=== PATIENT | male | born 1965 | race Caucasian/White ===

== ENCOUNTER → 2018-03-06 14:03 | Outpatient (CLI) | payer OTHER, SELFPAY ==
[2018-03-06 14:45] LABS: Blood Urea Nitrogen 16 mg/dL (7-18); Creatinine,Serum 1.01 mg/dL (0.70-1.30); Estimated Glomerular Filt Rate 78 ml/min (>60); GFR (African American) 95 ML/MIN (>60)
--- NOTE | 2018-03-06 14:57 | CT_ITS ---
CT abdomen w con CLINICAL INDICATION: Follow-up of abdominal mass, left upper quadrant mass ITS.REASON: ABDOMINAL MASS ORDERING PHYSICIAN: Virgilio Jenkins MD PATIENT AGE: 52 years COMPARISON: None TECHNIQUE: Axial images obtained with sagittal and coronal reformats. All CT scans at the facility use one or more dose reduction, viz: automated exposure control; ma/kV adjustment per patient size (including targeted exams where dose is matched to indication; i.e. head); or iterative reconstruction technique. PROCEDURE: Oral Contrast: None IV Contrast: 75 mL's of Isovue-370. FINDINGS: Lung bases are clear. The liver, gallbladder, adrenal glands, spleen, and pancreas have an unremarkable appearance. There is a small triangular-shaped soft tissue density once again noted medial to the medial aspect of the spleen which is somewhat less bulky when compared to the previous exam with a small fat density within the central aspect of the abnormality. No new nodules or masses are evident. Nonobstructing 2 mm stones lower and upper pole pole left kidney. Bilateral renal cysts are present. Small lymph nodes are present in the retroperitoneum nonspecific and unchanged. No intestinal obstruction or free air. No acute bony anomalies. IMPRESSION: 1. Soft tissue density in the left upper quadrant medial to the spleen is somewhat less apparent compared to the previous exam and may be due to a small area of extra medullary hematopoiesis or small lymph node. Consider continued one-year follow-up. 2. Nonobstructing left nephrolithiasis
== END ==
PROVIDERS: Family Provider Family Medicine; PCP Family Medicine; Visit Provider Family Medicine
DX: R19.02 Left upper quadrant abdominal swelling, mass and lump (principal)
CPT/HCPCS: 36415; 74160; 82565; 84520; Q9967

== ENCOUNTER → 2018-05-22 10:52 | Outpatient (CLI) | payer OTHER, SELFPAY ==
[2018-05-22 12:10] LABS: Basophils # 0.1 K/mm3 (0-0.2); Basophils % 0.8 % (0.1-2.0); Eosinophils # 0.2 K/mm3 (0.0-0.4); Eosinophils % 2.6 % (0.1-12.0); Hematocrit 52.8 % (42.0-52.0); Lymphocytes # 2.3 K/mm3 (0.7-4.5); Lymphocytes % 30.6 K/mm3 (10-50); Mean Corpuscular HGB Conc 32.3 g/dL (31.8-35.4); Mean Corpuscular Hemoglobin 27.4 pg (27.0-31.2); Mean Platelet Volume 8.3 fl (7.4-10.4); Monocytes # 0.5 K/mm3 (0.1-1.0); Monocytes % 6.4 % (1.7-9.3); Neutrophils # 4.5 K/mm3 (1.8-7.8); Neutrophils % 59.5 % (37.0-80.0); Platelet Count 273 K/mm3 (142-424); Red Blood Count 6.21 M/mm3 (4.60-6.20); Red Cell Distribution Width 12.2 % (11.5-17.5); White Blood Count 7.5 K/mm3 (4.8-10.8)
[2018-05-22 12:15] LABS: Hemoglobin A1C 7.4 % (0.0-7.0)
[2018-05-22 12:38] LABS: Alanine Aminotransferase 47 U/L (12-78); Albumin Level 4.3 gm/dL (3.4-5.0); Albumin/Globulin Ratio 1.6 (1.1-1.8); Alkaline Phosphatase 95 U/L (46-116); Anion Gap 18.4 mEq/L (5-15); Aspartate Amino Transferase 23 U/L (15-37); Bilirubin,Total 0.7 mg/dL (0.2-1.0); Blood Urea Nitrogen 15 mg/dL (7-18); Calcium 9.1 mg/dL (8.5-10.1); Carbon Dioxide 22 mmol/L (21.0-32.0); Chloride 105 mmol/L (98-107); Creatinine,Serum 0.96 mg/dL (0.70-1.30); Estimated Glomerular Filt Rate 83 ml/min (>60); GFR (African American) 100 ML/MIN (>60); Globulin 2.7 gm/dl (1.3-3.2); Glucose 216 mg/dL (74-106); Potassium 4.4 mmoL/L (3.5-5.1); Sodium 141 mmol/L (136-145); Troponin I < 0.02 ng/ml (0.00-0.06)
== END ==
PROVIDERS: Visit Provider Nurse Practitioner Family
DX: R07.89 Other chest pain (principal)
CPT/HCPCS: 36415; 80053; 83036; 84484; 85025; 93005

== ENCOUNTER → 2018-05-24 17:40 | Outpatient (CLI) | payer OTHER, SELFPAY | PROVIDERS: Visit Provider Family Medicine | DX: I48.0 Paroxysmal atrial fibrillation (principal) | CPT/HCPCS: 93225; 93226 ==

== ENCOUNTER → 2018-11-29 18:47 | Outpatient (CLI) | payer OTHER, SELFPAY ==
[2018-11-29 20:43] LABS: Alanine Aminotransferase 46 U/L (12-78); Albumin Level 4.4 gm/dL (3.4-5.0); Albumin/Globulin Ratio 1.7 (1.1-1.8); Alkaline Phosphatase 129 U/L (46-116); Aspartate Amino Transferase 16 U/L (15-37); Bilirubin,Total 0.5 mg/dL (0.2-1.0); Blood Urea Nitrogen 15 mg/dL (7-18); Calcium 9.4 mg/dL (8.5-10.1); Carbon Dioxide 26 mmol/L (21.0-32.0); Chloride 98 mmol/L (98-107); Chol/HDL Ratio 4.5 (1-3.5); Cholesterol 161 mg/dL (140-200); Creatinine,Serum 1.14 mg/dL (0.70-1.30); Estimated Glomerular Filt Rate 68 ml/min (>60); GFR (African American) 82 ML/MIN (>60); Globulin 2.6 gm/dl (1.3-3.2); Glucose 263 mg/dL (74-106); HDL Cholesterol 36 mg/dL (27-67); LDL Cholesterol 53 mg/dL (0-130); Sodium 137 mmol/L (136-145); Thyroid Stimulating Hormone 2.74 uIU/ml (0.358-3.740); Triglycerides 359 mg/dL (30-200); VLDL Cholesterol 72 mg/dL (0-40)
[2018-11-29 21:33] LABS: Hemoglobin A1C 8.9 % (0.0-7.0)
[2018-11-30 15:06] LABS: Prostate Specific Ag Screen 0.3 ng/mL (0.0-4.0)
== END ==
PROVIDERS: PCP Family Medicine; Visit Provider Family Medicine
DX: Z00.00 Encounter for general adult medical examination without abnormal findings (principal); Z12.5 Encounter for screening for malignant neoplasm of prostate; E11.9 Type 2 diabetes mellitus without complications
CPT/HCPCS: 36415; 80053; 80061; 83036; 84153; 84443; G0103

== ENCOUNTER → 2019-08-22 17:12 | Outpatient (CLI) | payer OTHER, SELFPAY ==
[2019-08-22 17:15] LABS: Adenovirus F 40/41, stool Not Detected (NotDetected); Astrovirus Not Detected (NotDetected); Clostridium Difficile A/B, PCR Not Detected (NotDetected); Cryptosporidium Not Detected (NotDetected); Cyclospora Cayetanesis Not Detected (NotDetected); Entamoeba histolytica Not Detected (NotDetected); Enteroaggregative E coli Not Detected (NotDetected); Enterotoxigenic E coli Not Detected (NotDetected); Giardia lamblia Not Detected (NotDetected); Norovirus Not Detected (NotDetected); Plesimonas Shigalloides, PCR Not Detected (NotDetected); Rotavirus A Not Detected (NotDetected); Salmonella, PCR Not Detected (NotDetected); Sapovirus Not Detected (NotDetected); Shiga-like toxin E coli Not Detected (NotDetected); Shigella Enterovasive E coli Not Detected (NotDetected); Vibrio Cholerae Not Detected (NotDetected); Vibrio, PCR Not Detected (NotDetected); Yersinia Entercolitica, PCR Not Detected (NotDetected)
[2019-08-22 22:19] LABS: Campylobacter Detected (NotDetected)
[2019-08-22 22:20] LABS: Enteropathogenic E coli Detected (NotDetected)
== END ==
LOC: LAB 17:13 → LAB.DROPOF 17:14
PROVIDERS: Visit Provider Family Medicine
DX: R19.7 Diarrhea, unspecified (principal); A04.72 Enterocolitis due to Clostridium difficile, not specified as recurrent; A04.0 Enteropathogenic Escherichia coli infection
CPT/HCPCS: 87507

== ENCOUNTER → 2020-07-03 14:36 | Outpatient (CLI) | payer OTHER, SELFPAY ==
--- NOTE | 2020-07-03 14:42 | XR_ITS ---
PROCEDURE: XR CERVICAL SPINE 2V CLINICAL INDICATION: CERVICAL DISC DISEASE Neck pain and numbness down the arms COMPARISON: CR [id number] CERVICAL SPINE-2 TO 3 VIEWS from 12/31/2015 FINDINGS: There is slight reversal of the cervical lordosis which could be due to patient positioning or muscle spasm. Mild multilevel degenerative disc disease is present at C2-C3 C3-C4 C4-C5 and C5-C6. Posterior soft tissue calcification noted at the C6 level. Carotid artery calcification is noted on the left. No lytic or blastic change. No acute fracture or dislocation. IMPRESSION: Cervical spondylosis with reversal of lordosis. The degenerative disc disease has progressed since 12/31/2015 Carotid artery calcification Dictated b Андрей Gutierrez MD 07/03/2020 15:06 Андрей Gutierrez MD in [place] 07/03/2020 15:06
== END ==
PROVIDERS: PCP Family Medicine; Visit Provider Physician Assistant
DX: M50.90 Cervical disc disorder, unspecified, unspecified cervical region (principal)
CPT/HCPCS: 72040

== ENCOUNTER 2020-07-07 17:59 | Emergency (ER) | payer OTHER, SELFPAY ==
[2020-07-07 18:20] VITALS: BP 145/88; PULSE 90; RESP 14; TEMP 36.9; O2SAT 96; BMI 30.3
--- NOTE | 2020-07-07 18:37 | HMH.EDUTC ---
[facility] [place] Disposition Clinical Impression: Otitis media Qualifiers: Otitis media type: suppurative Chronicity: acute Laterality: right Recurrence: non-recurrent Spontaneous tympanic membrane rupture: with spontaneous rupture Qualified Code(s): H66.011 - Acute suppurative otitis media with spontaneous rupture of ear drum, right ear Disposition: Home, Self-Care Condition on Discharge: Good Instructions: Middle Ear Infection Additional Instructions: Continue the antibiotics that you are on. Start the ear drops for your right ear. Follow up with your primary care provider. GO TO THE ER FOR ANY WORSENING SYMPTOMS OR CONCERNS Prescriptions: Ciprofloxacin HCl/Dexameth [Ciprodex Otic Suspension] 2 drops EAR-RIGHT BID #1 bottle Transmission Status: Received by [id number] Referrals: Jory Spicer PA [Primary Care Provider] - Time of Disposition: 18:45 Medical Decision Making - Medical Records Medical records reviewed: No: I reviewed the patient's medical records. - Brock Inquiry Pt receiving controlled substance: No Vital Signs: 07/07/20 18:20 07/07/20 18:48 Temperature 98.4 F 98.4 F Temperature Source Oral Pulse Rate 90 Pulse Rate [Right Brachial] 90 Respiratory Rate 14 14 Blood Pressure 145/88 H Blood Pressure [Right Arm] 145/88 H Blood Pressure Mean [Right Arm] 107 Blood Pressure Source [Right Arm] Automatic Cuff Blood Pressure Position [Right Arm] Sitting 02 Sat by Pulse Oximetry 96 Oxygen Delivery Method Room Air [facility] [place] HPI - General Stated complaint: R Ear pain Time Seen by Provider: 07/07/20 18:37 Mode of Arrival: Ambulatory Source of Information: Patient Limitations: No Limitations Description of Symptoms (Recalled from Triage Doc. by RN): PATIENT C/O RIGHT EAR PAIN AND DRAINAGE THAT STARTED TUESDAY HEENT Symptoms (Recalled from RN notes): Yes Resp Symptoms (Recalled from RN notes): No Skin Symptoms (Recalled from RN notes): No MS Symptoms (Recalled from RN notes): No Functional Status (Recalled from RN notes): WNL - History of Present Illness Provider Complaint: He is taking cefdinir for the past 4 days for an ear infection. He states that yesterday day he felt his rigth ear pop, then he started having a lot of drainage from the ear. He thinks that the ear drum may have busted. He is hearing ok with the ear. - Related Data Home Medications Medication Instructions Recorded Confirmed Aspirin [Aspir 81] 81 mg PO DAILY 05/28/18 09/30/18 Dapagliflozin Propanediol [Farxiga] 10 mg PO DAILY 05/28/18 09/30/18 Fenofibrate 160 mg PO DAILY 05/28/18 09/30/18 Ferrous Sulfate 325 mg PO DAILY 05/28/18 09/30/18 Flecainide Acetate [Tambocor 50mg 50 mg PO BID 05/28/18 09/30/18 tablet] Isosorbide Mononitrate [Imdur 30mg 30 mg PO DAILY 05/28/18 09/30/18 ER tablet] Krill/Om-3/Dha/Epa/Phospho/Ast 1 each PO DAILY 05/28/18 09/30/18 [Megared [place]-3 Krill Oil Sfgl] Metformin HCl [Glucophage 500mg 1,000 mg PO BID 05/28/18 09/30/18 Tablet] Omeprazole [Omeprazole 20mg 20 mg PO DAILY 05/28/18 09/30/18 Capsule] Rivaroxaban [Xarelto] 20 mg PO DAILY 05/28/18 09/30/18 Rosuvastatin Calcium [Crestor] 1 mg PO DAILY 05/28/18 09/30/18 dilTIAZem HCL [Diltiazem 24Hr ER] 120 mg PO DAILY 05/28/18 09/30/18 lisinopriL [Lisinopril 5mg Tablet] 5 mg PO DAILY 05/28/18 09/30/18 Previous Rx's Medication Instructions Recorded benzonatate 100 mg capsule 100 mg PO TID PRN #30 cap 09/30/18 loratadine 10 mg tablet 10 mg PO DAILY #30 tab 09/30/18 Ciprofloxacin HCl/Dexameth 2 drops EAR-RIGHT BID #1 bottle 07/07/20 [Ciprodex Otic Suspension] Allergies Allergy/AdvReac Type Severity Reaction Status Date / Time codeine Allergy Unknown Verified 03/25/19 16:55 penicillin V Allergy Unknown Verified 03/25/19 16:55 Penicillins Allergy Unknown Verified 03/25/19 16:55 meperidine [From Demerol] Allergy Verified 03/25/19 16:55 - Worker's Comp Is this a Worker's Comp case?: No [facility]
[2020-07-07 18:48] VITALS: BP 145/88; PULSE 90; RESP 14; TEMP 36.9; O2SAT 96
== END 2020-07-07 18:50 | disposition home or self-care (01) ==
PROVIDERS: Emergency Provider Nurse Practitioner Family; PCP Physician Assistant
DX: H66.011 Acute suppurative otitis media with spontaneous rupture of ear drum, right ear (principal); I10 Essential (primary) hypertension; I48.20 Chronic atrial fibrillation, unspecified; I25.2 Old myocardial infarction; E78.5 Hyperlipidemia, unspecified; E11.9 Type 2 diabetes mellitus without complications; Z79.899 Other long term (current) drug therapy; Z88.0 Allergy status to penicillin; Z88.5 Allergy status to narcotic agent
CPT/HCPCS: 99201

== ENCOUNTER → 2020-07-11 09:14 | Outpatient (CLI) | payer OTHER, SELFPAY ==
--- NOTE | 2020-07-11 09:21 | MR_ITS ---
PROCEDURE: MR CERVICAL SPINE WO CON CLINICAL INDICATION: CERVICAL DISC DISEASE NECK PAIN WITH PAIN IN LT SIDE OF CHEST AND LT SHOULDER. SYMPTOMS XYRS. 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 3-D MIP and myelographic images are also rendered and reviewed FINDINGS: Normal alignment. Craniocervical junction has an unremarkable. C2-C3: Unremarkable. C3-C4: Left-sided uncovertebral and facet hypertrophy with mild left lateral recess and foraminal narrowing. There is mild right foraminal narrowing. Not significantly changed C4-C5: There is some posterior ridging of the endplates with bulging disc and uncovertebral hypertrophy with narrowing of the canal. Mild bilateral lateral recess and uncovertebral hypertrophy slightly greater on the left compared to the right. These findings are slightly more prominent than when compared to the previous exam C5-C6: Mild bilateral foraminal narrowing. C6-C7: Unremarkable. C7-T1: Unremarkable IMPRESSION: 1. C3-C4: Left-sided uncovertebral and facet hypertrophy with mild left lateral recess and foraminal narrowing. There is mild right foraminal narrowing. Not significantly changed 2. C4-C5: There is some posterior ridging of the endplates with bulging disc and uncovertebral hypertrophy with narrowing of the canal. Mild bilateral lateral recess and uncovertebral hypertrophy slightly greater on the left compared to the right. These findings are slightly more prominent than when compared to the previous exam 3. No extruded herniated disc. Dictated by: Андрей Gutierrez MD 07/12/2020 08:38 Андрей Gutierrez MD in [place] 07/12/2020 08:38
--- NOTE | 2020-07-11 10:01 | CA_ITS ---
APPROVED REPORT Fabric Cutter: VINOD Laterality: Bilateral Risk Factors Hypertension: Hyperlipidemia Diabetes Doppler Spectral Velocity Analysis ECA (R) 137.10/16.30 cm/s ECA (L) 128.30/7.50 cm/s dICA (R) 90.80/34.30 cm/s dICA (L) 62.90/21.70 cm/s Alyx (R) 90.00/33.40 cm/s Alyx (L) 69.60/26.90 cm/s pICA (R) 71.10/24.00 cm/s pICA (L) 89.60/32.70 cm/s dCCA (R) 92.80/15.70 cm/s dCCA (L) 97.30/24.10 cm/s pCCA (R) 110.70/18.70 cm/s pCCA (L) 120.40/22.20 cm/s Vert (R) 39.80/10.90 cm/s Vert (L) 52.70/16.70 cm/s ICA/CCA 0.98 ICA/CCA 0.92 Findings Duplex evaluation demonstrates no evidence of hemodynamically significant stenosis of the right Internal Carotid Artery. Duplex evaluation demonstrates stenosis of the left proximal internal carotid artery <20%. Conclusion Duplex evaluation demonstrates no evidence of hemodynamically significant stenosis of the right Internal Carotid Artery. Duplex evaluation demonstrates stenosis of the left proximal internal carotid artery <20%. Electronically signed by : Андрей Gutierrez MD 07/11/2020 16:39:04
== END ==
PROVIDERS: PCP Physician Assistant; Visit Provider Physician Assistant
DX: M50.00 Cervical disc disorder with myelopathy, unspecified cervical region (principal)
CPT/HCPCS: 72141; 76376; 93880

== ENCOUNTER 2020-09-14 16:36 | Emergency (ER) | payer OTHER, MEDICAID, SELFPAY ==
[2020-09-14 16:37] VITALS: BP 142/71; PULSE 89; RESP 17; TEMP 36.6; O2SAT 98; BMI 31.1
--- NOTE | 2020-09-14 16:54 | HMH.EDGENADL ---
ED Disposition Clinical Impression: Subconjunctival bleed Qualifiers: Laterality: right Qualified Code(s): H11.31 - Conjunctival hemorrhage, right eye Disposition: Home, Self-Care Condition on Discharge: Good Additional Instructions: Please call your doctor tomorrow for further management. Keep taking your medications as prescribed. Avoid any additional nonsteroidal anti-inflammatory drugs and try to avoid any maneuvers such as sneezing and coughing that would increase intraocular pressure and could potentially make bleeding worse. Ophthalmology referral also provided if bleeding worsens. If any immediate changes to vision, worsening bleeding overnight, increased pain, or other concerning symptoms please immediately report back to our emergency department. [facility] phone number [phone] Referrals: Virgilio Jenkins MD [Primary Care Provider] - - Critical Care Critical Care Time: No Attestation: On 09/14/20, the high probability of a clinically significant, sudden or life threatening deterioration of the following system(s) required my full and direct attention, intervention and personal management. The time I documented below is in addition to time spent performing reported procedures but includes the following listed in this critical care notation. Medical Decision Making - Medical Records Medical records reviewed: Yes: I reviewed the patient's medical records. - Brock Inquiry Pt receiving controlled substance: No Vital Signs: 09/14/20 16:37 Temperature 97.9 F Temperature Source Temporal Artery Scan Pulse Rate [Right] 89 Respiratory Rate 17 Blood Pressure [Right Arm] 142/71 H Blood Pressure Mean [Right Arm] 94 02 Sat by Pulse Oximetry 98 Medical Decision Narrative: Patient presents with subconjunctival hemorrhage noted to right eye. No foreign body appreciated on lid eversion. No corneal abrasion/ulceration on fluorescein exam. No gross changes in visual acuity or visual field deficits. The bleeding does not cross the limbus. No pain on extraocular movements or overlying cellulitis. At this time, tetracaine drops given and he has had resolution of the gritty sensation. I do believe his subconjunctival hemorrhage is complicated by his Xarelto use but at this time I do not believe there is indication to hold his Xarelto. I instructed him to call his PCP tomorrow for further instructions and he may need follow-up with ophthalmology if this hemorrhage expands. He agrees. He will be discharged with instructions to continue taking his direct oral anticoagulant without any nonsteroidal anti-inflammatory drugs and to try to avoid any sneezing or coughing or any other maneuvers that will increase ocular pressure and make bleeding worse. Patient agrees. Patient will call his doctor first thing the morning. He will immediate return to our emergency department if worsening bleeding, vision changes, increased pain, other new concerning symptoms. Assessment: Subconjunctival hemorrhage, right eye Coronary disease on Xarelto Disposition: Home with PCP follow-up and ophthalmology referral if bleeding expands General Adult HPI - General Chief complaint: Eye Problems Stated complaint: AO 1016 FB in R Eye Time Seen by Provider: 09/14/20 16:54 Mode of Arrival: Ambulatory Limitations: No Limitations Description of Symptoms (Recalled from ER Triage Doc. by RN): possible foriegn body in the right eye - History of Present Illness HPI narrative: Patient 54-year-old male history of coronary disease on Xarelto presenting with right eye discoloration. Patient states Tuesday night he was taking a blanket down from his attic and felt something get into his right eye. He states he had an gritty sensation when he blinks ever since. He noted some bleeding to the right outer aspect of his eye yesterday night which is worsened this morning. He denies any vision changes, pain outside of that gritty
[2020-09-14 17:17] VITALS: BP 124/87; PULSE 87; RESP 18; TEMP 36.8; O2SAT 95
== END 2020-09-14 17:18 | disposition home or self-care (01) ==
PROVIDERS: Emergency Provider Emergency Medicine; PCP Family Medicine
DX: H11.31 Conjunctival hemorrhage, right eye (principal); E11.9 Type 2 diabetes mellitus without complications; I10 Essential (primary) hypertension; Z88.0 Allergy status to penicillin; Z88.5 Allergy status to narcotic agent; Z79.899 Other long term (current) drug therapy
CPT/HCPCS: 99281

== ENCOUNTER → 2020-09-29 14:22 | Outpatient (CLI) | payer OTHER, MEDICAID, SELFPAY ==
[2020-09-29 16:26] LABS: Blood Urea Nitrogen 19 mg/dl (9-20); Estimated Glomerular Filt Rate 78 ml/min (>60); GFR (African American) 95 ML/MIN (>60)
== END ==
PROVIDERS: Visit Provider Family Medicine
DX: R42 Dizziness and giddiness (principal)
CPT/HCPCS: 36415; 82565; 84520

== ENCOUNTER → 2020-09-30 14:34 | Outpatient (CLI) | payer OTHER, MEDICAID, SELFPAY ==
--- NOTE | 2020-09-30 14:38 | MR_ITS ---
PROCEDURE: MR HEAD/BRAIN WO/W CON CLINICAL INDICATION: VERTIGO Vertigo with nausea COMPARISON: No exams were available for comparison TECHNIQUE: Routine multiplanar multi echo sequences are performed without gadolinium enhancement. FINDINGS: No midline shift, mass effect, intracranial hemorrhage, or hydrocephalus is evident. The cerebellopontine angles, cerebellum, and brainstem have an unremarkable appearance. No evidence of acute infarction. Unremarkable white matter signal intensity. No enhancing lesions are evident. The hippocampal gyri are unremarkable in the temporal horns are symmetric. The pituitary, optic chiasm, corpus callosum, blanca, and craniocervical junction have an unremarkable appearance. No mastoid effusion or sinus air-fluid level. IMPRESSION: Negative MRI of the brain without and with contrast. No acute intracranial findings. Dictated by: Андрей Gutierrez MD 10/01/2020 13:52 Андрей Gutierrez MD in [place] 10/01/2020 13:52
== END ==
PROVIDERS: PCP Family Medicine; Visit Provider Family Medicine
DX: R42 Dizziness and giddiness (principal)
CPT/HCPCS: 70553; A9576

== ENCOUNTER → 2020-10-29 10:08 | Outpatient (CLI) | payer OTHER, MEDICAID, SELFPAY ==
--- NOTE | 2020-10-29 | CA_ITS ---
APPROVED REPORT Left Upper Extremity Venous Study for DVT. Internal Wholesaler: Lindsey Naidu RVT Indications Upper Extremity Pain: Left KNOT LT WRIST S/P LIFTING A GUN SAFE, BRUISING Risk Factors Trauma Medications PT ON XARELTO Vein Imaging IJV (L): Normal phasic flow is seen. Normal flow, augmentation and compression is seen. No evidence of Deep Vein Thrombosis. No abnormalities are demonstrated. SCV (L): Normal phasic flow is seen. Normal flow, augmentation and compression is seen. No evidence of Deep Vein Thrombosis. No abnormalities are demonstrated. Axillary (L): Normal phasic flow is seen. Normal flow, augmentation and compression is seen. No evidence of Deep Vein Thrombosis. No abnormalities are demonstrated. Brachial (L): Normal phasic flow is seen. Normal flow, augmentation and compression is seen. No evidence of Deep Vein Thrombosis. No abnormalities are demonstrated. Basilic (L): Compressible Cephalic (L): Compressible Radial (L): Compressible Ulnar (L): Compressible Findings Study suggests no evidence of DVT of the left upper extremity. Study suggests no evidence of SVT of the left upper extremity. 1.7 x 0.9 cm cystic lesion seen in area of palpable knot ,probable hematoma. Conclusion Study suggests no evidence of DVT of the left upper extremity. Study suggests no evidence of SVT of the left upper extremity. 1.7 x 0.9 cm cystic lesion seen in area of palpable knot ,probable hematoma. Critical Notification Physician Notified Date: 10/29/2020 Time: 11:19 Physician Name: Leighann Campa Electronically signed by : Андрей Gutierrez MD 10/29/2020 19:10:14
== END ==
PROVIDERS: PCP Nurse Practitioner Family; Visit Provider Nurse Practitioner Family
DX: R60.0 Localized edema (principal); M79.602 Pain in left arm
CPT/HCPCS: 93971

== ENCOUNTER 2020-11-23 11:03 | Emergency (ER) | payer OTHER, MEDICAID, SELFPAY ==
[2020-11-23 11:15] VITALS: BP 126/74; PULSE 79; RESP 19; TEMP 37; O2SAT 99; BMI 30.3
--- NOTE | 2020-11-23 11:18 | HMH.EDUTC ---
[facility] [place] Clinical Impression: Sinusitis Qualifiers: Sinusitis location: maxillary Chronicity: acute Recurrence: non-recurrent Qualified Code(s): J01.00 - Acute maxillary sinusitis, unspecified Disposition: Home, Self-Care Condition on Discharge: Good Instructions: DI for Sinusitis Additional Instructions: Follow up with Dr Jenkins if not improving Return for COVID19 testing if further symptoms develop Prescriptions: predniSONE [Prednisone 20mg Tab] 20 mg PO BID 5 Days #10 tab Transmission Status: Pending to [facility] Azithromycin [Z-Daryl 250mg Tab] 250 mg PO DIRECTED #6 tab Transmission Status: Pending to [facility] Referrals: Virgilio Jenkins MD [Primary Care Provider] - Time of Disposition: 11:24 Medical Decision Making - Brock Inquiry Pt receiving controlled substance: No [facility] [place] HPI - General Stated complaint: sinus infection Time Seen by Provider: 11/23/20 11:18 - History of Present Illness Provider Complaint: Sinus pain, pressure, itchy ears, scratchy throat X 2 days. No fever. No body aches or chills. No vomiting or diarrhea. No cough. No loss of taste or smell. No known exposure to COVID19. Onset (ago): day(s) (2) Location: face Quality: aching Relieving factors: none Exacerbating factors: none Associated symptoms: denies other symptoms Treatments prior to arrival: none - Related Data Home Medications Medication Instructions Recorded Confirmed Aspirin [Aspir 81] 81 mg PO DAILY 05/28/18 09/30/18 Dapagliflozin Propanediol [Farxiga] 10 mg PO DAILY 05/28/18 09/30/18 Fenofibrate 160 mg PO DAILY 05/28/18 09/30/18 Ferrous Sulfate 325 mg PO DAILY 05/28/18 09/30/18 Flecainide Acetate [Tambocor 50mg 50 mg PO BID 05/28/18 09/30/18 tablet] Isosorbide Mononitrate [Imdur 30mg 30 mg PO DAILY 05/28/18 09/30/18 ER tablet] Krill/Om-3/Dha/Epa/Phospho/Ast 1 each PO DAILY 05/28/18 09/30/18 [Megared [place]-3 Krill Oil Sfgl] Metformin HCl [Glucophage 500mg 1,000 mg PO BID 05/28/18 09/30/18 Tablet] Omeprazole [Omeprazole 20mg 20 mg PO DAILY 05/28/18 09/30/18 Capsule] Rivaroxaban [Xarelto] 20 mg PO DAILY 05/28/18 09/30/18 Rosuvastatin Calcium [Crestor] 1 mg PO DAILY 05/28/18 09/30/18 dilTIAZem HCL [Diltiazem 24Hr ER] 120 mg PO DAILY 05/28/18 09/30/18 lisinopriL [Lisinopril 5mg Tablet] 5 mg PO DAILY 05/28/18 09/30/18 Previous Rx's Medication Instructions Recorded benzonatate 100 mg capsule 100 mg PO TID PRN #30 cap 09/30/18 loratadine 10 mg tablet 10 mg PO DAILY #30 tab 09/30/18 Ciprofloxacin HCl/Dexameth 2 drops EAR-RIGHT BID #1 bottle 07/07/20 [Ciprodex Otic Suspension] Azithromycin [Z-Daryl 250mg Tab] 250 mg PO DIRECTED #6 tab 11/23/20 predniSONE [Prednisone 20mg 20 mg PO BID 5 Days #10 tab 11/23/20 Tab] Allergies Allergy/AdvReac Type Severity Reaction Status Date / Time codeine Allergy Unknown Verified 03/25/19 16:55 penicillin V Allergy Unknown Verified 03/25/19 16:55 Penicillins Allergy Unknown Verified 03/25/19 16:55 meperidine [From Demerol] Allergy Verified 03/25/19 16:55 [facility] History - Hepatitis A Screen Attestation statement:: This patient has been screened for Hepatitis A risk factors. I have reviewed the patient's past medical history: Yes Medical History: Reports:: Diabetes Mellitus Type 1, Diabetes Mellitus Type 2 Denies:: Internal Pacemaker Other Surgeries: No: Pacemaker Amputation: No Fractures: No - Social History Smoking Status: Never smoker Alcohol Intake: never Occupational Status: other Family Hx:: Hypertension, Cancer, Diabetes, Heart Attack ROS Obtained: Yes All systems reviewed & no additional complaints - Constitutional Constitutional: Denies body ache, Denies chills, Denies fever(s), Reports headache(s) - ENT Ears, Nose, Mouth, and Throat: Reports otalgia, Reports nasal congestion, Reports sinus pain, Reports sore throat - Respiratory Respiratory: No cough - Gastrointestin
[2020-11-23 11:31] VITALS: BP 126/74; PULSE 79; RESP 19; TEMP 37; O2SAT 99
== END 2020-11-23 11:32 | disposition home or self-care (01) ==
PROVIDERS: Emergency Provider Physician Assistant; PCP Family Medicine
DX: J01.00 Acute maxillary sinusitis, unspecified (principal); E11.9 Type 2 diabetes mellitus without complications; I10 Essential (primary) hypertension; Z79.899 Other long term (current) drug therapy; Z88.0 Allergy status to penicillin; Z88.5 Allergy status to narcotic agent
CPT/HCPCS: 99201

== ENCOUNTER 2020-11-30 09:25 | Emergency (ER) | payer OTHER, MEDICAID, SELFPAY ==
[2020-11-30 09:30] VITALS: BP 133/91; PULSE 88; RESP 20; TEMP 36.7; O2SAT 95; BMI 30.3
--- NOTE | 2020-11-30 09:55 | HMH.EDUTC ---
[facility] [place] Clinical Impression: Sinusitis Qualifiers: Sinusitis location: maxillary Chronicity: acute Recurrence: recurrent Qualified Code(s): J01.01 - Acute recurrent maxillary sinusitis Disposition: Home, Self-Care Condition on Discharge: Good Instructions: Sinusitis, DI for Sinusitis Additional Instructions: Start antibiotic patient to take as ordered for a full length of time even if you feel better. Sinus infections do not get better overnight. It may take 2-3 days to notice much improvement so be sure to use conservative measures as discussed for symptoms. Flonase 1 spray each nostril daily to help with nasal congestion, sinus and ear pressure/information Increase fluids Humidifier/vaporizer as needed Tylenol and ibuprofen as needed for fever or pain. If symptoms do not improve or get worse return or be seen in the ER Follow-up with primary care this week self isolate until covid results are known Prescriptions: cephALEXin [Keflex 500mg Cap] 500 mg PO BID 10 Days #20 cap Transmission Status: Pending to [facility] Benzonatate [Tessalon Perle 100mg Cap*] 100 mg PO BID PRN 7 Days #14 cap PRN Reason: Cough [facility]: [facility] Referrals: Virgilio Jenkins MD [Primary Care Provider] - Forms: Work/School Release Time of Disposition: 10:02 Medical Decision Making - Brock Inquiry Pt receiving controlled substance: No Vital Signs: 11/30/20 09:30 Temperature 98.0 F Temperature Source Oral Pulse Rate [Right Brachial] 88 Respiratory Rate 20 Blood Pressure [Right Arm] 133/91 H Blood Pressure Mean [Right Arm] 105 Blood Pressure Source [Right Arm] Automatic Cuff Blood Pressure Position [Right Arm] Sitting 02 Sat by Pulse Oximetry 95 Oxygen Delivery Method Room Air Orders (Tests/Meds): ORDERS Category Date Time Status Covid-19 Nasal PCR ([facility]) Routine Lab 11/30/20 09:40 Received Medical Decision Narrative: pt states he has taken keflex in past and tolerated well [facility] [place]PI - General Chief complaint: Urgent Treatment Center Stated complaint: sinus pain Time Seen by Provider: 11/30/20 09:55 Mode of Arrival: Ambulatory Source of Information: Patient Limitations: No Limitations Description of Symptoms (Recalled from Triage Doc. by RN): PATIENT WAS TREATED FOR A SINUS INFECTION LAST WEEK. HE STATES HE IS NOT FEELING ANY BETTER. C/O PRODUCTIVE COUGH WITH YELLOW SPUTUM, LOW-GRADE FEVER, AND NAUSEA. HEENT Symptoms (Recalled from RN notes): No Resp Symptoms (Recalled from RN notes): Yes Skin Symptoms (Recalled from RN notes): No MS Symptoms (Recalled from RN notes): No Functional Status (Recalled from RN notes): WNL - History of Present Illness Provider Complaint: 55 yr old male presents for sinus pressure,low grade fever and coughing up yellow sputum. pt states he was seen in [facility] last week and placed on antibiotic but does not feel better and now has a cough. - Related Data Home Medications Medication Instructions Recorded Confirmed Aspirin [Aspir 81] 81 mg PO DAILY 05/28/18 09/30/18 Dapagliflozin Propanediol [Farxiga] 10 mg PO DAILY 05/28/18 09/30/18 Fenofibrate 160 mg PO DAILY 05/28/18 09/30/18 Ferrous Sulfate 325 mg PO DAILY 05/28/18 09/30/18 Flecainide Acetate [Tambocor 50mg 50 mg PO BID 05/28/18 09/30/18 tablet] Isosorbide Mononitrate [Imdur 30mg 30 mg PO DAILY 05/28/18 09/30/18 ER tablet] Krill/Om-3/Dha/Epa/Phospho/Ast 1 each PO DAILY 05/28/18 09/30/18 [Megared [place]-3 Krill Oil Sfgl] Metformin HCl [Glucophage 500mg 1,000 mg PO BID 05/28/18 09/30/18 Tablet] Omeprazole [Omeprazole 20mg 20 mg PO DAILY 05/28/18 09/30/18 Capsule] Rivaroxaban [Xarelto] 20 mg PO DAILY 05/28/18 09/30/18 Rosuvastatin Calcium [Crestor] 1 mg PO DAILY 05/28/18 09/30/18 dilTIAZem HCL [Diltiazem 24Hr ER] 120 mg PO DAILY 05/28/18 09/30/18 lisinopriL [Lisinopril 5mg Tablet] 5 mg PO DAILY 05/28/18 09/30/18 Previous Rx's Medication Instructions
[2020-11-30 10:05] VITALS: BP 133/91; PULSE 88; RESP 20; TEMP 36.7; O2SAT 95
--- NOTE | 2020-11-30 18:42 | PC.NURSE ---
patient notified of positive covid results
[2020-11-30 21:22] LABS: UTC Influenza A Antigen Negative (Negative)
[2020-11-30 21:23] LABS: UTC Influenza B Antigen Negative (Negative)
== END 2020-11-30 10:08 | disposition home or self-care (01) ==
PROVIDERS: Emergency Provider Nurse Practitioner Family; PCP Family Medicine
DX: U07.1 COVID-19 (principal); J01.01 Acute recurrent maxillary sinusitis; I10 Essential (primary) hypertension; E11.9 Type 2 diabetes mellitus without complications; Z88.0 Allergy status to penicillin; Z88.5 Allergy status to narcotic agent; Z79.899 Other long term (current) drug therapy
CPT/HCPCS: 87804; 99202; G0463; U0003

== ENCOUNTER → 2020-12-03 11:46 | Outpatient (CLI) | payer OTHER, SELFPAY ==
--- NOTE | 2020-12-03 11:49 | XR_ITS ---
PROCEDURE: XR CHEST PORTABLE CLINICAL HISTORY: COVID OUTPATIENT COMPARISON: CR CXR CHEST(2 VIEWS-NOT PORTABLE) from 04/07/2015 CR CXR1 CHEST-PORTABLE from 09/19/2016 CR CXR2V XR chest 2V from 05/28/2018 FINDINGS: The cardiomediastinal silhouette and pulmonary vascularity are within normal limits. Patchy infiltrate is present in the right lower lobe. No acute bony abnormalities. IMPRESSION: Right lower lobe pneumonia Dictated by: Андрей Gutierrez MD 12/03/2020 13:20 Андрей Gutierrez MD in [place] 12/03/2020 13:20
== END ==
PROVIDERS: PCP Family Medicine; Visit Provider Physician Assistant
DX: U07.1 COVID-19 (principal)
CPT/HCPCS: 71045

== ENCOUNTER 2021-04-01 11:17 | Observation (INO) | payer OTHER, SELFPAY ==
[2021-04-01] VITALS (20 sets, daily range): BP systolic 109–153; BP diastolic 64–86; PULSE 78–137; RESP 14–24; TEMP 36.6–38.9; O2SAT 93–99; BMI 30.9; BMI 31.1
--- NOTE | 2021-04-01 11:25 | ECG_ITS ---
APPROVED REPORT Exam: Resting ECG HR:130 bpm ECG Measurements Heart Rate 130 AXES QRSd 90 QRS -5 QT 302 T 6 QTc 444 Conclusion Atrial fibrillation with rapid ventricular response Nonspecific ST and T wave abnormality, probably electrolyte or rate effect Abnormal ECG Electronically signed by : Jose Khan, 04/01/2021 16:56:06
--- NOTE | 2021-04-01 11:29 | HMH.EDGENADL ---
ED Disposition Clinical Impression: Rapid atrial fibrillation Fever Qualifiers: Fever type: unspecified Qualified Code(s): R50.9 - Fever, unspecified Chest pain Qualifiers: Chest pain type: unspecified Qualified Code(s): R07.9 - Chest pain, unspecified Disposition: Admitted as Observation Condition on Discharge: Fair Referrals: Virgilio Jenkins MD [Primary Care Provider] - - Critical Care Critical Care Time: Yes Attestation: On 04/01/21, the high probability of a clinically significant, sudden or life threatening deterioration of the following system(s) required my full and direct attention, intervention and personal management. The time I documented below is in addition to time spent performing reported procedures but includes the following listed in this critical care notation. Total Critical Care Time: 35 Vital system(s) involved:: Circulatory Failure My critical care processes included: Assessment & monitoring of V/S, Initial and Re-exams, Data Review/Interpretation, Coordinating Care, Medication Orders and management, Documentation Medical Decision Making - Medical Records Medical records reviewed: Yes: I reviewed the patient's medical records. MR Comment: Admitted here in 2015 for atrial fibrillation. - Brock Inquiry Pt receiving controlled substance: No Vital Signs: 04/01/21 11:18 04/01/21 11:31 04/01/21 11:55 Temperature 102.1 F H Temperature Source Oral Pulse Rate 108 H 109 H Pulse Rate [Radial] 137 H Respiratory Rate 22 16 16 Blood Pressure 152/78 H 109/73 L Blood Pressure [Right Arm] 153/85 H Blood Pressure Mean 103 86 Blood Pressure Mean [Right Arm] 107 Blood Pressure Position [Right Arm] Sitting 02 Sat by Pulse Oximetry 95 97 97 Oxygen Delivery Method Room Air - Lab Data Lab Results 04/01/21 11:32: WBC 11.5 H, RBC 5.96, Hgb 17.3, Hct 50.2, MCV 84.2, MCH 29.0, MCHC 34.5, RDW 12.7, Plt Count 207, MPV 8.9, Neut % (Auto) 90.1 H, Lymph % (Auto) 4.7 L, [place] % (Auto) 4.3, Eos % (Auto) 0.5, Baso % (Auto) 0.4, Neut # (Auto) 10.4 H, Lymph # (Auto) 0.5 L, [place] # (Auto) 0.5, Eos # (Auto) 0.1, Baso # (Auto) 0.1, Total Counted 100, Neutrophils % (Manual) 89 H, Lymphocytes % (Manual) 6 L, Monocytes % (Manual) 5, Platelet Estimate Normal, RBC Morphology Normal 04/01/21 11:32: Sodium 133 L, Potassium 3.9, Chloride 100, Carbon Dioxide 20 L, Anion Gap 16.9 H, BUN 11, Creatinine 1.00, Estimated Creat Clear 129, Estimated GFR 78, Est GFR ( Amer) 95, Glucose 235 H, Calcium 9.8, Troponin I < 0.01 04/01/21 11:32: Total Bilirubin 0.8, Direct Bilirubin 0.3, Conjugated Bilirubin 0.0, Indirect Bilirubin 0.5, Unconjugated Bilirubin 0.4, AST 38, ALT 47, Alkaline Phosphatase 88, Total Protein 7.7, Albumin 5.1 H 04/01/21 11:32: Lactate 2.9 H 04/01/21 11:32: D-Dimer 0.39 Result diagrams: 04/01/21 11:32 04/01/21 11:32 Orders (Tests/Meds): ED MEDICATIONS Generic Name Dose Route Start Last Admin Trade Name Freq PRN Reason Stop Dose Admin Diltiazem HCl 100 mg/ Sodium 100 mls @ 5 mls/hr 04/01/21 11:53 04/01/21 11:55 Chloride IV 05/01/21 11:52 5 mls/hr .Q20H DARIO Administration Protocol Discontinued Medications Generic Name Dose Route Start Last Admin Trade Name Freq PRN Reason Stop Dose Admin Acetaminophen 1,000 mg 04/01/21 11:35 04/01/21 11:55 Acetaminophen 500mg Tab PO 04/01/21 11:36 1,000 mg ONCE ONE Administration Diltiazem HCl 10 mg 04/01/21 11:38 04/01/21 11:55 Diltiazem 25mg/5ml Vial IV 04/01/21 11:39 10 mg ONCE ONE Administration Diltiazem HCl 10 mg 04/01/21 12:24 04/01/21 12:30 Diltiazem 25mg/5ml Vial IV 04/01/21 12:25 10 mg ONCE ONE Administration ORDERS Category Date Time Status Cardiology Consult [Consult to Cardiology] [CONS] Cons 04/01/21 12:32 Active Routine Troponin I Q3H Lab 04/01/21 14:45 Ordered Troponin I Q3H Lab 04/01/21 17:45 Ordered Urinalysis and Microscopic Stat Lab 04/01/21 11:39 Ordered
--- NOTE | 2021-04-01 11:34 | XR_ITS ---
PROCEDURE: XR CHEST PORTABLE CLINICAL HISTORY: chest pain COMPARISON: CR CXR1 CHEST-PORTABLE from 09/19/2016 CR CXR2V XR chest 2V from 05/28/2018 CR XR CHEST PORTABLE from 12/03/2020 FINDINGS: The cardiomediastinal silhouette and pulmonary vascularity are within normal limits. The lungs are clear without infiltrates, suspicious nodules, or pleural effusions. No acute bony abnormalities. IMPRESSION: No acute findings. Dictated by: Андрей Gutierrez MD 04/01/2021 11:54 Андрей Gutierrez MD in [place] 04/01/2021 11:54
[2021-04-01 11:48] LABS: Basophils # 0.1 K/mm3 (0-0.2); Basophils % 0.4 % (0.1-2.0); Eosinophils # 0.1 K/mm3 (0.0-0.4); Eosinophils % 0.5 % (0.1-12.0); Hematocrit 50.2 % (42.0-52.0); Hemoglobin 17.3 g/dL (14.1-18.0); Lymphocytes # 0.5 K/mm3 (0.7-4.5); Lymphocytes % 4.7 % (10-50); Mean Corpuscular HGB Conc 34.5 g/dL (31.8-35.4); Mean Corpuscular Volume 84.2 fl (80-94); Mean Platelet Volume 8.9 fl (7.4-10.4); Monocytes # 0.5 K/mm3 (0.1-1.0); Monocytes % 4.3 % (1.7-9.3); Neutrophils # 10.4 K/mm3 (1.8-7.8); Neutrophils % 90.1 % (37.0-80.0); Platelet Count 207 K/mm3 (142-424); Red Blood Count 5.96 M/mm3 (4.60-6.20); Red Cell Distribution Width 12.7 % (11.5-17.5); White Blood Count 11.5 K/mm3 (4.8-10.8)
[2021-04-01 11:55] LABS: Chloride 100 mmol/L (98-107)
[2021-04-01 11:56] LABS: MANUAL DIFFERENTIAL MANUAL DIFFERENTIAL (MANUAL DIFF); Potassium 3.9 mmoL/L (3.5-5.1); Sodium 133 mmol/L (136-145)
[2021-04-01 11:59] LABS: Alanine Aminotransferase 47 U/L (12-78); Alkaline Phosphatase 88 U/L (38-126); Anion Gap 16.9 mEq/L (5-15); Aspartate Amino Transferase 38 U/L (17-59); Bilirubin,Direct 0.3 mg/dl (0.0-0.4); Bilirubin,Indirect 0.5 mg/dL (0.0-0.9); Bilirubin,Total 0.8 mg/dl (0.2-1.3); Bilirubin,Unconjugated 0.4 mg/dL (0.0-1.1); Blood Urea Nitrogen 11 mg/dl (9-20); Calcium 9.8 mg/dl (8.4-10.2); Carbon Dioxide 20 mmol/L (22.0-30.0); Creatinine Clearance Estimated 129 mL/min (50-200); Estimated Glomerular Filt Rate 78 ml/min (>60); GFR (African American) 95 ML/MIN (>60); Glucose 235 mg/dl (74-100)
[2021-04-01 12:00] LABS: Albumin Level 5.1 g/dl (3.5-5.0); Total Protein,Serum 7.7 g/dl (6.3-8.2)
[2021-04-01 12:04] LABS: D-Dimer 0.39 ug/mL (0.0-0.5)
[2021-04-01 12:08] LABS: Lymphocytes % 6 % (10-50); Monocytes % 5 % (2-9); Neutrophils % 89 % (42-76); Platelet Estimate Normal; RBC Morphology Normal; Total Cells Counted 100
[2021-04-01 12:12] LABS: Lactic Acid 2.9 mmol/L (0.7-2.1)
[2021-04-01 12:14] LABS: Troponin I < 0.01 ng/ml (0.00-0.034)
--- NOTE | 2021-04-01 12:15 | PC.NURSE ---
diltiazem increased to 10mg/hr at this time
--- NOTE | 2021-04-01 12:44 | PC.NURSE ---
Calling Dr Jenkins
--- NOTE | 2021-04-01 13:00 | PC.NURSE ---
Leighann Spicer here to see pt.
--- NOTE | 2021-04-01 13:30 | PC.NURSE ---
report called to floor
--- NOTE | 2021-04-01 14:00 | PC.NURSE ---
family and pt updated on plan of care
--- NOTE | 2021-04-01 14:11 | HMH.HP ---
*Admission Date: 04/01/21 <Jory Spicer 04/01/21 14:20> *Chief complaint: chest pain, heart racing <Jory Spicer 04/01/21 14:20> *History of present illness: Mr. Bonds is a 55-year-old male with a history of coronary artery disease, myocardial infarction with multiple stents placed, atrial fibrillation currently on Xarelto, type 2 diabetes, hypertension, hyperlipidemia, GERD, and Covid in 2020. The patient called the office a week ago concerned about getting his second Covid vaccine. After his first vaccine, he developed a rapid heart rate, shortness of breath, fever, and body aches which lasted approximately 36 hours. He had chest pain as well and felt horrible. 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 He contacted Dr. Lei who told him it was fine to get the second Covid vaccine. He received his second vaccine yesterday and this morning, approximately 10 hours later, he began having left anterior chest pain, a rapid heartbeat he thinks up to 200 bpm, decreased oxygen saturations, and a fever of 102. He presented to the emergency room for evaluation and treatment. He is switching cardiologists and had an appointment to see Dr. Boyle for the first time this coming Tuesday. He has been started on a diltiazem drip and cardiology will be consulted. <Jory Spicer 04/01/21 14:20> [facility] History I have reviewed the patient's past medical history: Yes <Jory Spicer 04/01/21 14:20> Medical History: Reports:: Atrial Fibrillation, Coronary Artery Disease, Diabetes Mellitus Type 1, Diabetes Mellitus Type 2, Gastroesophageal Reflux Disease(GERD), Hyperlipidemia, Hypertension, Myocardial Infarction Denies:: Internal Pacemaker <Jory Spicer 04/01/21 15:17> *Have you ever received a pneumonia vaccine?: No <Jory Spicer 04/01/21 14:20> *Have you received a flu vaccine this season?: Yes <Jory Spicer 04/01/21 14:20> Other Medical History: Reports: Other (Sleep apnea, Covid 2020) <Jory Spicer 04/01/21 15:17> Other Surgeries: Yes: Cardiac Catheterization, Colonoscopy, Coronary Stent, Other (Left thumb surgery). No: Pacemaker <DannielleJory - 04/01/21 15:17> Amputation: No <DannielleJory - 04/01/21 14:20> Fractures: No <DannielleJory - 04/01/21 14:20> - *Social History Smoking Status: Never smoker <DannielleJory 04/01/21 14:20> Alcohol Intake: never <DannielleJory - 04/01/21 14:20> *Occupational Status:: other <DannielleJory - 04/01/21 14:20> *Travel in the last 8 weeks: None <DannielleJory - 04/01/21 17:04> Family Hx:: Hypertension, Cancer, Diabetes, Heart Attack <DannielleJory - 04/01/21 14:20> Review of Systems - Constitutional Reports body ache(s), Reports chills, Reports fever(s) <DannielleJory - 04/01/21 14:20> - Eyes Denies blurry vision, Denies double vision <DannielleJory - 04/01/21 14:20> - ENT Denies nasal congestion, Denies sore throat <DannielleJory - 04/01/21 14:20> - *Cardiovascular Reports chest pain, Reports shortness of breath <DannielleJory - 04/01/21 14:20> - *Respiratory Reports cough, Reports shortness of breath <DannielleJory - 04/01/21 14:20> - *Gastrointestinal Reports abdominal pain (LUQ), Denies loose stools, Denies nausea, Denies vomiting <DannielleJory 04/01/21 14:20> - *Genitourinary Denies difficulty urinating, Denies painful urination <DannielleJory - 04/01/21 14:20> - *Musculoskeletal Reports body aches, Denies joint pain <DannielleJory - 04/01/21 14:20> - *Neurologic Reports headache(s), Reports dizziness, Reports weakness <DannielleJory 04/01/21 14:20> Meds Home Medications Medication Instructions Recorded Confirmed Type Aspirin [Aspir 81] 81 mg PO DAILY 05/28/18 04/01/21 History Fenofibrate 160 mg PO DAILY 05/28/18 04/01/21 History Ferrous Sulfate 325 mg PO DAILY 05/28/18 04/01/21 History Krill/Om-3/Dha/Epa/Phospho/Ast 1 each PO
[2021-04-01 15:41] LABS: Reflex Lactic Add Lactic Reflex
[2021-04-01 15:41] LABS: Troponin I 0.01 ng/ml (0.00-0.034)
--- NOTE | 2021-04-01 15:54 | HMH.CNCARD ---
History of Present Illness Consult date: 04/01/21 Requesting physician: Jairo Rock Consult reason: chest pain, atrial fibrillation Chief complaint: afib with RVR, CP History of present illness: Mr. Salas is a 55-year-old gentleman who presented to the emergency department with complaints of atrial fibrillation with RVR and chest pain. He has a history of coronary artery disease with 14 heart cath in the past per the patient's report, [place], multiple stents placed, atrial fibrillation, diabetes, hypertension, and hyperlipidemia. The patient states that he had Covid back in November of this year and since that time he has been short of breath. He states that his shortness of breath is worse with exertion and does improve with rest. He states that this has been ongoing since he had because it and been getting worse. He states that he had his first Moderna Covid vaccination a few weeks ago and developed a rapid heart rates, shortness of breath, fever, body aches and diaphoresis that lasted for 36 hours. He states at that time his heart rate jumped up into the 160s and had chest pain and just did not feel well. He states that he knew the symptoms and after 36 hours the symptoms resolved he states prior to getting the second Moderna Covid vaccination he called Dr. 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 He received his second vaccination yesterday evening and then around 5 AM this morning he started to have sudden onset of chest pain, rapid heart rate with a heart rate in the 160s and decreased oxygen saturations. He also had a fever of 102. The patient states that he had sharp pain in the left side of his chest. It did not radiate. It was associated with shortness of breath and the rapid heart rate. He states that this was severe. It was worse with exertion and nothing was helping to improve his symptoms. He was also diaphoretic. The patient states that he decided to come into the emergency department because of the severity of his symptoms. He actually had an appointment with Dr. SHAYNE Boyle Tuesday to switch his cardiology care here to [facility]. Once the patient got to the emergency department he was found to be in atrial fibrillation with RVR. He has been started on the diltiazem drip and his heart rate is down in the 90s he states that his chest pain has improved but has not completely resolved. He states that he has not really had any issues with his atrial fibrillation in the last 8 to 9 years. [facility] History I have reviewed the patient's past medical history: Yes Medical History: Reports:: Atherosclerotic Heart Disease, Atrial Fibrillation, Coronary Artery Disease, Diabetes Mellitus Type 1, Diabetes Mellitus Type 2, Gastroesophageal Reflux Disease(GERD), Hyperlipidemia, Hypertension, Myocardial Infarction Denies:: Internal Pacemaker *Have you ever received a pneumonia vaccine?: No *Have you received a flu vaccine this season?: Yes Other Medical History: Reports: Other (Sleep apnea, Covid 2020) Other Surgeries: Yes: Cardiac Catheterization, Colonoscopy, Coronary Stent, Other (Left thumb surgery). No: Pacemaker Amputation: No Fractures: No - *Social History Smoking Status: Never smoker Alcohol Intake: never *Occupational Status:: other *Travel in the last 8 weeks: None Family Hx:: Hypertension, Cancer, Diabetes, Heart Attack Meds Home Medications Medication Instructions Recorded Confirmed Type Aspirin [Aspir 81] 81 mg PO DAILY 05/28/18 04/01/21 History Fenofibrate 160 mg PO DAILY 05/28/18 04/01/21 History Ferrous Sulfate 325 mg PO DAILY 05/28/18 04/01/21 History Krill/Om-3/Dha/Epa/Phospho/Ast 1 each PO DAILY 05/28/18 04/01/21 History [[place]-3 Krill Oil Sfgl] Metformin HCl [Glucophage 500mg 1,000 mg PO BID 05/28/18 04/01/21 History Tablet] Omeprazole [Omeprazole 20mg 20 mg PO DAILY 05/28/18 04/01/21 History Capsule] María
--- NOTE | 2021-04-01 16:18 | P.CONPHA_ITS ---
[facility] Pharmacy VTE Monitoring - Patient Demographics Admission date: 04/01/21 Report Date: 04/01/21 Time: 16:18 Allergies/Adverse Reactions: Patient Allergies codeine Allergy (Unknown, Verified 03/25/19 16:55) penicillin V Allergy (Unknown, Verified 03/25/19 16:55) Penicillins Allergy (Unknown, Verified 03/25/19 16:55) meperidine [From Demerol] Allergy (Verified 03/25/19 16:55) Height: 1.83 m Weight: 104.128 kg Patient Problems: Current Active Problems Chest pain (Acute) Rapid atrial fibrillation (Acute) Fever (Acute) Adverse reaction to vaccine (Acute) Coronary artery disease (Chronic) Type 2 diabetes mellitus (Chronic) Hypertension (Chronic) Hyperlipidemia (Chronic) Sleep apnea (Chronic) History of COVID-19 (Chronic) SOB (shortness of breath) (Acute) - VTE Risk Labs: VTE Related Lab Results Hgb 17.3 g/dL (14.1-18.0) 04/01/21 11:32 Hct 50.2 % (42.0-52.0) 04/01/21 11:32 Plt Count 207 K/mm3 (142-424) 04/01/21 11:32 BUN 11 mg/dl (9-20) 04/01/21 11:32 Creatinine 1.00 mg/dl (0.66-1.25) 04/01/21 11:32 Estimated Creat Clear 129 mL/min (50-200) 04/01/21 11:32 - Prophylaxis VTE Prophylaxis Ordered?: Yes Types of VTE Prophylaxis: TEDS Knee High, Pharmacological Location of Applied Device: Bilateral Lower Extremeties Pharmacologic Type: Other (XARELTO)
--- NOTE | 2021-04-01 16:54 | PC.NURSE ---
HR 90s. Diltiazem gtt decreased to 5mg/hr.
[2021-04-01 17:16] LABS: POC Glucose,Bedside 161 (70-110)
[2021-04-01 18:46] LABS: Troponin I < 0.01 ng/ml (0.00-0.034)
[2021-04-01 19:18] LABS: Microscopic, Urine URINE MICROSCOPIC (MICROSCOPIC)
[2021-04-01 19:19] LABS: Appearance,Urine CLEAR (Clear); Bilirubin,Urine Negative (Negative); Blood, Urine Negative (Negative); Color,Urine YELLOW (Yellow); Glucose,Urine (UA) 3+ (Negative); Ketones,Urine 1+ (Negative); Leukocyte Esterase,Urine Negative (Negative); Nitrate,Urine Negative (Negative); Protein,Urine Negative (Negative)
[2021-04-01 19:34] LABS: Bacteria,Urine 1+ /lpf
--- NOTE | 2021-04-01 21:06 | PC.NURSE ---
patient sustained sr in the 80s and 90s since 1829, dr. koroma notified. new orders received and carried out. cardizem drip stopped and po cardizem began.
[2021-04-02] VITALS (9 sets, daily range): BP systolic 98–129; BP diastolic 49–76; PULSE 78–110; RESP 16–18; TEMP 36.6–39.3; O2SAT 93–97; BMI 31.4
--- NOTE | 2021-04-02 | CA_ITS ---
APPROVED REPORT Exam: Pharmacologic Technologist: Keri Naylor, Ht: 6 ft 0 in Wt: 231 lbs BSA: 2.27 m2 HR: 95 bpm BP: 121/75 mmHg Medical History Medications: Lisinopril,,,,, Omeprazole,,,,, Aspirin,,,,, Metformin,,,,, Ferrous sulfate,,,,, Crestor,,,,, XaRELTO,,,,, FeNOfibrate,,,,, DilTAiazem,,,,, Stress Test Details Test: LEXISCAN HR Resting HR: 97 bpm Max Heart Rate (APMHR): 167.444673 bpm Max HR Achieved: 110 bpm Target HR (85% APMHR): 141.079605 bpm % of APMHR: 65.87 Recovery HR: 99 bpm BP Resting BP: 121/75 mmHg Max BP: 143/73 mmHg Recovery BP: 133.0/71.0 mmHg ECG Resting ECG: NSR, ST-T abns inferiorly Clinical Exercise duration: 04:00 min Highest Stage Achieved: Stress ECG Conclusion Symptoms: Mild SOA and chest pressure. Arrhythmias/Ectopy: None ST-T Changes: Nonspecific T wave changes. Conclussion: Unremakable Lexiscan stress. Myoview images reported separately. Test Summary RECOVERY 04:00 . . 99 . 133/ 71 . . REST 02:26 . . 97 . 121/ 75 . . Stage 1 . . . . . . . Cardiolite injected Stage 1 01:00 . . 105 . . . . Stage 2 01:00 . . 108 . 133/ 68 . . Stage 3 01:00 . . 104 . 143/ 73 . . Stage 4 01:00 . . 103 . 141/ 74 . Stop exercise at 04:00 RECOVERY 01:00 . . 106 . . . . RECOVERY 02:00 . . 102 . 115/ 71 . . RECOVERY 03:00 . . 98 . 133/ 71 . . RECOVERY 04:00 . . 99 . 133/ 71 . . RECOVERY 04:23 . . 99 . 133/ 71 . . Electronically signed by : Jimmy Boyle, 04/02/2021 14:55:02
[2021-04-02 00:01] LABS: POC Glucose,Bedside 195 (70-110)
[2021-04-02 05:41] LABS: POC Glucose,Bedside 132 (70-110)
--- NOTE | 2021-04-02 06:00 | NM_ITS ---
APPROVED REPORT Exam: Nuclear Stress Test Indication: Chest pain Patient Location: Inpatient Stress Tech: Keri Naylor [place] Tech:CHRIS Lai RT(R)(N) Ht: 6 ft 0 in Wt: 231 lbs HR: 95 bpm BP: 121/75 mmHg BSA: 2.27 m2 Rhythm: Atrial Fibrillation BMI: 0.2 History: CAD, HTN, D.M., C.P., PALPITATIONS, A-FIB H/O COVID Procedure: Patient received a 0.4 mg of intravenous Lexiscan, resting heart rate 98 bpm, resting blood pressure 121/75 mmHg, with Lexiscan maximum heart rate achived was 107 bpm which is Less than 85 % of the maximum predicted heart rate and blood pressure was 143/73 mmHg. CHEST PRESSURE Electrocardiogram Resting electrocardiogram sinus rhythm nonspecific ST-T changes, with Lexiscan less than 1.[address] segment depression noted from the baseline EKG. The EKG portion of the Lexiscan is nondiagnostic. Cardiac Stress and Resting SPECT Images: Cardiac Stress and Resting SPECT images were obtained using technetium 99m Myoview 32.8 mCi stress and 10.86 mCi at rest. Gated SPECT for analysis of segmental wall motion and calculation of the ejection fraction also done. Cardiac stress no suspect images show fixed defect involving the inferior wall with normal contractility gated SPECT is likely secondary to soft tissue attenuation, no reversible ischemia seen. Computer derived ejection fraction is 55% with no regional wall motion abnormality, right ventricle is normal size and contractility. Conclusion: 1. The EKG portion of the Lexiscan is nondiagnostic. 2. No scintigraphic evidence of reversible ischemia seen, computer derived ejection fraction 55% with no regional wall motion abnormality, right ventricle is normal size and contractility. 3. Likely normal Lexiscan Myoview study. Electronically signed by : Jimmy Boyle, 04/02/2021 14:58:59
[2021-04-02 06:55] LABS: Basophils # 0.1 K/mm3 (0-0.2); Basophils % 0.8 % (0.1-2.0); Eosinophils % 0.1 % (0.1-12.0); Hematocrit 44.2 % (42.0-52.0); Lymphocytes # 1.4 K/mm3 (0.7-4.5); Lymphocytes % 20.5 % (10-50); Mean Corpuscular HGB Conc 35.1 g/dL (31.8-35.4); Mean Corpuscular Hemoglobin 29.3 pg (27.0-31.2); Mean Corpuscular Volume 83.3 fl (80-94); Monocytes # 0.5 K/mm3 (0.1-1.0); Monocytes % 7.6 % (1.7-9.3); Neutrophils # 4.8 K/mm3 (1.8-7.8); Neutrophils % 71.1 % (37.0-80.0); Platelet Count 179 K/mm3 (142-424); Red Blood Count 5.31 M/mm3 (4.60-6.20); White Blood Count 6.7 K/mm3 (4.8-10.8)
[2021-04-02 07:08] LABS: Anion Gap 13.6 mEq/L (5-15); Blood Urea Nitrogen 10 mg/dl (9-20); Carbon Dioxide 21 mmol/L (22.0-30.0); Chloride 103 mmol/L (98-107); Cholesterol 145 mg/dl (140-200); Creatinine Clearance Estimated 127 mL/min (50-200); Estimated Glomerular Filt Rate 78 ml/min (>60); GFR (African American) 95 ML/MIN (>60); Glucose 128 mg/dl (74-100); HDL Cholesterol 29 mg/dl (40-60); Potassium 3.6 mmoL/L (3.5-5.1); Sodium 134 mmol/L (136-145); Triglycerides 322 mg/dl (30-150); VLDL Cholesterol 64 mg/dL (0-40)
[2021-04-02 07:35] LABS: Calcium 8.7 mg/dl (8.4-10.2)
[2021-04-02 07:55] LABS: Thyroid Stimulating Hormone 0.94 uIU/mL (0.465-4.68)
[2021-04-02 07:56] LABS: Hemoglobin 15.5 g/dL (14.1-18.0)
--- NOTE | 2021-04-02 08:51 | HMH.ACPN2 ---
<Jory Spicer - Last Filed: 04/02/21 08:51> Internal Medicine - PN: Subj *Date: 04/02/21 *Time: 08:51 Interval history: Patient is feeling better today. He converted to sinus rhythm last night and has remained in sinus rhythm throughout the night. He did spike a fever last night, but it normalized with medication. He denies any chest pain or shortness of breath this morning. His body aches have improved. Exam Vital signs and Labs for Last 24 Hours: Temp Pulse Resp BP Pulse Ox 97.8 F 87 16 129/76 96 04/02/21 04:00 04/02/21 06:00 04/02/21 06:00 04/02/21 06:00 04/02/21 06:00 Laboratory Results - last 24 hr 04/01/21 11:32: WBC 11.5 H, RBC 5.96, Hgb 17.3, Hct 50.2, MCV 84.2, MCH 29.0, MCHC 34.5, RDW 12.7, Plt Count 207, MPV 8.9, Neut % (Auto) 90.1 H, Lymph % (Auto) 4.7 L, [place] % (Auto) 4.3, Eos % (Auto) 0.5, Baso % (Auto) 0.4, Neut # (Auto) 10.4 H, Lymph # (Auto) 0.5 L, [place] # (Auto) 0.5, Eos # (Auto) 0.1, Baso # (Auto) 0.1, Total Counted 100, Neutrophils % (Manual) 89 H, Lymphocytes % (Manual) 6 L, Monocytes % (Manual) 5, Platelet Estimate Normal, RBC Morphology Normal 04/01/21 11:32: Sodium 133 L, Potassium 3.9, Chloride 100, Carbon Dioxide 20 L, Anion Gap 16.9 H, BUN 11, Creatinine 1.00, Estimated Creat Clear 129, Estimated GFR 78, Est GFR ( Amer) 95, Glucose 235 H, Calcium 9.8, Troponin I < 0.01 04/01/21 11:32: Total Bilirubin 0.8, Direct Bilirubin 0.3, Conjugated Bilirubin 0.0, Indirect Bilirubin 0.5, Unconjugated Bilirubin 0.4, AST 38, ALT 47, Alkaline Phosphatase 88, Total Protein 7.7, Albumin 5.1 H 04/01/21 11:32: Lactate 2.9 H 04/01/21 11:32: D-Dimer 0.39 04/01/21 14:43: Troponin I 0.01 04/01/21 16:37: Lactate 2.0 04/01/21 16:43: POC Glucose 161 H 04/01/21 17:50: Troponin I < 0.01 04/01/21 19:05: Urine Color Yellow, Urine Appearance Clear, Urine pH 7.0, Ur Specific Emblem 1.010, Urine Protein Negative, Urine Glucose (UA) 3+, Urine Ketones 1+, Urine Blood Negative, Urine Nitrate Negative, Urine Bilirubin Negative, Urine Urobilinogen 1.0, Ur Leukocyte Esterase Negative, Urine RBC 5-10, Urine WBC 3-5, Ur Squamous Epith Cells 3-5, Urine Bacteria 1+ 04/01/21 20:23: POC Glucose 195 H 04/02/21 05:01: POC Glucose 132 H 04/02/21 05:48: TSH 0.94 04/02/21 05:48: WBC 6.7 D, RBC 5.31, Hgb 15.5 D, Hct 44.2, MCV 83.3, MCH 29.3, MCHC 35.1, RDW 13.0, Plt Count 179, MPV 9.0, Neut % (Auto) 71.1, Lymph % (Auto) 20.5, [place] % (Auto) 7.6, Eos % (Auto) 0.1, Baso % (Auto) 0.8, Neut # (Auto) 4.8, Lymph # (Auto) 1.4, [place] # (Auto) 0.5, Eos # (Auto) 0.0, Baso # (Auto) 0.1 04/02/21 05:48: Sodium 134 L, Potassium 3.6, Chloride 103, Carbon Dioxide 21 L, Anion Gap 13.6, BUN 10, Creatinine 1.00, Estimated Creat Clear 127, Estimated GFR 78, Est GFR ( Amer) 95, Glucose 128 H D, Calcium 8.7 D, Triglycerides 322 H, Cholesterol 145, LDL Cholesterol Direct 53.20 L, VLDL Cholesterol 64 H, HDL Cholesterol 29 L, Cholesterol/HDL Ratio 5.0 H I & O for Last 24 hours: Intake & Output 03/30/21 03/31/21 04/01/21 05/06/21 11:59 11:59 11:59 11:59 Intake Total 632 / 632 Output Total 1100 / 1100 Balance -468 / -468 Weight 235 lb 231 lb 9.6 oz Microbiology Reports for the Last 24 Hours: Microbiology 04/01/21 13:57 Nasopharyngeal Coronavirus COVID-19 PCR - Final - Constitutional no acute distress - *Routine Respiratory Exam Present: CTA bilaterally - *Routine Cardiovascular Exam Present: RRR - *Routine Abdominal Exam Present: soft, normoactive bowel sounds. Absent: tenderness - *Routine Extremities Exam Absent: cyanosis, clubbing, edema - *Routine Skin Exam Present: warm. Absent: rash - *Routine Neurological Exam Present: alert, oriented X3 Assessment and Plan (1) Rapid atrial fibrillation Status: Acute Category: Medical Code(s): I48.91 - Unspecified atrial fibrillation (2) Chest pain Status: Acute Qualifiers: Chest pain type: unspecified Qualified Code(s): R07.9 - Chest pain
--- NOTE | 2021-04-02 11:09 | HMH.ITSHM ---
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 []fenofibrate omeprazole metformin asp
[2021-04-02 13:03] LABS: Free T4 (Free Thyroxine) 0.94 ng/dl (0.78-2.19)
--- NOTE | 2021-04-02 13:48 | HMH.PHAINT ---
MEDICATION RECONCILIATION COMPLETED ON PATIENT USING EXTERNAL FILL HISTORY FROM PHARMACY AND LIST FROM [facility] OFFICE. -[facility] PRINCED
--- NOTE | 2021-04-02 15:51 | HMH.PNCARD ---
Subjective Date: 04/02/21 Time: 15:51 Principal diagnosis: A. fib with RVR Interval history: 55-year-old white male in bed in no acute distress. Stress test shows no evidence of ischemia with preserved ejection fraction and soft tissue attenuation likely due to diaphragmatic attenuation. Patient has maintained sinus rhythm on the increase diltiazem. Exam Vital signs and Labs for Last 24 Hours: Temp Pulse Resp BP Pulse Ox 97.8 F 78 18 116/74 96 04/02/21 04:00 04/02/21 12:00 04/02/21 12:00 04/02/21 12:00 04/02/21 12:00 Laboratory Results - last 24 hr 04/01/21 16:37: Lactate 2.0 04/01/21 16:43: POC Glucose 161 H 04/01/21 17:50: Troponin I < 0.01 04/01/21 19:05: Urine Color Yellow, Urine Appearance Clear, Urine pH 7.0, Ur Specific [place] 1.010, Urine Protein Negative, Urine Glucose (UA) 3+, Urine Ketones 1+, Urine Blood Negative, Urine Nitrate Negative, Urine Bilirubin Negative, Urine Urobilinogen 1.0, Ur Leukocyte Esterase Negative, Urine RBC 5-10, Urine WBC 3-5, Ur Squamous Epith Cells 3-5, Urine Bacteria 1+ 04/01/21 20:23: POC Glucose 195 H 04/02/21 05:01: POC Glucose 132 H 04/02/21 05:48: Free T4 0.94 04/02/21 05:48: TSH 0.94 04/02/21 05:48: WBC 6.7 D, RBC 5.31, Hgb 15.5 D, Hct 44.2, MCV 83.3, MCH 29.3, MCHC 35.1, RDW 13.0, Plt Count 179, MPV 9.0, Neut % (Auto) 71.1, Lymph % (Auto) 20.5, [place] % (Auto) 7.6, Eos % (Auto) 0.1, Baso % (Auto) 0.8, Neut # (Auto) 4.8, Lymph # (Auto) 1.4, [place] # (Auto) 0.5, Eos # (Auto) 0.0, Baso # (Auto) 0.1 04/02/21 05:48: Sodium 134 L, Potassium 3.6, Chloride 103, Carbon Dioxide 21 L, Anion Gap 13.6, BUN 10, Creatinine 1.00, Estimated Creat Clear 127, Estimated GFR 78, Est GFR ( Amer) 95, Glucose 128 H D, Calcium 8.7 D, Triglycerides 322 H, Cholesterol 145, LDL Cholesterol Direct 53.20 L, VLDL Cholesterol 64 H, HDL Cholesterol 29 L, Cholesterol/HDL Ratio 5.0 H I & O for Last 24 hours: Intake & Output 03/31/21 04/01/21 04/02/21 04/03/21 11:59 11:59 11:59 11:59 Intake Total 632 / 632 Output Total 1100 / 1100 Balance -468 / -468 Weight 235 lb 231 lb 9.6 oz Microbiology Reports for the Last 24 Hours: Microbiology 04/01/21 13:57 Nasopharyngeal Coronavirus COVID-19 PCR - Final - Constitutional no acute distress - *Routine HEENT Exam Head: Present: normocephalic Eye: Present: EOMI, PERRL ENT: Present: mucous membranes moist - *Routine Neck Exam Present: supple. Absent: lymphadenopathy - *Routine Respiratory Exam Present: CTA bilaterally - *Routine Cardiovascular Exam Present: RRR - *Routine Abdominal Exam Present: soft, normoactive bowel sounds. Absent: tenderness - *Routine Extremities Exam Absent: cyanosis, clubbing, edema - *Routine Skin Exam Present: warm. Absent: rash - *Routine Neurological Exam Present: alert, oriented X3 Progress Note: A&P (1) Rapid atrial fibrillation Status: Acute (2) Chest pain Status: Acute (3) Adverse reaction to vaccine Status: Acute (4) Fever Status: Acute (5) Coronary artery disease Status: Chronic (6) Type 2 diabetes mellitus Status: Chronic (7) Hypertension Status: Chronic (8) Hyperlipidemia Status: Chronic (9) Sleep apnea Status: Chronic (10) History of COVID-19 Status: Chronic Assessment and Plan for All Diagnoses:: Okay from cardiology standpoint for discharge home. Resume home medications with the exception of increasing his diltiazem to either 120 mg twice daily or 240 mg once daily. He will cancel his appointment with Dr. BELLA tomorrow and move it out to 1 to 2 weeks.
--- NOTE | 2021-04-02 16:07 | CA_ITS ---
APPROVED REPORT EXAM: Comprehensive 2D, Doppler, and color-flow Echocardiogram Medication Aid: Lindsey Naidu RVT Ht: 6 ft 0 in Wt: 229lbs BSA: 2.26 BP: 137/75 mmHg Indications: SOA,A-FIB POST COVID VACCINE,HX IA, STENTS,HTN,HLD,CP,HX COVID 2D Dimensions LVOT 2.08 cm (M/F) 1.5-2.5 LA Volume 21.10 mL LA Volume Index 9.37 mL/m2 (M/F) 16-34 M-Mode Dimensions RVDd 2.08 cm (0.9-2.6) LA Diam 4.20 cm (1.9-4.0) LVDd 4.96 cm (3.5-5.7) Ao Diam 2.83 cm (2.0-3.7) LVDs 3.48 cm (3.5-5.7) IVSd 1.36 cm (0.6-1.1) PWd 1.19 cm (0.6-1.1) EF (Teich) 56.80% FS 29.80% EDV (Teich) 116.10 mL TAPSE 2.43 (<1.7) ESV (Teich) 50.20 mL LV Diastology E Decel Time 150.00 (160-240 msec) E/A Ratio 1.5 MED E' 8.90 (< 7 cm/sec) E'/MED E' Ratio 11.83 (>14) LAT E' 12.10 (<10 cm/sec) E/LAT E' Ratio 8.70 (>14) Aortic Valve AO Peak GR. 7.30 mmHg Mitral Valve MV E Max Oziel. 105.00 (40-130 cm/s) MV A Velocity 69.00 (40-130 cm/s) E/A Ratio 1.53 MV Decel. Time 150.00 (160-240 ms) MV PHT 44.00 ms Pulmonary Valve PV Peak Velocity 83.00 (50-150 cm/s) Tricuspid Valve TR P. Velocity 276.00 cm/s RAP Estimate 10.00 mmHg RVSP 40.50 mmHg Left Ventricle Left atrium is normal size, left ventricle is normal size, preserved left ventricular systolic function, visually estimated ejection fraction 50% with no regional wall motion abnormality, diastolic parameters are within normal range. Right Ventricle Right atrium and right ventricle are normal size and contractility. Aortic Valve Aortic valve is minimally thickened and fibrosed, there is no aortic stenosis or aortic insufficiency. Mitral Valve Mitral valve is grossly normal, there is trace mitral regurgitation. Tricuspid Valve Tricuspid valve grossly normal, there is trace tricuspid regurgitation. Tricuspid regurgitation jet velocity is inadequate for calculation of the right ventricular systolic pressure. Pulmonic Valve Pulmonic valve is poorly visualized. Great Vessels Aortic root is normal size. Pericardium No significant pericardial effusion noted. Conclusion 1. Normal left ventricular size, preserved left ventricular systolic function, visually estimated ejection fraction 55% with no regional wall motion abnormality, diastolic parameters are within normal range. 2. Trace mitral and tricuspid regurgitation. 3. No significant pericardial effusion noted. Electronically signed by : Jimmy Boyle, 04/02/2021 16:53:09
[2021-04-02 21:38] LABS: POC Glucose,Bedside 134 (70-110)
--- NOTE | 2021-04-03 19:52 | HMH.DCSUM ---
General - General Admission date:: 04/01/21 Discharge date: 04/02/21 HPI HPI: Mr. Bonds is a 55-year-old male with a history of coronary artery disease, myocardial infarction with multiple stents placed, atrial fibrillation currently on Xarelto, type 2 diabetes, hypertension, hyperlipidemia, GERD, and Covid in 2020. The patient called the office a week ago concerned about getting his second Covid vaccine. After his first vaccine, he developed a rapid heart rate, shortness of breath, fever, and body aches which lasted approximately 36 hours. He had chest pain as well and felt horrible. 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 He contacted Dr. Lei who told him it was fine to get the second Covid vaccine. He received his second vaccine yesterday and this morning, approximately 10 hours later, he began having left anterior chest pain, a rapid heartbeat he thinks up to 200 bpm, decreased oxygen saturations, and a fever of 102. He presented to the emergency room for evaluation and treatment. He is switching cardiologists and had an appointment to see Dr. Boyle for the first time this coming Tuesday. He has been started on a diltiazem drip and cardiology will be consulted. Hospital Course Hospital Course: The patient was admitted and started on a diltiazem drip, which decreased his heart rate. Cardiology was consulted and ordered an echo and a stress test. His echo and stress test results were normal. He did convert to sinus rhythm and remained in sinus rhythm. His Cardizem drip was discontinued and he was switched to an increased dose of oral diltiazem. He was stable to be discharged and will follow up with Dr. Boyle in 1 to 2 weeks. Objective Vital signs: Temp Pulse Resp BP Pulse Ox 97.8 F 110 H 18 116/74 96 04/02/21 04:00 04/02/21 16:00 04/02/21 12:00 04/02/21 12:00 04/02/21 12:00 Narrative: - Constitutional Comments: Does not appear to feel well, diaphoretic - *Routine HEENT Exam Head: Present: normocephalic Eye: Present: EOMI, PERRL ENT: Present: mucous membranes dry - *Routine Neck Exam Present: supple. Absent: carotid bruit, lymphadenopathy - *Routine Respiratory Exam Present: CTA bilaterally - *Routine Cardiovascular Exam Present: irregularly irregular - *Routine Abdominal Exam Present: soft, normoactive bowel sounds, tenderness (mild in the left upper quadrant) - *Routine Rectal Exam Rectal:: deferred - *Routine Genitalia Exam Genitalia:: deferred - *Routine Extremities Exam Absent: cyanosis, clubbing, edema - *Routine Skin Exam Present: warm. Absent: rash - *Routine Neurological Exam Present: alert, oriented X3 Results Labs on day of discharge: Labs from last 24 hours 04/02/21 12:17 POC Glucose 134 H Preliminary micro results at discharge 04/01/21 12:32 Blood Culture - Preliminary Blood NO GROWTH AFTER 48 HOURS 04/01/21 12:32 Blood Culture - Preliminary Blood NO GROWTH AFTER 48 HOURS DS: Diagnosis - Discharge Diagnosis (1) Rapid atrial fibrillation Status: Acute (2) Chest pain Status: Acute (3) Adverse reaction to vaccine Status: Acute (4) Fever Status: Acute (5) Coronary artery disease Status: Chronic (6) Type 2 diabetes mellitus Status: Chronic (7) Hypertension Status: Chronic (8) Hyperlipidemia Status: Chronic (9) Sleep apnea Status: Chronic (10) History of COVID-19 Status: Chronic Discharge Plan - Patient Discharge Instructions Patient Instructions: DI for Atypical Chest Pain, DI for Chronic Pain -- Adult, DI for Acute Pain -- Adult, DI for Chest Pain - Follow up Plan Follow up with: Virgilio Jenkins MD [Primary Care Provider] - 2 weeks (call for appointment) Jimmy Boyle MD [Staff Physician] - 1 week (Call
== END 2021-04-02 16:56 | disposition home or self-care (01) ==
LOC: ER 13:09 → 2ND 17:11
PROVIDERS: Nurse Practitioner Family; Admitting Provider Family Medicine; Emergency Provider Emergency Medicine; PCP Family Medicine; Visit Provider Family Medicine
DX: I48.91 Unspecified atrial fibrillation (principal); I25.10 Atherosclerotic heart disease of native coronary artery without angina pectoris; I25.2 Old myocardial infarction; Z95.5 Presence of coronary angioplasty implant and graft; Z79.01 Long term (current) use of anticoagulants; I11.0 Hypertensive heart disease with heart failure; E78.5 Hyperlipidemia, unspecified; Z86.16 Personal history of COVID-19; T50.Z95A Adverse effect of other vaccines and biological substances, initial encounter
CPT/HCPCS: 36415; 71045; 78452; 80048; 80061; 80076; 81001; 82962; 83605; 84439; 84443; 84484; 85007; 85025; 85378; 87040; 93005; 93017; 93306; 96365; 96367; 96375; 96376; 99282; A9502; G0378; J2785; U0003

== ENCOUNTER → 2021-04-17 11:32 | Outpatient (CLI) | payer OTHER, SELFPAY ==
[2021-04-17 12:03] LABS: Basophils # 0.1 K/mm3 (0-0.2); Basophils % 0.7 % (0.1-2.0); Eosinophils # 0.1 K/mm3 (0.0-0.4); Eosinophils % 1.6 % (0.1-12.0); Hematocrit 47.5 % (42.0-52.0); Hemoglobin 15.9 g/dL (14.1-18.0); Lymphocytes # 2.7 K/mm3 (0.7-4.5); Lymphocytes % 32.9 % (10-50); Mean Corpuscular HGB Conc 33.5 g/dL (31.8-35.4); Mean Corpuscular Hemoglobin 28.5 pg (27.0-31.2); Mean Platelet Volume 8.2 fl (7.4-10.4); Monocytes # 0.5 K/mm3 (0.1-1.0); Monocytes % 5.6 % (1.7-9.3); Neutrophils % 59.3 % (37.0-80.0); Platelet Count 313 K/mm3 (142-424); Red Blood Count 5.58 M/mm3 (4.60-6.20); Red Cell Distribution Width 12.9 % (11.5-17.5); White Blood Count 8.4 K/mm3 (4.8-10.8)
[2021-04-17 13:22] LABS: Alanine Aminotransferase 38 U/L (12-78); Albumin Level 4.8 g/dl (3.5-5.0); Albumin/Globulin Ratio 2.2 (1.1-1.8); Alkaline Phosphatase 85 U/L (38-126); Anion Gap 17.2 mEq/L (5-15); Aspartate Amino Transferase 30 U/L (17-59); Bilirubin,Total 0.7 mg/dl (0.2-1.3); Blood Urea Nitrogen 16 mg/dl (9-20); Calcium 9.4 mg/dl (8.4-10.2); Carbon Dioxide 18 mmol/L (22.0-30.0); Chloride 108 mmol/L (98-107); Estimated Glomerular Filt Rate 88 ml/min (>60); GFR (African American) 107 ML/MIN (>60); Globulin 2.2 g/dL (1.3-3.2); Glucose 138 mg/dl (74-100); Iron 93 ug/dL (49-181); Potassium 4.2 mmoL/L (3.5-5.1); Sodium 139 mmol/L (136-145)
[2021-04-17 13:30] LABS: NT Pro Brain Natriuretic Pep. 160 pg/mL (0-125)
[2021-04-17 13:37] LABS: 25-OH Vitamin D, Total 30.6 ng/mL (30-100)
[2021-04-17 13:51] LABS: Thyroid Stimulating Hormone 1.91 uIU/mL (0.465-4.68)
[2021-04-17 14:11] LABS: Vitamin B12 363 pg/mL (239-931)
[2021-04-17 14:46] LABS: Total Iron Binding Capacity 383 ug/dL (261-462)
[2021-04-17 15:13] LABS: Ferritin 303 ng/ml (17.9-464)
== END ==
PROVIDERS: Visit Provider Physician Assistant
DX: R06.02 Shortness of breath (principal); R53.83 Other fatigue; R20.2 Paresthesia of skin; D50.9 Iron deficiency anemia, unspecified; W57.XXXA Bitten or stung by nonvenomous insect and other nonvenomous arthropods, initial encounter
CPT/HCPCS: 36415; 80053; 82306; 82607; 82728; 83540; 83550; 83880; 84443; 85025; 86618

== ENCOUNTER → 2021-05-25 14:48 | Outpatient (CLI) | payer OTHER, SELFPAY | PROVIDERS: PCP Family Medicine; Visit Provider Physician Assistant | DX: R06.02 Shortness of breath (principal) | CPT/HCPCS: 94060; 94640; 94726; 94729 ==

== ENCOUNTER → 2021-06-23 17:22 | Outpatient (CLI) | payer OTHER, SELFPAY | PROVIDERS: PCP Family Medicine; Visit Provider Family Medicine | DX: G47.33 Obstructive sleep apnea (adult) (pediatric) (principal); I10 Essential (primary) hypertension; R06.83 Snoring; R53.83 Other fatigue | CPT/HCPCS: 95806 ==

== ENCOUNTER 2021-07-27 09:26 | Emergency (ER) | payer OTHER, SELFPAY ==
[2021-07-27] VITALS (7 sets, daily range): BP systolic 110–140; BP diastolic 67–96; PULSE 72–90; RESP 12–17; TEMP 36.7–36.9; O2SAT 93–96; BMI 31.1
--- NOTE | 2021-07-27 09:19 | ECG_ITS ---
APPROVED REPORT Exam: Resting ECG HR:99 bpm ECG Measurements Heart Rate 99 AXES QRSd 82 QRS 37 QT 320 T 20 QTc 410 Conclusion Atrial fibrillation Abnormal ECG Electronically signed by : Jose Khan MD 07/28/2021 12:07:37
--- NOTE | 2021-07-27 09:29 | XR_ITS ---
PROCEDURE: XR CHEST PORTABLE CLINICAL HISTORY: chest pain COMPARISON: CR CXR2V XR chest 2V from 05/28/2018 CR XR CHEST PORTABLE from 12/03/2020 CR XR CHEST PORTABLE from 04/01/2021 FINDINGS: The cardiomediastinal silhouette and pulmonary vascularity are within normal limits. The lungs are clear without infiltrates, suspicious nodules, or pleural effusions. No acute bony abnormalities. IMPRESSION: No acute findings. Dictated by: Андрей Gutierrez MD 07/27/2021 09:52 Андрей Gutierrez MD in [place] 07/27/2021 09:52
[2021-07-27 09:41] LABS: Basophils # 0.1 K/mm3 (0-0.2); Basophils % 1.2 % (0.1-2.0); Eosinophils # 0.5 K/mm3 (0.0-0.4); Eosinophils % 5.1 % (0.1-12.0); Hematocrit 49.7 % (42.0-52.0); Hemoglobin 16.5 g/dL (14.1-18.0); Lymphocytes % 20.4 % (10-50); Mean Corpuscular HGB Conc 33.2 g/dL (31.8-35.4); Mean Corpuscular Hemoglobin 29.4 pg (27.0-31.2); Mean Corpuscular Volume 88.5 fl (80-94); Mean Platelet Volume 9.2 fl (7.4-10.4); Monocytes # 0.5 K/mm3 (0.1-1.0); Monocytes % 5.5 % (1.7-9.3); Neutrophils # 6.6 K/mm3 (1.8-7.8); Neutrophils % 67.7 % (37.0-80.0); Platelet Count 268 K/mm3 (142-424); Red Blood Count 5.61 M/mm3 (4.60-6.20); Red Cell Distribution Width 12.8 % (11.5-17.5); White Blood Count 9.7 K/mm3 (4.8-10.8)
[2021-07-27 09:51] LABS: D-Dimer 0.26 ug/mL (0.0-0.5)
[2021-07-27 09:53] LABS: Alanine Aminotransferase 36 U/L (12-78); Albumin Level 4.4 g/dl (3.5-5.0); Albumin/Globulin Ratio 1.7 (1.1-1.8); Alkaline Phosphatase 88 U/L (38-126); Anion Gap 14.1 mEq/L (5-15); Aspartate Amino Transferase 33 U/L (17-59); Bilirubin,Total 0.6 mg/dl (0.2-1.3); Blood Urea Nitrogen 15 mg/dl (9-20); Calcium 9.2 mg/dl (8.4-10.2); Carbon Dioxide 21 mmol/L (22.0-30.0); Chloride 104 mmol/L (98-107); Creatinine Clearance Estimated 156 mL/min (50-200); Estimated Glomerular Filt Rate 101 ml/min (>60); GFR (African American) 122 ML/MIN (>60); Globulin 2.6 g/dL (1.3-3.2); Glucose 215 mg/dl (74-100); Potassium 4.1 mmoL/L (3.5-5.1); Sodium 135 mmol/L (136-145)
[2021-07-27 09:57] LABS: INR 1.11 (0.9-1.1)
[2021-07-27 10:06] LABS: Troponin I < 0.01 ng/ml (0.00-0.034)
[2021-07-27 10:08] LABS: Magnesium 1.6 mg/dl (1.6-2.3)
--- NOTE | 2021-07-27 10:17 | HMH.EDGENADL ---
ED Disposition Clinical Impression: Atrial fibrillation with RVR Disposition: Home, Self-Care Condition on Discharge: Good Prescriptions: dilTIAZem HCL [Cardizem 60mg tab] 60 mg PO ONCE PRN #10 tab PRN Reason: tachycardia Transmission Status: Pending to [id number] Referrals: Provider,Referral, [Referring] - - Critical Care Critical Care Time: No Attestation: On 07/27/21, the high probability of a clinically significant, sudden or life threatening deterioration of the following system(s) required my full and direct attention, intervention and personal management. The time I documented below is in addition to time spent performing reported procedures but includes the following listed in this critical care notation. Medical Decision Making - Medical Records Medical records reviewed: Yes: I reviewed the patient's medical records. - Brock Inquiry Pt receiving controlled substance: No Vital Signs: 07/27/21 09:26 07/27/21 10:00 07/27/21 10:30 Temperature 98.1 F Temperature Source Oral Pulse Rate 85 77 Pulse Rate [Left] 88 Respiratory Rate 12 12 17 Blood Pressure 122/67 117/73 Blood Pressure [Right Arm] 138/96 H Blood Pressure Mean [Right Arm] 110 Blood Pressure Source [Right Arm] Automatic Cuff 02 Sat by Pulse Oximetry 96 96 94 L Oxygen Delivery Method Room Air 07/27/21 11:00 07/27/21 11:30 07/27/21 11:45 Temperature Temperature Source Pulse Rate 80 90 72 Pulse Rate [Left] Respiratory Rate 17 16 17 Blood Pressure 110/77 111/72 120/74 Blood Pressure [Right Arm] Blood Pressure Mean [Right Arm] Blood Pressure Source [Right Arm] 02 Sat by Pulse Oximetry 93 L 95 95 Oxygen Delivery Method - Lab Data Lab Results 07/27/21 09:20: WBC 9.7, RBC 5.61, Hgb 16.5, Hct 49.7, MCV 88.5, MCH 29.4, MCHC 33.2, RDW 12.8, Plt Count 268, MPV 9.2, Neut % (Auto) 67.7, Lymph % (Auto) 20.4, [place] % (Auto) 5.5, Eos % (Auto) 5.1, Baso % (Auto) 1.2, Neut # (Auto) 6.6, Lymph # (Auto) 2.0, [place] # (Auto) 0.5, Eos # (Auto) 0.5 H, Baso # (Auto) 0.1 07/27/21 09:20: D-Dimer 0.26 07/27/21 09:20: Sodium 135 L, Potassium 4.1, Chloride 104, Carbon Dioxide 21 L, Anion Gap 14.1, BUN 15, Creatinine 0.80, Estimated Creat Clear 156, Estimated GFR 101, Est GFR ( Amer) 122, Glucose 215 H, Calcium 9.2, Total Bilirubin 0.6, AST 33, ALT 36, Alkaline Phosphatase 88, Troponin I < 0.01, Total Protein 7.0, Albumin 4.4, Globulin 2.6, Albumin/Globulin Ratio 1.7 07/27/21 09:20: PT 13.0 H, INR 1.11 H 07/27/21 09:20: Magnesium 1.6 Result diagrams: 07/27/21 09:20 07/27/21 09:20 Orders (Tests/Meds): ORDERS Category Date Time Status Troponin I Q3H Lab 07/27/21 12:30 Ordered Troponin I Q3H Lab 07/27/21 15:30 Ordered Medical Decision Narrative: 56-year-old male to the ED today for weakness, concern for rapid heart rate. Differential diagnosis includes atrial fibrillation, ACS, pneumonia, patient noncompliance. Patient vital signs are rapidly variable, converting from normal sinus to atrial fibrillation with RVR, atrial flutter. Will obtain CBC, CMP, magnesium, phosphorus for further evaluation of electrolyte abnormalities. Lab evaluation does not show any significant actionable abnormalities, troponin without elevation, patient no longer having chest pain. On repeat assessment patient is not having further episodes of RVR, [place] is 1.6, will encourage oral supplementation, I discussed the case with patient's primary care who will see him tomorrow, I will give him an extra prescription for 10 tabs of 60 mg diltiazem immediate release should he have any further episodes of RVR at home. Patient can self administer this medication, and report to the ED for any new or worsening symptoms, I have encouraged him that if he takes the additional diltiazem if he has feelings of syncope, bradycardia, or continues to have rapid heart rate that he should return to the ED and he has verbalized under
--- NOTE | 2021-07-27 12:07 | PC.NURSE ---
calling dr alejandro for followup
--- NOTE | 2021-07-27 12:09 | PC.NURSE ---
ISHA SHEIKH speaking with Dr Jenkins
[2021-07-27 13:37] LABS: Troponin I < 0.01 ng/ml (0.00-0.034)
== END 2021-07-27 12:38 | disposition home or self-care (01) ==
PROVIDERS: Emergency Provider Student in an Organized Health Care Education/Training Program; PCP Family Medicine
DX: R07.9 Chest pain, unspecified (principal); I25.10 Atherosclerotic heart disease of native coronary artery without angina pectoris; E11.9 Type 2 diabetes mellitus without complications; K21.9 Gastro-esophageal reflux disease without esophagitis; E78.5 Hyperlipidemia, unspecified; I10 Essential (primary) hypertension; Z79.899 Other long term (current) drug therapy
CPT/HCPCS: 36415; 71045; 80053; 83735; 84484; 85025; 85378; 85610; 93005; 99282

== ENCOUNTER → 2021-07-30 11:07 | Outpatient (CLI) | payer OTHER, SELFPAY | PROVIDERS: PCP Family Medicine; Visit Provider Family Medicine | DX: Z20.822 Contact with and (suspected) exposure to COVID-19 (principal) | CPT/HCPCS: U0003 ==

== ENCOUNTER 2021-08-06 09:53 | Emergency (ER) | payer OTHER, SELFPAY ==
[2021-08-06 11:00] VITALS: BP 134/83; PULSE 81; RESP 18; TEMP 36.4; O2SAT 96; BMI 30.9
--- NOTE | 2021-08-06 11:09 | XR_ITS ---
PROCEDURE: XR LUMBAR SPINE 2-3V CLINICAL INDICATION: low back pain COMPARISON: CT ABDPELW CT ABD PELVIS W/ CONTRAST from 10/26/[address] abdomen w con from 03/06/2018 FINDINGS: No fracture or dislocation. No lytic or blastic change. There is normal mineralization. There is minimal retrolisthesis of L4 on L5 of 3 mm. The disc spaces are well preserved. Small anterior osteophytes are noted at L3-L4 and L5. Other findings:None. IMPRESSION: No acute finding. Dictated by: Андрей Gutierrez MD 08/06/2021 11:48 Андрей Gutierrez MD in [place] 08/06/2021 11:48
--- NOTE | 2021-08-06 11:09 | HMH.EDUTC ---
[facility] [place] Clinical Impression: Low back strain Qualifiers: Encounter type: initial encounter Qualified Code(s): S39.012A - Strain of muscle, fascia and tendon of lower back, initial encounter Disposition: Home, Self-Care Condition on Discharge: Good Instructions: Low Back Pain (Alternative Therapy), Methocarbamol Additional Instructions: Over the counter Tylenol as directed on package for pain *Ice 20 minutes every 2 hours for the first 48 hours after the initial injury followed by moist heat every 20 minutes 3-4 times a day to affected area *Muscle relaxer as prescribed as needed for muscle spasms but remember, it WILL cause drowsiness You cannot take it and drive, operate machinery or care for small children. *Keep this area active, no movement leads to more stiffness, However take it easy and avoid heavy lifting pushing or pulling *Follow up with you family doctor if no improvement for further treatment Over the counter muscle rubs and patches like [place] balm may help with pain Return if needed Follow up if you need something stronger for pain and discuss with your Physician Straight to ER if any loss of control of bowel or bladder, or life threatening symptoms Prescriptions: methocarbamoL [Methocarbamol 500mg Tablet] 500 mg PO BID PRN 30 Days #60 tab PRN Reason: Muscle Spasm Transmission Status: [id number] Referrals: Virgilio Jeknins MD [Primary Care Provider] - As needed Forms: Work/School Release Time of Disposition: 11:57 Medical Decision Making - Brock Inquiry Pt receiving controlled substance: No Brock was queried for this patient: No Vital Signs: 08/06/21 11:00 Temperature 97.5 F L Temperature Source Oral Pulse Rate [Right Brachial] 81 Respiratory Rate 18 Blood Pressure [Right Arm] 134/83 Blood Pressure Mean [Right Arm] 100 Blood Pressure Source [Right Arm] Automatic Cuff Blood Pressure Position [Right Arm] Sitting 02 Sat by Pulse Oximetry 96 Oxygen Delivery Method Room Air - Radiology Data #1 Image(s): L-Spine Image Reviewed: Yes I have reviewed radiologist's interpretation Preliminary Findings: No Fracture Seen No acute finding. Medical Decision Narrative: Discussed with patient about Medrol to help with back pain and patient declined state that his sugar has been running high and he didnt want to take it and not suppose to have Ibuprofen due to Xarelto Discussed with patient and he agreed will prescribe Methocarbamol for muscle spasms, have him take OTC Tylenol as directed on package for pain and follow up with PCP if no improvement or any worsening of symptoms and patient agreed [facility] [place] - General Stated complaint: ao 08/06 back pain Time Seen by Provider: 08/06/21 11:09 Mode of Arrival: Ambulatory Source of Information: Patient Limitations: No Limitations Description of Symptoms (Recalled from Triage Doc. by RN): PATIENT STATES HE BELIEVES HE PULLED SOMETHING IN HIS BACK WHILE WORKING [employer] THIS MORNING HEENT Symptoms (Recalled from RN notes): Yes Resp Symptoms (Recalled from RN notes): No Skin Symptoms (Recalled from RN notes): No MS Symptoms (Recalled from RN notes): No Functional Status (Recalled from RN notes): WNL - History of Present Illness Provider Complaint: Patient states that he was getting up on heavy machinery this morning and felt something pull in his lower back area States that since then he has been having spasm like pain in his back that will take his breath at times Denies falling denies hitting back and denies loss of control of bowel or bladder - Related Data Home Medications Medication Instructions Recorded Confirmed Fenofibrate 160 mg PO DAILY 05/28/18 07/30/21 Ferrous Sulfate 325 mg PO DAILY 05/28/18 07/30/21 Krill/Om-3/Dha/Epa/Phospho/Ast 1 each PO DAILY 05/28/18 07/30/21 [M[place]-3 Krill 300 mg] Metformin HCl [Glucophage 500mg 1,000 mg PO BIDWM 05/28/18 07/30/21 Tablet] Omeprazole [Omeprazole 20
[2021-08-06 11:59] VITALS: BP 134/83; PULSE 81; RESP 18; TEMP 36.4; O2SAT 96
== END 2021-08-06 12:14 | disposition home or self-care (01) ==
PROVIDERS: Emergency Provider Nurse Practitioner; PCP Family Medicine
DX: S39.012A Strain of muscle, fascia and tendon of lower back, initial encounter (principal); X50.0XXA Overexertion from strenuous movement or load, initial encounter; Y92.69 Other specified industrial and construction area as the place of occurrence of the external cause; Y99.0 Civilian activity done for income or pay
CPT/HCPCS: 72100; 99202; G0463

== ENCOUNTER 2021-09-03 12:19 | Emergency (ER) | payer OTHER, SELFPAY ==
[2021-09-03 12:20] VITALS: BMI 31.1
--- NOTE | 2021-09-03 12:20 | PC.NURSE ---
at the bedside. Verbal orders obtained. NIH scale completed at this time. NIH: 1
--- NOTE | 2021-09-03 12:20 | INFXCTL.NOTE ---
at the bedside. CT called for stroke protocol
--- NOTE | 2021-09-03 12:20 | CT_ITS ---
PROCEDURE: CT HEAD/BRAIN WO CON CLINICAL INDICATION: stroke protocol COMPARISON: No exams were available for comparison TECHNIQUE: Axial images obtained. All CT scans at the facility use one or more dose reduction, viz: automated exposure control, ma/kV adjustment per patient size (including targeted exams where dose is matched to indication, i.e. head), or iterative reconstruction technique. FINDINGS: No midline shift, mass effect, intracranial hemorrhage, hydrocephalus, or extra-axial fluid collection is evident. There findings of only minor age-appropriate cortical atrophy. The calvarium has an unremarkable appearance. No mastoid effusion. No sinus air-fluid level. IMPRESSION: No acute intracranial finding Dictated by: Dr. Dionte Poe MD 09/03/2021 12:33 Dr. Dionte Poe MD in [place] 09/03/2021 12:33
[2021-09-03 12:22] VITALS: BP 148/89; PULSE 82; RESP 18; TEMP 36.9; O2SAT 96; BMI 31.1
--- NOTE | 2021-09-03 12:22 | PC.NURSE ---
Rad here to get patient for head CT
--- NOTE | 2021-09-03 12:24 | HMH.EDGENADL ---
ED Disposition Clinical Impression: West's palsy Disposition: Home, Self-Care Condition on Discharge: Good Prescriptions: predniSONE [Prednisone 20mg Tab] 20 mg PO DAILY #21 tab [facility]: [facility] Valacyclovir HCl [Valacyclovir] 1,000 mg PO TID #21 tab Transmission Status: [facility] - Critical Care Critical Care Time: No Attestation: On , the high probability of a clinically significant, sudden or life threatening deterioration of the following system(s) required my full and direct attention, intervention and personal management. The time I documented below is in addition to time spent performing reported procedures but includes the following listed in this critical care notation. Medical Decision Making - Medical Records Medical records reviewed: Yes: I reviewed the patient's medical records. - Brock Inquiry Pt receiving controlled substance: No Vital Signs: 09/03/21 12:22 09/03/21 14:28 Temperature 98.4 F Temperature Source Oral Pulse Rate 82 Pulse Rate [Left Radial] 82 Respiratory Rate 18 18 Blood Pressure 147/77 H Blood Pressure [Right Arm] 148/89 H Blood Pressure Mean [Right Arm] 108 Blood Pressure Position [Right Arm] Supine 02 Sat by Pulse Oximetry 96 95 Oxygen Delivery Method Room Air Room Air - Lab Data Lab Results 09/03/21 12:50: WBC 8.8, RBC 5.55, Hgb 16.7, Hct 49.7, MCV 89.5, MCH 30.2, MCHC 33.7, RDW 13.5, Plt Count 265, MPV 9.6, Neut % (Auto) 65.8, Lymph % (Auto) 24.9, Gove % (Auto) 5.9, Eos % (Auto) 2.4, Baso % (Auto) 1.0, Neut # (Auto) 5.8, Lymph # (Auto) 2.2, Gove # (Auto) 0.5, Eos # (Auto) 0.2, Baso # (Auto) 0.1 09/03/21 12:50: Sodium 138, Potassium 4.0, Chloride 105, Carbon Dioxide 22, Anion Gap 15.0, BUN 16, Creatinine 0.80, Estimated Creat Clear 156, Estimated GFR 101, Est GFR ( Amer) 122, Glucose 154 H, Calcium 9.3, Total Bilirubin 0.5, AST 32, ALT 30, Alkaline Phosphatase 96, Total Protein 6.9, Albumin 4.4, Globulin 2.5, Albumin/Globulin Ratio 1.8 Result diagrams: 09/03/21 12:50 09/03/21 12:50 Orders (Tests/Meds): ED MEDICATIONS Discontinued Medications Generic Name Dose Route Start Last Admin Trade Name Scott PRN Reason Stop Dose Admin Prednisone 60 mg 09/03/21 14:34 09/03/21 14:36 Prednisone 20mg Tab PO 09/03/21 14:35 60 mg ONCE ONE Administration ORDERS Category Date Time Status Prothrombin Time INR Stat Lab 09/03/21 14:22 Received Rapid PCR Covid and Flu A/B Stat Lab 09/03/21 12:41 Ordered Medical Decision Narrative: Patient is a 56-year-old male presented to the ED today for further evaluation of left-sided facial droop not involving the eyebrow. Patient is well-appearing on initial evaluation and stable condition with stable vital signs, taken emergently to CT scan for code stroke protocol. CT scan independently interpreted shortly after it being obtained with no evidence of intracranial bleeding, did not notice any evidence of old stroke either. Will discuss findings with radiology. Patient's findings are not entirely consistent with a lower motor neuron West's palsy, as it does not involve the forehead. He had been out significant deficit on radiology interpretation, we have obtained a MR head with concern for central cause of West's palsy. MRI without contrast was performed and read by radiology with no evidence of intracranial stroke or ischemia. And no other intracranial abnormality detected. On reassessment patient's West's palsy is worse, it is now involving the eye and part of the left forehead. We will prescribe 60 mg of oral prednisone once a day for 1 week, valacyclovir 1000 mg 3 times daily for 1 week. Return precautions return to ED with any new or worsening symptoms specifically discussed worsening neurologic deficits, difficulty swallowing, difficulty with production speech. Patient has verbalized understanding with this plan. General Adult
--- NOTE | 2021-09-03 12:41 | XR_ITS ---
PROCEDURE: XR CHEST 2V CLINICAL HISTORY: stroke protocol COMPARISON: CR XR CHEST PORTABLE from 12/03/2020 CR XR CHEST PORTABLE from 04/01/2021 CR XR CHEST PORTABLE from 07/27/2021 FINDINGS: The cardiomediastinal silhouette and pulmonary vascularity are within normal limits. The lungs are clear without infiltrates, suspicious nodules, or pleural effusions. No acute bony abnormalities. IMPRESSION: No acute findings. Dictated by: Dr. Dionte Poe MD 09/03/2021 13:04 Dr. Dionte Poe MD in [place] 09/03/2021 13:04
--- NOTE | 2021-09-03 12:48 | PC.NURSE ---
Rad at bedside for cxr
--- NOTE | 2021-09-03 12:49 | PC.NURSE ---
MRI advised they would be down to get pt for MRI of brain w/o
--- NOTE | 2021-09-03 12:58 | PC.NURSE ---
Pt returned from xray
--- NOTE | 2021-09-03 13:04 | MR_ITS ---
PROCEDURE INFORMATION: Exam: MR Head Without Contrast Exam date and time: 09/03/2021 1:04 PM Age: 56 years old Clinical indication: Weakness, extremity; Left; Additional info: Body weakness, rule out stroke. Left sided arm and leg tingling. Lt sided face droop. 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 Prior CT 09-03-21. Prior 09-30-20. TECHNIQUE: Imaging protocol: MR of the head without contrast. COMPARISON: CT HEAD/BRAIN WO CON 09/03/2021 12:20 PM FINDINGS: Brain: No acute infarct identified on the diffusion-weighted imaging. No evidence of brain parenchymal edema or intracranial mass effect. No significant white matter disease. Cerebral ventricles: Stable. No ventriculomegaly. Bones/joints: Unremarkable. Paranasal sinuses: Trace sinus mucosal thickening. Mastoid air cells: Normal as visualized. No mastoid effusion. Orbital cavity: Unremarkable. Soft tissues: Unremarkable. IMPRESSION: No evidence of acute infarct.
[2021-09-03 13:08] LABS: Basophils # 0.1 K/mm3 (0-0.2); Eosinophils # 0.2 K/mm3 (0.0-0.4); Eosinophils % 2.4 % (0.1-12.0); Hematocrit 49.7 % (42.0-52.0); Hemoglobin 16.7 g/dL (14.1-18.0); Lymphocytes # 2.2 K/mm3 (0.7-4.5); Lymphocytes % 24.9 % (10-50); Mean Corpuscular HGB Conc 33.7 g/dL (31.8-35.4); Mean Corpuscular Hemoglobin 30.2 pg (27.0-31.2); Mean Corpuscular Volume 89.5 fl (80-94); Mean Platelet Volume 9.6 fl (7.4-10.4); Monocytes # 0.5 K/mm3 (0.1-1.0); Monocytes % 5.9 % (1.7-9.3); Neutrophils # 5.8 K/mm3 (1.8-7.8); Neutrophils % 65.8 % (37.0-80.0); Platelet Count 265 K/mm3 (142-424); Red Blood Count 5.55 M/mm3 (4.60-6.20); Red Cell Distribution Width 13.5 % (11.5-17.5); White Blood Count 8.8 K/mm3 (4.8-10.8)
[2021-09-03 13:11] LABS: Chloride 105 mmol/L (98-107); Sodium 138 mmol/L (136-145)
[2021-09-03 13:13] LABS: Alanine Aminotransferase 30 U/L (12-78); Alkaline Phosphatase 96 U/L (38-126); Aspartate Amino Transferase 32 U/L (17-59); Bilirubin,Total 0.5 mg/dl (0.2-1.3); Blood Urea Nitrogen 16 mg/dl (9-20); Carbon Dioxide 22 mmol/L (22.0-30.0); Creatinine Clearance Estimated 156 mL/min (50-200); Estimated Glomerular Filt Rate 101 ml/min (>60); GFR (African American) 122 ML/MIN (>60)
--- NOTE | 2021-09-03 13:13 | PC.NURSE ---
pt going to MRI
[2021-09-03 13:14] LABS: Albumin Level 4.4 g/dl (3.5-5.0); Albumin/Globulin Ratio 1.8 (1.1-1.8); Calcium 9.3 mg/dl (8.4-10.2); Globulin 2.5 g/dL (1.3-3.2); Glucose 154 mg/dl (74-100); Total Protein,Serum 6.9 g/dl (6.3-8.2)
--- NOTE | 2021-09-03 14:27 | PC.NURSE ---
pt returned from MRI
[2021-09-03 14:28] VITALS: BP 147/77; PULSE 82; RESP 18; O2SAT 95
[2021-09-03 14:30] VITALS: BP 145/79; PULSE 88; RESP 16; O2SAT 95
[2021-09-03 14:55] LABS: INR 1.22 (0.9-1.1); Prothrombin Time 13.6 seconds (10.1-12.5)
[2021-09-03 15:14] VITALS: BP 145/79; PULSE 88; RESP 16; TEMP 36.8; O2SAT 95
== END 2021-09-03 15:15 | disposition home or self-care (01) ==
PROVIDERS: Emergency Provider Student in an Organized Health Care Education/Training Program; PCP Family Medicine
DX: G51.0 Bell's palsy (principal); E11.9 Type 2 diabetes mellitus without complications; K21.9 Gastro-esophageal reflux disease without esophagitis; J44.9 Chronic obstructive pulmonary disease, unspecified; I10 Essential (primary) hypertension; E78.5 Hyperlipidemia, unspecified; Z79.899 Other long term (current) drug therapy
CPT/HCPCS: 70450; 70551; 71046; 80053; 85025; 85610; 99283

== ENCOUNTER → 2021-09-03 15:11 | Outpatient (CLI) | payer OTHER, SELFPAY ==
--- NOTE | 2021-09-03 14:26 | ECG_ITS ---
APPROVED REPORT Exam: Resting ECG HR:81 bpm ECG Measurements Heart Rate 81 AXES RI 168 P 72 QRSd 82 QRS 51 QT 392 T -11 QTc 455 Conclusion Normal sinus rhythm Nonspecific T wave abnormality Abnormal ECG Electronically signed by : Jose Khan MD 09/03/2021 17:48:01
--- NOTE | 2021-09-03 15:15 | MR_ITS ---
PROCEDURE INFORMATION: Exam: MR Lumbar Spine Without Contrast Exam date and time: 09/03/2021 3:15 PM Age: 56 years old Clinical indication: Low back pain TECHNIQUE: Imaging protocol: Multiplanar magnetic resonance images of the lumbar spine without intravenous contrast. COMPARISON: CR XR LUMBAR SPINE 2-3V 08/06/2021 11:05 AM FINDINGS: Vertebrae: Anatomic alignment. No acute fracture seen. The AP spinal canal diameter is diminished on a developmental basis due to shortened pedicles. There are T12 and L1 hemangiomas. Spinal cord: The conus medullaris ends normally. There is disc desiccation at L3-L4. No significant disc height loss. Mild prevertebral spondylosis from L2-L3 through L4-L5. L1-L2: No significant disc disease. No significant spinal canal stenosis. No neural foraminal stenosis. L2-L3: Mild facet arthropathy. No stenoses. L3-L4: Mild disc bulge and facet arthropathy. Central spinal canal stenosis is mild, present mostly on a developmental basis. No significant foraminal stenoses. L4-L5: Mild disc bulge and facet arthropathy. Central spinal canal stenosis is mild, present mostly on a developmental basis. No significant foraminal stenoses. L5-S1: Mild right facet arthropathy. No stenoses. Soft tissues: Unremarkable. Kidneys and ureters: Small bilateral kidney cysts. IMPRESSION: 1. Developmental spinal canal narrowing due to shortened pedicles. 2. No acute findings identified.
--- NOTE | 2021-09-03 15:16 | MR_ITS ---
PROCEDURE INFORMATION: Exam: MR Thoracic Spine Without Contrast Exam date and time: 09/03/2021 3:16 PM Age: 56 years old Clinical indication: Pain in thoracic spine; Additional info: Back pain. Back pain worse on RT side. X3wks. No inury or trauma. No prior TECHNIQUE: Imaging protocol: Multiplanar magnetic resonance images of the thoracic spine without intravenous contrast. COMPARISON: MR CERVICAL SPINE WO CON 07/11/2020 9:43 AM FINDINGS: Vertebrae: Anatomic alignment. No acute fracture seen. There is right paravertebral flowing ossification suggestive of diffuse idiopathic skeletal hyperostosis. Mild edema in the adjacent the anterior anterosuperior corner of the T9 vertebral body is probably inflammatory/degenerative. Spinal cord: Normal signal. No cord compression. Mild thoracic disc degeneration. No more than minimal prevertebral spondylosis. No high-grade disc height loss. T1-T2: No significant disc disease. No significant spinal canal stenosis. T2-T3: No significant disc disease. No significant spinal canal stenosis. T3-T4: No significant disc disease. No significant spinal canal stenosis. T4-T5: No significant disc disease. No significant spinal canal stenosis. T5-T6: No significant disc disease. No significant spinal canal stenosis. T6-T7: 4 mm left paracentral disc protrusion indents ventral thecal sac as well as thoracic cord. No cord myelopathy. Central spinal canal stenosis is mild. T7-T8: 2 mm right paracentral disc protrusion does not contribute to central spinal canal stenosis. T8-T9: Mild disc bulge. 2-3 mm left paracentral disc protrusion indents left ventral thecal sac and causes slight left cord flattening. No significant central spinal canal stenosis. T9-T10: Moderate facet arthropathy causing mild left neural foraminal stenosis. The central spinal canal is patent. T10-T11: No significant disc disease. No significant spinal canal stenosis. T11-T12: No significant disc disease. No significant spinal canal stenosis. Soft tissues: Unremarkable. IMPRESSION: 1. No acute findings. 2. A left paracentral disc protrusion at T6-7 causes mild central spinal canal stenosis.
== END ==
PROVIDERS: PCP Family Medicine; Visit Provider Orthopaedic Surgery Adult Reconstructive Orthopaedic Surgery
DX: M54.6 Pain in thoracic spine (principal); M54.50 Low back pain, unspecified
CPT/HCPCS: 72146; 72148; 76376; 93005

== ENCOUNTER → 2021-09-19 11:13 | Outpatient (CLI) | payer OTHER, SELFPAY ==
[2021-09-19 11:45] LABS: Basophils # 0.1 K/mm3 (0-0.2); Eosinophils # 0.1 K/mm3 (0.0-0.4); Eosinophils % 1.2 % (0.1-12.0); Hematocrit 51.9 % (42.0-52.0); Hemoglobin 16.7 g/dL (14.1-18.0); Lymphocytes # 1.8 K/mm3 (0.7-4.5); Lymphocytes % 16.2 % (10-50); Mean Corpuscular HGB Conc 32.2 g/dL (31.8-35.4); Mean Corpuscular Hemoglobin 29.9 pg (27.0-31.2); Mean Corpuscular Volume 92.7 fl (80-94); Mean Platelet Volume 8.9 fl (7.4-10.4); Monocytes # 0.7 K/mm3 (0.1-1.0); Monocytes % 6.3 % (1.7-9.3); Neutrophils # 8.2 K/mm3 (1.8-7.8); Neutrophils % 75.2 % (37.0-80.0); Platelet Count 266 K/mm3 (142-424); Red Cell Distribution Width 13.4 % (11.5-17.5); White Blood Count 10.9 K/mm3 (4.8-10.8)
[2021-09-23 18:16] LABS: E001-IgE Cat Dander 0.59 kU/L (Class II); E072-IgE Mouse Urine <0.10 kU/L (Class 0); G002-IgE Bermuda Grass <0.10 kU/L (Class 0); G006-IgE Timothy Grass <0.10 kU/L (Class 0); I006-IgE Cockroach, German 0.12 kU/L (Class 0/I); Immunoglobulin E, Total 410 IU/mL (6-495); M001-IgE Penicillium chrysogen <0.10 kU/L (Class 0); M002-IgE Cladosporium herbarum <0.10 kU/L (Class 0); M003-IgE Aspergillus fumigatus <0.10 kU/L (Class 0); M006-IgE Alternaria alternata <0.10 kU/L (Class 0); T001-IgE Maple/Box Elder <0.10 kU/L (Class 0); T003-IgE Common Silver Birch <0.10 kU/L (Class 0); T006-IgE Cedar, Mountain 0.87 kU/L (Class II); T007-IgE Oak, White <0.10 kU/L (Class 0); T008-IgE Elm, American <0.10 kU/L (Class 0); T010-IgE Walnut <0.10 kU/L (Class 0); T011-IgE Maple Leaf Sycamore 0.19 kU/L (Class 0/I); T014-IgE Cottonwood <0.10 kU/L (Class 0); T015-IgE Ash, White <0.10 kU/L (Class 0); T022-IgE Pecan, Hickory <0.10 kU/L (Class 0); T070-IgE White Mulberry <0.10 kU/L (Class 0); W001-IgE Ragweed, Short <0.10 kU/L (Class 0); W011-IgE Thistle, Russian <0.10 kU/L (Class 0); W014-IgE Pigweed, Common <0.10 kU/L (Class 0); W018-IgE Sheep Sorrel 0.11 kU/L (Class 0/I)
== END ==
PROVIDERS: PCP Family Medicine; Visit Provider Internal Medicine Pulmonary Disease
DX: J45.909 Unspecified asthma, uncomplicated (principal)
CPT/HCPCS: 82785; 85025; 86003

== ENCOUNTER 2022-01-05 17:00 | Outpatient (RCR) | payer OTHER, SELFPAY ==
--- NOTE | 2021-12-28 17:30 | HMH.SLDYSPHA ---
Speech & Language Evaluation Speech/Language Dysphagia Evaluation Start: 12/28/21 16:57 Freq: ONCE Status: Active Protocol: Document 12/28/21 16:57 [email or web address] (Rec: 12/28/21 17:30 [email or web address] [id number]) Dysphagia Assess/Goals/Plan Assessment Date of Evaluation: 12/28/21 Evaluation Type Initial Certification Assessment/Problems West's Palsy, difficulty chewing. Does Patient Qualify for Service Yes Qualify/Failure Comment Based on the results of the clinical swallow assessment, patient would benefit from skilled speech therapy services at this time. Recommendations PHYSICIAN CERTIFICATION: The specified therapy services are required, authorized, and reviewed every 30 days. Pt will be seen # times/week 1 for # weeks 12 Diet Recommendations Normal Liquid Type Recommendations Normal/Thin Dysphagia Swallow Precautions/Strategies Sitting Upright (90 deg),Small Bites and Sips Place Food on Right side of Mouth Plan Anticipate reaching STG in # weeks 4 Anticipate reaching LTG in # weeks 8 Pt/Guardian verbally ack understanding Yes of dx/prognosis/goals Pt/Guardian verbally ack understanding Yes of/consent to tx prog G -code Required No STG-Bolus Form/Tongue Movement Push R/L lateral tongue border against 10 tongue depressor in # trials STG-Bolus Form/Tone in Cheek Clean buccal cavity w fingers/tongue 10 during/after meal w/wo cues in # trials Place food bolus on stronger side w/wo 10 cues in # trials Will prod 'oo' & 'ee' w/exaggerated lip 10 movement in # trials Will pucker lips, then move lips side to 10 side in # trials Data Virtualization Consultant Goals Pt will be able to eat foods w/more Yes normal consistency Education Instructions provided Preliminary assessment results , POC, goals. Pt/Caregiver able to recall information Unable to ind. understand Reinforcement needed No Speech & Language HPI History Present Illness Description of Patient Problem Mr. 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 Rehab Services Assessed Speech therapy Is this evaluation r/t stroke? No Language [place] Lang/Spoken in Home Icelandic Accent Affect Communication? No Therapy History Seen by other [facility] therapists No Other Specialists? No General Information General Current Food Consistancy Regular,Thin Liquids Dentition Good Dentition Oxygen Status Room Air Facial Symmet
== END 2022-01-05 17:05 | disposition home or self-care (01) ==
LOC: ST 17:00
PROVIDERS: PCP Family Medicine; Visit Provider Family Medicine
DX: K08.89 Other specified disorders of teeth and supporting structures (principal); G51.0 Bell's palsy
CPT/HCPCS: 92526; 92610

== ENCOUNTER 2022-02-08 06:33 | Emergency (ER) | payer OTHER, SELFPAY ==
--- NOTE | 2022-02-08 06:47 | ECG_ITS ---
APPROVED REPORT Exam: Resting ECG HR:96 bpm ECG Measurements Heart Rate 96 AXES MD 150 P 82 QRSd 86 QRS 63 QT 353 T 40 QTc 406 Conclusion SINUS RHYTHM NONSPECIFIC T-WAVE ABNORMALITY BORDERLINE ECG UNCONFIRMED REPORT Electronically signed by : Jose Khan MD 02/09/2022 14:08:56
[2022-02-08 06:48] VITALS: BP 151/95; PULSE 102; RESP 16; TEMP 36.7; O2SAT 97; BMI 31.1
[2022-02-08 06:53] LABS: Coronavirus 19, PCR Not Detected (NotDetected); Influenza A, PCR Not Detected (NotDetected); Influenza B, PCR Not Detected (NotDetected)
--- NOTE | 2022-02-08 07:09 | HMH.EDURI ---
ED Disposition Clinical Impression: Bronchitis Disposition: Home, Self-Care Condition on Discharge: Good Instructions: DI for Acute Bronchitis Additional Instructions: fluids and use meds and see pcp for follow up Prescriptions: Azithromycin [Zithromax 250mg tab] 250 mg PO DIRECTED #6 tab Transmission Status: Pending to [facility] Referrals: Virgilio Jenkins MD [Primary Care Provider] - - Critical Care Critical Care Time: No Attestation: On 02/08/22, the high probability of a clinically significant, sudden or life threatening deterioration of the following system(s) required my full and direct attention, intervention and personal management. The time I documented below is in addition to time spent performing reported procedures but includes the following listed in this critical care notation. Medical Decision Making - Medical Records Medical records reviewed: Yes: I reviewed the patient's medical records. - Brock Inquiry Pt receiving controlled substance: No Vital Signs: 02/08/22 06:48 Temperature 98.1 F Temperature Source Oral Pulse Rate [Left] 102 H Respiratory Rate 16 Blood Pressure [Right Arm] 151/95 H Blood Pressure Mean [Right Arm] 113 02 Sat by Pulse Oximetry 97 Oxygen Delivery Method Room Air - Lab Data Lab results reviewed: Yes: I reviewed the patient's lab results. Lab Results 02/08/22 06:42: SARS-CoV-2 (PCR) Not detected, Influenza A Untype (PCR) Not detected, Influenza Type B (PCR) Not detected Orders (Tests/Meds): ED MEDICATIONS Discontinued Medications Generic Name Dose Route Start Last Admin Trade Name Freq PRN Reason Stop Dose Admin Methylprednisolone Sodium Succinate 125 mg 02/08/22 07:13 02/08/22 07:17 Methylprednisolone Sod Succ 125mg Vial IV 02/08/22 07:14 125 mg ONCE ONE Administration - ECG Data Tracing #1 Normal Sinus Rhythm: Yes Ischemic changes: non-specific ST-T wave changes Medical Decision Narrative: has uri sx with exposure to covid-19 but has neg covid-19 at this time - will give abx at this time URI/Sore Throat HPI - General Chief Complaint: Upper Respiratory Infection Stated Complaint: Cough,Left earache Time Seen by Provider: 02/08/22 07:09 Mode of Arrival: Ambulatory Source of Information: Patient, Medical Record Limitations: No Limitations Description of Symptoms (Recalled from ER Triage Doc. by RN): pt presented to the ED today c/o congestion, sinus issues, nose bleed from flonase use and an aching pain in the right ear. pt states he was exposed to a covid pos pt on tuesday and would like a covid test. upon further triage the pt stated that he does have a hx of heart problems and is experiencing a slow burning chest pain - History of Present Illness HPI Narrative: uri sx and has exposure to covid-19 MD Complaint: sore throat, nasal congestion Onset (ago): day(s) Severity: moderate Associated symptoms: denies other symptoms Treatments prior to arrival: none - Related Data Home Medications Medication Instructions Recorded Confirmed Fenofibrate 160 mg PO DAILY 05/28/18 09/21/21 Krill/Om-3/Dha/Epa/Phospho/Ast 1 each PO DAILY 05/28/18 09/21/21 [Megared [place]-3 Krill 300 mg] Omeprazole [Omeprazole 20mg 20 mg PO DAILY 05/28/18 09/21/21 Capsule] Rosuvastatin Calcium [Crestor 5mg 10 mg PO HS 05/28/18 09/21/21 Tablets] Aspirin [Aspirin 81mg EC Tab] 81 mg PO DAILY 04/02/21 09/21/21 Empagliflozin/Linagliptin 1 each PO DAILY 04/02/21 09/21/21 [Glyxambi 25 mg-5 mg Tablet] lisinopriL [Zestril 5mg 5 mg PO DAILY 04/02/21 09/21/21 Tablet] albuterol sulfate 90 mcg/actuation 2 puff INHALATION PRN g 08/17/21 09/21/21 aerosol inhaler metformin 500 mg tablet 1,000 mg PO DAILY tab 08/17/21 09/21/21 ranolazine 500 mg tablet,extended 500 mg PO BID 08/17/21 09/21/21 release,12 hr rivaroxaban 20 mg tablet 20 mg PO DAILY tab 08/17/21 09/21/21 Previous Rx's Medic
--- NOTE | 2022-02-08 07:12 | PC.NURSE ---
ED MD at
[2022-02-08 07:33] VITALS: BP 158/92; PULSE 91; RESP 20; TEMP 36.7; O2SAT 97
== END 2022-02-08 07:35 | disposition home or self-care (01) ==
PROVIDERS: Emergency Provider Emergency Medicine; PCP Family Medicine
DX: J20.9 Acute bronchitis, unspecified (principal); E11.9 Type 2 diabetes mellitus without complications; I25.10 Atherosclerotic heart disease of native coronary artery without angina pectoris; J44.9 Chronic obstructive pulmonary disease, unspecified; I10 Essential (primary) hypertension; E78.5 Hyperlipidemia, unspecified; I48.0 Paroxysmal atrial fibrillation; K21.9 Gastro-esophageal reflux disease without esophagitis; Z88.0 Allergy status to penicillin; Z79.899 Other long term (current) drug therapy
CPT/HCPCS: 93005; 96374; 99283; C9803; U0003; U0005

== ENCOUNTER → 2022-04-12 12:40 | Outpatient (CLI) | payer OTHER, SELFPAY ==
--- NOTE | 2022-04-12 12:40 | CT_ITS ---
FINAL REPORT TECHNIQUE: Thin-section axial CT images were performed through the temporal bones. Coronal and sagittal reformatted images were submitted. This study was performed with techniques to keep radiation doses as low as reasonably achievable, (ALARA). Individualized dose reduction techniques using automated exposure control or adjustment of mA and/or kV according to the patient's size were employed. CLINICAL HISTORY: rule out otomastoiditis. left faical weakness FINDINGS: Right: The internal and external auditory canals are normal. The inner ear structures are within normal limits. The middle ear cavity is unremarkable. The ossicles are intact. The mastoid antrum and mastoid air cells are unremarkable. Left: The internal and external auditory canals are normal. The inner ear structures are within normal limits. The middle ear cavity is unremarkable. The ossicles are intact. The mastoid antrum and mastoid air cells are unremarkable. There is mild mucosal thickening in the maxillary sinuses. IMPRESSION: No acute abnormality. Reviewed, Interpreted and Dictated by Claude Martinez III, MD Transcribed by Dc Melgoza Authenticated by Claude Martinez III, MD on 04/13/2022 08:33:44 AM [facility]
== END ==
PROVIDERS: PCP Family Medicine; Visit Provider Otolaryngology
DX: G51.0 Bell's palsy (principal); R29.810 Facial weakness
CPT/HCPCS: 70480

== ENCOUNTER 2022-06-12 14:39 | Emergency (ER) | payer OTHER, SELFPAY ==
[2022-06-12 15:10] VITALS: BP 136/73; PULSE 87; RESP 20; TEMP 36.8; O2SAT 95; BMI 30.9
--- NOTE | 2022-06-12 15:31 | HMH.EDUTC ---
[facility] Disposition Clinical Impression: Exposure to COVID-19 virus Disposition: Home, Self-Care Condition on Discharge: Good Instructions: DI for COVID-19 (Suspected or Confirmed ), Preventing the Spread of Coronavirus Discharge Instructions Additional Instructions: Drink plenty of fluids. Take tylenol or ibuprofen for pain or fever. Take the medications as directed. Follow up with your regular doctor. GO TO THE ER FOR ANY WORSENING SYMPTOMS Quarantine until you know the results of your covid-19 test. Notify your school or workplace of your results and follow their instructions regarding return to work/school. Referrals: Virgilio Jenkins MD [Primary Care Provider] - Time of Disposition: 15:56 Medical Decision Making - Medical Records Medical records reviewed: No: I reviewed the patient's medical records. - Brock Inquiry Pt receiving controlled substance: No Vital Signs: 06/12/22 15:10 06/12/22 15:59 Temperature 98.3 F 98.3 F Temperature Source Oral Oral Pulse Rate 87 Pulse Rate [Brachial] 87 Respiratory Rate 20 20 Blood Pressure 136/73 Blood Pressure [Right Arm] 136/73 Blood Pressure Mean [Right Arm] 94 Blood Pressure Source [Right Arm] Automatic Cuff Blood Pressure Position Sitting Blood Pressure Position [Right Arm] Sitting 02 Sat by Pulse Oximetry 95 Oxygen Delivery Method Room Air Room Air [facility] HPI - General Stated complaint: covid test Time Seen by Provider: 06/12/22 15:31 - History of Present Illness Provider Complaint: He is here to have a covid-19 test after being exposed 5 days ago - Related Data Home Medications Medication Instructions Recorded Confirmed Fenofibrate 160 mg PO DAILY 05/28/18 04/07/22 Krill/Om-3/Dha/Epa/Phospho/Ast 1 each PO DAILY 05/28/18 04/07/22 [Megared [place]-3 Krill 300 mg] Omeprazole [Omeprazole 20mg 20 mg PO DAILY 05/28/18 04/07/22 Capsule] Aspirin [Aspirin 81mg EC Tab] 81 mg PO DAILY 04/02/21 04/07/22 Empagliflozin/Linagliptin 1 each PO DAILY 04/02/21 04/07/22 [Glyxambi 25 mg-5 mg Tablet] lisinopriL [Zestril 5mg 5 mg PO DAILY 04/02/21 04/07/22 Tablet] albuterol sulfate 90 mcg/actuation 2 puff INHALATION PRN g 08/17/21 04/07/22 aerosol inhaler metformin 500 mg tablet 1,000 mg PO DAILY tab 08/17/21 04/07/22 ranolazine 500 mg tablet,extended 500 mg PO BID 08/17/21 04/07/22 release,12 hr rivaroxaban 20 mg tablet 20 mg PO DAILY tab 08/17/21 04/07/22 rosuvastatin 10 mg tablet 10 mg PO DAILY tab 04/07/22 04/07/22 Previous Rx's Medication Instructions Recorded diltiazem HCl 120 mg capsule,24 120 mg PO DAILY #90 cap 04/17/21 hr,extended release metoprolol succinate 25 mg 25 mg PO DAILY #90 tab 07/29/21 tablet,extended release 24 hr fluticasone furoate 100 1 inh INHALATION DAILY #90 each 08/17/21 mcg-vilanterol 25 mcg/dose inhalation powder fluticasone propionate 50 1 spray INTRANASAL DAILY 90 Days 08/17/21 mcg/actuation nasal #16 g spray,suspension Valacyclovir HCl [Valacyclovir] 1,000 mg PO TID #21 tab 09/03/21 ipratropium 0.5 mg-albuterol 3 mg 3 ml INHALATION QID PRN 90 Days 09/21/21 (2.5 mg base)/3 mL nebulization #360 ml soln Allergies Allergy/AdvReac Type Severity Reaction Status Date / Time codeine Allergy Unknown Verified 04/07/22 16:02 penicillin V Allergy Unknown Verified 04/07/22 16:02 Penicillins Allergy Unknown Verified 04/07/22 16:02 meperidine [From Demerol] Allergy Verified 04/07/22 16:02 [facility] History - Hepatitis A Screen Attestation statement:: This patient has been screened for Hepatitis A risk factors. I have reviewed the patient's past medical history: Yes Medical History: Reports:: Atherosclerotic Heart Disease, Atrial Fibrillation, Chronic Obstructive Pulmonary Disease (COPD), Coronary Artery Disease, Diabetes Mellitus Type 2, Gastroesophageal Reflux Disease(GERD), Hyperlipidemia, Hypertension, Myocardial Infarction Denies:: Cancer, D
[2022-06-12 15:59] VITALS: BP 136/73; PULSE 87; RESP 20; TEMP 36.8; O2SAT 95
== END 2022-06-12 16:00 | disposition home or self-care (01) ==
PROVIDERS: Emergency Provider Nurse Practitioner Family; PCP Family Medicine
DX: Z20.822 Contact with and (suspected) exposure to COVID-19 (principal)
CPT/HCPCS: 99212; C9803; G0463; U0003; U0005

== ENCOUNTER → 2022-08-11 11:29 | Outpatient (CLI) | payer OTHER, SELFPAY ==
--- NOTE | 2022-08-11 | CA_ITS ---
APPROVED REPORT Exam: Pharmacologic Technologist: Brunilda Hernandez, Ht: 6 ft 0 in Wt: 227 lbs BSA: 2.25 m2 HR: 82 bpm BP: 130/74 mmHg Rhythm: NSR, T wave abn inferiorly Indications: CP, SOA, CAD Medical History Medical History: HTN, Hyperlipidemia, Diabetes Medications: Lisinopril,,,,, Omeprazole,,,,, Aspirin,,,,, Metformin,,,,, Pioglitazone,,,,, Duoneb,,,,, Albuterol,,,,, Vit D3,,,,, FeNOfibrate,,,,, DilTiazem,,,,, BREo,,,,, PropAFENONE,,,,, Cardiac Risk Factors: HTN, Hyperlipidemia, Diabetes (non-insulin) Stress Test Details Test: LEXISCAN HR Resting HR: 85 bpm Max Heart Rate (APMHR): 165.274578 bpm Max HR Achieved: 93 bpm Target HR (85% APMHR): 140.999689 bpm % of APMHR: 56.36 Recovery HR: 88 bpm BP Resting BP: 130/74 mmHg Max BP: 140/71 mmHg Recovery BP: 109.0/77.0 mmHg ECG Resting ECG: NSR, T wave abn inferiorly Clinical Exercise duration: 04:01 min Highest Stage Achieved: Exercise capacity: 1.0 METs Stress ECG Conclusion During lexiscan pt experinced mild SOA, stomach discomfort, and flushed. No CP noted. No arrhythmias noted. No significant ST changes. Unremarkable lexiscan stress. Myoview images reported separately. Test Summary REST . . . . . . . Sitting REST 03:07 . . 85 . 130/ 74 . . Stage 1 01:00 . . 90 . . . . Stage 2 01:00 . . 89 . 122/ 72 . . Stage 3 01:00 . . 89 . 140/ 81 . . Stage 4 01:00 . . 91 . 123/ 78 . . Stage 4 01:01 . . 91 . 123/ 78 . Stop exercise at 04:01 RECOVERY 01:00 . . 88 . . . . RECOVERY 02:00 . . 88 . 109/ 77 . . RECOVERY 03:00 . . 87 . 130/ 75 . . RECOVERY 03:13 . . 89 . 130/ 75 . . Electronically signed by : Jimmy Boyle MD 08/11/2022 21:25:36
--- NOTE | 2022-08-11 11:29 | NM_ITS ---
APPROVED REPORT Exam: Nuclear Stress Test Indication: Chest pain, SOB, CAD, HTN, High cholesterol, Family history Patient Location: Outpatient Stress Tech: Brunilda Hernandez NM Tech:Elle Fisher, ARRT, RT (R)(N) Ht: 5 ft 10 in Wt: 190 lbs HR: 85 bpm BP: 130/74 mmHg BSA: 2.04 m2 TID: 1.11 BMI: 27.2 History: Chest pain, SOB, CAD, HTN, High cholesterol, Family history Procedure: Patient received a 0.4 mg of intravenous Lexiscan, resting heart rate 85 bpm, resting blood pressure 130/74 mmHg, with Lexiscan maximum heart rate achived was 93 bpm which is Less than 85 % of the maximum predicted heart rate and blood pressure was 140/71 mmHg. With Lexiscan, patient denied any complaint of chest pain. Electrocardiogram Resting electrocardiogram showed sinus rhythm inferior T wave changes, with Lexiscan there is less than 1.[address] segment depression noted from the baseline EKG. The EKG portion of the Lexiscan is nondiagnostic. Cardiac Stress and Resting SPECT Images: Cardiac Stress and Resting SPECT images were obtained using technetium 99m Myoview 30.9 mCi stress and 10.97 mCi at rest. Gated SPECT analysis of segmental wall motion and calculation of the ejection fraction also done. Prone images were also obtained. Cardiac stress and rest SPECT images show partial reversible defect involving the inferior wall consistent with mixed ischemia and scar, computer derived ejection fraction 57% with moderate inferior wall hypokinesis, right ventricle is mildly enlarged with normal contractility. Conclusion: 1. The EKG portion of the Lexiscan is nondiagnostic. 2. Scintigraphic evidence of mixed ischemia and scar involving the inferior wall, computer derived ejection fraction is 57% with moderate inferior wall hypokinesis, right ventricle is mildly enlarged with normal contractility. 3. Abnormal Lexiscan Myoview study. Electronically signed by : Jimmy Boyle MD 08/11/2022 21:31:50
--- NOTE | 2022-08-11 13:11 | HMH.ITSHM ---
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 []METFORMIN DILTIAZEM LISINOPRIL ASA OMEPRAZOLE RANEXA GYLXAMBI PIOGLITAZONE XARELTO FENOFIBRATE CRESTOR PROPAFENONE DILIA RED BREO VENTOLIN CLARITIN
== END ==
PROVIDERS: PCP Family Medicine; Visit Provider Internal Medicine Cardiovascular Disease
DX: R06.00 Dyspnea, unspecified (principal); I20.8 Other forms of angina pectoris; I48.0 Paroxysmal atrial fibrillation; I10 Essential (primary) hypertension; E78.2 Mixed hyperlipidemia
CPT/HCPCS: 78452; 93017; A9502; J2785

== ENCOUNTER 2022-08-14 14:03 | Emergency (ER) | payer OTHER, SELFPAY ==
[2022-08-14 14:04] VITALS: BP 135/74; PULSE 74; RESP 16; TEMP 37; O2SAT 98; BMI 27.1; BMI 28.7
--- NOTE | 2022-08-14 14:07 | ECG_ITS ---
APPROVED REPORT Exam: Resting ECG HR:82 bpm ECG Measurements Heart Rate 82 AXES [place] 163 P 70 QRSd 91 QRS 36 QT 312 T 15 QTc 351 Conclusion SINUS RHYTHM NONSPECIFIC T-WAVE ABNORMALITY BORDERLINE ECG UNCONFIRMED REPORT Electronically signed by : Jose Khan MD 08/16/2022 15:14:21
--- NOTE | 2022-08-14 14:12 | XR_ITS ---
PROCEDURE INFORMATION: Exam: XR Chest Exam date and time: 08/14/2022 2:41 PM Age: 57 years old Clinical indication: Pain; Angina pectoris; Additional info: Chest pain TECHNIQUE: Imaging protocol: Radiologic exam of the chest. Views: 1 view. Portable AP upright exam 2:44 p.m. COMPARISON: CR XR CHEST 2V 09/03/2021 12:44 PM FINDINGS: Tubes, catheters and devices: Overlying hall monitor electrodes. Lungs: Slight hypoventilation/low lung volumes compared with the prior exam. No acute findings. No consolidation. Pulmonary vessels do not appear congested. Pleural spaces: Unremarkable. No significant pleural effusion. No pneumothorax. Heart/Mediastinum: The cardiac silhouette is normal. Bones/joints: There are spinal degenerative changes, with multilevel disc narrrowing and spondylosis. Old healed fracture deformity of the distal tip of the right 9th rib. Acromioclavicular arthritis greater on the right. Some prominent costal cartilage calcifications, bilaterally. IMPRESSION: 1. No acute findings. 2. Non emergency and chronic findings, as above.
[2022-08-14 14:30] VITALS: BP 134/87; PULSE 82; RESP 16; O2SAT 96
[2022-08-14 14:45] LABS: Basophils # 0.1 K/mm3 (0-0.2); Basophils % 1.1 % (0.1-2.0); Eosinophils # 0.2 K/mm3 (0.0-0.4); Eosinophils % 2.6 % (0.1-12.0); Hematocrit 49.1 % (42.0-52.0); Hemoglobin 16.4 g/dL (14.1-18.0); Lymphocytes % 23.5 % (10-50); Mean Corpuscular HGB Conc 33.4 g/dL (31.8-35.4); Mean Corpuscular Hemoglobin 28.8 pg (27.0-31.2); Mean Corpuscular Volume 86.4 fl (80-94); Monocytes # 0.7 K/mm3 (0.1-1.0); Monocytes % 7.6 % (1.7-9.3); Neutrophils # 5.5 K/mm3 (1.8-7.8); Neutrophils % 65.1 % (37.0-80.0); Platelet Count 232 K/mm3 (142-424); Red Blood Count 5.68 M/mm3 (4.60-6.20); White Blood Count 8.5 K/mm3 (4.8-10.8)
[2022-08-14 14:56] LABS: Chloride 103 mmol/L (98-107); Potassium 3.9 mmoL/L (3.5-5.1); Sodium 140 mmol/L (136-145)
--- NOTE | 2022-08-14 14:56 | HMH.EDGENADL ---
Discharge Plan Disposition Patient Disposition: Home, Self-Care Condition: Good Prescriptions Prescriptions: No Action diltiazem HCl 120 mg capsule,extended release 24hr 120 mg PO metformin 500 mg tablet extended release 24 hr 500 mg PO DAILY cholecalciferol (vitamin D3) 1,250 mcg (50,000 unit) capsule 1,250 mcg PO WEEKLY Label Comments: TAKE 1 CAPSULE BY MOUTH ONCE A WEEK pioglitazone 15 mg tablet 15 mg PO DAILY propafenone 150 mg tablet 150 mg PO ONCE Rx Instructions: space evenly during waking hours ranolazine [Ranexa] 1,000 mg tablet extended release 12 hr 1,000 mg PO BID Qty: 60 3RF Breo Ellipta 100-25 mcg/dose blister with device 1 inh INHALATION DAILY Qty: 90 3RF fluticasone propionate [Flonase Allergy Relief] 50 mcg/actuation spray,suspension 1 spray INTRANASAL DAILY 90 Days Qty: 16 3RF Rx Instructions: administer into each nostril albuterol sulfate 90 mcg/actuation HFA aerosol inhaler 2 puff INHALATION PRN ipratropium-albuterol 0.5 mg-3 mg(2.5 mg base)/3 mL solution for nebulization 3 ml INHALATION QID PRN (Reason: shortness of breath or wheezing) 90 Days Qty: 360 3RF rosuvastatin 10 mg tablet 10 mg PO DAILY omeprazole 20 MG capsule,delayed release(DR/EC) 20 mg PO DAILY fenofibrate 160 MG tablet 160 mg PO DAILY [id number]-ast 1 EACH capsule 1 each PO DAILY rivaroxaban 20 mg tablet 20 mg PO DAILY aspirin 81 MG tablet,delayed release (DR/EC) 81 mg PO DAILY lisinopril 5 MG tablet 5 mg PO DAILY empagliflozin-linagliptin 1 EACH tablet 1 each PO DAILY Label Comments: TAKE 1 TABLET BY MOUTH ONCE DAILY IN THE MORNING FOR 90 DAYS valacyclovir 1,000 MG tablet 1,000 mg PO TID Qty: 21 0RF Referrals Follow up/Referrals: Provider,Referral, MD [Primary Care Provider] - See instructions Activity Restrictions/Add. Instructions Additional Instructions/Restrictions: Follow-up with cardiology as scheduled for further definitive management and characterization of your chest pain. If you have any other concerning signs or symptoms, return to the emergency department for further evaluation. Clinical Impressions Clinical Impression: Chest pain Discharge ED Provider: Bakari,Ross A General Adult HPI General Chief complaint: Chest Pain Stated complaint: chest pain Time Seen by Provider: 08/14/22 14:15 Mode of Arrival: Ambulatory Source of Information: Patient Limitations: No Limitations History of Present Illness HPI narrative: Is a 57-year-old male with history of LA status post 2 stents, A. fib on Xarelto presenting with chest pain. Patient states that he began having chest pain this morning when he was walking. It was substernal, 6 out of 10, radiated to his left arm. Because of his history, he wanted to come to the ED for further evaluation. He states that sitting up makes it worse, it is much better laying down and resting. No associated nausea, vomiting, diaphoresis, neurologic deficits, but patient had mild dizziness at the time. Currently asymptomatic Related Data Home Medications Medication Instructions Recorded Confirmed fenofibrate 160 mg tablet 160 mg PO DAILY High cholesterol 05/28/18 08/06/22 krill 300 mg-omega 3 90 mg-dha 24 1 each PO DAILY Supplement 05/28/18 08/06/22 mg-epa 50 [id number] capsule omeprazole 20 mg capsule,delayed 20 mg PO DAILY GERD 05/28/18 08/06/22 release aspirin 81 mg tablet,delayed 81 mg PO DAILY HEART HEALTH 04/02/21 08/06/22 release empagliflozin 25 mg-linagliptin 5 1 each PO DAILY Diabetes 04/02/21 08/06/22 mg tablet lisinopril 5 mg tablet 5 mg PO DAILY Hypertension 04/02/21 08/06/22 albuterol sulfate 90 mcg/actuation 2 puff inhalation PRN 08/17/21 08/06/22 aerosol inhaler rivaroxaban 20 mg tablet 20 mg PO DAILY Blood thinner 08/17/21 08/06/22 rosuvastatin 10 mg tablet 10 mg PO DAILY 04/07/22
[2022-08-14 14:59] LABS: Blood Urea Nitrogen 16 mg/dl (9-20); Creatinine Clearance Estimated 154 mL/min (50-200); Estimated Glomerular Filt Rate 100 ml/min (>60); GFR (African American) 121 ML/MIN (>60)
[2022-08-14 15:00] VITALS: BP 132/83; PULSE 81; RESP 16; O2SAT 96
[2022-08-14 15:00] LABS: Anion Gap 18.9 mEq/L (5-15); Calcium 8.7 mg/dl (8.4-10.2); Carbon Dioxide 22 mmol/L (22.0-30.0); Glucose 137 mg/dl (74-100)
[2022-08-14 15:14] LABS: Troponin I < 0.01 ng/ml (0.00-0.034)
[2022-08-14 15:30] VITALS: BP 146/93; PULSE 81; RESP 19; O2SAT 95
--- NOTE | 2022-08-14 15:40 | PC.NURSE ---
family at bedside updated on plan of care
[2022-08-14 16:00] VITALS: BP 128/78; PULSE 78; RESP 18; O2SAT 95
--- NOTE | 2022-08-14 16:30 | PC.NURSE ---
pt resting offered blankets pt declined
[2022-08-14 17:00] VITALS: BP 125/68; PULSE 87; RESP 16; TEMP 36.6; O2SAT 98
--- NOTE | 2022-08-14 17:30 | PC.NURSE ---
family at bedside
[2022-08-14 17:52] LABS: Troponin I < 0.01 ng/ml (0.00-0.034)
== END 2022-08-14 18:48 | disposition home or self-care (01) ==
PROVIDERS: Emergency Provider Emergency Medicine
DX: R07.9 Chest pain, unspecified (principal); M79.602 Pain in left arm; R42 Dizziness and giddiness; R06.02 Shortness of breath; R94.39 Abnormal result of other cardiovascular function study; I10 Essential (primary) hypertension; I25.2 Old myocardial infarction; I48.91 Unspecified atrial fibrillation; K21.9 Gastro-esophageal reflux disease without esophagitis; E78.5 Hyperlipidemia, unspecified; E11.9 Type 2 diabetes mellitus without complications; J44.9 Chronic obstructive pulmonary disease, unspecified; Z79.01 Long term (current) use of anticoagulants; Z79.1 Long term (current) use of non-steroidal anti-inflammatories (NSAID); Z79.84 Long term (current) use of oral hypoglycemic drugs; Z79.82 Long term (current) use of aspirin; Z79.899 Other long term (current) drug therapy; Z79.51 Long term (current) use of inhaled steroids; Z88.0 Allergy status to penicillin; Z88.5 Allergy status to narcotic agent; Z88.8 Allergy status to other drugs, medicaments and biological substances; Z85.89 Personal history of malignant neoplasm of other organs and systems
CPT/HCPCS: 71045; 80048; 84484; 85025; 93005; 99285

== ENCOUNTER → 2022-08-24 15:07 | Outpatient (CLI) | payer OTHER, SELFPAY ==
[2022-08-24 16:57] LABS: Basophils # 0.2 K/mm3 (0-0.2); Basophils % 1.7 % (0.1-2.0); Eosinophils # 0.2 K/mm3 (0.0-0.4); Eosinophils % 2.4 % (0.1-12.0); Hematocrit 46.5 % (42.0-52.0); Hemoglobin 15.5 g/dL (14.1-18.0); Lymphocytes # 2.5 K/mm3 (0.7-4.5); Mean Corpuscular HGB Conc 33.2 g/dL (31.8-35.4); Mean Corpuscular Hemoglobin 29.4 pg (27.0-31.2); Mean Corpuscular Volume 88.5 fl (80-94); Mean Platelet Volume 9.1 fl (7.4-10.4); Monocytes # 0.6 K/mm3 (0.1-1.0); Monocytes % 6.5 % (1.7-9.3); Neutrophils # 6.2 K/mm3 (1.8-7.8); Neutrophils % 63.4 % (37.0-80.0); Platelet Count 297 K/mm3 (142-424); Red Blood Count 5.26 M/mm3 (4.60-6.20); Red Cell Distribution Width 13.4 % (11.5-17.5); White Blood Count 9.8 K/mm3 (4.8-10.8)
[2022-08-24 17:18] LABS: Anion Gap 16.3 mEq/L (5-15); Blood Urea Nitrogen 13 mg/dl (9-20); Calcium 9.1 mg/dl (8.4-10.2); Carbon Dioxide 23 mmol/L (22.0-30.0); Chloride 101 mmol/L (98-107); Estimated Glomerular Filt Rate 78 ml/min (>60); GFR (African American) 94 ML/MIN (>60); Glucose 315 mg/dl (74-100); Potassium 4.3 mmoL/L (3.5-5.1); Sodium 136 mmol/L (136-145)
== END ==
PROVIDERS: PCP Family Medicine; Visit Provider Internal Medicine Cardiovascular Disease
DX: Z01.812 Encounter for preprocedural laboratory examination (principal); Z20.822 Contact with and (suspected) exposure to COVID-19; R06.00 Dyspnea, unspecified; I20.0 Unstable angina; I48.0 Paroxysmal atrial fibrillation; E78.2 Mixed hyperlipidemia; E11.69 Type 2 diabetes mellitus with other specified complication; R94.39 Abnormal result of other cardiovascular function study; I63.9 Cerebral infarction, unspecified
CPT/HCPCS: 36415; 80048; 85025; C9803; U0003; U0005

== ENCOUNTER 2022-08-25 08:50 | Day surgery (SDC) | payer OTHER, SELFPAY ==
[2022-08-25] VITALS (14 sets, daily range): BP systolic 113–194; BP diastolic 65–117; PULSE 81–91; RESP 18; O2SAT 92–97; BMI 30.2
--- NOTE | 2022-08-25 07:11 | IR_ITS ---
APPROVED REPORT Patient Location: Outpatient PROCEDURES Left heart catheterization Left ventriculogram Selective coronary angiogram Drug-eluting stent point to the distal dominant right coronary Percutaneous angioplasty to the posterior descending artery INDICATION Coronary artery disease, Accelerated angina pectoris, Abnormal Myoview inferior ischemia/scar Informed consent was obtained prior to the procedure. COMPLICATIONS None Estimated Blood Loss: Less than 10 ML TECHNIQUE One percent lidocaine used to anesthetize the right anterior aspect of the wrist. The right radial artery was accessed via the Seldinger technique. A 6 [place] sheath was placed in the right radial artery. 2.5 mg of verapamil, 800 mcg of nitroglycerin, 1mg Lidocaine and 5000 U Heparin were given through the arterial sheath. The papa catheter was also used to perform left heart catheterization, left ventriculogram and selective coronary angiogram. At the end the diagnostic angiogram therapeutic heparin was administered followed by a therapeutic ACT. Guide catheter was placed in the right coronary artery and the Choice PT extra-support wire was placed distally. A 3 mm x 26 mm resolute Chapin stent was deployed at 20 andre reducing the severe stenosis. There was slight jailing of the posterior descending artery therefore the wire was placed into the PDA and a 2.25 x 12 mm noncompliant balloon was deployed at 12 anrde in the ostial segment reducing the stenosis. Excellent angiographic results were obtained with DEONDRE-3 flow being present before and after the procedure. At the end the procedure the apparatus was removed the sheath was removed and hemostasis was achieved using TR band patient was transferred the postop putting in stable addition ANGIOGRAPHIC RESULTS The left main artery Normal The left anterior descending artery Has mild 10 to 20% stenoses with mid vessel 30 to 40% stenosis The circumflex artery Is nondominant and has proximal tubular concentric 20 to 30% stenosis and gives rise to a small first and second obtuse marginal artery. After the second obtuse marginal artery the circumflex artery is bluntly occluded. The distal vessel fills via right to left collaterals The right coronary artery Is a dominant vessel and has proximal 20 to 30% stenoses with mid vessel 30% stenosis and a distal eccentric 60 to 70% stenosis. The posterior descending artery has an ostial 40% stenosis The GONZALEZ ventriculogram reveals Preserved 55% The left ventricular end-diastolic pressure 15 mmHg IMPRESSION Chronically occluded circumflex artery which fills via right to left collaterals by a moderate to severely diseased distal right coronary artery Successful stent to the distal dominant right coronary severe disease reduced to 0% with 1 drug-eluting stent Successful angioplasty posterior descending artery reducing the disease to less than 10% Preserved ejection fraction Borderline elevated LVEDP PLAN 1. Triple therapy for 1 month followed by discontinuation of aspirin with ongoing Brilinta and Eliquis 2. LDL less than 55 to be achieved with high intensity statin 3. Cardiac rehabilitation 4. Avoidance of tobacco products 5. Risk factor modification Electronically signed by : Skpi Christy MD 08/25/2022 12:14:01
--- NOTE | 2022-08-25 09:15 | SUR.PREOP ---
Upon reviewing patients allergies with him prior to procedure. Pt stated he sometimes has an allergy to Shellfish which results with him having hives. Pt given prior to procedure with Benadryl, Solumedrol, and Pepcid. Pt education given.
[2022-08-25 11:42] LABS: CATHL Activated Clotting Time 303 SEC (74-125)
--- NOTE | 2022-08-25 13:45 | HMH.PHACL ---
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
== END 2022-08-25 14:47 | disposition home or self-care (01) ==
PROVIDERS: PCP Family Medicine; Visit Provider Internal Medicine
DX: I25.110 Atherosclerotic heart disease of native coronary artery with unstable angina pectoris (principal); I48.0 Paroxysmal atrial fibrillation; Z79.01 Long term (current) use of anticoagulants; J44.9 Chronic obstructive pulmonary disease, unspecified; E11.9 Type 2 diabetes mellitus without complications; I10 Essential (primary) hypertension; I25.2 Old myocardial infarction
CPT/HCPCS: 85347; 92920; 92928; 93458; 99152; 99153; C1725; C1760; C1769; C1876; C9600; J1644; Q9967

== ENCOUNTER → 2022-09-01 08:26 | Outpatient (CLI) | payer OTHER, SELFPAY ==
[2022-09-01 09:28] LABS: Basophils # 0.3 K/mm3 (0-0.2); Basophils % 3.6 % (0.1-2.0); Eosinophils # 0.3 K/mm3 (0.0-0.4); Eosinophils % 3.2 % (0.1-12.0); Hematocrit 50.3 % (42.0-52.0); Hemoglobin 16.1 g/dL (14.1-18.0); Lymphocytes # 1.9 K/mm3 (0.7-4.5); Lymphocytes % 22.7 % (10-50); Mean Corpuscular HGB Conc 32.1 g/dL (31.8-35.4); Mean Corpuscular Volume 90.2 fl (80-94); Mean Platelet Volume 9.1 fl (7.4-10.4); Monocytes # 0.6 K/mm3 (0.1-1.0); Monocytes % 6.9 % (1.7-9.3); Neutrophils # 5.4 K/mm3 (1.8-7.8); Neutrophils % 63.5 % (37.0-80.0); Platelet Count 281 K/mm3 (142-424); Red Blood Count 5.58 M/mm3 (4.60-6.20); Red Cell Distribution Width 13.4 % (11.5-17.5); White Blood Count 8.4 K/mm3 (4.8-10.8)
[2022-09-01 10:31] LABS: Chloride 103 mmol/L (98-107); Potassium 4.4 mmoL/L (3.5-5.1); Sodium 139 mmol/L (136-145)
[2022-09-01 10:34] LABS: Blood Urea Nitrogen 13 mg/dl (9-20); Estimated Glomerular Filt Rate 100 ml/min (>60); GFR (African American) 121 ML/MIN (>60)
[2022-09-01 10:35] LABS: Anion Gap 16.4 mEq/L (5-15); Calcium 9.1 mg/dl (8.4-10.2); Carbon Dioxide 24 mmol/L (22.0-30.0); Glucose 189 mg/dl (74-100)
== END ==
PROVIDERS: PCP Family Medicine; Visit Provider Internal Medicine
DX: R06.00 Dyspnea, unspecified (principal); I20.0 Unstable angina
CPT/HCPCS: 36415; 80048; 85025

== ENCOUNTER → 2022-10-07 16:56 | Outpatient (CLI) | payer OTHER, SELFPAY ==
--- NOTE | 2022-10-07 17:02 | XR_ITS ---
FINAL REPORT CLINICAL HISTORY: acute back pain no injury FINDINGS: CERVICAL SPINE Five views demonstrate no acute fracture. The disc spaces are well preserved. There is no malalignment. There is mild reversal of the cervical lordosis. The neural foramina are adequately patent. IMPRESSION: No acute process. THORACIC SPINE Two views demonstrate no acute fracture. There is moderate anterior osteophyte formation in the mid and lower thoracic spine. There is no malalignment. IMPRESSION: Degenerative changes as above. LUMBAR SPINE Five views demonstrate no acute fracture. There is mild anterior osteophyte formation at L3-4 and L4-5. There is no malalignment. IMPRESSION: Degenerative changes at L3-4 and L4-5. Reviewed, Interpreted and Dictated by Matthew Yates MD Transcribed by Oumou Wren Authenticated and [facility]
== END ==
PROVIDERS: PCP Physician Assistant; Visit Provider Physician Assistant
DX: M54.2 Cervicalgia (principal); M54.6 Pain in thoracic spine; M54.16 Radiculopathy, lumbar region
CPT/HCPCS: 72084

== ENCOUNTER → 2022-10-25 15:11 | Outpatient (CLI) | payer OTHER, SELFPAY ==
--- NOTE | 2022-10-25 15:15 | MR_ITS ---
FINAL REPORT TECHNIQUE: Multiplanar MR without contrast CLINICAL HISTORY: LUMBAR PAIN AFFECTING LOWER EXTREMITY. LOW BACK PAIN. URINARY INCONTIENCE. BILATERAL FEET AND LEG NUMBESS. TROUBLE WALKING. SYMPTOMS X2-3MONTHS. NO INJURY OR TRAUMA. COMPARISON: August 2021 FINDINGS: Sagittal images show normal vertebral height. Alignment is normal. Marrow signal pattern is unremarkable. T12-L1: Unremarkable L1-2: Unremarkable L2-3: Unremarkable L3-4: Mild annular disc bulge and facet arthropathy. Mildly worse since prior. L4-5: Unremarkable L5-S1: No disc protrusion. Mild facet arthropathy. IMPRESSION: Mild degenerative change without canal stenosis or nerve root compression. Reviewed, Interpreted and Dictated by Malaika Gutierrez MD Transcribed by Dc Melgoza Authenticated and [facility]
== END ==
PROVIDERS: PCP Physician Assistant; Visit Provider Physician Assistant
DX: M54.16 Radiculopathy, lumbar region (principal)
CPT/HCPCS: 72148; 76376

== ENCOUNTER 2022-11-20 09:43 | Emergency (ER) | payer OTHER, SELFPAY ==
[2022-11-20 09:45] VITALS: BP 153/94; PULSE 92; RESP 18; TEMP 36.6; O2SAT 97; BMI 31.1
--- NOTE | 2022-11-20 09:53 | CT_ITS ---
PROCEDURE INFORMATION: Exam: CT Abdomen And Pelvis Without Contrast Exam date and time: 11/20/2022 10:20 AM Age: 57 years old Clinical indication: Abdominal pain; Flank; Right lower quadrant (rlq); Additional info: Stone rule out, R flank pain TECHNIQUE: Imaging protocol: Computed tomography of the abdomen and pelvis without contrast. Radiation optimization: All CT scans at this facility use at least one of these dose optimization techniques: automated exposure control; mA and/or kV adjustment per patient size (includes targeted exams where dose is matched to clinical indication); or iterative reconstruction. COMPARISON: ABDW CT abdomen w con 03/06/2018 3:19 PM FINDINGS: Liver: Diffuse fatty infiltration. Measures 24 cm. Gallbladder and bile ducts: Normal. No calcified stones. No ductal dilation. Pancreas: Normal. No ductal dilation. Spleen: Normal. No splenomegaly. Adrenal glands: Normal. No mass. Kidneys and ureters: Normal. No hydronephrosis. No nephroureterolithiasis. Stomach and bowel: Unremarkable. No obstruction. No mucosal thickening. Sigmoid colonic diverticulosis without evidence for diverticulitis. Appendix: No evidence of appendicitis. Intraperitoneal space: Unremarkable. No free air. No significant fluid collection. Vasculature: Unremarkable. No abdominal aortic aneurysm. Lymph nodes: Unremarkable. No enlarged lymph nodes. Urinary bladder: Unremarkable as visualized. Reproductive: Unremarkable as visualized. Bones/joints: Unremarkable. No acute fracture. Soft tissues: Unremarkable. Visualized thorax grossly unremarkable. IMPRESSION: 1. No nephroureterolithiasis or hydroureter identified. 2. Hepatomegaly and fatty infiltration. 3. Sigmoid colonic diverticulosis without evidence for diverticulitis by CT criteria.
--- NOTE | 2022-11-20 09:55 | HMH.EDGENADL ---
Discharge Plan Disposition Patient Disposition: Home, Self-Care Condition: Good Prescriptions Prescriptions: New diazepam 5 mg tablet 5 mg PO TID Qty: 3 0RF No Action diltiazem HCl 120 mg capsule,extended release 24hr 120 mg PO metformin 500 mg tablet extended release 24 hr 500 mg PO DAILY cholecalciferol (vitamin D3) 1,250 mcg (50,000 unit) capsule 1,250 mcg PO WEEKLY Label Comments: TAKE 1 CAPSULE BY MOUTH ONCE A WEEK pioglitazone 15 mg tablet 15 mg PO DAILY propafenone 150 mg tablet 150 mg PO ONCE Rx Instructions: space evenly during waking hours ranolazine [Ranexa] 1,000 mg tablet extended release 12 hr 1,000 mg PO BID Qty: 60 3RF Breo Ellipta 100-25 mcg/dose blister with device 1 inh INHALATION DAILY Qty: 90 3RF fluticasone propionate [Flonase Allergy Relief] 50 mcg/actuation spray,suspension 1 spray INTRANASAL DAILY 90 Days Qty: 16 3RF Rx Instructions: administer into each nostril albuterol sulfate 90 mcg/actuation HFA aerosol inhaler 2 puff INHALATION PRN ipratropium-albuterol 0.5 mg-3 mg(2.5 mg base)/3 mL solution for nebulization 3 ml INHALATION QID PRN (Reason: shortness of breath or wheezing) 90 Days Qty: 360 3RF rosuvastatin 10 mg tablet 10 mg PO DAILY omeprazole 20 MG capsule,delayed release(DR/EC) 20 mg PO DAILY fenofibrate 160 MG tablet 160 mg PO DAILY [id number]-ast 1 EACH capsule 1 each PO DAILY rivaroxaban 20 mg tablet 20 mg PO DAILY aspirin 81 MG tablet,delayed release (DR/EC) 81 mg PO DAILY lisinopril 5 MG tablet 5 mg PO DAILY empagliflozin-linagliptin 1 EACH tablet 1 each PO DAILY Label Comments: TAKE 1 TABLET BY MOUTH ONCE DAILY IN THE MORNING FOR 90 DAYS valacyclovir 1,000 MG tablet 1,000 mg PO TID Qty: 21 0RF clopidogrel [Plavix] 75 mg Tablet 75 mg PO DAILY Qty: 30 3RF Referrals Follow up/Referrals: Virgilio Jenkins MD [Primary Care Provider] - See instructions Activity Restrictions/Add. Instructions Additional Instructions/Restrictions: Take Tylenol 1000 mg and Motrin 600 mg every 6 hours for the next 3 days with food and water to prevent GI upset and kidney problems. This will help with most of your issues. Take Valium every 8 hours as needed for muscle cramps. Do not drive, operate heavy machinery, or engage in activities that may cause harm to you or others if you should fall asleep. Do not drink alcohol with medications. If you have any other concerning signs or symptoms, return to the ED for further evaluation as described. Clinical Impressions Clinical Impression: Low back strain Qualifiers: Encounter type: initial encounter Qualified Code(s): S39.012A - Strain of muscle, fascia and tendon of lower back, initial encounter Discharge ED Provider: Dylan Villegas General Adult HPI General Chief complaint: PAIN Stated complaint: back pain, no accident Time Seen by Provider: 11/20/22 09:52 Mode of Arrival: Ambulatory Source of Information: Patient Limitations: No Limitations History of Present Illness HPI narrative: This a 57-year-old male with history of type 2 diabetes, ACS, ND status post stenting, A. fib currently on Plavix and Xarelto, chronic back pain and spasms, nephrolithiasis who is presenting with flank pain. Patient states that flank pain has been going on for approximately 3 days. It got acutely worse today on his way to work. He states that it comes and goes. 2-3 out of 10 at rest, when a wave of pain hits him, it is stabbing, 8 out of 10, in his right flank, does not radiate. Denies dysuria or hematuria, fevers, chills, nausea, vomiting, abdominal pain, bowel or bladder dysfunction, lower extremity weakness or tingling, constipation, diarrhea, hematochezia, trauma, heavy lifting, or any other concerning symptoms. The only thing that is made it better was that he did see his in his truck, n
--- NOTE | 2022-11-20 10:18 | PC.NURSE ---
pt to CT via wheelchair
[2022-11-20 11:40] VITALS: BP 129/79; PULSE 84; RESP 18; TEMP 36.9; O2SAT 97
== END 2022-11-20 11:45 | disposition home or self-care (01) ==
PROVIDERS: Emergency Provider Emergency Medicine; PCP Family Medicine
DX: S39.012A Strain of muscle, fascia and tendon of lower back, initial encounter (principal); R06.02 Shortness of breath; R10.31 Right lower quadrant pain; R94.39 Abnormal result of other cardiovascular function study; I48.91 Unspecified atrial fibrillation; I25.10 Atherosclerotic heart disease of native coronary artery without angina pectoris; I25.2 Old myocardial infarction; K21.9 Gastro-esophageal reflux disease without esophagitis; R78.5 Finding of other psychotropic drug in blood; E11.9 Type 2 diabetes mellitus without complications; N20.0 Calculus of kidney; M54.9 Dorsalgia, unspecified; M62.830 Muscle spasm of back; G89.29 Other chronic pain; J44.9 Chronic obstructive pulmonary disease, unspecified; Z79.01 Long term (current) use of anticoagulants; Z79.02 Long term (current) use of antithrombotics/antiplatelets; Z79.1 Long term (current) use of non-steroidal anti-inflammatories (NSAID); Z79.51 Long term (current) use of inhaled steroids; Z79.82 Long term (current) use of aspirin; Z79.84 Long term (current) use of oral hypoglycemic drugs; Z79.899 Other long term (current) drug therapy; Z95.5 Presence of coronary angioplasty implant and graft; Z88.0 Allergy status to penicillin; Z88.5 Allergy status to narcotic agent; Z91.013 Allergy to seafood; Z82.49 Family history of ischemic heart disease and other diseases of the circulatory system; Z83.3 Family history of diabetes mellitus; Z80.9 Family history of malignant neoplasm, unspecified
CPT/HCPCS: 74176; 96372; 99285

== ENCOUNTER 2023-02-14 17:42 | Emergency (ER) | payer OTHER, SELFPAY ==
[2023-02-14 19:20] VITALS: BP 138/92; PULSE 86; RESP 20; TEMP 37; O2SAT 97; BMI 43.0
--- NOTE | 2023-02-14 19:22 | XR_ITS ---
PROCEDURE INFORMATION: Exam: XR Left Ribs with PA Chest Exam date and time: 02/14/2023 7:21 PM Age: 57 years old Clinical indication: Injury or trauma; Other: Stepped off a raised concrete structure at work last week, felt pop in left lateral ribs. Work related; Rib area, left side; Blunt trauma; Patient HX: Left lateral rib pain, stepped down off a raised structure last week and felt pop in left lateral ribs. Persistent pain. TECHNIQUE: Imaging protocol: Radiologic exam of the left ribs with PA chest. Views: 3 views COMPARISON: CR XR CHEST PORTABLE 14/08/2022 14:41 FINDINGS: Lungs: Unremarkable. No consolidation. Pleural spaces: Unremarkable. No pleural effusion. No pneumothorax. Heart/Mediastinum: Unremarkable. No cardiomegaly. Vasculature: Vascular calcifications. Bones/joints: Unremarkable. IMPRESSION: No acute findings. No acute rib fractures.
--- NOTE | 2023-02-14 19:45 | EXP.UTC ---
Discharge Plan Disposition Patient Disposition: Home, Self-Care Condition: Good Prescriptions Prescriptions: No Action diltiazem HCl 120 mg capsule,extended release 24hr 120 mg PO DAILY metformin 500 mg tablet extended release 24 hr 500 mg PO DAILY cholecalciferol (vitamin D3) 1,250 mcg (50,000 unit) capsule 1,250 mcg PO WEEKLY Label Comments: TAKE 1 CAPSULE BY MOUTH ONCE A WEEK pioglitazone 15 mg tablet 15 mg PO DAILY Synjardy XR 12.5-1,000 mg tablet, IR - ER, biphasic 24hr 1 tab PO DAILY Label Comments: TAKE 2 TABLETS BY MOUTH ONCE DAILY propafenone 150 mg tablet 150 mg PO ONCE Rx Instructions: space evenly during waking hours albuterol sulfate 90 mcg/actuation HFA aerosol inhaler 2 puff INHALATION PRN ipratropium-albuterol 0.5 mg-3 mg(2.5 mg base)/3 mL solution for nebulization 3 ml INHALATION QID PRN (Reason: shortness of breath or wheezing) 90 Days Qty: 360 3RF omeprazole 20 MG capsule,delayed release(DR/EC) 20 mg PO DAILY fenofibrate 160 MG tablet 160 mg PO DAILY [id number]-lbyfkse-ast 1 EACH capsule 1 each PO DAILY rivaroxaban 20 mg tablet 20 mg PO DAILY aspirin 81 MG tablet,delayed release (DR/EC) 81 mg PO DAILY lisinopril 5 MG tablet 5 mg PO DAILY empagliflozin-linagliptin 1 EACH tablet 1 each PO DAILY Label Comments: TAKE 1 TABLET BY MOUTH ONCE DAILY IN THE MORNING FOR 90 DAYS tizanidine 4 mg tablet 4 mg PO Q8 PRN (Reason: .) Label Comments: TAKE 1 TO 2 TABLETS BY MOUTH EVERY 8 HOURS NEEDED gabapentin 300 mg capsule 300 mg PO TID ranolazine 500 mg tablet extended release 12 hr 500 mg PO BID clopidogrel 75 mg tablet See Rx Instructions .ROUTE .COMPLEX Rx Instructions: Take 1 tablet by mouth once daily rosuvastatin 10 mg tablet See Rx Instructions .ROUTE .COMPLEX Rx Instructions: TAKE 1 TABLET BY MOUTH ONCE DAILY Rybelsus 7 mg tablet 7 mg PO DAILY Label Comments: TAKE 1 TABLET BY MOUTH ONCE DAILY valacyclovir 1,000 MG tablet 1,000 mg PO TID Qty: 21 0RF Referrals Follow up/Referrals: Virgilio Jenkins MD [Primary Care Provider] - See instructions Activity Restrictions/Add. Instructions Additional Instructions/Restrictions: Follow up with your family Doctor if no improvement or any worsening of symptoms Straight to ER if any life threatening symptoms Clinical Impressions Clinical Impression: Rib pain on left side Stand Alone Forms Stand Alone Forms: Work/School Release Instructions Patient Instructions: DI for Rib Contusion, DI for Chronic Pain -- Adult Discharge ED Provider: Alissa Randall [facility] [place] HPI General Stated complaint: AO 02/08 pulled something in left side of stomach Mode of Arrival: Ambulatory Source of Information: Patient Limitations: No Limitations Time Seen by Provider: 02/14/23 19:45 Description of Symptoms (Recalled from Triage Doc. by RN): WC.pulled strained muscle. Left side below ribs HEENT Symptoms (Recalled from RN notes): No Resp Symptoms (Recalled from RN notes): No Skin Symptoms (Recalled from RN notes): No MS Symptoms (Recalled from RN notes): Yes Functional Status (Recalled from RN notes): n/a History of Present Illness Provider Complaint: Patient states that last Tuesday he was stepping off well at work and felt something pop in his left lower ribs State that he was having pain and hurt when he would move or take a deep breath so he took it easy and it was getting better but today he went back to work and was jarring around on equipment that he was running and started having pain again States that he wasnt sure if he may have broke a rib or pulled something in there so they had him come in and get checked Denies falling denies getting hit Related Data Home Medications Medication Instructions Recorded Confirmed fenofibrate 160 mg tablet 160 mg PO D
[2023-02-14 20:35] VITALS: BP 138/92; PULSE 86; RESP 20; TEMP 37; O2SAT 97
== END 2023-02-14 20:35 | disposition home or self-care (01) ==
PROVIDERS: Emergency Provider Nurse Practitioner; PCP Family Medicine
DX: R07.81 Pleurodynia (principal); X50.0XXA Overexertion from strenuous movement or load, initial encounter
CPT/HCPCS: 71101; 99212; 99213; G0463

== ENCOUNTER 2023-03-24 09:50 | Emergency (ER) | payer OTHER, SELFPAY ==
[2023-03-24] VITALS (11 sets, daily range): BP systolic 133–166; BP diastolic 62–96; PULSE 79–90; RESP 17–18; TEMP 36.7; O2SAT 94–98; BMI 30.9
--- NOTE | 2023-03-24 09:47 | ECG_ITS ---
APPROVED REPORT Exam: Resting ECG HR:86 bpm ECG Measurements Heart Rate 86 AXES UT 115 P 40 QRSd 87 QRS 12 QT 376 T -25 QTc 420 Conclusion SINUS RHYTHM WITH SHORT UT INTERVAL NONSPECIFIC T-WAVE ABNORMALITY BORDERLINE ECG UNCONFIRMED REPORT Electronically signed by : Jose Khan MD 03/24/2023 21:13:47
--- NOTE | 2023-03-24 09:58 | XR_ITS ---
FINAL REPORT CLINICAL HISTORY: CHEST PAIN COMPARISON: 02/14/2023 ribs with chest FINDINGS: A single portable view of the chest was obtained. The heart size and pulmonary vascularity are within normal limits. The mediastinum is within normal limits. No acute pulmonary abnormality is identified. The bony thorax is intact. IMPRESSION: No active cardiopulmonary disease. Reviewed, Interpreted and Dictated by Claude Martinez III, MD Transcribed by Geni Severino Authenticated and . [facility]
[2023-03-24 10:05] LABS: Basophils # 0.1 K/mm3 (0-0.2); Basophils % 0.9 % (0.1-2.0); Eosinophils # 0.2 K/mm3 (0.0-0.4); Eosinophils % 2.3 % (0.1-12.0); Hematocrit 49.1 % (42.0-52.0); Hemoglobin 16.4 g/dL (14.1-18.0); Lymphocytes # 2.1 K/mm3 (0.7-4.5); Lymphocytes % 30.3 % (10-50); Mean Corpuscular HGB Conc 33.5 g/dL (31.8-35.4); Mean Corpuscular Hemoglobin 29.4 pg (27.0-31.2); Mean Platelet Volume 8.9 fl (7.4-10.4); Monocytes # 0.5 K/mm3 (0.1-1.0); Monocytes % 6.9 % (1.7-9.3); Neutrophils # 4.1 K/mm3 (1.8-7.8); Neutrophils % 59.6 % (37.0-80.0); Platelet Count 253 K/mm3 (142-424); Red Blood Count 5.59 M/mm3 (4.60-6.20); Red Cell Distribution Width 12.7 % (11.5-17.5); White Blood Count 6.8 K/mm3 (4.8-10.8)
[2023-03-24 10:08] LABS: Chloride 105 mmol/L (98-107); Potassium 3.9 mmoL/L (3.5-5.1); Sodium 138 mmol/L (136-145)
[2023-03-24 10:11] LABS: Alanine Aminotransferase 38 U/L (12-78); Albumin Level 4.6 g/dl (3.5-5.0); Alkaline Phosphatase 92 U/L (38-126); Anion Gap 12.9 mEq/L (5-15); Aspartate Amino Transferase 33 U/L (17-59); Bilirubin,Total 0.5 mg/dl (0.2-1.3); Blood Urea Nitrogen 12 mg/dl (9-20); Carbon Dioxide 24 mmol/L (22.0-30.0); Creatinine Clearance Estimated 153 mL/min (50-200); Estimated Glomerular Filt Rate 100 ml/min (>60); GFR (African American) 121 ML/MIN (>60); Globulin 2.3 g/dL (1.3-3.2); Total Protein,Serum 6.9 g/dl (6.3-8.2)
[2023-03-24 10:12] LABS: Calcium 8.9 mg/dl (8.4-10.2); Glucose 148 mg/dl (74-100)
--- NOTE | 2023-03-24 10:19 | HMH.EDGENADL ---
Discharge Plan Disposition Patient Disposition: Home, Self-Care Prescriptions Prescriptions: No Action diltiazem HCl 120 mg capsule,extended release 24hr 120 mg PO DAILY cholecalciferol (vitamin D3) 1,250 mcg (50,000 unit) capsule 1,250 mcg PO WEEKLY Label Comments: TAKE 1 CAPSULE BY MOUTH ONCE A WEEK pioglitazone 15 mg tablet 15 mg PO DAILY Synjardy XR 12.5-1,000 mg tablet, IR - ER, biphasic 24hr 1 tab PO DAILY Label Comments: TAKE 2 TABLETS BY MOUTH ONCE DAILY fluticasone furoate-vilanterol [Breo Ellipta] 100-25 mcg/dose blister with device 1 inh inhalation DAILY ranolazine 1,000 mg tablet extended release 12 hr 1,000 mg PO BID Qty: 60 3RF albuterol sulfate 90 mcg/actuation HFA aerosol inhaler 2 puff INHALATION PRN ipratropium-albuterol 0.5 mg-3 mg(2.5 mg base)/3 mL solution for nebulization 3 ml INHALATION QID PRN (Reason: shortness of breath or wheezing) 90 Days Qty: 360 3RF omeprazole 20 MG capsule,delayed release(DR/EC) 20 mg PO DAILY fenofibrate 160 MG tablet 160 mg PO DAILY [id number]-ihd-[id number]-ast 1 EACH capsule 1 each PO DAILY rivaroxaban 20 mg tablet 20 mg PO DAILY aspirin 81 MG tablet,delayed release (DR/EC) 81 mg PO DAILY lisinopril 5 MG tablet 5 mg PO DAILY tizanidine 4 mg tablet 4 mg PO Q8 PRN (Reason: .) Label Comments: TAKE 1 TO 2 TABLETS BY MOUTH EVERY 8 HOURS NEEDED gabapentin 300 mg capsule 300 mg PO TID clopidogrel 75 mg tablet See Rx Instructions .ROUTE .COMPLEX Rx Instructions: Take 1 tablet by mouth once daily rosuvastatin 10 mg tablet See Rx Instructions .ROUTE .COMPLEX Rx Instructions: TAKE 1 TABLET BY MOUTH ONCE DAILY Rybelsus 7 mg tablet 7 mg PO DAILY Label Comments: TAKE 1 TABLET BY MOUTH ONCE DAILY Referrals Follow up/Referrals: Virgilio Jenkins MD [Primary Care Provider] - See instructions Activity Restrictions/Add. Instructions Additional Instructions/Restrictions: There is no evidence of any acute myocardial injury or acute coronary syndrome today with your emergent evaluation. I spoke with Severo who works with your cardiology group and they will call and get your stress test done sooner. Please return to the emergency department if your chest pain escalates or becomes constant and unrelenting. Clinical Impressions Clinical Impression: Stable angina Discharge ED Provider: [facility] HPI General Chief complaint: Chest Pain Stated complaint: CHEST PAIN Time Seen by Provider: 03/24/23 10:19 Mode of Arrival: Ambulatory Limitations: No Limitations Description of Symptoms (Recalled from ER Triage Doc. by RN): PT C/O CHEST PAIN FOR 3-4 WEEKS INCREASED TODAY. LEFT SIDED CHEST PAIN THAT RADIATED TO JAW AND SHOULDER. OCCASIONAL NAUSEA AND SHORTNESS OF BREATH History of Present Illness HPI narrative: Patient is a 57-year-old male with history of coronary disease presenting with similar chest pain symptoms that he has been having the last several weeks to months. He has an outpatient stress test that is ordered for the near future and states he is continue to have intermittent chest pain that is associated with exertion currently is without any chest pain. Pain is substernal in occasionally radiating to the jaw and shoulder occasional shortness of breath and nausea associate with this. Again currently is asymptomatic. Related Data Home Medications Medication Instructions Recorded Confirmed fenofibrate 160 mg tablet 160 mg PO DAILY High cholesterol 05/28/18 03/21/23 krill 300 mg-omega 3 90 mg-dha 24 1 each PO DAILY Supplement 05/28/18 03/21/23 mg-epa 50 ij-aanezwx-fkesp capsule omeprazole 20 mg capsule,delayed 20 mg PO DAILY GERD 05/28/18 03/21/23 release aspirin 81 mg tablet,delayed 81 mg PO DAILY HEART HEALTH 04/02/21 03/21/23 release lisinopril 5 mg tablet 5 mg PO DAILY Hypertension
--- NOTE | 2023-03-24 10:23 | PC.NURSE ---
DR DAVID AT BEDSIDE
--- NOTE | 2023-03-24 10:24 | PC.NURSE ---
ISHA SHEIKH at for pt mikoal
[2023-03-24 10:29] LABS: Troponin I < 0.01 ng/ml (0.00-0.034)
--- NOTE | 2023-03-24 11:15 | PC.NURSE ---
ROUNDED ON PT AT THIS TIME, PT RESTING WITH EYES CLOSED. AWAKENS EASILY. DENIES CHEST PAIN AT REST, NO NEEDS AT THIS TIME. CALL LIGHT WITHIN REACH.
--- NOTE | 2023-03-24 13:14 | PC.NURSE ---
Rounded on patient, spouse at BS. patient aware that we are waiting on 2nd troponin blood work. they report no needs at this time
[2023-03-24 13:25] LABS: Troponin I < 0.01 ng/ml (0.00-0.034)
--- NOTE | 2023-03-24 13:29 | PC.NURSE ---
Dr. Powers notified that 2nd troponin results are back
--- NOTE | 2023-03-24 13:29 | PC.NURSE ---
DR DAVID AT BEDSIDE TO UPDATE PT ON POC
--- NOTE | 2023-03-24 13:31 | PC.NURSE ---
JOSE DE JESUS Rivas with cardiology for Dr. Powers
== END 2023-03-24 14:10 | disposition home or self-care (01) ==
PROVIDERS: Emergency Provider Student in an Organized Health Care Education/Training Program; PCP Family Medicine
DX: I25.118 Atherosclerotic heart disease of native coronary artery with other forms of angina pectoris (principal); R07.9 Chest pain, unspecified
CPT/HCPCS: 36415; 71045; 80053; 84484; 85025; 93005; 99285

== ENCOUNTER → 2023-03-25 06:56 | Outpatient (CLI) | payer OTHER, SELFPAY | LOC: RAD 06:56 | PROVIDERS: PCP Family Medicine; Visit Provider Nurse Practitioner Family | DX: R06.00 Dyspnea, unspecified (principal); I20.8 Other forms of angina pectoris; E78.2 Mixed hyperlipidemia; I48.0 Paroxysmal atrial fibrillation | CPT/HCPCS: 78452; 93017; 93306; A9502; J2785 ==

== ENCOUNTER 2023-03-30 11:16 | Day surgery (SDC) | payer OTHER, SELFPAY ==
[2023-03-30] VITALS (11 sets, daily range): BP systolic 107–169; BP diastolic 63–90; PULSE 82–86; RESP 16–20; O2SAT 92–96; BMI 30.6
--- NOTE | 2023-03-30 07:07 | IR_ITS ---
APPROVED REPORT Patient Location: Outpatient PROCEDURES Selective coronary angiogram Drug-eluting stent deployment to the ostial proximal dominant right coronary INDICATION Accelerated angina pectoris, Coronary artery disease SCAI INDICATION Despite having a normal stress test patient was having classic accelerated class III-IV angina pectoris. Cardiac catheterization was recommended. Patient was found to have severe to critical two-vessel coronary disease Informed consent was obtained prior to the procedure. COMPLICATIONS None Estimated Blood Loss: Less than 10 ML TECHNIQUE One percent lidocaine used to anesthetize the right anterior aspect of the wrist. The right radial artery was accessed via the Seldinger technique. A 6 English sheath was placed in the right radial artery. 150 mg magnesium sulfate, 800 mcg of nitroglycerin, 1mg Lidocaine and 5000 U Heparin were given through the arterial sheath. The papa catheter was also used to perform selective coronary angiography. At the end of the diagnostic angiogram therapeutic heparin was administered giving a therapeutic ACT and the guide catheter was placed in the right coronary artery followed by a Choice PT extra-support wire. 800 mcg of intracoronary artery nitroglycerin was administered to make absolutely certain the severe stenosis was not catheter induced spasm. Repeat angiography demonstrated the severe stenosis persisted therefore a 4 mm x 18 mm resolute frontier stent was deployed at 20 andre reducing the severe stenosis to 0% DEONDRE-3 flow was present before and after the procedure the end of procedure the apparatus was removed the sheath was removed and hemostasis achieved using TR banding patient was transferred to the postop holding in stable condition ANGIOGRAPHIC RESULTS The left main artery Normal The left anterior descending artery Has proximal 20% stenosis with a mid vessel tubular 30 to 40% stenosis. The circumflex artery Is nondominant and has a stent in the proximal segment which is widely patent. The second obtuse marginal artery is subtotally occluded and slowly fills via left to left collaterals The right coronary artery Is a large dominant vessel and has an ostial proximal severe 90% stenosis followed by mid vessel 20% stenoses. Distally the stent is widely patent with excellent proximal distal transitioning. The posterior lateral branch has an ostial 30 to 40% stenosis. The GONZALEZ ventriculogram reveals Not performed The left ventricular end-diastolic pressure Not measured IMPRESSION Severe to critical proximal dominant right coronary disease as described above with successful stenting of the ostial proximal segment reducing the severe to critical stenosis to 0% with 1 drug-eluting stent Chronically occluded second obtuse marginal artery as described above PLAN 1. Dual antiplatelet therapy 2. LDL less than 55 to be achieved with high intensity statin 3. Avoidance of tobacco products 4. Risk factor modification 5. Cardiac rehabilitation 6. Medical management for the chronically occluded second obtuse marginal artery Electronically signed by : Skip Christy MD 03/30/2023 13:15:37
[2023-03-30 14:05] LABS: CATHL Activated Clotting Time 245 SEC (74-125)
--- NOTE | 2023-03-30 15:42 | HMH.PHACL ---
PHA Warehouse Foreman Discharge Med Sports Book Server: Declan Bonds has received discharge medication counseling on the following medications: ASPIRIN DR 81 MG DAILY BISOPROLOL 10 MG BID CLOPIDOGREL 75 MG DAILY LISINOPRIL 5 MG DAILY ROSUVASTATIN 10 MG HS
== END 2023-03-30 15:55 | disposition home or self-care (01) ==
PROVIDERS: PCP Family Medicine; Visit Provider Internal Medicine
DX: R07.9 Chest pain, unspecified (principal); Z79.01 Long term (current) use of anticoagulants; Z79.899 Other long term (current) drug therapy; I25.110 Atherosclerotic heart disease of native coronary artery with unstable angina pectoris; Z95.5 Presence of coronary angioplasty implant and graft; I25.82 Chronic total occlusion of coronary artery; E11.9 Type 2 diabetes mellitus without complications; Z79.84 Long term (current) use of oral hypoglycemic drugs; I48.0 Paroxysmal atrial fibrillation
CPT/HCPCS: 85347; 92928; 93454; 99152; C1725; C1760; C1769; C1876; C9600; J1644; Q9967

== ENCOUNTER → 2023-04-07 12:21 | Outpatient (CLI) | payer OTHER, SELFPAY ==
--- NOTE | 2023-04-07 12:26 | CT_ITS ---
FINAL REPORT TECHNIQUE: The patient was injected with IV contrast. Axial images were obtained of the chest by computed tomography. Precontrast images were also obtained. This study was performed with techniques to keep radiation doses as low as reasonably achievable (ALARA). Individualized dose reduction techniques using automated exposure control or adjustment of mA and/or kV according to the patient's size were employed. CLINICAL HISTORY: angina COMPARISON: None FINDINGS: CT OF THE CHEST WITH AND WITHOUT CONTRAST: There is no axillary adenopathy. There is no mediastinal or hilar adenopathy. Heart size is normal. There is no pericardial or pleural effusion identified. There is no suspicious pulmonary nodule or infiltrate identified. IMPRESSION: No acute findings. Reviewed, Interpreted and Dictated by Malaika Gutierrez MD Transcribed by Geni Severino Authenticated and [facility]
[2023-04-07 13:36] LABS: Free T4 (Free Thyroxine) 1.02 ng/dl (0.78-2.19)
[2023-04-07 13:50] LABS: Thyroid Stimulating Hormone 2.06 uIU/mL (0.465-4.68)
== END ==
PROVIDERS: PCP Family Medicine; Visit Provider Internal Medicine
DX: R06.02 Shortness of breath (principal); R06.09 Other forms of dyspnea; I20.8 Other forms of angina pectoris; I48.0 Paroxysmal atrial fibrillation; I10 Essential (primary) hypertension; E11.69 Type 2 diabetes mellitus with other specified complication; E78.2 Mixed hyperlipidemia; Z79.84 Long term (current) use of oral hypoglycemic drugs
CPT/HCPCS: 36415; 71270; 84439; 84443; Q9967

== ENCOUNTER → 2023-04-18 07:41 | Outpatient (CLI) | payer OTHER, SELFPAY ==
--- NOTE | 2023-04-18 07:42 | NM_ITS ---
FINAL REPORT CLINICAL HISTORY: chest pain..LT SIDE RIB PAIN..OPERATES HEAVY EQUIPMENT BREAKING UP ROCK FINDINGS: EXISTING RELEVANT IMAGING STUDIES: Left rib radiographs performed the same day TECHNIQUE: The patient was injected with 26.5 mCi of technetium 99-MDP. 3 hour delayed images were obtained. FINDINGS: There is increased tracer activity in the left 10th rib end corresponding to the nondisplaced fracture seen on plain radiographs. There is mild increased tracer activity in the knees, shoulders and right ankle consistent with degenerative change. No other abnormal tracer activity is identified. IMPRESSION: Increased tracer activity in the left 10th rib end duct corresponding to a nondisplaced fracture as seen on plain radiographs. Reviewed, Interpreted and Dictated by Claude Martinez III, MD Transcribed by Dc Melgoza Authenticated and . [facility]
--- NOTE | 2023-04-18 11:41 | XR_ITS ---
FINAL REPORT CLINICAL HISTORY: chest pain FINDINGS: 3 views of the left ribs were obtained. There is a nondisplaced fracture of the left 10th rib end. There is no pleural fluid collection or pneumothorax. A single view of the chest demonstrates no acute cardiopulmonary process. IMPRESSION: Nondisplaced fracture of the left 10th rib end. Reviewed, Interpreted and Dictated by Claude Martinez III, MD Transcribed by Dc Melgoza Authenticated and [facility]
== END ==
PROVIDERS: PCP Family Medicine; Visit Provider Internal Medicine
DX: R06.09 Other forms of dyspnea (principal); R07.9 Chest pain, unspecified; I20.8 Other forms of angina pectoris; I48.0 Paroxysmal atrial fibrillation; I10 Essential (primary) hypertension; R49.0 Dysphonia; E11.69 Type 2 diabetes mellitus with other specified complication; Z79.84 Long term (current) use of oral hypoglycemic drugs
CPT/HCPCS: 71101; 78306; A9503

== ENCOUNTER 2023-06-21 07:53 | Day surgery (SDC) | payer OTHER, SELFPAY ==
[2023-06-21] VITALS (14 sets, daily range): BP systolic 133–176; BP diastolic 83–106; PULSE 83–93; RESP 16–20; O2SAT 93–97; BMI 30.5
--- NOTE | 2023-06-21 | IR_ITS ---
APPROVED REPORT Patient Location: Outpatient [employer] Refrigerated Truck Driver: CHRIS Nguyen RT (R) PROCEDURES Left heart catheterization Left ventriculogram Selective coronary angiogram FFR to the LAD Drug-eluting stent deployment to the proximal and mid LAD in a contiguous manner Intravascular lithotripsy to the proximal and mid LAD INDICATION Coronary artery disease, Recalcitrant angina pectoris despite maximal medical management, Ischemic response to adenosine with an FFR index in the LAD of 0.78, Coronary artery calcification, Informed consent was obtained prior to the procedure. COMPLICATIONS None Estimated Blood Loss: Less than 10 mls TECHNIQUE One percent lidocaine used to anesthetize the right anterior aspect of the wrist. The right radial artery was accessed via the Seldinger technique. A 6 [place] sheath was placed in the right radial artery. 150 mg magnesium sulfate, 800 mcg of nitroglycerin, 1mg Lidocaine and 5000 U Heparin were given through the arterial sheath. The papa catheter was also used to perform left heart catheterization, left ventriculogram and selective coronary angiogram. At the end the diagnostic angiogram therapeutic heparin was administered giving a therapeutic ACT and the guide catheter was placed in left main artery followed by Choice PT extra-support wire being placed on the LAD. With adenosine infusion and after passing an IVUS catheter the FFR index dropped to 0.78. At this point a 3 mm x 18 mm [place] frontier stent was deployed at 20 andre reducing the stenosis. Intravascular ultrasound probe was then advanced which demonstrated poor expansion of the stent with heavy proximal calcification. The MLA was also 3.7 mm??? in the proximal LAD which was unexpected by angiographic evaluation. At this point a 4 mm x 22 mm [place] frontier stent was then placed in the ostial segment of the LAD extending into the 3 mm stent. The stent was deployed at 20 andre. Intravascular ultrasound probe was then readvanced which demonstrated poor expansion of the 3 mm stent with extensive eccentric calcification. A 4 mm x 12 mm shockwave balloon was then advanced and 80 pulsations were delivered at 4, 6, 7 andre in the shockwave balloon. Following this a 4 mm x 12 mm noncompliant balloon was deployed at 24 andre. Intravascular ultrasound probe demonstrated there persisted and eccentric under deployed stent. A 4.5 x 12 mm noncompliant balloon was then advanced and deployed at 20 andre this time significantly reducing the stenosis and getting excellent angiographic results. An additional wire was placed into the first diagonal artery where a 2.5 x 12 mm noncompliant balloon was deployed at 18 andre to open the struts going into the diagonal artery. A 3 mm x 34 mm [place] frontier stent was placed in the ostial segment of the diagonal artery extending into the mid segment and deployed at 20 andre. Excellent angiographic results were obtained. A 4 mm x 12 mm balloon was then advanced over the LAD wire adjacent to the first diagonal artery and deployed at 20 andre to post dilate and make sure no struts were impinging upon the LAD proper. DEONDRE-3 flow was present before and after the procedure. At the end of procedure the apparatus was removed the sheath was removed good hemostasis was achieved using TR banding patient was transferred to the postop putting in stable condition ANGIOGRAPHIC RESULTS The left main artery Normal The left anterior descending artery Has severe proximal stenosis by IVUS criteria with an MLA of 3.77 producing an FFR index of 0.78. There is additional mid vessel calcification producing is 60% stenosis. Following revascularization the ostial proximal mid LAD was widely patent with DEONDRE III inline flow distally. A large stent bifurcated off the large first di
[2023-06-21 08:52] LABS: Basophils # 0.1 K/mm3 (0-0.2); Basophils % 0.7 % (0.1-2.0); Eosinophils # 0.1 K/mm3 (0.0-0.4); Hematocrit 50.2 % (42.0-52.0); Hemoglobin 16.2 g/dL (14.1-18.0); Lymphocytes # 2.1 K/mm3 (0.7-4.5); Mean Corpuscular HGB Conc 32.2 g/dL (31.8-35.4); Mean Corpuscular Hemoglobin 28.8 pg (27.0-31.2); Mean Corpuscular Volume 89.5 fl (80-94); Mean Platelet Volume 8.8 fl (7.4-10.4); Monocytes # 0.7 K/mm3 (0.1-1.0); Monocytes % 7.5 % (1.7-9.3); Neutrophils # 6.4 K/mm3 (1.8-7.8); Neutrophils % 68.8 % (37.0-80.0); Platelet Count 293 K/mm3 (142-424); Red Blood Count 5.61 M/mm3 (4.60-6.20); Red Cell Distribution Width 12.6 % (11.5-17.5); White Blood Count 9.3 K/mm3 (4.8-10.8)
[2023-06-21 08:58] LABS: Anion Gap 15.3 mEq/L (5-15); Blood Urea Nitrogen 20 mg/dl (9-20); Calcium 9.5 mg/dl (8.4-10.2); Carbon Dioxide 24 mmol/L (22.0-30.0); Chloride 103 mmol/L (98-107); Creatinine Clearance Estimated 108 mL/min (50-200); Estimated Glomerular Filt Rate 69 ml/min (>60); GFR (African American) 84 ML/MIN (>60); Glucose 178 mg/dl (74-100); Potassium 4.3 mmoL/L (3.5-5.1); Sodium 138 mmol/L (136-145)
[2023-06-21 13:43] LABS: CATHL Activated Clotting Time 297 SEC (74-125)
[2023-06-21 13:43] LABS: CATHL Activated Clotting Time > 400 SEC (74-125)
--- NOTE | 2023-06-21 15:00 | HMH.PHACL ---
PHA Pyridine Recovery Operator Discharge Med Sourcing Intern: Declan Bonds has received discharge medication counseling on the following medications: ASPIRIN 81 MG DAILY CLOPIDOGREL 75 MG DAILY LISINOPRIL 5 MG DAILY NADOLOL 40 MG DAILY ROSUVASTATIN 10 MG DAILY
== END 2023-06-21 14:57 | disposition home or self-care (01) ==
PROVIDERS: PCP Family Medicine; Visit Provider Internal Medicine
DX: I25.118 Atherosclerotic heart disease of native coronary artery with other forms of angina pectoris (principal); I77.1 Stricture of artery; I10 Essential (primary) hypertension; Z79.01 Long term (current) use of anticoagulants; I25.82 Chronic total occlusion of coronary artery; Z79.899 Other long term (current) drug therapy
CPT/HCPCS: 80048; 85025; 85347; 92928; 93458; 93571; 99152; 99153; C1725; C1760; C1761; C1769; C1876; C9600; J0153; J1644; Q9967

== ENCOUNTER → 2023-08-03 12:56 | Outpatient (CLI) | payer OTHER, SELFPAY | PROVIDERS: PCP Family Medicine; Visit Provider Internal Medicine Pulmonary Disease | DX: R06.09 Other forms of dyspnea (principal) | CPT/HCPCS: 94060; 94618; 94726; 94729 ==

== ENCOUNTER 2023-08-05 18:56 | Emergency (ER) | payer OTHER, SELFPAY ==
[2023-08-05 18:57] VITALS: BP 142/86; PULSE 92; RESP 19; TEMP 36.8; O2SAT 98; BMI 31.5
--- NOTE | 2023-08-05 20:16 | EXP.UTC ---
Discharge Plan Disposition Patient Disposition: Home, Self-Care Condition: Good Prescriptions Prescriptions: No Action cholecalciferol (vitamin D3) 1,250 mcg (50,000 unit) capsule 1,250 mcg PO WEEKLY Patient Comments: TAKE 1 CAPSULE BY MOUTH ONCE A WEEK pioglitazone 15 mg tablet 15 mg PO DAILY Synjardy XR 12.5-1,000 mg tablet, IR - ER, biphasic 24hr 1 tab PO DAILY Patient Comments: TAKE 2 TABLETS BY MOUTH ONCE DAILY fluticasone furoate-vilanterol [Breo Ellipta] 100-25 mcg/dose blister with device 1 inh inhalation DAILY Qty: 90 2RF albuterol sulfate 90 mcg/actuation HFA aerosol inhaler 2 puff INHALATION DAILY ipratropium-albuterol 0.5 mg-3 mg(2.5 mg base)/3 mL solution for nebulization 3 ml INHALATION QID PRN (Reason: shortness of breath or wheezing) 90 Days Qty: 360 3RF Rybelsus 14 mg tablet 14 mg PO DAILY Patient Comments: TAKE 1 TABLET BY MOUTH ONCE DAILY nadolol 40 mg tablet 40 mg PO DAILY Qty: 30 5RF diltiazem HCl 120 mg capsule,extended release 24hr 120 mg PO nystatin 100,000 unit/mL suspension 5 ml PO QID Qty: 200 0RF Rx Instructions: swish and swallow fluticasone propionate 50 mcg/actuation spray,suspension 1 spray intranasal DAILY Rx Instructions: administer into each nostril loratadine [Claritin] 10 mg tablet 10 mg PO DAILY clopidogrel 75 mg tablet See Rx Instructions .ROUTE .COMPLEX Qty: 90 1RF Dose Instruction: Take 1 tablet by mouth once daily Rx Instructions: Take 1 tablet by mouth once daily ranolazine 1,000 mg tablet extended release 12 hr See Rx Instructions .ROUTE .COMPLEX Qty: 60 1RF Dose Instruction: TAKE 1 BY MOUTH TWICE DAILY Rx Instructions: TAKE 1 BY MOUTH TWICE DAILY omeprazole 20 MG capsule,delayed release(DR/EC) 20 mg PO DAILY fenofibrate 160 MG tablet 160 mg PO DAILY [id number]-[id number]-vhv-prr-fvelrhs-ast 1 EACH capsule 1 each PO DAILY rivaroxaban 20 mg tablet 20 mg PO DAILY aspirin 81 MG tablet,delayed release (DR/EC) 81 mg PO DAILY lisinopril 5 MG tablet 5 mg PO DAILY tizanidine 4 mg tablet 4 mg PO Q8 PRN (Reason: .) Patient Comments: TAKE 1 TO 2 TABLETS BY MOUTH EVERY 8 HOURS NEEDED gabapentin 300 mg capsule 300 mg PO TID rosuvastatin 10 mg tablet See Rx Instructions .ROUTE .COMPLEX Rx Instructions: TAKE 1 TABLET BY MOUTH ONCE DAILY Referrals Follow up/Referrals: Virgilio Jenkins MD [Primary Care Provider] - See instructions Activity Restrictions/Add. Instructions Additional Instructions/Restrictions: *Monitor Temp, Over the counter Motrin or Tylenol as directed/as needed Tylenol every 4 hours and Motrin every 6 hours (as long as your family doctor has told you that you can take it) for fever or pain. and straight to ER if unable to lower temp less than 101.0 after medication given *Warm salt water gargles may help to soothe the throat *Throat Lozenges? *Warm fluids like tea with honey may help to soothe the throat? *Sleep elevated *Humidifier/Vaporizer Follow up IMMEDIATELY for new or worsening symptoms or no Noticeable improvement over the next 48-72 hours. 911 for difficulty breathing or swallowing You were tested for today for COVID19 your test result should be back in the next 24 hours You may check your results on the [facility] My Health Portal if you are positive you will need to Quarantine for 5 days Clinical Impressions Clinical Impression: Viral syndrome Instructions Patient Instructions: DI for Viral Syndrome Discharge ED Provider: Alissa Randall [facility] HPI General Stated complaint: diarrhea, dizzy, h/a Mode of Arrival: Ambulatory Source of Information: Patient Limitations: No Limitations Time Seen by Provider: 08/05/23 20:16 Description of Symptoms (Recalled from Triage Doc. by RN): Patient complaint
[2023-08-05 20:37] LABS: UTC Influenza A Antigen Negative (Negative)
[2023-08-05 20:38] LABS: UTC Influenza B Antigen Negative (Negative)
[2023-08-05 20:51] VITALS: BP 142/86; PULSE 92; RESP 19; TEMP 36.8; O2SAT 98
== END 2023-08-05 20:53 | disposition home or self-care (01) ==
PROVIDERS: Emergency Provider Nurse Practitioner; PCP Family Medicine
DX: R51.9 Headache, unspecified (principal); R05.9 Cough, unspecified; B34.9 Viral infection, unspecified; J44.9 Chronic obstructive pulmonary disease, unspecified; I25.10 Atherosclerotic heart disease of native coronary artery without angina pectoris; K21.9 Gastro-esophageal reflux disease without esophagitis; E78.5 Hyperlipidemia, unspecified; E11.9 Type 2 diabetes mellitus without complications; Z79.84 Long term (current) use of oral hypoglycemic drugs
CPT/HCPCS: 87804; 99212; 99213; G0463

== ENCOUNTER → 2023-09-21 08:19 | Day surgery (SDC) | payer OTHER, SELFPAY | PROVIDERS: PCP Family Medicine; Visit Provider Internal Medicine | DX: Z53.09 Procedure and treatment not carried out because of other contraindication (principal) ==

== ENCOUNTER 2023-09-29 07:50 | Day surgery (SDC) | payer OTHER, SELFPAY ==
[2023-09-29] VITALS (12 sets, daily range): BP systolic 120–153; BP diastolic 67–89; PULSE 75–98; RESP 16–20; O2SAT 90–100; BMI 31.5
--- NOTE | 2023-09-29 07:08 | IR_ITS ---
APPROVED REPORT Patient Location: Outpatient Binder And Wrapper Packer: CHRIS Nguyen RT (R) PROCEDURES Selective coronary angiogram Left heart catheterization Intravascular ultrasound to the first diagonal artery Angioplasty to the first diagonal artery Intravascular ultrasound to the LAD Angioplasty to the proximal LAD Intravascular ultrasound to the circumflex artery Drug-eluting stent deployment to the ostial proximal circumflex artery Intravascular ultrasound to the left main artery Drug-eluting stent deployment to the left main artery extending into the proximal LAD INDICATION Coronary artery disease, Recurrent and recalcitrant angina pectoris, Angiographic ambiguity, Complex stenting using IVUS guidance for morbidity and mortality improvement Informed consent was obtained prior to the procedure. COMPLICATIONS NONE Estimated Blood Loss: LESS THAN 10 ML TECHNIQUE One percent lidocaine used to anesthetize the right anterior aspect of the wrist. The right radial artery was accessed via the Seldinger technique. A 6 [place] sheath was placed in the right radial artery. 2.5 mg of Verapamil, 800 mcg of nitroglycerin, 1mg Lidocaine and 5000 U Heparin were given through the arterial sheath. A [place] catheter was used to perform selective coronary angiogram. At the end of the diagnostic angiogram therapeutic Was administered giving a therapeutic ACT and the guide catheter was placed in the short left main artery. Wires were placed into the LAD and the diagonal artery. Intravascular ultrasound interrogation demonstrated an MLA of 3.4 mm??? in the ostial diagonal artery. At this point a 3.5 x 12 mm noncompliant balloon was deployed at 24 andre. Repeat IVUS interrogation of the LAD demonstrated some plaque shift and encroachment upon the LAD. A 3.5 x 12 mm noncompliant balloon was then deployed at 24 andre in the proximal portion of the LAD extending beyond the first diagonal artery. Excellent angiographic results were obtained. Intravascular ultrasound probe was advanced which demonstrated wide patency of the diagonal artery and LAD. Following this the wire was placed into the circumflex artery which demonstrated severe stenosis in the proximal circumflex artery. A 2.75 x 12 mm [place] frontier stent was deployed at 24 andre reducing the ostial proximal stenosis to 0%. Wire was then placed into this short left main which also was basically the LAD having a separate ostia and then intravascular ultrasound probe was advanced which demonstrated significant encroachment and atheromatous plaque with an MLA less than 4 mm??? in the left main artery. A 4 mm x 8 mm [place] frontier stent was deployed at 24 andre reducing this severe stenosis to 0%. DEONDRE-3 flow was present down the diagonal artery LAD circumflex artery and left main artery before and after the procedure. After achieving excellent angiograph results the apparatus was removed the sheath was removed and hemostasis was achieved and TR banding patient was transferred to the postop holding in stable condition ANGIOGRAPHIC RESULTS The left main artery Is short and appears to have an ostial proximal 40% stenosis by angiography The left anterior descending artery Has a stent in the proximal to mid segment which is widely patent free of in-stent restenosis with excellent distal transitioning. First diagonal artery has a stent originating off the proximal ID extending into the proximal and mid diagonal artery which is also widely patent by angiography. IVUS demonstrated significant ostial stenosis The circumflex artery Is nondominant and by angiography was widely patent however IVUS demonstrated an MLA less than 4 mm??? in the ostial segment The right coronary artery Is a dominant vessel has stents in the ostial proximal segme
[2023-09-29 09:02] LABS: Basophils # 0.1 K/mm3 (0-0.2); Basophils % 0.7 % (0.1-2.0); Eosinophils # 0.2 K/mm3 (0.0-0.4); Eosinophils % 2.4 % (0.1-12.0); Hematocrit 48.8 % (42.0-52.0); Hemoglobin 16.9 g/dL (14.1-18.0); Lymphocytes # 1.9 K/mm3 (0.7-4.5); Lymphocytes % 24.5 % (10-50); Mean Corpuscular HGB Conc 34.6 g/dL (31.8-35.4); Mean Corpuscular Hemoglobin 30.5 pg (27.0-31.2); Mean Corpuscular Volume 88.3 fl (80-94); Mean Platelet Volume 9.4 fl (7.4-10.4); Monocytes # 0.6 K/mm3 (0.1-1.0); Monocytes % 7.3 % (1.7-9.3); Neutrophils % 65.1 % (37.0-80.0); Platelet Count 232 K/mm3 (142-424); Red Blood Count 5.52 M/mm3 (4.60-6.20); Red Cell Distribution Width 12.8 % (11.5-17.5); White Blood Count 7.7 K/mm3 (4.8-10.8)
[2023-09-29 09:07] LABS: INR 1.07 (0.9-1.1); Prothrombin Time 11.5 seconds (10.1-12.5)
[2023-09-29 09:57] LABS: Anion Gap 16.3 mEq/L (5-15); Blood Urea Nitrogen 16 mg/dl (9-20); Calcium 9.1 mg/dl (8.4-10.2); Carbon Dioxide 22 mmol/L (22.0-30.0); Chloride 103 mmol/L (98-107); Creatinine Clearance Estimated 129 mL/min (50-200); Estimated Glomerular Filt Rate 87 ml/min (>60); GFR (African American) 106 ML/MIN (>60); Glucose 186 mg/dl (74-100); Potassium 4.3 mmoL/L (3.5-5.1); Sodium 137 mmol/L (136-145)
[2023-09-29 12:35] LABS: CATHL Activated Clotting Time 369 SEC (74-125)
== END 2023-09-29 15:09 | disposition home or self-care (01) ==
LOC: CATHLAB 07:51
PROVIDERS: PCP Family Medicine; Visit Provider Internal Medicine
DX: I25.110 Atherosclerotic heart disease of native coronary artery with unstable angina pectoris (principal); I48.91 Unspecified atrial fibrillation; J44.9 Chronic obstructive pulmonary disease, unspecified; I25.2 Old myocardial infarction; E11.9 Type 2 diabetes mellitus without complications; Z95.5 Presence of coronary angioplasty implant and graft; Z79.899 Other long term (current) drug therapy; Z79.01 Long term (current) use of anticoagulants; Z79.84 Long term (current) use of oral hypoglycemic drugs
CPT/HCPCS: 80048; 85025; 85347; 85610; 92928; 92978; 92979; 93454; 99152; 99153; C1725; C1760; C1769; C1876; C9600; J1644; Q9967

== ENCOUNTER 2023-09-29 22:05 | Emergency (ER) | payer OTHER, SELFPAY ==
--- NOTE | 2023-09-29 22:06 | ECG_ITS ---
APPROVED REPORT Exam: Resting ECG HR:104 bpm ECG Measurements Heart Rate 104 AXES MT 152 P 80 QRSd 97 QRS 47 QT 331 T 41 QTc 392 Conclusion SINUS TACHYCARDIA SEPTAL MYOCARDIAL INFARCTION , PROBABLY OLD [40+ ms Q WAVE IN V1/V2] ABNORMAL ECG UNCONFIRMED REPORT Electronically signed by : Jose Khan MD 09/30/2023 21:25:52
[2023-09-29 22:07] VITALS: BP 172/104; PULSE 107; RESP 18; TEMP 36.8; O2SAT 97; BMI 29.5
--- NOTE | 2023-09-29 22:19 | PC.NURSE ---
in room talking with patient at this time.
[2023-09-29 22:30] VITALS: BP 155/89; PULSE 103; RESP 12; O2SAT 96
--- NOTE | 2023-09-29 22:30 | XR_ITS ---
PROCEDURE INFORMATION: Exam: XR Chest Exam date and time: 09/29/2023 10:57 PM Age: 58 years old Clinical indication: Pain; Left-sided; Prior surgery; Surgery date: Post-operative (0-2 days); Surgery type: Heart cath with stent placement today. HX of previous stents; Additional info: Cp TECHNIQUE: Imaging protocol: Radiologic exam of the chest. Views: 1 view. COMPARISON: CR XR RIBS LT MIN 3V W CXR1V 04/18/2023 11:44 AM FINDINGS: Lungs: Lungs are clear. Pleural spaces: No pleural effusion. No pneumothorax. Heart/Mediastinum: Stable cardiomediastinal silhouette. Coronary stent in place. Bones/joints: No acute osseous abnormality. IMPRESSION: No acute findings.
[2023-09-29 22:37] LABS: Basophils % 0.1 % (0.1-2.0); Eosinophils % 0.2 % (0.1-12.0); Hematocrit 47.3 % (42.0-52.0); Hemoglobin 16.2 g/dL (14.1-18.0); Lymphocytes # 0.8 K/mm3 (0.7-4.5); Lymphocytes % 6.5 % (10-50); Mean Corpuscular HGB Conc 34.4 g/dL (31.8-35.4); Mean Corpuscular Hemoglobin 30.6 pg (27.0-31.2); Mean Platelet Volume 9.4 fl (7.4-10.4); Monocytes # 0.2 K/mm3 (0.1-1.0); Monocytes % 1.4 % (1.7-9.3); Neutrophils # 10.7 K/mm3 (1.8-7.8); Neutrophils % 91.8 % (37.0-80.0); Platelet Count 254 K/mm3 (142-424); Red Blood Count 5.31 M/mm3 (4.60-6.20); Red Cell Distribution Width 12.8 % (11.5-17.5); White Blood Count 11.7 K/mm3 (4.8-10.8)
[2023-09-29 22:38] LABS: Chloride 102 mmol/L (98-107); Potassium 4.7 mmoL/L (3.5-5.1); Sodium 134 mmol/L (136-145)
[2023-09-29 22:41] LABS: Alanine Aminotransferase 66 U/L (12-78); Albumin Level 4.9 g/dl (3.5-5.0); Albumin/Globulin Ratio 2.2 (1.1-1.8); Alkaline Phosphatase 130 U/L (38-126); Anion Gap 18.7 mEq/L (5-15); Aspartate Amino Transferase 56 U/L (17-59); Bilirubin,Total 0.4 mg/dl (0.2-1.3); Blood Urea Nitrogen 15 mg/dl (9-20); Carbon Dioxide 18 mmol/L (22.0-30.0); Creatinine Clearance Estimated 115 mL/min (50-200); Estimated Glomerular Filt Rate 77 ml/min (>60); GFR (African American) 94 ML/MIN (>60); Globulin 2.2 g/dL (1.3-3.2); Total Protein,Serum 7.1 g/dl (6.3-8.2)
[2023-09-29 22:42] LABS: Calcium 9.6 mg/dl (8.4-10.2); MANUAL DIFFERENTIAL MANUAL DIFFERENTIAL (MANUAL DIFF)
--- NOTE | 2023-09-29 22:44 | HMH.EDGENADL ---
Discharge Plan Disposition Patient Disposition: Home, Self-Care Prescriptions Prescriptions: No Action cholecalciferol (vitamin D3) 1,250 mcg (50,000 unit) capsule 1,250 mcg PO WEEKLY Patient Comments: TAKE 1 CAPSULE BY MOUTH ONCE A WEEK pioglitazone 15 mg tablet 15 mg PO DAILY Synjardy XR 12.5-1,000 mg tablet, IR - ER, biphasic 24hr 1 tab PO DAILY Hold Instructions: Resume on 10/02/23. Patient Comments: TAKE 2 TABLETS BY MOUTH ONCE DAILY fluticasone furoate-vilanterol [Breo Ellipta] 100-25 mcg/dose blister with device 1 inh inhalation DAILY Qty: 90 2RF albuterol sulfate 90 mcg/actuation HFA aerosol inhaler 2 puff INHALATION DAILY ipratropium-albuterol 0.5 mg-3 mg(2.5 mg base)/3 mL solution for nebulization 3 ml INHALATION QID PRN (Reason: shortness of breath or wheezing) 90 Days Qty: 360 3RF Rybelsus 14 mg tablet 14 mg PO DAILY Patient Comments: TAKE 1 TABLET BY MOUTH ONCE DAILY nadolol 40 mg tablet 40 mg PO DAILY Qty: 30 5RF diltiazem HCl 120 mg capsule,extended release 24hr 120 mg PO DAILY fluticasone propionate 50 mcg/actuation spray,suspension 1 spray intranasal DAILY Rx Instructions: administer into each nostril loratadine [Claritin] 10 mg tablet 10 mg PO DAILY clopidogrel 75 mg tablet See Rx Instructions .ROUTE .COMPLEX Qty: 90 1RF Dose Instruction: Take 1 tablet by mouth once daily Rx Instructions: Take 1 tablet by mouth once daily ranolazine 1,000 mg tablet extended release 12 hr 1,000 mg PO BID Qty: 60 11RF omeprazole 20 MG capsule,delayed release(DR/EC) 20 mg PO DAILY fenofibrate 160 MG tablet 160 mg PO DAILY [id number]-cfg-oij-gwrcaqw-ast 1 EACH capsule 1 each PO DAILY rivaroxaban 20 mg tablet 20 mg PO DAILY aspirin 81 MG tablet,delayed release (DR/EC) 81 mg PO DAILY lisinopril 5 MG tablet 5 mg PO DAILY tizanidine 4 mg tablet 4 mg PO Q8 PRN (Reason: .) Patient Comments: TAKE 1 TO 2 TABLETS BY MOUTH EVERY 8 HOURS NEEDED gabapentin 300 mg capsule 300 mg PO TID rosuvastatin 10 mg tablet See Rx Instructions .ROUTE .COMPLEX Rx Instructions: TAKE 1 TABLET BY MOUTH ONCE DAILY Referrals Follow up/Referrals: Provider,Referral, [Primary Care Provider] - See instructions Activity Restrictions/Add. Instructions Additional Instructions/Restrictions: Please follow-up with your primary care provider and with cardiology. Please return to the emergency department if you develop any new or worsening symptoms or become concerned for your health. Clinical Impressions Clinical Impression: Chest pain, Acute hyperglycemia, Elevated lactic acid level Discharge ED Provider: Alex Roche General Adult HPI <Alex Roche MD - Last Filed: 09/29/23 23:02> General Chief complaint: Chest Pain Stated complaint: dizziness and short of break hx of AL Time Seen by Provider: 09/29/23 22:09 Mode of Arrival: Ambulatory Source of Information: Patient Limitations: No Limitations Description of Symptoms (Recalled from ER Triage Doc. by RN): Patient came in for pain in his left shoulder going into his neck, concerning due to heart cath with 2 stents placed today. History of Present Illness HPI narrative: Patient is a 58-year-old male with past medical history of heart catheterization this morning who presents emergency department for evaluation of chest pain and shortness of breath. Patient has had shortness of breath since the heart cath this morning, there is associated pain, left-sided, radiating up into his neck. Patient contacted Dr. Christy who recommended he proceed here for evaluation. Per chart review patient underwent heart cath angioplasty of the ostial proximal first diagonal artery, angioplasty of the proximal to mid LAD, stenting of the ostial circumflex, stenting of the ostial proximal left main artery. Patient h
--- NOTE | 2023-09-29 22:45 | CT_ITS ---
PROCEDURE INFORMATION: Exam: CTA Chest With Contrast Exam date and time: 09/29/2023 11:16 PM Age: 58 years old Clinical indication: Pain; Left-sided; Prior surgery; Surgery date: Post-operative (0-2 days); Surgery type: Heart cath with stents; Additional info: Cath this morning, L chest pain rad to neck TECHNIQUE: Imaging protocol: Computed tomographic angiography of the chest with contrast. Exam focused on the arteries. 3D rendering (Not supervised by radiologist): MIP and/or 3D reconstructed images were created by the technologist. Radiation optimization: All CT scans at this facility use at least one of these dose optimization techniques: automated exposure control; mA and/or kV adjustment per patient size (includes targeted exams where dose is matched to clinical indication); or iterative reconstruction. Contrast material: ISOVUE; Contrast volume: 100 ml; Contrast route: INTRAVENOUS (IV); REPORTING DATA: Count of CT and Cardiac NM exams in prior 12 months: This patient has received 3 known CTs and 0 known cardiac nuclear medicine studies in the 12 months prior to the current study. COMPARISON: CT CHEST WO/W CON 04/07/2023 12:29 PM FINDINGS: Pulmonary arteries: No large central pulmonary embolism. Aorta: Unremarkable. No aortic aneurysm. No aortic dissection. Lungs: Unremarkable. No consolidation. No masses. Pleural spaces: Unremarkable. No pneumothorax. No pleural effusion. Heart: Unremarkable. No cardiomegaly. No pericardial effusion. Coronary arteries: Multi-vessel coronary artery stents in place. Lymph nodes: No enlarged thoracic lymph nodes. Partially calcified subcarinal lymph nodes suggesting sequela of prior granulomatous disease. Bones/joints: Unremarkable. No acute fracture. Soft tissues: Unremarkable. IMPRESSION: No acute intrathoracic findings. No evidence of aortic dissection.
[2023-09-29 22:52] VITALS: BP 161/94; PULSE 102; RESP 23; O2SAT 96
[2023-09-29 22:54] LABS: Glucose 476 mg/dl (74-100); Troponin I < 0.01 ng/ml (0.00-0.034)
--- NOTE | 2023-09-29 22:55 | PC.NURSE ---
Critical received by Dara from lab. Patient glucose 476.
[2023-09-29 23:00] VITALS: BP 143/86; PULSE 98; RESP 19; O2SAT 96
[2023-09-29 23:03] LABS: Lymphocytes % 10 % (10-50); Monocytes % 1 % (2-9); Neutrophils % 89 % (42-76); Platelet Estimate Normal; RBC Morphology Normal; Total Cells Counted 100
[2023-09-29 23:05] LABS: Acetone, Serum (Rapid) None Detected (None Detect)
[2023-09-29 23:07] LABS: VBG Base Excess -9.2 mmol/L (-2.4-2.3); VBG HCO3 16.3 mmol/L (23-30); VBG Oxygen Saturation 98.9 % (50-70); VBG PCO2 29.6 mmol/L (35-51); VBG PH 7.36 mmol/L (7.31-7.41); VBG Total CO2 17.2 mmol/L (23-27)
--- NOTE | 2023-09-29 23:20 | PC.NURSE ---
Lab called critical Lactic of 4.8, Dr Hernandez aware
[2023-09-29 23:21] LABS: Lactic Acid 4.8 mmol/L (0.7-2.1)
[2023-09-29 23:30] VITALS: BP 166/97; PULSE 104; RESP 16; O2SAT 97
--- NOTE | 2023-09-29 23:30 | PC.NURSE ---
in room talking with patient at this time.
[2023-09-30] VITALS (7 sets, daily range): BP systolic 151–164; BP diastolic 88–97; PULSE 92–99; RESP 12–20; TEMP 36.9; O2SAT 97–98
[2023-09-30 01:31] LABS: Microscopic, Urine URINE MICROSCOPIC (MICROSCOPIC)
[2023-09-30 01:33] LABS: Appearance,Urine CLEAR (Clear); Bilirubin,Urine Negative (Negative); Blood, Urine Negative (Negative); Color,Urine YELLOW (Yellow); Glucose,Urine (UA) 3+ (Negative); Ketones,Urine Negative (Negative); Leukocyte Esterase,Urine Negative (Negative); Nitrate,Urine Negative (Negative); PH,Urine 6.5 (5.0-8.5); Protein,Urine Negative (Negative); Urobilinogen,Urine 0.2 EU/dl (0.2)
[2023-09-30 01:40] LABS: Chloride 103 mmol/L (98-107); Potassium 4.4 mmoL/L (3.5-5.1); Sodium 135 mmol/L (136-145)
[2023-09-30 01:43] LABS: Alanine Aminotransferase 47 U/L (12-78); Albumin Level 4.3 g/dl (3.5-5.0); Alkaline Phosphatase 110 U/L (38-126); Anion Gap 12.4 mEq/L (5-15); Aspartate Amino Transferase 37 U/L (17-59); Bilirubin,Total 0.4 mg/dl (0.2-1.3); Blood Urea Nitrogen 14 mg/dl (9-20); Carbon Dioxide 24 mmol/L (22.0-30.0); Creatinine Clearance Estimated 128 mL/min (50-200); Estimated Glomerular Filt Rate 87 ml/min (>60); GFR (African American) 106 ML/MIN (>60); Globulin 2.2 g/dL (1.3-3.2); Total Protein,Serum 6.5 g/dl (6.3-8.2)
[2023-09-30 01:44] LABS: Calcium 9.3 mg/dl (8.4-10.2); Glucose 313 mg/dl (74-100)
[2023-09-30 02:10] LABS: Bacteria,Urine Trace /lpf; Squamous Epithelial Cell,Urine Occasional #/hpf (0-5)
[2023-09-30 02:10] LABS: Lactic Acid 3.8 mmol/L (0.7-2.1); Troponin I < 0.01 ng/ml (0.00-0.034)
== END 2023-09-30 02:49 | disposition home or self-care (01) ==
PROVIDERS: Emergency Medicine; Emergency Provider Emergency Medicine
DX: R00.0 Tachycardia, unspecified (principal); R07.9 Chest pain, unspecified; E11.65 Type 2 diabetes mellitus with hyperglycemia; R74.02 Elevation of levels of lactic acid dehydrogenase [LDH]; I25.119 Atherosclerotic heart disease of native coronary artery with unspecified angina pectoris; I11.9 Hypertensive heart disease without heart failure; E78.5 Hyperlipidemia, unspecified; K21.9 Gastro-esophageal reflux disease without esophagitis; Z95.5 Presence of coronary angioplasty implant and graft; Z79.84 Long term (current) use of oral hypoglycemic drugs; J45.909 Unspecified asthma, uncomplicated
CPT/HCPCS: 71045; 71275; 80053; 81001; 82009; 82803; 83605; 84484; 85007; 85025; 93005; 96361; 96374; 99285; Q9967

== ENCOUNTER 2023-11-07 09:38 | Outpatient (RCR) | payer OTHER, SELFPAY | END 2023-11-07 11:00 | disposition home or self-care (01) | LOC: PT 09:38 | PROVIDERS: Visit Provider Internal Medicine | DX: I25.10 Atherosclerotic heart disease of native coronary artery without angina pectoris (principal); Z95.5 Presence of coronary angioplasty implant and graft ==

== ENCOUNTER → 2023-11-15 07:49 | Outpatient (CLI) | payer OTHER, SELFPAY ==
--- NOTE | 2023-11-15 07:50 | CA_ITS ---
APPROVED REPORT EXAM: Comprehensive 2D, Doppler, and color-flow Echocardiogram Service Center Manager: Lindsey Naidu RVT Ht: 5 ft 10 in Wt: 214lbs BSA: 2.15 BP: 104/75 mmHg Indications: SOA,A-FIB,CAD,DM,COPD,FATIGUE,GERD 2D Dimensions LA Volume 32.80 mL LA Volume Index 15.26 mL/m2 (M/F) 16-34 M-Mode Dimensions RVDd 2.81 cm (0.9-2.6) LA Diam 4.31 cm (1.9-4.0) LVDd 3.69 cm (3.5-5.7) LVDs 2.29 cm (3.5-5.7) IVSd 1.33 cm (0.6-1.1) PWd 0.36 cm (0.6-1.1) EF (Teich) 69.00% FS 37.90% EDV (Teich) 57.80 mL TAPSE 2.30 (<1.7) ESV (Teich) 17.90 mL LV Diastology E Decel Time 213 (160-240 msec) E/A Ratio 1.1 MED A' 7.80 cm/s LAT A' 8.60 cm/s Aortic Valve RADHA Index 1.13 cm2/m2 AoV Peak Oziel. 120.0 (50-130 cm/s) AO Peak GR. 5.70 mmHg AO Mean GR. 3.10 (<5 mmHg) AO VTI 25.8 (18-25 cm) RADHA (VTI) 2.48 (2.5-4.5 cm2) Mitral Valve MV E Max Oziel. 76.0 (40-130 cm/s) MV A Velocity 68.0 (40-130 cm/s) E/A Ratio 1.13 MV PHT 62.0 ms Pulmonary Valve PV Peak Velocity 75.0 (50-150 cm/s) Tricuspid Valve TR P. Velocity 198.00 cm/s RAP Estimate 10.00 mmHg RVSP 25.70 mmHg Left Ventricle The left ventricle is normal size. The left ventricular systolic function is normal. The left ventricular ejection fraction is within the normal range. There is normal left ventricular wall thickness. There is normal LV segmental wall motion. The left ventricular diastolic function is normal. LVEF is 55%. Right Ventricle The right ventricle is mildly dilated. The right ventricular systolic function is normal. Atria The left atrium size is normal. The right atrium size is normal. There is no Doppler evidence of interatrial shunt. Aortic Valve The aortic valve is mildly thickened. There is no aortic valvular stenosis. No aortic regurgitation is present. Mitral Valve The mitral valve is normal in structure. No evidence of mitral valve stenosis. Trace mitral regurgitation. Tricuspid Valve The tricuspid valve leaflets are thin and pliable. Trace tricuspid regurgitation. There is insufficient TR jet to estimate RVSP. Pulmonic Valve The pulmonary valve is normal in structure. Trace pulmonic regurgitation. Great Vessels The aortic root is normal in size. The ascending aorta is normal in size. IVC is normal in size and collapses >50% with inspiration. Pericardium There is no pericardial effusion. Other Information Study Quality: Fair Conclusion Normal biventricular systolic function. Mild RV dilation. No significant valvular stenosis or regurgitation. Electronically signed by : Mili Chong MD 11/20/2023 22:30:40
== END ==
PROVIDERS: PCP Family Medicine; Visit Provider Nurse Practitioner
DX: I11.9 Hypertensive heart disease without heart failure (principal); I25.119 Atherosclerotic heart disease of native coronary artery with unspecified angina pectoris; I48.0 Paroxysmal atrial fibrillation; R06.09 Other forms of dyspnea; R42 Dizziness and giddiness; R94.31 Abnormal electrocardiogram [ECG] [EKG]; E78.5 Hyperlipidemia, unspecified; E11.9 Type 2 diabetes mellitus without complications; Z79.84 Long term (current) use of oral hypoglycemic drugs
CPT/HCPCS: 93306

== ENCOUNTER → 2023-11-25 10:37 | Outpatient (CLI) | payer OTHER, SELFPAY ==
--- NOTE | 2023-11-25 10:41 | XR_ITS ---
FINAL REPORT CLINICAL HISTORY: CHEST PAIN soa, cough COMPARISON: 09/29/2023 FINDINGS: TWO-VIEW CHEST The heart size is normal. The mediastinum is normal. The lungs are clear. There is no pneumothorax. IMPRESSION: No acute cardiopulmonary process. Reviewed, Interpreted and Dictated by Matthew Yates MD Transcribed by Oumou Wren Authenticated and [facility]
== END ==
LOC: LAB 10:38 → RAD 10:38
PROVIDERS: PCP Physician Assistant; Visit Provider Physician Assistant
DX: R07.9 Chest pain, unspecified (principal)
CPT/HCPCS: 71046

== ENCOUNTER 2024-03-09 07:43 | Day surgery (SDC) | payer BC, SELFPAY ==
[2024-03-09] VITALS (10 sets, daily range): BP systolic 115–151; BP diastolic 59–87; PULSE 73–79; RESP 15–18; TEMP 36.3–36.8; O2SAT 93–97; BMI 30.9
--- NOTE | 2024-03-09 07:10 | IR_ITS ---
APPROVED REPORT Patient Location: Outpatient Elevator Mechanic: CHRIS Hoyt RT (R) PROCEDURES Selective coronary angiogram INDICATION Known multivessel coronary disease, Worsening angina pectoris Informed consent was obtained prior to the procedure. COMPLICATIONS NONE Estimated Blood Loss: LESS THAN 10 ML TECHNIQUE One percent lidocaine used to anesthetize the right anterior aspect of the wrist. The right radial artery was accessed via the Seldinger technique. A 6 [place] sheath was placed in the right radial artery. 2.5 mg of Verapamil, 800 mcg of nitroglycerin, 1mg Lidocaine and 5000 U Heparin were given through the arterial sheath. The papa catheter was also used to perform selective coronary angiogram. At the end of the procedure the sheath was removed good hemostasis was achieved using Traclet band, patient was transferred to the postop holding area in stable condition. ANGIOGRAPHIC RESULTS The left main artery Has a stent in the ostial segment which is widely patent free of in-stent restenosis. This extends into the proximal LAD The left anterior descending artery Has a stent originating from the left main artery which has an ostial hazy 10 to 20% stenosis. The remaining proximal LAD stent is widely patent and extends into the mid LAD with excellent distal transitioning. A large first diagonal artery bifurcates proximally and also has a stent originating from the LAD. The ostium has a 40% stenosis while the remaining large diagonal artery stent is widely patent with a mid vessel 40% consistent eccentric stenosis with distal excellent transitioning into this very large diagonal artery The circumflex artery Small nondominant has a stent originating from the left main artery which is widely patent with 40% in-stent restenosis The right coronary artery Is dominant and has a stent in the proximal segment which is widely patent. Distal to the stent is a 20 to 30% at stent stenosis. There is an additional 30% mid vessel stenosis. A stent in the distal right coronary artery is widely patent with minimal 30% concentric in-stent restenosis with excellent proximal distal transitioning The GONZALEZ ventriculogram reveals Not performed The left ventricular end-diastolic pressure Not measured IMPRESSION Widely patent stents as described above Ongoing chest pain almost certainly stemming from endothelial dysfunction PLAN 1. Maximize antianginal medications to treat endothelial dysfunction 2. Aggressive risk factor modification Electronically signed by : Skip Christy MD 03/09/2024 09:36:37
[2024-03-09 08:16] LABS: Basophils # 0.2 K/mm3 (0-0.2); Basophils % 1.9 % (0.1-2.0); Eosinophils # 0.2 K/mm3 (0.0-0.4); Eosinophils % 2.2 % (0.1-12.0); Hematocrit 51.3 % (42.0-52.0); Hemoglobin 16.7 g/dL (14.1-18.0); Lymphocytes # 2.5 K/mm3 (0.7-4.5); Lymphocytes % 27.7 % (10-50); Mean Corpuscular HGB Conc 32.6 g/dL (31.8-35.4); Mean Corpuscular Hemoglobin 29.7 pg (27.0-31.2); Mean Platelet Volume 8.8 fl (7.4-10.4); Monocytes # 0.6 K/mm3 (0.1-1.0); Monocytes % 6.2 % (1.7-9.3); Neutrophils # 5.6 K/mm3 (1.8-7.8); Platelet Count 245 K/mm3 (142-424); Red Blood Count 5.64 M/mm3 (4.60-6.20)
[2024-03-09 08:22] LABS: Chloride 107 mmol/L (98-107); Potassium 4.3 mmoL/L (3.5-5.1); Sodium 137 mmol/L (136-145)
[2024-03-09 08:25] LABS: Anion Gap 12.3 mEq/L (5-15); Blood Urea Nitrogen 18 mg/dl (9-20); Calcium 9.6 mg/dl (8.4-10.2); Carbon Dioxide 22 mmol/L (22.0-30.0); Creatinine Clearance Estimated 114 mL/min (50-200); Estimated Glomerular Filt Rate 77 ml/min (>60); GFR (African American) 94 ML/MIN (>60); Glucose 210 mg/dl (74-100)
[2024-03-09] MEDS: NITROGLYCERIN 800MCG/8ML SYR (CATH LAB) 800 MCG IA (08:57)
[2024-03-09] MEDS: HEPARIN 1,000 UNITS/500ML NS (CATH LAB) 3000 UNIT IV (08:57)
[2024-03-09] MEDS: LIDOCAINE 1% 10ML MDV 20 ML IJ (08:57)
[2024-03-09] MEDS: 0.9 % SODIUM CHLORIDE 500 ML 25 ML IV (08:57)
[2024-03-09] MEDS: HEPARIN 1,000 UNITS/ML 10ML VIAL (CATH LAB) 10000 UNIT IV (08:57)
[2024-03-09] MEDS: VERAPAMIL 2.5MG/ML 2ML VIAL 2.5 MG IV (08:57)
[2024-03-09] MEDS: diphenhydrAMINE 50MG/ML VIAL 50 MG IV (08:58)
[2024-03-09] MEDS: METHYLPREDNISOLONE SOD SUCC 125MG VIAL 125 MG IV (08:59)
[2024-03-09] MEDS: FAMOTIDINE 20MG/2ML VIAL 20 MG IV (09:01)
[2024-03-09] MEDS: MIDAZOLAM HCL 1MG/1ML 5ML VIAL 1 MG IV (09:18)
[2024-03-09] MEDS: FENTANYL 100MCG/2ML VIAL 50 MCG IV (09:18)
[2024-03-09] MEDS: IOPAMIDOL-370 (76%);100ML BOTTLE 50 ML IV (14:24)
== END 2024-03-09 11:26 | disposition home or self-care (01) ==
PROVIDERS: PCP Family Medicine; Visit Provider Internal Medicine
DX: I25.118 Atherosclerotic heart disease of native coronary artery with other forms of angina pectoris (principal); T82.855A Stenosis of coronary artery stent, initial encounter; Y83.1 Surgical operation with implant of artificial internal device as the cause of abnormal reaction of the patient, or of later complication, without mention of misadventure at the time of the procedure; I48.0 Paroxysmal atrial fibrillation; J44.9 Chronic obstructive pulmonary disease, unspecified; E11.9 Type 2 diabetes mellitus without complications; I25.2 Old myocardial infarction; J37.0 Chronic laryngitis; R06.09 Other forms of dyspnea; B48.8 Other specified mycoses; Z79.84 Long term (current) use of oral hypoglycemic drugs; Z79.01 Long term (current) use of anticoagulants; Z79.899 Other long term (current) drug therapy
CPT/HCPCS: 80048; 85025; 93454; 99152; C1725; C1769; J1644; Q9967

== ENCOUNTER 2024-04-10 15:15 | Outpatient (POV) | payer BC, SELFPAY | END 2024-04-10 23:59 | disposition home or self-care (01) | LOC: SC 15:15 | PROVIDERS: Visit Provider Specialist/Technologist | DX: Z00.00 Encounter for general adult medical examination without abnormal findings (principal) ==

== ENCOUNTER 2024-04-29 13:23 | Emergency (ER) | payer BC, SELFPAY ==
[2024-04-29 13:35] VITALS: BP 122/81; PULSE 85; RESP 18; TEMP 36.6; O2SAT 96; BMI 29.7
--- NOTE | 2024-04-29 13:56 | EXP.UTC ---
Discharge Plan Disposition Patient Disposition: Home, Self-Care Condition: Good Prescriptions Prescriptions: New doxycycline hyclate 100 mg capsule 100 mg PO Q12 10 Days Qty: 20 0RF methylprednisolone 4 mg Tablets,Dose Pack 4 mg PO DIRECTED 6 Days Qty: 21 0RF Rx Instructions: Take 1 pack as directed for 6 days diphenhydramine HCl 25 mg capsule 25 mg PO Q6HP PRN (Reason: Itching) Qty: 30 0RF No Action cholecalciferol (vitamin D3) 1,250 mcg (50,000 unit) capsule 1,250 mcg PO WEEKLY Patient Comments: TAKE 1 CAPSULE BY MOUTH ONCE A WEEK nystatin 100,000 unit/mL suspension 600,000 unit PO TID 10 Days Qty: 180 0RF Rx Instructions: administer 1/2 of dose in each side of the mouth ipratropium-albuterol 0.5 mg-3 mg(2.5 mg base)/3 mL solution for nebulization 3 ml inhalation QID PRN (Reason: shortness of breath or wheezing) 30 Days Qty: 90 2RF budesonide-formoterol [Symbicort] 160-4.5 mcg/actuation HFA aerosol inhaler 2 puff inhalation BID 90 Days Qty: 10.2 2RF cjqgw-bw-1-eil-tcs-ukthkqj-ast [MegaRed [place]-3 Krill Oil] [id number] mg capsule 1 cap PO DAILY fluticasone propionate [Flonase Allergy Relief] 50 mcg/actuation spray,suspension 1 spray intranasal .prn Rx Instructions: administer into each nostril albuterol sulfate 90 mcg/actuation HFA aerosol inhaler 2 puff INHALATION DAILY Rybelsus 14 mg tablet 14 mg PO DAILY Patient Comments: TAKE 1 TABLET BY MOUTH ONCE DAILY loratadine [Claritin] 10 mg tablet 10 mg PO DAILY Synjardy XR 12.5-1,000 mg tablet, IR - ER, biphasic 24hr 2 tab PO DAILY Hold Instructions: Resume on 10/02/23. Patient Comments: TAKE 2 TABLETS BY MOUTH ONCE DAILY sildenafil (pulm.hypertension) 20 mg tablet 20 mg PO DAILY chlorhexidine gluconate 0.12 % mouthwash 15 ml mucous membrane BID Patient Comments: SWISH AND SPIT 15 ML IN MOUTH TWICE DAILY aspirin 81 mg tablet,delayed release (DR/EC) 81 mg PO DAILY Qty: 90 3RF clopidogrel 75 mg tablet 75 mg PO DAILY Qty: 90 3RF diltiazem HCl 240 mg capsule,extended release 24hr 240 mg PO DAILY Qty: 90 3RF fenofibrate 160 mg tablet 160 mg PO DAILY Qty: 90 3RF lisinopril 5 mg tablet 5 mg PO DAILY Qty: 90 3RF rabeprazole 20 mg tablet,delayed release (DR/EC) 20 mg PO DAILY Qty: 90 3RF ranolazine 1,000 mg tablet extended release 12 hr 1,000 mg PO BID Qty: 180 3RF Xarelto 20 mg tablet 20 mg PO DAILY Qty: 90 3RF Rx Instructions: must administer with evening meal rosuvastatin 10 mg tablet 10 mg PO DAILY Qty: 90 3RF nadolol 80 mg tablet 160 mg PO BID 90 Days Qty: 360 3RF tizanidine 4 mg tablet 4 mg PO Q8 PRN (Reason: .) Patient Comments: TAKE 1 TO 2 TABLETS BY MOUTH EVERY 8 HOURS NEEDED gabapentin 300 mg capsule 300 mg PO TID Referrals Follow up/Referrals: Virgilio Jenkins MD [Primary Care Provider] - See instructions Activity Restrictions/Add. Instructions Additional Instructions/Restrictions: Try to identify and avoid contact with the offending substance. Try to avoid ticks. Don't start the oral steroids until tomorrow. The diphenhydramine (benedryl) will make you drowsy, so don't drive or operate heavy machinery after taking it. Follow up with your regular doctor. GO TO THE ER FOR ANY WORSENING SYMPTOMS OR CONCERNS Clinical Impressions Clinical Impression: Tick bite, Contact dermatitis Instructions Patient Instructions: DI for Contact Dermatitis, Doxycycline, Dexamethasone Injection Discharge ED Provider: Krzysztof Sellers [facility] General Stated complaint: rash on thighs/back of knees Mode of Arrival: Ambulatory Source of Information: Patient Limitations: No Limitations Time Seen by Provider: 04/29/24 13:56 Description of Symptoms (Recalled from Triage Doc. by RN): Pt's symptoms are rash on back of thighs, and back that itches. He has about 10 tick bites in the same spot about 2 weeks ago. HEENT Symptoms (Recalled from RN notes): No Resp Symptoms (Recalled from RN notes): No Skin Symptoms (Recalled from RN notes): Yes MS Symptoms (Recalled from RN notes): No Functional Status (Recalled from RN notes): n/a History of Present Illness Provider Complaint: He states that he found several ticks embedded on his legs last week. He removed the ticks, but since then he has developed an itchy rash in the affected areas. Related Data Home Medications Medication Instructions Recorded Confirmed albuterol sulfate 90 mcg/actuation 2 puff inhalation DAILY COPD 08/17/21 03/19/24 aerosol inhaler cholecalciferol (vitamin D3) 1,250 1,250 mcg PO WEEKLY Supplement 07/21/22 03/19/24 mcg (50,000 unit) capsule gabapentin 300 mg capsule 300 mg PO TID . 02/14/23 03/19/24 tizanidine 4 mg tablet 4 mg PO Q8 PRN . 02/14/23 03/19/24 semaglutide 14 mg tablet (Rybelsus) 14 mg PO DAILY 04/11/23 03/19/24 loratadine 10 mg tablet (Claritin) 10 mg PO DAILY 06/02/23 03/19/24 empagliflozin 12.5 mg-metformin ER 2 tab PO DAILY . 01/09/24 03/19/24 1,000 mg tablet,extended rel 24 hr (Synjardy XR) fluticasone propionate 50 1 spray intranasal .prn 01/31/24 03/19/24 mcg/actuation nasal spray,suspension (Flonase Allergy Relief) krill 500 mg-omega 3 115 mg-dha 30 1 cap PO DAILY 01/31/24 03/19/24 mg-epa 64 ta-qwkmflb-clkog capsule (MegaRed [place]-3 Krill Oil) chlorhexidine gluconate 0.12 % 15 ml mucous membrane BID 04/10/24 04/10/24 mouthwash sildenafil (pulm.hypertension) 20 20 mg PO DAILY 04/10/24 04/10/24 mg tablet Previous Rx's Medication Instructions Recorded budesonide-formoterol HFA 160 2 puff inhalation BID 90 days 02/01/24 mcg-4.5 mcg/actuation aerosol #10.2 grams inhaler (Symbicort) ipratropium 0.5 mg-albuterol 3 mg 3 ml inhalation QID PRN shortness 02/01/24 (2.5 mg base)/3 mL nebulization of breath or wheezing 30 days #90 soln mL nystatin 100,000 unit/mL oral 600,000 unit (6 mL) PO TID 10 days 02/01/24 suspension #180 mL aspirin 81 mg tablet,delayed 81 mg PO DAILY HEART HEALTH #90 02/10/24 release tabs clopidogrel 75 mg tablet 75 mg PO DAILY #90 tabs 02/10/24 diltiazem HCl 240 mg 240 mg PO DAILY #90 caps 02/10/24 capsule,extended release 24 hr fenofibrate 160 mg tablet 160 mg PO DAILY High cholesterol 02/10/24 #90 tabs lisinopril 5 mg tablet 5 mg PO DAILY Hypertension #90 tabs 02/10/24 rabeprazole 20 mg tablet,delayed 20 mg PO DAILY #90 tabs 02/10/24 release ranolazine 1,000 mg 1,000 mg PO BID #180 tabs 02/10/24 tablet,extended release,12 hr rivaroxaban 20 mg tablet (Xarelto) 20 mg PO DAILY #90 tabs 02/10/24 rosuvastatin 10 mg tablet 10 mg PO DAILY . #90 tabs 02/10/24 nadolol 80 mg tablet 160 mg (2 x 80 mg) PO BID 90 days 03/21/24 #360 tabs diphenhydramine HCl 25 mg capsule 25 mg PO Q6HP PRN Itching #30 caps 04/29/24 doxycycline hyclate 100 mg capsule 100 mg PO Q12 10 days #20 caps 04/29/24 methylprednisolone 4 mg tablets in 4 mg PO DIRECTED 6 days #21 tabs 04/29/24 a dose pack Allergies Allergy/AdvReac Type Severity Reaction Status Date / Time codeine Allergy Unknown Verified 04/29/24 13:47 penicillin V Allergy Unknown Verified 04/29/24 13:47 Penicillins Allergy Unknown Verified 04/29/24 13:47 meperidine [From Demerol] Allergy Verified 04/29/24 13:47 shellfish derived Allergy Hives Verified 04/29/24 13:47 isosorbide [From Imdur] AdvReac Severe Verified 04/29/24 13:47 Worker's Comp Is this a Worker's Comp case?: No [facility] Disclaimer: The information contained in this section may have been updated after the patient was seen, as this information can be updated by other users. 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 Dyspnea on exertion Allergic rhinitis Asthma Chronic fungal laryngitis Dysphagia Dysphonia Unstable angina Abnormal cardiovascular stress test Myocardial infarction GERD (gastroesophageal reflux disease) COPD (chronic obstructive pulmonary disease) Atherosclerotic heart disease Atrial fibrillation with RVR Hyperlipidemia Type 2 diabetes mellitus Surgical History History of surgery on upper extremity History of heart artery stent History of cardiac cath Family History Other Cancer Diabetes Heart attack Hypertension Social History Smoking Status: Never smoker alcohol intake: never substance use type: denies use current occupational status: employed Travel in the last 8 weeks: None household members: spouse housing: house current occupation: [employer] current occupational exposures/hazards: Yes caffeine: Yes ROS Obtained: Yes All systems reviewed & no additional complaints except as documented Constitutional Constitutional: Denies chills and Denies fever(s) Eyes Eyes: Denies eye discharge ENT Ears, Nose, Mouth, and Throat: Denies dizziness, Denies otalgia and Denies sore throat Cardiovascular Cardiovascular: Denies chest pain Respiratory Respiratory: Denies shortness of breath, Denies chest congestion, Denies cough, Denies stridor and Denies wheezing Gastrointestinal Gastrointestingal: Denies nausea or vomiting Musculoskeletal Musculoskeletal: Reports system reviewed and no additional complaints, except as documented and Denies arthralgias Integumentary/Breasts Skin/Breast: Reports as per HPI and Reports rash Neurologic Neurologic: Denies dizziness and Denies paresthesias Allergic/Immunologic Allergic/Immunologic: Denies wheezing Physical Exam General General appearance: alert and in no apparent distress Head Head exam: atraumatic, normocephalic and normal inspection Eye Eye exam: Present normal appearance, PERRL and EOMI ENT ENT exam: Present normal exam, normal oropharynx, mucous membranes moist, TM's normal bilaterally and normal external ear exam Neck Neck exam: Present normal inspection, full ROM and trachea midline; Absent meningismus or lymphadenopathy Chest Chest inspection: Present normal inspection and symmetric chest wall rise; Absent tenderness Respiratory Respiratory exam: Present normal lung sounds bilaterally; Absent respiratory distress Cardiovascular Cardiovascular exam: Present regular rate and normal rhythm; Absent JVD Abdominal Exam Abdominal exam: Present soft and normal bowel sounds; Absent distention, tenderness or guarding Extremities Exam Extremities exam: Present normal inspection, full ROM and normal capillary refill; Absent calf tenderness Back Exam Back exam: Present normal inspection; Absent tenderness Neurological Exam Neurological exam: Present alert and oriented X3 Psychiatric Psychiatric exam: Present normal affect and normal mood Skin Skin exam: Present rash Lymphatic Lymphatic Findings: no adenopathy Medical Decision Making Medical Records Medical records reviewed: No I reviewed the patient's medical records. Brock Inquiry Pt receiving controlled substance: No Vital Signs: 04/29/24 13:35 Temperature 97.8 F Temperature Source Oral Pulse Rate [Right Radial] 85 Respiratory Rate 18 Blood Pressure [Right Arm] 122/81 Blood Pressure Mean [Right Arm] 94 Blood Pressure Source [Right Arm] Automatic Cuff Blood Pressure Position [Right Arm] Sitting 02 Sat by Pulse Oximetry 96 Oxygen Delivery Method Room Air Orders (Tests/Meds): ED MEDICATIONS Generic Name Dose Route Start Last Admin Trade Name Freq PRN Reason Stop Dose Admin Dexamethasone Sodium Phosphate 8 mg 04/29/24 13:53 Dexamethasone 4mg/Ml 1ml Vial IM 04/29/24 13:54 ONCE ONE
[2024-04-29] MEDS: DEXAMETHASONE 4MG/ML 1ML VIAL 8 MG IM (13:57)
[2024-04-29 14:11] VITALS: BP 122/81; PULSE 85; RESP 18; TEMP 36.6; O2SAT 96
== END 2024-04-29 14:11 | disposition home or self-care (01) ==
PROVIDERS: Emergency Provider Nurse Practitioner Family; PCP Family Medicine
DX: L23.89 Allergic contact dermatitis due to other agents (principal); S70.361A Insect bite (nonvenomous), right thigh, initial encounter; S70.362A Insect bite (nonvenomous), left thigh, initial encounter; W57.XXXA Bitten or stung by nonvenomous insect and other nonvenomous arthropods, initial encounter
CPT/HCPCS: 96372; 99212; 99214; G0463

== ENCOUNTER 2024-08-29 08:52 | Day surgery (SDC) | payer BC, SELFPAY ==
[2024-08-29] VITALS (12 sets, daily range): BP systolic 116–161; BP diastolic 69–108; PULSE 69–81; RESP 16–20; TEMP 36.9; O2SAT 92–97; BMI 29.5
--- NOTE | 2024-08-29 07:05 | IR_ITS ---
APPROVED REPORT Patient Location: Outpatient PROCEDURES Left heart catheterization Left ventriculogram Selective coronary angiogram Intravascular ultrasound to the left main artery and LAD Intravascular ultrasound of the right coronary INDICATION Multivessel coronary disease, Recalcitrant angina pectoris, Angiographic ambiguity involving the LAD and right coronary Informed consent was obtained prior to the procedure. COMPLICATIONS none Estimated Blood Loss: less than 10ml TECHNIQUE One percent lidocaine used to anesthetize the right anterior aspect of the wrist. The right radial artery was accessed via the Seldinger technique. A 6 Panamanian sheath was placed in the right radial artery. 2.5 mg of Verapamil, 800 mcg of nitroglycerin, 1mg Lidocaine and 5000 U Heparin were given through the arterial sheath. The papa catheter was also used to perform left heart catheterization, left ventriculogram and selective coronary angiogram. At the end the diagnostic angiogram therapeutic Was administered giving a therapeutic ACT and the guide catheter was placed in left main artery followed by Choice PT extra-support wire placed on the circumflex artery. Intravascular ultrasound probe was advanced which demonstrated an MLA greater than 6.5 in the left main artery and an MLA greater than 4 throughout the proximal and mid LAD. There was good stent apposition with mild to moderate in-stent restenosis at the most severe location. Following this the apparatus was removed from the left main artery and placed in the right coronary artery where the same wire and intravascular sound probe was advanced. This also demonstrated wide patency of the right coronary artery with no MLA less than 4 mmHg. At the end the procedure the apparatus was removed the sheath was removed and hemostasis was achieved using TR banding patient was transferred to the postop putting in stable addition ANGIOGRAPHIC RESULTS The left main artery Has a stent in its proximal to mid segment which extends into the LAD and circumflex artery which is widely patent with minimal in-stent restenosis The left anterior descending artery Has a stent originating from the left main artery with mild concentric in-stent restenosis. In the midportion of the LAD there is mild to moderate 30% concentric in-stent restenosis. A large diagonal artery has a stent bifurcating from the proximal LAD. This diagonal artery is a large-caliber with stents which extend from the ostial segment into the mid diagonal artery the stents are widely patent with mild in-stent restenosis with excellent distal transitioning The circumflex artery Small nondominant with a stent originating from the left main artery. The stent is patent and then gives rise to 2 small obtuse marginal arteries The right coronary artery Is a dominant vessel and has stents in the ostial proximal segment which are widely patent. Distal to the stent is a 30 to 40% hazy stenosis followed by additional 20% mid vessel stenoses with distal stent which is widely patent with mild to moderate eccentric in-stent restenosis The GONZALEZ ventriculogram reveals Preserved at 50% The left ventricular end-diastolic pressure 15 mmHg IMPRESSION Coronary artery disease as described above Preserved ejection fraction Borderline normal LVEDP PLAN 1. Continue medical management 2. Maximize antianginal medications 3. Risk factor modification Electronically signed by : Skip Christy MD 08/30/2024 15:02:22
[2024-08-29 09:27] LABS: Basophils # 0.1 K/mm3 (0-0.2); Basophils % 0.8 % (0.1-2.0); Eosinophils # 0.1 K/mm3 (0.0-0.4); Eosinophils % 1.9 % (0.1-12.0); Hematocrit 47.8 % (42.0-52.0); Lymphocytes # 1.7 K/mm3 (0.7-4.5); Lymphocytes % 26.2 % (10-50); Mean Corpuscular HGB Conc 33.5 g/dL (31.8-35.4); Mean Corpuscular Hemoglobin 30.4 pg (27.0-31.2); Mean Corpuscular Volume 90.8 fl (80-94); Mean Platelet Volume 9.6 fl (7.4-10.4); Monocytes # 0.5 K/mm3 (0.1-1.0); Monocytes % 8.3 % (1.7-9.3); Neutrophils # 3.9 K/mm3 (1.8-7.8); Neutrophils % 62.8 % (37.0-80.0); Platelet Count 239 K/mm3 (142-424); Red Blood Count 5.26 M/mm3 (4.60-6.20); Red Cell Distribution Width 13.2 % (11.5-17.5); White Blood Count 6.3 K/mm3 (4.8-10.8)
[2024-08-29 09:40] LABS: Chloride 103 mmol/L (98-107)
[2024-08-29 09:41] LABS: Sodium 136 mmol/L (136-145)
[2024-08-29 09:44] LABS: Blood Urea Nitrogen 15 mg/dl (9-20); Calcium 9.6 mg/dl (8.4-10.2); Carbon Dioxide 23 mmol/L (22.0-30.0); Creatinine Clearance Estimated 108 mL/min (50-200); Estimated Glomerular Filt Rate 77 ml/min (>60); GFR (African American) 93 ML/MIN (>60); Glucose 153 mg/dl (74-100)
[2024-08-29] MEDS: METHYLPREDNISOLONE SOD SUCC 125MG VIAL 125 MG IV (11:46)
[2024-08-29] MEDS: diphenhydrAMINE 50MG/ML VIAL 50 MG IV (11:46)
[2024-08-29] MEDS: FAMOTIDINE 20MG/2ML VIAL 20 MG IV (11:46)
[2024-08-29] MEDS: HEPARIN 1,000 UNITS/ML 10ML VIAL (CATH LAB) 10000 UNIT IV (11:47)
[2024-08-29] MEDS: LIDOCAINE 1% 10ML MDV 20 ML IJ (11:47)
[2024-08-29] MEDS: FENTANYL 100MCG/2ML VIAL 50 MCG IV (11:48)
[2024-08-29] MEDS: MIDAZOLAM HCL 1MG/1ML 5ML VIAL 1 MG IV (11:48)
[2024-08-29] MEDS: VERAPAMIL 2.5MG/ML 2ML VIAL 2.5 MG IV (11:48)
[2024-08-29] MEDS: NITROGLYCERIN 800MCG/8ML SYR (CATH LAB) 800 MCG IA (11:51)
[2024-08-29] MEDS: 0.9 % SODIUM CHLORIDE 500 ML 25 ML IV (11:53)
[2024-08-29] MEDS: HEPARIN 1,000 UNITS/500ML NS (CATH LAB) 3000 UNIT IV (11:55)
[2024-08-29] MEDS: IOPAMIDOL-370 (76%);100ML BOTTLE 80 ML IV (15:43)
== END 2024-08-29 15:44 | disposition home or self-care (01) ==
PROVIDERS: PCP Family Medicine; Visit Provider Internal Medicine
DX: I25.118 Atherosclerotic heart disease of native coronary artery with other forms of angina pectoris (principal); R07.9 Chest pain, unspecified; Z79.899 Other long term (current) drug therapy; Z79.85 Long-term (current) use of injectable non-insulin antidiabetic drugs; Z95.5 Presence of coronary angioplasty implant and graft; I10 Essential (primary) hypertension
CPT/HCPCS: 36415; 80048; 85025; 92978; 92979; 93458; 99152; 99153; C1725; C1769; J1200; J1644; J2250; J2919; J3010; Q9967; S0028

== ENCOUNTER 2024-09-25 10:42 | Outpatient (POV) | payer BC, SELFPAY | END 2024-09-25 23:59 | disposition home or self-care (01) | LOC: SC 10:43 | PROVIDERS: Visit Provider Specialist/Technologist | DX: Z00.00 Encounter for general adult medical examination without abnormal findings (principal) ==

== ENCOUNTER 2024-10-08 06:34 | Outpatient (CLI) | payer BC, SELFPAY ==
--- NOTE | 2024-10-08 07:06 | MR_ITS ---
FINAL REPORT CLINICAL HISTORY: r/o acoustic neuroma. left ear hearing loss. dizziness. headache. left sided facial paralysis. COMPARISON: None FINDINGS: Multiplanar MR imaging of the brain was performed without and with contrast, with attention to the posterior fossa, cerebellopontine angles and internal auditory canals. There is a 3 mm focus of contrast-enhancement in the left cerebellar hemisphere. The differential diagnosis would include neoplasm versus subacute lacunar infarct. No cerebellopontine angle mass is identified. The ventricular size is within normal limits. There is no evidence of shift of the midline structures. No area of abnormal restricted diffusion is identified. Normal major vessel vascular flow voids are seen. There is a 17 mm retention cyst versus polyp in the left maxillary sinus, as well as mucosal thickening in multiple paranasal sinuses. No mass or abnormal contrast enhancement is seen within the cerebellopontine angles or internal auditory canals. No focal abnormality is identified of the temporal bones. IMPRESSION: 3 mm focus of contrast-enhancement in the left cerebellar hemisphere. This is nonspecific, but the differential diagnosis would include neoplasm versus subacute lacunar infarct. Would recommend a 3 to 6-month follow-up head MR with and without contrast for further evaluation. No mass or abnormal contrast enhancement identified within the cerebellopontine angles or internal auditory canals. Mucosal thickening in multiple paranasal sinuses with a 17 mm retention cyst or polyp in the left maxillary sinus. Reviewed, Interpreted and Dictated by Claude Martinez III, MD Transcribed by Saima Avila Authenticated and [facility][1]
[2024-10-08 07:24] LABS: Blood Urea Nitrogen 11 mg/dl (9-20); Estimated Glomerular Filt Rate 77 ml/min (>60); GFR (African American) 93 ML/MIN (>60)
[2024-10-08] MEDS: GADOTERIDOL INJ 20ML SYRINGE 18 ML IV (08:05)
[2024-10-08] MEDS: SODIUM CHLORIDE 0.9% 10ML SYR (RAD ONLY) 10 ML IV (08:05)
--- NOTE | 2024-10-08 14:46 | XR_ITS ---
FINAL REPORT CLINICAL HISTORY: PERSISTENT COUGH COMPARISON: 08/05/2024 FINDINGS: Two views of the chest were obtained. The heart size and pulmonary vascularity are within normal limits. The mediastinum is normal. No acute pulmonary abnormality is identified. There is no pneumothorax. The bony thorax is intact. IMPRESSION: No active cardiopulmonary disease. Reviewed, Interpreted and Dictated by Claude Martinez III, MD Transcribed by Oumou Wren Authenticated and [facility]
== END 2024-10-08 23:59 | disposition home or self-care (01) ==
PROVIDERS: PCP Family Medicine; Visit Provider Nurse Practitioner
DX: H90.5 Unspecified sensorineural hearing loss (principal); H93.12 Tinnitus, left ear; R05.3 Chronic cough
CPT/HCPCS: 36415; 70553; 71046; 82565; 84520; A9576

== ENCOUNTER 2024-11-13 08:54 | Outpatient (CLI) | payer BC, SELFPAY ==
--- NOTE | 2024-11-13 08:59 | XR_ITS ---
FINAL REPORT CLINICAL HISTORY: Right Hip Pain x 2-3 wks FINDINGS: Right hip/pelvis Three views were obtained. There is no fracture or dislocation. There are mild degenerative changes. There are small bone islands within the femoral neck. IMPRESSION: Degenerative changes as above. Reviewed, Interpreted and Dictated by Malaika Gutierrez MD Transcribed by Oumou Wren Authenticated and [facility]
== END 2024-11-13 23:59 | disposition home or self-care (01) ==
LOC: RAD 08:56
PROVIDERS: PCP Family Medicine; Visit Provider Physician Assistant Surgical
DX: M25.551 Pain in right hip (principal)
CPT/HCPCS: 73502

== ENCOUNTER 2025-01-17 13:22 | Outpatient (CLI) | payer BC, SELFPAY ==
[2025-01-17 14:08] LABS: Blood Urea Nitrogen 12 mg/dl (9-20); Estimated Glomerular Filt Rate 69 ml/min (>60); GFR (African American) 83 ML/MIN (>60)
== END 2025-01-17 23:59 | disposition home or self-care (01) ==
LOC: LAB 13:23
PROVIDERS: PCP Family Medicine; Visit Provider Specialist
DX: Z01.812 Encounter for preprocedural laboratory examination (principal)
CPT/HCPCS: 36415; 82565; 84520

== ENCOUNTER 2025-01-18 07:42 | Outpatient (CLI) | payer BC, SELFPAY ==
--- NOTE | 2025-01-18 07:43 | MR_ITS ---
FINAL REPORT TECHNIQUE: Imaging of the intracerebral vasculature was obtained without intravenous contrast using [id number] imaging. CLINICAL HISTORY: Abnormal MRI findings, possible cerebellar stroke FINDINGS: The right A1 segment is likely hypoplastic. The right anterior cerebral artery fills from a prominent anterior communicating artery. This is a normal variant. Remaining intracranial vasculature is patent. There is no evidence of aneurysm, significant stenosis or AVM. IMPRESSION: Unremarkable MR angiogram of the brain without contrast. Reviewed, Interpreted and Dictated by Erin Barcenas MD Transcribed by Marge Lynch Authenticated and [facility]
--- NOTE | 2025-01-18 07:43 | MR_ITS ---
FINAL REPORT TECHNIQUE: Multiple projection images of the neck arterial vasculature were obtained without contrast. The raw data images were reviewed. CLINICAL HISTORY: Abnormal MRI findings, possible cerebellar stroke FINDINGS: The right common carotid artery has an unremarkable appearance without evidence of stenosis or occlusion. The right internal carotid artery has an unremarkable appearance without evidence of stenosis or occlusion. The right external carotid artery is patent. The right vertebral artery is patent without evidence of stenosis. The left common carotid artery has an unremarkable appearance without evidence of stenosis or occlusion. The left internal carotid artery is patent without evidence of stenosis or occlusion. The left external carotid artery is patent. The left vertebral artery is patent without evidence of stenosis. IMPRESSION: Unremarkable MR angiogram of the neck without evidence of stenosis or occlusion. Reviewed, Interpreted and Dictated by Erin Barcenas MD Transcribed by Marge Lynch Authenticated and . [facility]
--- NOTE | 2025-01-18 07:43 | MR_ITS ---
FINAL REPORT TECHNIQUE: Multiplanar and multisequence imaging of the brain was obtained before and after contrast administration. CLINICAL HISTORY: Abnormal MRI findings, possible cerebellar stroke COMPARISON: 10/08/2024 FINDINGS: Brain parenchymal: There is no mass effect or midline shift. There is a tiny focus of T2 abnormality in the left cerebellum otherwise, there are no areas of abnormal T2 signal. The cerebellum and brainstem are without acute abnormality. Ventricles: The ventricles are symmetric in size and configuration without hydrocephalus. Extra-axial spaces: No extra-axial fluid collections. Diffusion imaging: No areas of restricted diffusion to suggest acute infarct. Flow voids: Flow voids within the major intracranial vessels are preserved. Soft tissues: Soft tissues are without acute abnormality. Post contrast imaging: There is no pathologic enhancement. Previously seen small focus of enhancement in the left cerebellum is no longer present suggesting findings were likely related to subacute ischemia. IMPRESSION: Resolution of tiny focus of enhancement in the left cerebellum suggesting subacute lacunar infarct rather than neoplasm. No acute intracranial abnormality. Reviewed, Interpreted and Dictated by Erin Barcenas MD Transcribed by Marge Lynch Authenticated and [facility]
[2025-01-18] MEDS: SODIUM CHLORIDE 0.9% 10ML SYR (RAD ONLY) 10 ML IV (08:46)
[2025-01-18] MEDS: GADOTERIDOL INJ 20ML SYRINGE 19 ML IV (08:46)
== END 2025-01-18 23:59 | disposition home or self-care (01) ==
LOC: RAD 07:43
PROVIDERS: PCP Family Medicine; Visit Provider Specialist
DX: R42 Dizziness and giddiness (principal); R90.89 Other abnormal findings on diagnostic imaging of central nervous system; H91.8X3 Other specified hearing loss, bilateral
CPT/HCPCS: 70544; 70547; 70553; A9576

== ENCOUNTER 2025-03-11 08:47 | Day surgery (SDC) | payer BC, SELFPAY ==
[2025-03-11] VITALS (12 sets, daily range): BP systolic 114–162; BP diastolic 68–105; PULSE 61–76; RESP 18–20; O2SAT 94–98; BMI 28.6
--- NOTE | 2025-03-11 07:08 | IR_ITS ---
APPROVED REPORT Patient Location: Outpatient PROCEDURES Right heart catheterization left heart catheterization Left ventriculogram Selective coronary angiogram INDICATION Known multivessel coronary disease, Elevated angina pectoris, Pulmonary hypertension, Dyspnea, Congestive heart failure, Informed consent was obtained prior to the procedure. COMPLICATIONS NONE Estimated Blood Loss: LESS THAN 10 ML TECHNIQUE One percent lidocaine was used to anesthetize the right anterior aspect of the right wrist. The right radial artery was accessed via the Seldinger technique and a 6 [place] hydrophilic sheath was placed in the right radial artery. Following this one percent lidocaine was used to anesthetize the right anterior aspect of the right neck. The right internal jugular vein was accessed via the Seldinger technique and a 7 [place] sheath was placed in the right internal jugular vein. Following this an arterial cocktail was administered using 5000U heparin, 2.5 mg verapamil, 1mg Lidocaine and 800mcg nitroglycerin into the right radial sheath. A papa catheter was used to perform left heart catheterization left ventriculogram and selective coronary angiography while a Argenta-Manuel catheter was used to perform right heart catheterization. Saturations were obtained in the pulmonary artery and right atrium. At the end of the procedure the arterial sheath was removed good hemostasis was achieved using Traclet band. Patient was transferred to the postop holding area in stable condition for venous sheath removal. ANGIOGRAPHIC RESULTS The left main artery Has a stent in the proximal segment which extends distally into the LAD the stent in the left main is widely patent with minimal in-stent restenosis The left anterior descending artery Has a stent originating from the left main artery and has a proximal concentric 20% in-stent restenosis. There is excellent distal transitioning of the stent into the [place] LAD there is a large first diagonal artery The circumflex artery Is nondominant has a stent in the midsegment which is widely patent free of in-stent restenosis with excellent proximal distal transitioning The right coronary artery Large dominant with stents in the proximal segment which are widely patent free of in-stent restenosis with a distal 20 to 30% transitioning stenosis distally. There is a stent in the distal segment which is widely patent with mild concentric in-stent restenosis. Posterior descending artery has an ostial 50 to 60% stenosis The GONZALEZ ventriculogram reveals Normal 65% The left ventricular end-diastolic pressure 25 mmHg Right atrial pressure 13 mmHg Right ventricular pressure 42/20 mmHg Pulmonary artery pressure 45/25 mmHg Pulmonary artery occlusion pressure 25 mmHg Hemoglobin 15 Right atrial saturation and pulmonary artery saturation 76% Aortic saturation 100% Cardiac output 6.2 L/min IMPRESSION Patent coronary arteries as described above Moderate pulmonary hypertension with elevated left-sided filling pressures Normal ejection fraction PLAN 1. Treatment of diastolic dysfunction which is likely contributing to patient's dyspnea 2. Increased diuretics 3. Risk factor modification for coronary artery disease Electronically signed by : Skip Christy MD 03/12/2025 10:46:39
[2025-03-11 09:06] LABS: Basophils # 0.1 K/mm3 (0-0.2); Basophils % 0.7 % (0.1-2.0); Eosinophils # 0.1 K/mm3 (0.0-0.4); Eosinophils % 1.8 % (0.1-12.0); Hematocrit 45.8 % (42.0-52.0); Hemoglobin 15.1 g/dL (14.1-18.0); Lymphocytes # 2.1 K/mm3 (0.7-4.5); Lymphocytes % 28.8 % (10-50); Mean Corpuscular Hemoglobin 29.3 pg (27.0-31.2); Mean Corpuscular Volume 88.8 fl (80-94); Mean Platelet Volume 11.4 fl (7.4-10.4); Monocytes # 0.7 K/mm3 (0.1-1.0); Monocytes % 9.9 % (1.7-9.3); Neutrophils # 4.2 K/mm3 (1.8-7.8); Neutrophils % 58.5 % (37.0-80.0); Nucleated Red Blood Cells # 0 10^3/uL; Nucleated Red Blood Cells % 0 %; Platelet Count 239 K/mm3 (142-424); Red Blood Count 5.16 M/mm3 (4.60-6.20); Red Cell Distribution Width 12.4 % (11.5-17.5); Red Cell Distribution Width-SD 40.4 fL; White Blood Count 7.2 K/mm3 (4.8-10.8)
[2025-03-11 09:16] LABS: Chloride 104 mmol/L (98-107); Potassium 4.4 mmoL/L (3.5-5.1); Sodium 140 mmol/L (136-145)
[2025-03-11 09:19] LABS: Anion Gap 16.4 mEq/L (5-15); Blood Urea Nitrogen 8 mg/dl (9-20); Calcium 9.1 mg/dl (8.4-10.2); Carbon Dioxide 24 mmol/L (22.0-30.0); Creatinine Clearance Estimated 123 mL/min (50-200); Estimated Glomerular Filt Rate 87 ml/min (>60); GFR (African American) 105 ML/MIN (>60); Glucose 148 mg/dl (74-100)
[2025-03-11] MEDS: LIDOCAINE 1% 10ML MDV 10 ML IJ (10:46)
[2025-03-11] MEDS: HEPARIN 1,000 UNITS/500ML NS (CATH LAB) 3000 UNIT IV (10:46)
[2025-03-11] MEDS: HEPARIN 1,000 UNITS/ML 10ML VIAL (CATH LAB) 5000 UNIT IV (10:46)
[2025-03-11] MEDS: NITROGLYCERIN 800MCG/8ML SYR (CATH LAB) 800 MCG IA (10:46)
[2025-03-11] MEDS: diphenhydrAMINE 50MG/ML VIAL 50 MG IV (10:46)
[2025-03-11] MEDS: 0.9 % SODIUM CHLORIDE 500 ML 25 ML IV (10:47)
[2025-03-11] MEDS: VERAPAMIL 2.5MG/ML 2ML VIAL 2.5 MG IV (10:47)
[2025-03-11] MEDS: MIDAZOLAM HCL 1MG/ML 5ML VIAL 1 MG IV (10:49)
[2025-03-11] MEDS: FENTANYL 100MCG/2ML VIAL 50 MCG IV (10:49)
[2025-03-11] MEDS: IOPAMIDOL-370 (76%);100ML BOTTLE 65 ML IV (16:01)
[2025-03-11 16:16] LABS: CATHL Arterial O2 SAT 76.6 % (90-100); CATHL Venous O2 SAT 76.4 % (75-80)
== END 2025-03-11 16:03 | disposition home or self-care (01) ==
LOC: CATHLAB 08:48
PROVIDERS: PCP Family Medicine; Visit Provider Internal Medicine
DX: I27.20 Pulmonary hypertension, unspecified (principal); I25.118 Atherosclerotic heart disease of native coronary artery with other forms of angina pectoris; I10 Essential (primary) hypertension; I48.0 Paroxysmal atrial fibrillation; G47.30 Sleep apnea, unspecified; J45.40 Moderate persistent asthma, uncomplicated; Z86.16 Personal history of COVID-19; Z95.5 Presence of coronary angioplasty implant and graft; Z88.0 Allergy status to penicillin; Z88.5 Allergy status to narcotic agent; Z91.013 Allergy to seafood; Z88.7 Allergy status to serum and vaccine; Z79.01 Long term (current) use of anticoagulants; Z79.85 Long-term (current) use of injectable non-insulin antidiabetic drugs; E11.9 Type 2 diabetes mellitus without complications; Z91.014 Allergy to mammalian meats
CPT/HCPCS: 80048; 82810; 85025; 93460; 99152; 99153; C1725; C1769; C1894; J1200; J1644; J3010; Q9967

== ENCOUNTER 2025-03-27 08:57 | Outpatient (RCR) | payer BC, SELFPAY | END 2025-06-24 08:00 | disposition home or self-care (01) | LOC: CR 08:57 | PROVIDERS: Visit Provider Internal Medicine | DX: I25.118 Atherosclerotic heart disease of native coronary artery with other forms of angina pectoris (principal); I27.20 Pulmonary hypertension, unspecified; I48.0 Paroxysmal atrial fibrillation; I10 Essential (primary) hypertension | CPT/HCPCS: 93798 ==

== ENCOUNTER 2025-05-06 09:42 | Outpatient (CLI) | payer BC, SELFPAY ==
--- OUTSIDE RECORDS SUMMARY | 2025-01-15 05:15 | XMS_ITS ---
[facility] Address [address] [place] [id number] Care Team Providers Care Ssn/Ssbn Weapons Equipment Operator Name Role Phone Virgilio Jenkins Primary Care Provider Allergies Allergen (clinical drug ingredient) Drug/Non Drug Allergy documented on EMR Reaction Allergy Type Onset Date Status meperidine Demerol syncope Drug Allergy Active atorvastatin Lipitor leg cramps Drug Allergy Act do codeine Codeine syncope Drug Allergy Active Penicillin rash Drug Allergy Active Results Component Value Reference Range Notes P-Vitamin D 25-Hydroxy Reviewed date:01/16/2025 03:03:14 PM Interpretation:26.5 Performing Lab: Notes/Report: Test performed by [email or web address], [employer] [address] [place] [address] , [address], [place] [address] Natanael Barker MD, [employer] CLIA: [id number] Vitamin D 25-Hydroxy 26.5 30.0-100.0 ng/mL Interpretation of Vitamin D 25 [place]: < 20 ng/mL - Deficiency 20 - 29 ng/mL - Insufficiency 30 - 100 ng/mL - Sufficiency > 100 ng/mL - Super-therapeutic- toxicity may occur above this level. Clinical correlation required. REASON FOR VISIT 3 months Medications Medication SIG (Take, Route, Frequency, Duration) Notes Start Date End Date Status Nadolol 80 MG 1 tablet Orally bid Active dilTIAZem HCl ER 120 MG TAKE 1 CAPSULE B Y MOUTH ONCE DAILY Orally Active Irbesartan 75 MG 2 tablets Orally Onc e a day Active Rosuvastatin Calcium 10 MG 1 tablet Oral ly Once a day for 90 days Active Rybelsus 14 MG TAKE 1 TABLET BY GREGORY TH DAILY for 90 Active Fenofibrate 160 MG TAKE 1 TABLET BY GREGORY TH ONCE DAILY for 90 Active Synjardy XR 12.5-1000 MG 2 tab(s) orally once a day for 90 days Active Ranolazine ER 1000 MG 1 tab(s) Orally 2 times a day Active Claritin 10 MG 1 tablet Orally Once a day Active Sildenafil Citrate 20 MG 1 to 5 tablet O rally Once a day as needed 04/09/2024 Active Xarelto 20 MG TAKE 1 TABLET BY GREGORY TH IN THE EVENING for 90 days Active OneTouch Verio - 1 test strip fingers tick test two times a day 10/07/2022 Active Ventolin HFA 90 MCG/ACT 1 puff as needed Inhalation every 4 hrs Active Flonase Allergy Relief 50 MCG/ACT 1 spray(s) in each nostril once a day for 30 day(s) Active MegaRed [place]-3 Krill Oil 500 MG as directed Orally Active Aspirin 81 MG 1 tablet Orally Once a day for 30 day(s) Active Symbicort 160-4.5 MCG/ACT 1 puff as need ed Inhalation every 4 hrs Active RABEprazole Sodium 20 MG 1 tablet after a meal Orally Once a day for 30 day(s) Active Vital Signs Blood pressure systolic 110 mm Hg 01/15/20 25 Blood pressure diastolic 64 mm Hg 025 Heart Rate 74 /min 01/15/2025 Height 73 in 01/15/2025 Weight 210.4 lbs 01/15/2025 BMI 27.76 kg/m2 01/15/2025 Encounters Encounter Location Date Provider Diagnosis [facility] [address] [facility] [address] [place] [address], [place] [id number] 01/15/2025 Virgilio [place] Essential hypertensi on I10 and Vitamin D deficiency E55.9 Assessments Encounter Date Diagnosis (ICD Code) Assessment Notes Treatment Notes Treatment Clinical Notes Section Notes 01/15/2025 Essential hypertension (ICD-10 - I10) 01/15/2025 Vitamin D deficiency (ICD-10 - E55.9) Plan Of Treatment Medication Medication Name Sig Start Date Stop Date Notes Nadolol 80 MG 1 tablet Orally bid dilTIAZem HCl ER 120 MG TAKE 1 CAPSULE B Y MOUTH ONCE DAILY Orally Irbesartan 75 MG 2 tablets Orally Once a day Next Appt Details Follow Up: 3 Months fasting visit, Reason: Provider Name:Virgilio Tesfaye ry, 10/10/2025 09:15:00 AM, [address], [address], [place], [id number], Progress Notes * Declan BONDSDOB:[birth year] (60 yo M)Acc No.[id number]:01/15/2025 Progress Notes Patient: Declan FUENTES Provider: Ivan Jenkins M.D. :1965 A ge:59 Y S ex:Male Date:01/15/2025 Address:[place], [id number] Subjective: * Chief Complaints: * 1 . 3 months. * HPI: C ardiology: 59 year old male presents with c/o Blood Pressure Elevated P t here to f/u on hypertension, states he is doing well and does not have any concerns. * ROS: D ERMATOLOGY: no R joselyn. n o H etta. G ASTROENTEROLOGY: no N ausea. n o V omiting. U ROLOGY: no D ifficulty urinating. n o B lood in urine. * Medical History: C oronary Artery Disease, Myocardial Infarction, S/P Stenting 2005, 2015, Atrial Fibrillation, Type 2 Diabetes, Hypertension, Hypercholestrolemia, Hypertriglyceridemia, Esophageal Reflux, Sleep apnea, Cervical Disc Disease, MRI 2012, < 20% Stenosis LT carotid,06/2020, Brain MRI 09/2020 negative, Covid 2020, Covid Vaccine x2 Moderna, Alpha-gal syndrome. * Surgical History: H eart Stent 2003, LT Thumb Surgery 2008, Heart Cath 11/14/2012, Heart Stent 04/08/2015, Colonoscopy 2017, Cardiac stent 09/24/2022, Cardiac Stents (two stents) 09/2023. * Hospitalization/Major Diagno stic Procedure: H eart Stent- [place] 2003, RT Eye Irritation- [facility] ER 11/2012, Possible Heart Problems- H 03/2013, Heart Stent- [place] 04/08/2015, A-Fib, Hypertension- [facility] 09/19- , Covid Symptoms- [facility] UTC 11/30/2020, Chest Pain- [facility] ER 03/31-03/2021. * Family History: F ather: alive, Hemochromatosis. M other: alive. 1 daughter(s) . . * Social History: C URRENT TOBACCO USE S moking Status: Patient does NOT smoke. C affeine: yes, frequency: 3 cups a day. Exercise: no. Marital Status: . Alcohol: No. Sexually active: yes. * Medications: T aking RABEprazole Sodium 20 MG Tablet Delayed Release 1 tablet after a meal Orally Once a day , Taking Ventolin HFA 90 MCG/ACT Aerosol Solution 1 puff as needed Inhalation every 4 hrs , Taking Irbesartan 75 MG Tablet 2 tablets Orally Once a day , Taking Symbicort 160-4.5 MCG/ACT Aerosol 1 puff as needed Inhalation every 4 hrs , Taking Aspirin 81 MG Tablet Delayed Release 1 tablet Orally Once a day , Taking MegaRed [place]-3 Krill Oil 500 MG Capsule as directed Orally , Taking Flonase Allergy Relief 50 MCG/ACT Suspension 1 spray(s) in each nostril once a day , Taking OneTouch Verio - Strip 1 test strip fingerstick test two times a day , Taking Ranolazine ER 1000 MG Tablet Extended Release 12 Hour 1 tab(s) Orally 2 times a day , Taking Xarelto 20 MG Tablet TAKE 1 TABLET BY MOUTH IN THE EVENING , Taking Sildenafil Citrate 20 MG Tablet 1 to 5 tablet Orally Once a day as needed , Taking Claritin 10 MG Tablet 1 tablet Orally Once a day , Taking Fenofibrate 160 MG Tablet TAKE 1 TABLET BY MOUTH ONCE DAILY , Taking dilTIAZem HCl ER 120 MG Capsule Extended Release 12 Hour TAKE 1 CAPSULE BY MOUTH ONCE DAILY Orally , Taking Nadolol 80 MG Tablet 1 tablet Orally bid , Taking Synjardy XR 12.5-1000 MG Tablet Extended Release 24 Hour 2 tab(s) orally once a day , Taking Rosuvastatin Calcium 10 MG Tablet 1 tablet Orally Once a day , Taking Rybelsus 14 MG Tablet TAKE 1 TABLET BY MOUTH DAILY , Discontinued ProAir Digihaler 108 (90 Base) MCG/ACT Aerosol Powder Breath Activated 2 puff(s) inhaled every 6 hours , Discontinued Vitamin D-3 125 MCG (5000 UT) Tablet 1 cap(s) orally once a week , Discontinued Meclizine HCl 25 MG Tablet 1 tab(s) orally 3 times a day as needed , Discontinued tiZANidine HCl 4 MG Tablet 1 or 2 tab(s) orally every 8 hours as needed , Discontinued Omeprazole 20 MG Capsule Delayed Release 1 cap(s) orally once a day , Discontinued diazePAM 2 MG Tablet 1 or 2 tablet as needed Orally three times a day as needed , Discontinued dexAMETHasone 2 MG Tablet 1 tablet Orally every 12 hrs , Discontinued Gabapentin 300 MG Capsule 1 cap(s) orally 3 times a day , Medication List reviewed and reconciled with the patient * Allergies: P enicillin: rash, Codeine: syncope, Demerol: syncope, Lipitor: leg cramps. Objective: * Vitals: W t:210.4, Temp:97.9, BP:110/64, HR:74, Nurse:gabino, Ht: 73, BMI:27.76. * Examination: C ardiology: General Appearance: p leasant, NAD. Heart sounds: R RR, normal S1, S2. Lungs: c lear, no rales or wheezes. Extremities: n o leg edema. Assessment: * Assessment: 1. E ssential hypertension - I10 (Primary) 2 . V itamin D deficiency - E55.9 Plan: * Treatment: 2. V itamin D deficiency L AB: P-Vitamin D 25-Hydroxy (Collection Date & Time - 01/15/2025 08:54 AM) 2 6.5 Value Reference Range V itamin D 25-Hydroxy 26.5 L 30.0-100.0 - ng/mL * Idalia Payan 01/16/2025 3:03: 06 PM >See phone encounter * Procedure Codes: 3 074F SYST BP LT 130 MM HG, 3078F DIAST BP < 80 MM HG * Follow Up: 3 Months fasting visit * Billing Information: * Visit Code: 86890 Office Visit, Est Pt., Level 3. * Procedure Codes: 3074F SYST BP LT 130 MM HG. 3078F DIAST BP < 80 MM HG. * Electronic signature of Nevin Jenkins MD on 05/06/2025 at 09:44 AM EDT Sign off status: Pending * Provider: Ivan Jenkins M.D. Date: 0 01/15/2025 Generated for Esther larsen/Pauline/Magyitting on: 0 05/06/2025 09:44 AM EDT History and Physical Notes * HPI (History of Present Illness) Category Sub-Category Detail Notes Category Not es Cardiology Blood Pressure Elevated Pt here to f/u on hypertension, states he is doing well and does not have any concerns Examination Category Sub-Category Detail Notes Category Not es Cardiology Lungs: clear, no rales or wheezes Heart sounds: RRR, normal S1, S2 Extremities: no leg edema General Appearance: pleasant, NAD
--- OUTSIDE RECORDS SUMMARY | 2025-04-09 05:45 | XMS_ITS ---
Author Organization [facility] Address [address] [place] [id number] Care Team Providers Care Carpenter Foreman Name Role Phone Virgilio Jenkins Primary Care Provider [phone] Allergies Allergen (clinical drug ingredient) Drug/Non Drug [...] 135 Performing Lab: Notes/Report: Test performed by [employer] [address] [place] [address] , [address]orena C, [place] [address] Natanael Barker MD, Bill Adjuster CLIA: [id number] Sodium 135 135-145 mmol/L Potassium 4.7 3.5-5.3 [...] 157 Performing Lab: Notes/Report: Test performed by [employer] [address] [place] [address] [address], [place] [address] Natanael Barker MD, Bill Adjuster CLIA: [id number] Cholesterol 156 <200 mg/dL Triglycerides 157 <150 [...] Interpretation:Normal Performing Lab: Notes/Report: Test performed by [employer] [facility] , [place] [address] Natanael Barker MD, Bill Adjuster CLIA: [id number] PSA 0.29 <4.00 ng/mL Please note this is an ultrasensitive PSA assay with a lower limit of detection of 0.014 ng/mL. This test is performed by the [employer] ECLIA methodology. Values obtained with different assay methods or kits cannot be directly compared. P-TSH reflex to FT4 Reviewed date:04/12/2025 10:08:41 AM Interpretation:Normal Performing Lab: Notes/Report: Test performed by [employer] [facility] , [place] [address] Natanael Barker MD, Bill Adjuster CLIA: [id number] TSH reflex to FT4 3.20 0.43-5.25 mU/L P-Microalbumin/Creatinine, R andom Urine Sample Reviewed date:04/12/2025 10:08:41 AM Interpretation:Normal Performing Lab: Notes/Report: Test performed by [employer] [address] [place] [address] , [place] [address] Natanael Barker MD, Bill Adjuster CLIA: [id number] Albumin/Creatinine Ratio, Urine 3 0-30 ug/m g Microalbumin, Urine, Random 0.3 Creatinine, Urine 90.6 P-Vitamin D 25-Hydroxy Reviewed date:04/12/2025 10:08:41 AM Interpretation:Normal Performing Lab: Notes/Report: Test performed by [employer] [address] , [address], [place] [address] Natanael Barker MD, Bill Adjuster CLIA: [id number] Vitamin D 25-Hydroxy 47.2 30.0-100.0 ng/mL Interpretation [...] a day for 30 day(s) Active [employer] [place]-3 Krill Oil 500 MG as directed Orally [...] 04/09/2025 Encounters Encounter Location Date Provider [facility] [address] [phone] 04/09/2025 Virgilio Jenkins Type 2 diabetes vaishnavi [...] [address], [address], [place], [place], [id number], Progress Notes * Declan BONDSDOB:[birth year] (60 yo M)Acc No.[id number]:04/09/2025 Progress Notes Patient: Patti ENGLANDDeclan Provider: Ivan Jenikns M.D. :1965 A ge:59 Y S ex:Male Date:04/09/2025 Address:[address] [place], [place] [address], [id number] Subjective: * Chief Complaints: * 1 . [...] Hospitalization/Major Diagno stic Procedure: H eart Stent- [place] 2003, RT Eye Irritation- [facility] ER 11/2012, Possible Heart Problems- [facility] 03/2013, Heart Stent- [place] 04/08/2015, A-Fib, Hypertension- [facility] 09/19- , Covid Symptoms- [facility] UTC 11/30/2020, Chest Pain- [facility] ER 03/31-03/2021. * Family History: F [...] Orally Once a day , Taking [employer]Red [place]-3 Krill Oil 500 MG Capsule as directed [...] D deficiency - E55.[address] 27.0-27.9,adult - Z68.27 Plan: * Treatment: Value [...] P SA 0.29 <4.00 - ng/mL * PreciousRegla zapata 04/11/2025 02: 54:48 PM [...] * Procedure Codes: 8 2950 GLUCOSE TEST, 34357 GLYCATED HEMOGLOBIN TEST, Modifiers: QW , 95683 CBC WITH AUTO DIFF, 3044F HG A1C LEVEL LT 7.0%, 3074F SYST BP LT 130 MM HG, 3078F DIAST BP < 80 MM HG * Follow Up: 6 Months * Billing Information: * Visit Code: 06916 Office Visit, Est Pt., Level 4. * Procedure Codes: 79216 GLUCOSE TEST. 62781 GLYCATED HEMOGLOBIN TEST. Modifiers: QW 06529 CBC WITH AUTO DIFF. 3044F HG A1C LEVEL LT 7.0%. 3074F SYST BP LT 130 MM HG. 3078F DIAST BP < 80 MM HG. * Electronic signature of Nevin Jenkins MD on 05/06/2025 at 09:44 AM EDT Sign off status: Pending * Provider: Ivan Jenkins M.D. Date: 0 04/09/2025 Generated for Esther larsen/Pauline/Lizsmitting on: 0 05/06/2025 09:44 AM EDT History and Physical Notes * HPI (History of Present Illness) Category Sub-Category Detail Notes Category Not es [facility]. Pt is fasting today. Pt sts that he is doing well and has no new concerns or complaints Examination Category Sub-Category Detail Notes Category Not es Cardiology Lungs: clear, no rales or wheezes Heart sounds: RRR, normal S1, S2 Extremities: no leg edema General Appearance: pleasant, NAD
--- OUTSIDE RECORDS SUMMARY | 2025-05-06 09:45 | XMS_ITS | Clinical Summary ---
Author Organization [facility] [place] [address] Care Team Providers Care Line Patroller Name Role Phone Unavailable Primary Care Provider Unavailabl e Social History Tobacco Use Types Packs/Day Years Used Date Smoking Tobacco: Never Assessed Sex and Gender Information Value Date Recorded Sex Assigned at Not on file Legal Sex Male 7:59 AM EDT Gender Identity Not on file Sexual Orientation Not on file Plan of Treatment Health Maintenance Due Date Last Done Comments Annual Wellness Exam 1970 DTaP/TDaP/Td (1 - Tdap) 1986 Hepatitis B Vaccine (1 of 3 - 19+ 3-dose series) 1986 Cologuard 2012 Colon Cancer Screening 2012 Colonoscopy 2012 FIT 2012 Sigmoidoscopy 2012 Virtual Colonography 2012 Pneumococcal Vaccine 50+ (1 of 1 - PCV) 2017 Zoster (1 of 2) 2017 COVID-19 Vaccine ( - 2023-2 5 season) 2024 Influenza Vaccine (Season Ended) 2025 Meningococcal B Vaccine Aged Out No l onger eligible based on patient's age to complete this topic
--- OUTSIDE RECORDS SUMMARY | 2025-05-06 09:45 | XMS_ITS | Clinical Summary ---
Author Organization [facility] Address [address] [place] [address] Care Team Providers Care Hydroelectric Mechanic Name Role Phone Virgilio Jenkins MD Primary Care Provider [phone] Social History Tobacco Use Types Packs/Day Years Used Date Smoking Tobacco: Never Assessed Sex and Gender Information Value Date Recorded Sex Assigned at Not on file Legal Sex Male 7:31 PM EDT Gender Identity Not on file Sexual Orientation Not on file Plan of Treatment Health Maintenance Due Date Last Done Comments [facility]-Depression Screening 1967 [facility]-Infant/Child/Adol SDOH Screenings 1965 [facility]- SDOH Screenings 1985 [facility]-Adult SDOH Screenings 1985 [facility]-Hepatitis B Vaccines (1 of 3 - 19+ 3-dose series) 1986 CT Colonography 2012 Colonoscopy 2012 FIT-DNA 2012 FIT 2012 FOBT 2012 Sigmoidoscopy 2012 [facility]-Colorectal Cancer Screening 2012 [facility]-Pneumococcal Vaccine: 50 + Years (1 of 1 - PCV) 2017 [facility]-Zoster Vaccines (1 of 2) 2017 [id number] Vaccine (3 - 2023- season) 2024 03/31/2021, 02/25/2021 [facility]-Influenza Vaccine (Seaso n Ended) 2025 08/17/2021, 09/28/2014 [facility]-DTaP,Tdap,and Td Vaccine s (3 - Td or Tdap) 03/25/2029 03/25/2019, 03/08/2018 HPV Vaccines Aged Out No longer eligi ble based on patient's age to complete this topic [facility]-HIB Vaccines Aged Out No longer e ligible based on patient's age to complete this topic [facility]-Hepatitis A Vaccines Aged Out No longer eligible based on patient's age to complete this topic [facility]-IPV Vaccines Aged Out No longer e ligible based on patient's age to complete this topic [facility]-Rotavirus Vaccines Aged Out No lo nger eligible based on patient's age to complete this topic Insurance [facility] Care Teams Hydroelectric Mechanic Relationship Specialty Start Date End Date Virgilio Jenkins MD [address] [facility] [address] [place] [address] PCP - General 03/25/23
--- OUTSIDE RECORDS SUMMARY | 2025-05-06 09:45 | XMS_ITS | Data Portability ---
Author Organization [facility] Negron MILAN CLOSED Address [address] [place] [address] Care Team Providers Care Enrollment Counselor Name Role Phone TONY CROUCH Primary Care Provider GARCIA ASTUDILLO [employer] Assessment Encounter Date Assessment Date Assessment LastModified by Organization Details LastModified Time 10/23/2021 10/23/2021 1. Coronary ed ry disease s/p DC 09/2006 (at age 41) and PCI 04/15/2015 -chronic problem, stable without angina. Continue ASA 81mg, rosuvastatin 10 mg daily. Goal LDL <70 2. Paroxysmal atrial fibrillation -chronic problem, stable. 10/23/21: Unclear whether he is currently using propafenone or not. I have asked him to contact the office when he returns home so we can review all the medicines he is currently taking. Continue rivaroxaban 20 mg daily. Renal function August 2021 with EGFR 101 3. Hypertension - at goal. Continue to manage blood pressure to target. 4. Type 2 diabetes - per PCP. Maintain control of blood glucose to target levels. 5. Dyslipidemia -chronic problem, stable. Continue rosuvastatin 10 mg daily. Goal LDL <70. RTC 6 months with EKG. Contact the office with any change in clinical status. [email or web address] Not available 10/23/2021 13:49:25 05/17/2022 05/17/2022 Impression: 1. Coronary artery disease s/p DC 09/2006 (at age 41) and PCI 04/15/2015 Chronic problem, stable without angina. Continue ASA 81mg, rosuvastatin 10 mg daily. Goal LDL <70 Continue metoprolol succinate 25 mg daily and ranolazine 500 mg twice daily 2. Paroxysmal atrial fibrillation Chronic problem, stable. Continue rivaroxaban 20 mg daily 3. Hypertension 4. Type 2 diabetes - per PCP. 5. Dyslipidemia PLAN: Mr. Bonds appears to be stable from a cardiovascular standpoint. I have not recommended any changes to his current cardiovascular regimen, and we will plan to see him back in the office in 6 months with EKG. He will contact the office with any change in clinical status. [email or web address] Not available 05/17/2022 20:32:50 12/01/2022 12/01/2022 Imaging: Lumbar MRI at [facility] 10/25/2022-radiolo gy report and images reviewed by myself and Dr. Venegas -No severe central stenosis Assessment and plan:Patient is a 57-year-old male with no prior spinal surgery presents with right lower back pain and bilateral knee to foot numbness and right foot weakness. After reviewing imaging there is not a straightforward pathology for patients symptoms. Symptoms appear to be multifactorial. Patient states he has DM and his fasting blood glucose stays in the 200s. We will start Gabapentin 300mg TID to help with neuropathy symptoms in bilateral feet. This is something he needs to follow up with his PCP on as his DM are uncontrolled. We will have him go to PT for lumbar spine and start meloxicam 7.5 qid PRN for pain. We discussed taking a muscle relaxer but patient states that he is unable to use due to his job requirements. We will send him with a work note to remain on light duty with no bending, twisting, lifting objects 30+ pounds for a 4-6 few weeks to see if treatment helps improve symptoms. We discussed pain management but patient wants to wait and see if the other options work first. He can call if he needs a pain management referral. -Patient seen by myself and Dr. Venegas [email or web address] Not available 12/02/2022 08:46:17 Plan of Treatment Reminders Order Date Submit Date Provider Last Modified By Organization Details Last Modified Time Details Appointments None recorded. Lab None recorded. Referral None recorded. Procedures None recorded. Surgeries None recorded. Imaging electrocard iogram 2020 021 [email or web address] [facility], [address] [place] [address] , [address], [place], [address], 1 13:49:37 electrocard iogram 2019 020 [email or web address] 2 [facility], [facility] [address], [address], [place], [address], 0 15:46:50 Medication Orders None recorded. Patient TargetsNo targets recorded. Patient Instructions Encounter Date Encounter Id Patient Instructions Last Modified By Organization Details Last Modified Time 08/29/2020 [id number] Spent 45# total minutes with the patient today. Greater than 50% of this time was spent counseling/coordi nation of care as documented in my assessment and plan above. MRI cervical spine CD-ROM [facility]: C4-5 left disc osteophyte complex with moderate foraminal stenosis. Mild findings otherwise [email or web address] Not available 08/29/2020 11:22:53 09/08/2020 [id number] elevated blood pressure: care instructions [email or web address] Not available 09/08/2020 15:42:46 high cholesterol : care instructions [email or web address] Not available 09/08/2020 15:42:46 10/23/2021 [id number] Body Mass Index: Care Instructions-LC [email or web address] Not available 10/23/2021 13:49:37 05/17/2022 [id number] body mass index: care instructions [email or web address] Not available 05/17/2022 20:32:57 Reason for Referral None Reported. Results Created Date Observation Date Name Description Value Unit Range Abnormal Flag Note LastModifiedBy Organization Detail LastModifiedTime 09/10/20 20 09/08/2020 elect rocar diogr am No observ ation record ed. BAR[place] [address], [place], [address], 09/10/2020 09:49:05 10/23/20 21 elect rocar diogr am No observ ation record ed. [email or web address] [place] [address], [place], [address], 10/23/2021 13:04:01 10/26/20 21 10/23/2021 elect karey robles am No observ ation record ed. BARCODE [facility] [address] [place] [address] [address], [place], [address], 10/26/2021 11:47:54 12/03/19 23 10/25/2022 MRI, lumba r spine , w/o contr ast No observ ation record ed. BARCODE Not Available 2022 12:09:56 12/03/19 23 10/07/2022 XR, entir e spine , 6 or more view No observ ation record ed. BARCODE Not Available 2022 12:09:56 12/03/19 23 10/25/2022 MRI, lumba r spine , w/o contr ast No observ ation record ed. BARCODE Not Available 2022 12:09:56 12/03/19 23 10/07/2022 XR, entir e spine , 6 or more view No observ ation record ed. BARCODE Not Available 2022 12:09:56 Result Notes None recorded. Problems Name Problem SNOMED Code Status Onset Date Resolution Date Notes Provider Name and Address Organization Details Recorded Time Chest pain 78327241 Active 2015 From [employer];Pro vider: Matt Lei;Sta tus: Active Not Available [facility] 6 05:37:00 Coronary arterios clerosis in [place] artery 78925758704 07 Active 2015 From [employer] Load;Pro vider: Matt Lei;Sta tus: Active Not Available [facility] 6 05:37:00 Hyperlip idemia 80710535 Active 2015 From [employer] Load;Pro vider: Matt Lei;Sta tus: Active Not Available [facility] 6 05:37:00 Paroxysm al atrial fibrilla tion 868862257 Active 2016 MATT LEI MD [address] [place] [address], [address] , [facility] 7 12:00:29 Atrial fibrilla tion 99435827 Completed 201509/23/2017 From [employer] Load;Pro vider: Matt Lei;Sta tus: Active MATT LEI MD [address] [place] [address], [address] , [facility] 7 10:10:35 Hyperten sive disorder 35861458 Active 2016 MATT LEI MD [address] [place] [address], [address] , [facility] 7 10:10:54 Long-ter m drug therapy Active 2019 MATT LEI MD [address] [place] [address], [address] , [facility] 0 06:08:28 Long-ter m current use of anticoag ulant 527108270 Active 2019 MATT LEI MD [address] [place] [address], [address] , [facility] 0 06:08:31 Problem Notes None recorded. Procedures Surgical History Date Name Laterality Status Provider Name and Address Organization Details Recorded Time 05/17/20 22 EKG completed Alia Bull [facility] 05/17/2022 10:51:13 05/14/20 19 Injection, Intralesional completed Janeth Marin [facility] 05/14/2019 10:44:35 12/04/19 19 EKG completed KOKI WORRELL PA-C [address] [place] [address], [address], [facility] 12/04/2018 10:18:58 08/11/20 18 Injection Joint/Bursa, Major completed ALVARO HENSLEY MD [address] [place] [address], [address], [facility] 08/11/2018 09:45:14 04/15/20 15 Stent Placement completed MATT LEI MD [address] [place] [address], [phone], [facility] 03/18/2017 09:36:12 Stent Placement completed MATT LEI MD [address] [place] [address], [address], [facility] 03/18/2017 09:33:30 Cardiac Catheterization completed Janeth Kuhn [facility] 08/11/2018 10:36:08 Other completed Lisset Nelson [facility] 12/10/2016 15:49:43 Imaging Results None recorded. Procedure Notes None recorded. Medical Equipment None Reported. Allergies Allergen ID Allergen Name Allergen Category Reaction Reaction Severity Criticality Documentation Date Start Date Code Code System Note Provider Name and Address Organization Details Recorded Time 166954 Demerol medicatio n Not available Not available Not available 10/22/20162014 07147 1 RxNorm Comme nt: Creat ed By: Jamaal Stearns ;Crea torin Date: 2014 10:48 :19 AM; Not Available [facility] 6 07:45:20 587829 Product containin g penicilli n (product) medicatio n Not available Not available Not available 10/22/20162014 80575 8001 SNOMED Comme nt: Creat ed By: Jamaal Stearns ;Crea torin Date: 2014 10:49 :01 AM; Not Available [facility] 6 08:39:38 333780 codeine medicatio n Not available Not available Not available 10/22/20162014 2670 RxNorm Comme nt: Creat ed By: Jamaal Stearns ;Crea torin Date: 2014 10:48 :11 AM; Not Available [facility] 6 08:39:38 Medications Name Sig Start Date Stop Date Status Note LastModified by Organization Details LastModified Time metformin 500 mg tablet Take 1 tablet twice a day by oral route. active Not Available Not Available No t Available propafeno ne 150 mg tablet Take 1 tablet every 8 hours by oral route. 05/17 completed pt never did start taking Not Available Not Available Not Available Klor-Con 20 mEq tablet,ex tended release Take 1 tablet every day by oral route. 09/23 completed Not Available Not Available Not Available Klor-Con 10 mEq tablet,ex tended release 2 tablets by mouth every day 03/18 completed Not Available Not Available Not Available isosorbid e mononitra te ER 30 mg tablet,ex tended release 24 hr TAKE 1 TABLET BY MOUTH EVERY DAY 12/04 completed Not Available Not Available Not Available meloxicam 7.5 mg tablet Take 1 tablet every day by oral route as needed. 2022 active Not Available Not Available Not Avai lable isosorbid e mononitra te ER 60 mg tablet,ex tended release 24 hr TAKE 1 TABLET BY MOUTH DAILY IN THE MORNING 10/23 completed Not Available Not Available Not Available diltiazem 120 mg tablet Daily 09/23 completed Duration : 30 days;Tristian quency: daily;Me dication Descript ion: diltiaze m; Dosage:1 ; Route:or al; refills: 12; Quantity :60 tablet Not Available Not Available Not Available magnesium oxide 400 mg (241.3 mg magnesium ) tablet Take 1 tablet every day by oral route. 12/04 completed Not Available Not Available Not Available flecainid e 50 mg tablet Take 1 tablet twice a day by oral route. 10/23 completed Not Available Not Available Not Available Glucophag e XR 500 mg tablet,ex tended release Two times a day 12/04 completed Duration : 30 days;Tristian quency: bid;Medi cation Descript ion: metformi n; Dosage:2 ; Route:or al; refills: 0; Quantity :60 tablet, extended release Not Available Not Available Not Available nitroglyc javier 0.4 mg sublingua l tablet DISSOLVE ONE TABLET UNDER TONGUE, EVERY 5 MINUTES, UP TO 3 DOSES, FOR CHEST PAIN. IF NO RELIEF, CALL [phone] active Not Available Not Available Not Avai lable gabapenti n 300 mg capsule TAKE 1 CAPSULE BY MOUTH 3 TIMES DAILY active Not Available Not Available No t Available omeprazol e 20 mg capsule,d elayed release Daily active Frequenc y: daily;Me dication Descript ion: omeprazo le; Dosage:1 ; Route:or al; refills: 0 Not Available Not Available Not Available diltiazem CD 120 mg capsule,e xtended release 24 hr Take 1 capsule every day by oral route. active Not Available Not Available No t Available aspirin 81 mg tablet Daily active Duration : 30 days;Tristian quency: daily;Me dication Descript ion: aspirin; Dosage:1 ; refills: 0; Quantity :30 Not Available Not Available Not Available lisinopri l 5 mg tablet TAKE 1 TABLET BY MOUTH DAILYNO FURTHER REFILLS WILL BE AUTHORIZ ED UNTIL FOLLOW UP APPT SCHEDULE D. 2023 active Not Available Not Available Not Avai lable metoprolo l succinate ER 25 mg tablet,ex tended release 24 hr Take 1 tablet every day by oral route. active Not Available Not Available No t Available lisinopri l 10 mg-hydroc hlorothia zide 12.5 mg tablet Daily 09/23 completed Frequenc y: daily;Me dication Descript ion: hydrochl orothiaz david-gisele nopril; Dosage:1 ; Route:or al; refills: 12; Quantity :30 tablet Not Available Not Available Not Available ferrous sulfate 325 mg (65 mg iron) tablet,de layed release Daily 05/17 completed Frequenc y: daily;Me dication Descript ion: ferrous sulfate; Dosage:1 ; Route:or al; refills: 0; Quantity :1 delayed release tablet Not Available Not Available Not Available Crestor 10 mg tablet Daily active Frequenc y: daily;Me dication Descript ion: rosuvast atin; Dosage:1 ; Route:or al; refills: 12; Quantity :30 tablet Not Available Not Available Not Available Klor-Con M20 mEq tablet,ex tended release Daily 09/23 completed Frequenc y: daily;Me dication Descript ion: potassiu m chloride ; Dosage:1 ; Route:or al; refills: 4; Quantity :90 tablet, extended release Not Available Not Available Not Available Tricor 145 mg tablet Daily 01/03 completed Frequenc y: daily;Me dication Descript ion: fenofibr ate; Dosage:1 ; Route:or al; refills: PRN 1 yr; Quantity :30 tablet Not Available Not Available Not Available fenofibra te 160 mg tablet Take 1 tablet every day by oral route. active Not Available Not Available No t Available Fish Oil Daily 01/03 completed Frequenc y: daily;Me dication Descript ion: omega-3 polyunsa turated fatty acids; Dosage:a s directed ; Route:or al; refills: 0 Not Available Not Available Not Available Claritin as directed active Not Available Not Available No t Available Ventolin HFA as directed active Not Available Not Available No t Available Crestor 1mg daily 01/03 completed Not Available Not Available Not Available ranolazin e ER 500 mg tablet,ex tended release,1 2 hr TAKE 1 TABLET BY MOUTH TWICE DAILY 2020 active Not Available Not Available Not Avai lable Ranexa 02/02 completed ranexa 500 mg samples 6 packs given to ptlot# [id number] exp 03/18 Not Available Not Available Not Available diclofena c 1 % topical gel APPLY 2 GRAMS TO THE AFFECTED AREA(S) BY TOPICAL ROUTE 4 TIMES PER DAY 10/23 completed Not Available Not Available Not Available Effient 10 mg tablet Daily 01/03 completed Frequenc y: daily;Me dication Descript ion: prasugre l; Dosage:1 ; Route:or al; refills: 0 Not Available Not Available Not Available Tradjenta QAM 10/23 completed Not Available Not Available Not Available Xarelto 20 mg tablet Daily active Frequenc y: daily;Me dication Descript ion: rivaroxa ban; Dosage:1 ; Route:or al; refills: 12 Not Available Not Available Not Available Breo Ellipta as directed active Not Available Not Available No t Available Farxiga 10 mg tablet Daily 12/04 completed Frequenc y: daily;Me dication Descript ion: dapaglif lozin; Dosage:1 ; Route:or al; refills: 0 Not Available Not Available Not Available empaglifl ozin 25 mg-linagl iptin 5 mg tablet Take 1 tablet every day by oral route. active Not Available Not Available No t Available MegaRed [place]-3 Krill Oil 500 mg-115 mg-30 mg-64 mg capsule Take 1 capsule every day by oral route in the evening. active Not Available Not Available No t Available Xigduo XR 2.5 mg-1,000 mg tablet,ex tended release Take 1 tablet twice a day by oral route. 02/02 completed Not Available Not Available Not Available Vitals Date Recorded Body height Body mass index (BMI) Body weight Systolic blood pressure Diastolic blood pressure Provider Name and Address Organization Details Last Updated DateTime 12/01/2022 185.42 cm 31 kg/m2 427419.2 1 g 120 mm[Hg] 80 mm[Hg] Michelle Tavarez [facility] 3 14:52:33 Date Recorded Body height Body mass index (BMI) Body weight Heart rate Systolic blood pressure Diastolic blood pressure Provider Name and Address Organization Details Last Updated DateTime 2 185.42 cm 29.9 kg/m2 638321. 47 g 78 /min 128 mm[Hg] 78 mm[Hg] Alia Bull [facility] 2 11:02:32 Date Recorded Body height Body mass index (BMI) Body weight Heart rate Systolic blood pressure Diastolic blood pressure Provider Name and Address Organization Details Last Updated DateTime 0 185.42 cm 30.6 kg/m2 486257. 43 g 83 /min 141 mm[Hg] 75 mm[Hg] Geni Schumacher [facility] 0 10:52:51 Date Recorded Body height Body mass index (BMI) Body weight Heart rate Systolic blood pressure Diastolic blood pressure Provider Name and Address Organization Details Last Updated DateTime 0 185.42 cm 31.1 kg/m2 446074. 8 g 93 /min 136 mm[Hg] 86 mm[Hg] Janeth Bam [facility] 0 15:15:25 Date Recorded Body height Body mass index (BMI) Body weight Heart rate Systolic blood pressure Diastolic blood pressure Provider Name and Address Organization Details Last Updated DateTime 1 185.42 cm 29.7 kg/m2 909939. 28 g 81 /min 116 mm[Hg] 76 mm[Hg] Janeth Bam [facility] 1 13:09:32 Social History Question Answer Notes LastModified by Organizat ion Details LastModified Time Tobacco Smoking Status Never Smoker Lisset riley [facility] 12/10/2016 15:46:05 How Much Tobacco Do You Chew? None [email or web address] Information not available 02/02/2019 Live Alone Or With Others? With Others Information not available 12/04/2018 Marital Status Informatio n not available 12/29/2016 What Was The Date Of Your Most Recent Tobacco Screening? 05/17/2022 Information not available 05/17/2022 How Many Children Do You Have? 1 Information not available 12/29/2016 Has Tobacco Cessation Counseling Been Provided? No Information not available 12/04/2018 On What Date Was Tobacco Cessation Counseling Provided? 10/23/2021 [place] [id number] Answered No To The Tobacco Cessation Counseling Provided Question On 12/04/2018. [email or web address] Information not available 10/23/2021 Have You Recently Traveled Abroad? No Information not available 05/17/2022 Sex: Unknown Functional Status Question Answer Note LastModified by Organizat ion Details LastModified Time Do you or have you ever used any other forms of tobacco or nicotine? No Information not available 05/17/2022 Do you or have you ever used smokeless tobacco? Never used smokeless tobacco Information not available 08/13/2019 What is your occupation? [email or web address] Information not available 03/18/2017 Do you or have you ever used e-cigarettes or vape? Never used electronic cigarettes Information not available 08/13/2019 Mental Status None recorded. Family History Relationship Description Onset Age of this Age Resolved Age Notes LastModified by Organization Details LastModified Time Unspecified Relation Depressive disorder [email or web address] Not available 11/28 15:45:33 Unspecified Relation Diabetes mellitus [email or web address] Not available 11/28 15:45:41 Unspecified Relation Heart disease [email or web address] Not available 11/28 15:45:48 Unspecified Relation Family history of stroke [email or web address] Not available 11/28 15:45:58 Medical History Condition Response Coronary Artery Disease Y Gout N Other N Atrial Fibrillation Y Kidney Stones N Hyperthyroidism N Blood Transfusion N Hypothyroidism N Lung Disease N Depression N COPD N Breast Problem N Difficulty Swallowing N Anxiety Disorder N Meniere's disease N Muscle, Joint, or Bone Problems N Vision or Eye Problems N Arthritis N Infertility N Polyps N Blood Clot N Cancer N Stroke N Varicosities N Endometriosis N Bladder or Kidney Problems N High Cholesterol Y Liver Disease N Fibromyalgia N Headaches N Kidney Disease N Allergies/Hayfever N Heart Problems N Parkinson's Disease N Ear or Hearing Problems N Hospitalizations N Alzheimer's N Thyroid Problems N GI Problems Y Eating Disorder N Skin Problems N Anemia N Constipation N Mental Illness N Diabetes Y Ovarian Cancer N Seizures/Epilepsy N Tuberculosis N Eczema N Diverticulitis N Asthma Y Reflux/GERD N Sleep Apnea N GERD/Reflux Y Hepatitis N Heart Disease Y Pulmonary Embolism N Chronic Ear Infections N Pre-Eclampsia N Hypertension Y Chicken Pox N Osteoporosis N Thrombophilias N Past Encounters Encounter ID Performer Location Encounter Start Date Encounter Closed Date Diagnosis/Indication Diagnosis SNOMED-CT Code Diagnosis ICD10 Code Diagnosis Note [id number] MATT LEI MD CARDIOLOG Y [address] [place] [address] 01/03/2017 11:01:32 01/03/2017 12:16:22 Coronary arteriosclerosis in [place] artery 1896860760 107 I25.10 I feel that the patient is experienci ng exertional angina and I recommende d a therapeuti c trial of isosorbide .Electroni c prescripti on sent to patient's pharmacy. Medication changes, as well as new medication s were reviewed and discussed in detail including benefit and risk of therapy. The patient is otherwise doing well on current management . No new active problems identified . Chronic problems are all stable. Patient is to continue current regimen without change. All questions answered and regimen reviewed. Patient is to call for any change in status. Paroxysmal atrial fibrillation 576352657 I48.0 The patient indicates he is having occasional episodes of rapid fluttering in his heart which are reminiscen t of his previous atrial fibrillati on. I recommend that he continue his antithromb otic and antiarrhyt hmic therapy for the time being. His electrocar diogram shows normal sinus rhythm with normal QTc interval. [id number] [employer] [place] [address] 02/28/2017 20:06:40 02/28/2017 20:06:40 [id number] MATT LEI MD CARDIOLOG Y [facility] [address] [place] [address] 03/18/2017 08:47:02 03/18/2017 10:16:03 Coronary arteriosclerosis in [place] artery 3051765446 107 I25.10 Medication changes, as well as new medication s were reviewed and discussed in detail including benefit and risk of therapy. The patient is otherwise doing well on current management . No new active problems identified . Chronic problems are all stable. Patient is to continue current regimen without change. All questions answered and regimen reviewed. Patient is to call for any change in status. Paroxysmal atrial fibrillation 982123504 I48.0 No recurrence of palpitatio ns. EKG from emergency room showed normal sinus rhythm with normal QTC. We'll reschedule follow-up for 6 months. Chest pain 33789052 R07. 9 This chest pain was noncardiac with negative troponin and EKG evaluation . I reassured him that no further workup is needed at this time. I don't feel that her stress test is necessary. Hyperlipidemia 01216109 E78.5 Management of this problem was reviewed with the patient. No changes recommende d, status for this problem is stable at this time. [id number] MATT LEI MD CARDIOLOG Y [facility] [address] [place] [address] 09/23/2017 09:26:38 09/23/2017 10:18:51 Long-term drug therapy 750377221 Z79.899 Flecainide .Patient shows no evidence of toxicity to the antiarrhyt hmic drug program. Electrocar diogram shows stable QTc interval. Risk of medication and monitoring reviewed with patient.EK G: NSR with normal QTC. Rhythm strip was performed and showed rare PACs. Coronary arteriosclerosis in [place] artery 3484817840 107 I25.10 Chest pain 54069083 R07. 9 This chest pain was noncardiac with negative troponin and EKG evaluation . I reassured him that no further workup is needed at this time. I don't feel that her stress test is necessary. Hyperlipidemia 67620254 E78.5 Management of this problem was reviewed with the patient. No changes recommende d, status for this problem is stable at this time. Paroxysmal atrial fibrillation 031536886 I48.0 The patient remains in normal sinus rhythm on current therapy. No evidence of antiarrhyt hmic drug toxicity. Details of management and medication risk for antiarrhyt hmics and anticoagul ants reviewed.M edication changes, as well as new medication s were reviewed and discussed in detail including benefit and risk of therapy. The patient is otherwise doing well on current management . No new active problems identified . Chronic problems are all stable. Patient is to continue current regimen without change. All questions answered and regimen reviewed. Patient is to call for any change in status. Hypertensive disorder 38 984035 [employer] his blood pressures a bit too low and I advised him to cut his current lisinopril /hydrochlo rothiazide to one half his current dosage and we'll send a prescripti on for lisinopril 5 mg daily to replace this.I discussed the importance of salt restrictio n. Per FDA recommenda tions, I advise limit of 2000 -2400 mg daily of sodium. Increase sodium intake is often associated with worsening of hypertensi on and or heart failure. Long-term current use of anticoagulant [id number] Z79.01 Xarelto.No symptoms of bleeding or any evidence of anticoagul ant toxicity. Periodic CBC recommende d. [id number] MATT LEI MD CARDIOLOG Y [address] [place] [address] 05/30/2018 08:59:10 05/30/2018 16:00:31 Long-term drug therapy 665719803 Z79.899 Flecainide .Patient shows no evidence of toxicity to the antiarrhyt [facility] drug program. Electrocar diogram shows stable QTc interval. Risk of medication and monitoring reviewed with patient.EK G: NSR with normal QTC. Rhythm strip was performed and showed rare PACs. Coronary arteriosclerosis in [place] artery [id number] 107 I25.119 the patient is concerned that his symptoms may be related to obstructiv e coronary disease since his symptoms have been subtle in the past. After discussion of evaluation options including stress testing versus cardiac catheteriz ation. The patient elected to proceed with cardiac catheteriz ation. Risk and benefit of cardiac catheteriz ation and possible coronary interventi on explained. The patient understand s indication s, procedure, risk and benefits and wishes to proceed. The patient was given Cath instructio n booklet to review before procedure. It has been explained that a satisfacto ry result is expected, possible risks include , heart attack, stroke, bleeding, infection, damage to adjacent tissues or organs, swelling, pain, or medication reaction. Chest pain 48961297 R07. 9 nitroglyce rin will be renewed. Hyperlipidemia 97477402 E78.5 Management of this problem was reviewed with the patient. No changes recommende d, status for this problem is stable at this time. Paroxysmal atrial fibrillation 328949978 I48.0 The patient remains in normal sinus rhythm on current therapy. No evidence of antiarrhyt hmic drug toxicity. Details of management and medication risk for antiarrhyt hmics and anticoagul ants reviewed.M edication changes, as well as new medication s were reviewed and discussed in detail including benefit and risk of therapy. The patient is otherwise doing well on current management . No new active problems identified . Chronic problems are all stable. Patient is to continue current regimen without change. All questions answered and regimen reviewed. Patient is to call for any change in status. Hypertensive disorder 38 752877 [employer] his blood pressures a bit too low and I advised him to cut his current lisinopril /hydrochlo rothiazide to one half his current dosage and we'll send a prescripti on for lisinopril 5 mg daily to replace this.I discussed the importance of salt restrictio n. Per FDA recommenda tions, I advise limit of 2000 -2400 mg daily of sodium. Increase sodium intake is often associated with worsening of hypertensi on and or heart failure. Long-term current use of anticoagulant 428480284 Z79.01 Xarelto.No symptoms of bleeding or any evidence of anticoagul ant toxicity. Periodic CBC recommende d. [id number] ALVARO HENSLEY MD ORTH[facility]EDI [facility] [address] [place] [address] 08/11/2018 08:44:34 08/11/2018 09:52:55 Adhesive capsulitis of right shoulder [id number] 99579 M75.01 Mr Bonds has findings of adhesive capsulitis of the right shoulder. I had extensive discussion with him regarding the natural history and treatment of frozen shoulder. He was provided corticoste roid injection for pain relief and I recommend a course of physical therapy as well as HEP. [id number] MATT LEI MD CARDIOLOG Y [address] [place] [address] ,[address] [place] [address] 08/11/2018 10:25:03 08/11/2018 11:13:09 Long-term drug therapy 476928920 Z79.899 Flecainide .Patient shows no evidence of toxicity to the antiarrhyt hmic drug program. Electrocar diogram shows stable QTc interval. Risk of medication and monitoring reviewed with patient.EK G: NSR with normal QTC. Rhythm strip was performed and showed rare PACs. Coronary arteriosclerosis in [place] artery 0747348427 107 I25.119 Cardiac catheteriz ation was reassuring but the patient persisted in having symptoms. I discussed options and treatment and advised increasing her isosorbide mononitrat e 60 mg.Electro rosas prescripti on sent to patient's pharmacy. We'll consider Ranexa in the future. Chest pain 58498188 R07. 9 nitroglyce rin will be renewed. Hyperlipidemia 07934172 E78.5 Management of this problem was reviewed with the patient. No changes recommende d, status for this problem is stable at this time. Paroxysmal atrial fibrillation 125451402 I48.0 The patient remains in normal sinus rhythm on current therapy. No evidence of antiarrhyt hmic drug toxicity. Details of management and medication risk for antiarrhyt hmics and anticoagul ants reviewed.M edication changes, as well as new medication s were reviewed and discussed in detail including benefit and risk of therapy. The patient is otherwise doing well on current management . No new active problems identified . Chronic problems are all stable. Patient is to continue current regimen without change. All questions answered and regimen reviewed. Patient is to call for any change in status. Hypertensive disorder 38 440060 [employer] his blood pressures a bit too low and I advised him to cut his current lisinopril /hydrochlo rothiazide to one half his current dosage and we'll send a prescripti on for lisinopril 5 mg daily to replace this.I discussed the importance of salt restrictio n. Per FDA recommenda tions, I advise limit of 2000 -2400 mg daily of sodium. Increase sodium intake is often associated with worsening of hypertensi on and or heart failure. Long-term current use of anticoagulant 280285337 Z79.01 Xarelto.No symptoms of bleeding or any evidence of anticoagul ant toxicity. Periodic CBC recommende d. Renewal of prescription 024366997 Z76.0 [id number] KOKI WORRELL PA-C CARDIOLOG Y [address] [place] [address] ,[address] [place] [address] 12/04/2018 09:39:28 12/04/2018 10:50:23 Chest pain 25958481 R07.9 Coronary arteriosclerosis in [place] artery 4072560801 107 I25.10 Paroxysmal atrial fibrillation 828672662 I48.0 Hypertensive disorder 38 911165 I10 Hyperlipidemia 11404915 E78.5 [id number] MATT LEI MD CARDIOLOG Y [facility] CLOSED [address] [place] [address] 02/02/2019 09:10:47 02/02/2019 11:12:41 Coronary arteriosclerosis in [place] artery 0992051330 107 I25.10 No further episodes of angina since taking Ranexa. Paroxysmal atrial fibrillation 107707233 I48.0 The patient remains in normal sinus rhythm on current therapy. No evidence of antiarrhyt hmic drug toxicity. Details of management and medication risk for antiarrhyt hmics and anticoagul ants reviewed.M edication changes, as well as new medication s were reviewed and discussed in detail including benefit and risk of therapy. The patient is otherwise doing well on current management . No new active problems identified . Chronic problems are all stable. Patient is to continue current regimen without change. All questions answered and regimen reviewed. Patient is to call for any change in status. RTC: 6 months with EKG. Hypertensive disorder 38 880884 I10 Management of this problem was reviewed with the patient. No changes recommende d, status for this problem is stable at this time. Hyperlipidemia 65895807 E78.5 Management of this problem was reviewed with the patient. No changes recommende d, status for this problem is stable at this time. Long-term drug therapy 092964257 Z79.899 Flecainide .Patient shows no evidence of toxicity to the antiarrhyt hmic drug program. Electrocar diogram shows stable QTc interval. Risk of medication and monitoring reviewed with patient.EK G: NSR with normal QTC. Rhythm strip was performed and showed rare PACs. Long-term current use of anticoagulant 610175592 Z79.01 Xarelto.No symptoms of bleeding or any evidence of anticoagul ant toxicity. Periodic CBC recommende d. [id number] CRISTAL LIU MD DERMATOLO GY [address] [address] [place] [address] 05/14/2019 09:42:44 05/14/2019 12:55:25 Lentigo 005378346 L81.4 Reassuranc e and education regarding the disorder and options. Gely beltran of [facility] 34714374 L57.3 Reassuranc e and education regarding the disorder and options. Digital mucous cyst 4040 85295 M71.349 Reassuranc e and education regarding the disorder and options. Drained and injected with ..1 ml of Kenalog 40 mg - Pain in fi nger of left hand [id number] 01120 M79.360 [id number] MATT LEI MD CARDIOLOG Y [place] [address] [place] [address] 08/13/2019 13:51:19 08/13/2019 15:40:04 Coronary arteriosclerosis in [place] artery 6237630173 107 I25.10 No further episodes of angina since taking Ranexa. Paroxysmal atrial fibrillation 293419739 I48.0 The patient remains in normal sinus rhythm on current therapy. No evidence of antiarrhyt hmic drug toxicity. Details of management and medication risk for antiarrhyt hmics and anticoagul ants reviewed.M edication changes, as well as new medication s were reviewed and discussed in detail including benefit and risk of therapy. The patient is otherwise doing well on current management . No new active problems identified . Chronic problems are all stable. Patient is to continue current regimen without change. All questions answered and regimen reviewed. Patient is to call for any change in status. RTC: 6 months with EKG. Hypertensive disorder 38 391290 I10 Management of this problem was reviewed with the patient. No changes recommende d, status for this problem is stable at this time. Hyperlipidemia 54759306 E78.5 Management of this problem was reviewed with the patient. No changes recommende d, status for this problem is stable at this time. Long-term drug therapy 214059621 Z79.899 Flecainide .Patient shows no evidence of toxicity to the antiarrhyt hmic drug program. Electrocar diogram shows stable QTc interval. Risk of medication and monitoring reviewed with patient.EK G: NSR with normal QTC. Rhythm strip was performed and showed rare PACs. Long-term current use of anticoagulant 736713758 Z79.01 Xarelto.No symptoms of bleeding or any evidence of anticoagul ant toxicity. Periodic CBC recommende d. [id number] MATT LEI MD CARDIOLOG Y [address] [place] [address] 03/21/2020 08:20:40 03/24/2020 07:17:25 Coronary arteriosclerosis in [place] artery 0832507869 107 I25.10 No further episodes of angina since taking Ranexa. Paroxysmal atrial fibrillation 038473562 I48.0 The patient remains in normal sinus rhythm on current therapy. No evidence of antiarrhyt hmic drug toxicity. Details of management and medication risk for antiarrhyt hmics and anticoagul ants reviewed.M edication changes, as well as new medication s were reviewed and discussed in detail including benefit and risk of therapy. The patient is otherwise doing well on current management . No new active problems identified . Chronic problems are all stable. Patient is to continue current regimen without change. All questions answered and regimen reviewed. Patient is to call for any change in status. RTC:3 months with EKG. Hypertensive disorder 38 089342 I10 Management of this problem was reviewed with the patient. No changes recommende d, status for this problem is stable at this time. Hyperlipidemia 07148583 E78.5 Management of this problem was reviewed with the patient. No changes recommende d, status for this problem is stable at this time. Long-term drug therapy 936741096 Z79.899 In light of CAD change to propafenon e. Long-term current use of anticoagulant 460545625 Z79.01 Xarelto.No symptoms of bleeding or any evidence of anticoagul ant toxicity. Periodic CBC recommende d. [id number] ADRIÁN SIMPSON MD NEUROSURG [facility] CL[facility] [address] [place] [address] 08/29/2020 10:28:05 08/29/2020 12:56:37 Cervical spondylosis without myelopathy 139605189 M47.812 -The patient presents for evaluation of his chronic neck pain. Mainly axial in location. MRI of the cervical spine was reviewed. The patient has a prominent disc protrusion , osteophyte complex on the left at C4-5 with moderate foraminal stenosis. No critical central stenosis is present. We reviewed the results of the MRI. I personally reviewed the imaging and interprete d the MRI. Treatment options were discussed. My recommenda tion is to continue conservati ve measures. Referral to pain management for considerat ion of injections . The patient will not take narcotic therapy. We will see him back in 3 months to reassess his progress. In my opinion, surgery represents an option of last resort. The patient is happy. We'll continue to try to provide conservati ve measures that allows the patient to continue his active lifestyle. Lumbar spondylosis 54569 0009 M47.896 -Chronic low back pain. Axial location. No recent imaging. Plan to investigat e further with x-rays of the lumbar spine. [id number] MATT LEI MD CARDIOLOG Y [address] [place] [address] 09/08/2020 14:24:30 09/08/2020 15:46:50 Coronary arteriosclerosis in [place] artery 2943718636 107 I25.10 No further episodes of angina since taking Ranexa. Paroxysmal atrial fibrillation 799430347 I48.0 The patient remains in normal sinus rhythm on current therapy. No evidence of antiarrhyt hmic drug toxicity. Details of management and medication risk for antiarrhyt hmics and anticoagul ants reviewed.M edication changes, as well as new medication s were reviewed and discussed in detail including benefit and risk of therapy. The patient is otherwise doing well on current management . No new active problems identified . Chronic problems are all stable. Patient is to continue current regimen without change. All questions answered and regimen reviewed. Patient is to call for any change in status. RTC:6 months with EKG. Hypertensive disorder 38 168651 I10 Management of this problem was reviewed with the patient. No changes recommende d, status for this problem is stable at this time. Hyperlipidemia 51080109 E78.5 Management of this problem was reviewed with the patient. No changes recommende d, status for this problem is stable at this time. Long-term drug therapy 897751657 Z79.899 In light of CAD change to propafenon e. Long-term current use of anticoagulant 324773759 Z79.01 Xarelto.No symptoms of bleeding or any evidence of anticoagul ant toxicity. Periodic CBC recommende d. [id number] GARCIA ASTUDILLO MD CARDIOLOG Y [address] [place] [address] 10/23/2021 12:57:22 10/23/2021 13:37:17 Coronary arteriosclerosis in [place] artery 5230275985 107 I25.10 Paroxysmal atrial fibrillation 037791213 I48.0 Hypertensive disorder 38 904811 I10 Hyperlipidemia 34205317 E78.5 Long-term drug therapy 329387385 Z79.899 Long-term current use of anticoagulant 452356824 Z79.01 Continue Xarelto 20mg daily.No symptoms of bleeding or any evidence of anticoagul ant toxicity. Periodic CBC recommende d. Body mass index 25-29 - overweight 304886518 Z68.29 [id number] GARCIA ASTUDILLO MD CARDIOLOG Y [address] [place] [address] 05/17/2022 10:08:52 05/17/2022 12:03:37 Coronary arteriosclerosis in [place] artery 2399636035 107 I25.10 Paroxysmal atrial fibrillation 305433448 I48.0 Hypertensive disorder 38 642217 I10 Hyperlipidemia 48410633 E78.5 Long-term current use of anticoagulant 257629488 Z79.01 Continue Xarelto 20mg daily.No symptoms of bleeding or any evidence of anticoagul ant toxicity. Periodic CBC recommende d. Obese 473362450 E66.9 [id number] LIDIA VENEGAS MD NEUROSURG [facility] [address] [place] [address] 12/01/2022 13:38:50 12/03/2022 16:15:00 Low back pain 401342687 M54.50 Health Concerns Section Related Observation LastModified by Organization Detai ls LastModified Time None Recorded Concern Status LastModified by Organization Details LastModified Time None Recorded Advance Directives Directive None Recorded Payers Insurance Date Sequence Insurance Name Policy Number Policy [place] Covered Member ID [place] Member ID Guarantor Name 12/01/2022 1 [facility] [id number] Declan Bonds [id number] Declan Frances Vamshi 09/08/2020 2 [place] [employer] [place]/TRADITION [place] Declan G Vamshi [id number] Declan G Vamshi 09/08/2020 3 [place] [place]ITION [place] Declan G Vamshi [id number] Declan Bonds Notes Date Note Type Note Provider Name and Address Organization Details Recorded Time 08/29/2020 text/html The patient was seen at the request of Saadia Spicer. He is a 55-year-old who lives in [place], [place]. 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 Chronic issues with low back and the neck. The neck pain is greater than the low back pain. Describes 15 years. Referred pain along the spine axial location. Occasional radiation to the left arm. States his left arm gives out sometimes. Intensity of the pain is 4 out of 10. Describes a deep ache, tightness, burning. Progressive over time. Aggravated by working, climbing steps, lifting. Numbness tingling involving left arm. He has chronic left shoulder issues as well. Treatment has included medical therapy, chiropractor care. No sustained relief with these measures in the past. Low back pain. Nonradicular. Comorbidities include diabetes, cardiovascular disease. He takes Xarelto. 2 previous cardiac stent ADRIÁN SIMPSON MD [address] [place] [address], [address], [facility] 08/29/2020 11:24:03 09/08/2020 text/html WM/CAD s/p stent s 2005 and 2014 showing tight lesion of a large diagonal revascularized w/placement of 2.75x12 mm @ 18 andre, PxAF/propafenone/Xare lto ( CHADS-Vasc 3). Evaluated in ER in [place] with CP unremarkable EKG, negative cardiac enzymes normal chest x-ray and laboratory studies. Cath 06/05/2018: Occluded circumflex unchanged from 2015, noncritical CAD of LAD, stents patent. Medical therapy recommended. Comorbid: DM II, HTN, HLP. He still has class II angina pectoris.He has been free of angina however since starting Ranexa and is tolerating this medication without difficulty. Denies syncope, CHF, orthopnea, PND, palpitations. MATT LEI MD [facility] [place], [address], [facility] 09/08/2020 15:42:50 10/23/2021 text/html CARDIOVASCULAR HISTORY:# Coronary artery disease s/p stents 09/2006 and . Acute DC with PCI 09/2006 (performed at age 41)b. PCI 04/15/2015: tight lesion of a large diagonal revascularized w/placement of 2.75 x 12mm FADY.c. Cath 06/05/2018: Occluded circumflex unchanged from 2014, noncritical CAD of LAD, stents patent. # Paroxysmal Atrial FibrillationaAngela Lowe ( CHADS-Vasc 3).Previously on flecainide.Switched to propafenone September 08, 2020. # Type 2 diabetes# Hypertension# Dyslipidemia 10/23/2021:6 month office visit regarding ASCVD.Former patient of Dr Matt Lei, who lives in [place]. He reports that his overall health has been stable, and has no new cardiovascular concerns.He does however tell me that he was hospitalized in February after receiving the second dose of COVID-19 vaccine. He apparently developed Afib/RVR with rates in the 200s . He required 2 days of hospitalization. Unfortunately, I do not have any records from this hospital stay.He is unable to verify what medications he is currently taking. It is not clear whether he is still on propafenone or not. I have asked him to call the office when he returns home so we can confirm exactly what he is currently taking. No palpitations, exertional chest pain, edemaNo cough, shortness of breathNo epistaxis, or GI bleedingReports chronic back pain related to DJD. The 12-lead EKG obtained today demonstrates normal sinus rhythm at a rate of 81bpm, with nonspecific T wave abnormality. QRS duration 90, QTc 436 ms. I have personally reviewed recent lab work drawn on 09/03/2021 and 09/19/2021: CBC: 16.7, 51.9, platelets 266 BMP: Creatinine 0.80, EGFR 101 LFTs: Normal GARCIA ASTUDILLO MD [address] [place], [address], [facility] 10/23/2021 13:49:42 05/17/2022 text/html CARDIOVASCULAR HISTORY:# Coronary artery disease s/p stents 09/2006 and . Acute DC with PCI 09/2006 (performed at age 41)b. PCI 04/15/2015: tight lesion of a large diagonal revascularized w/placement of 2.75 x 12mm FADY.c. Cath 06/05/2018: Occluded circumflex unchanged from 2014, noncritical CAD of LAD, stents patent. # Paroxysmal Atrial Fibrillation (rate control strategy)a. Mynor ( CHADS-Vasc 3). # Type 2 diabetes# Hypertension# Dyslipidemia 10/23/2021: 6 month office visit regarding ASCVD.He was hospitalized in February after receiving the second dose of COVID-19 vaccine. He apparently developed Afib/RVR with rates in the 200s . He required 2 days of hospitalization. Unfortunately, I do not have any records from this hospital stay.He is unable to verify what medications he is currently taking. It is not clear whether he is still on propafenone or not. I have asked him to call the office when he returns home so we can confirm exactly what he is currently taking. No palpitations, exertional chest pain, edemaNo cough, shortness of breathNo epistaxis, or GI bleedingReports chronic back pain related to DJD. The 12-lead EKG obtained today demonstrates normal sinus rhythm at a rate of 81bpm, with nonspecific T wave abnormality. QRS duration 90, QTc 436 ms. I have personally reviewed recent lab work drawn on 09/03/2021 and 09/19/2021:CBC: 16.7, 51.9, platelets 266BMP: Creatinine 0.80, EGFR 101LFTs: Normal 05/17/2022: 6 month office visit regarding ASCVD (PCI 09/2006 and 03/2015)Former patient of Dr Matt Lei, who lives in [place]. He reports that his overall health has been stable, and has no new cardiovascular concerns.He is not currently taking any propafenone. I recommended that he continue to avoid this given his history of CAD. He has not had any sustained arrhythmia for over a year now. No epistaxis, or GI bleeding He occasionally notes some palpitations, typically lasting a minute or 2. He is a very infrequent, typically a few times per year. He does not drink or smoke.No exertional chest pain, edemaNo cough, shortness of breath+ Chronic back pain related to DJD. EKG: Normal sinus rhythm at 78 bpm. Nonspecific T wave abnormality.QRS duration 86 ms, QTC 410 ms. GARCIA ASTUDILLO MD [address] [place] [address], [address], [facility] 05/17/2022 20:33:00 12/01/2022 text/html Patient is a 57-year-old male with no prior spinal surgery presents with right lower back pain and bilateral knee to foot numbness and right foot weakness. Patient states he is a diabetic and contribute his numbness to neuropathy. 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 Patient states on 11/20/2022 he went to work, bent over and was unable to stand back up due to severe pain. He states that sometimes he is unable to lift his right foot to press the gas on his heavy machinery due to right foot weakness. He has not been able to work since the . Patient states often has these spasms where he cannot move due to severe pain. The symptoms worsen with the lifting of the right leg, flexing his torso forward and walking upstairs. They improve with resting at home and with muscle relaxers. He states that now he is unable to work or do things that he enjoys like riding his motorcycle due to right back pain and right foot weakness. He states that his symptoms have improved over the past few weeks since he has not been working. He was having to use a cane to ambulate but does not need one now. he denies bowel bladder incontinence and saddle anesthesia. Denies pain or numbness in thighs. JOSE SIMPSON PA-C [address] [place], [address], [facility] 12/02/2022 08:47:00
--- OUTSIDE RECORDS SUMMARY | 2025-05-06 09:45 | XMS_ITS | Patient Health Record ---
[facility] [address] [place] [id number] Care Team Providers Care Diffuser Operator Name Role Phone Virgilio Jenkins Primary Care Provider Bonnie Campa Unavailable [phone] Allergies Allergen (clinical drug ingredient) Drug/Non Drug Allergy documented on EMR Reaction Allergy Type Onset Date Status meperidine Demerol syncope Drug Allergy Active atorvastatin Lipitor leg cramps Drug Allergy Act do codeine Codeine syncope Drug Allergy Active Penicillin rash Drug Allergy Active Results Component Value Reference Range Notes CBC Fingerstick (in house) Reviewed date:09/11/2024 10:22:57 AM Interpretation: Performing Lab: Notes/Report: wbc 8.5 3.5 - 10 lym 26.5% 15 - 50 mid 7.7% 2 - 15 gran 65.8% 35 - 80 rbc 5.22 3.5 - 5.5 hgb 15.4 11.5 - 16.5 hct 46.6 35 - 55 mcv 89.2 75 - 100 mch 29.4 25 - 35 mchc 33.0 31 - 38 plat 258 100 - 400 P-Vitamin D 25-Hydroxy Reviewed date:01/16/2025 03:03:14 PM Interpretation:26.5 Performing Lab: Notes/Report: Test performed by [employer] [facility] , [address], [place] [address] Natanael Barker MD, Tax Manager Public CLIA: [id number] Vitamin D 25-Hydroxy 26.5 30.0-100.0 ng/mL Interpretation of Vitamin D 25 [place]: < 20 ng/mL - Deficiency 20 - 29 ng/mL - Insufficiency 30 - 100 ng/mL - Sufficiency > 100 ng/mL - Super-therapeutic- toxicity may occur above this level. Clinical correlation required. Glucose (In-House) Reviewed date:04/12/2025 10:08:41 AM Interpretation:146 [...] 135 Performing Lab: Notes/Report: Test performed by [employer] [facility] , [address], [place] [address] Natanael Barker MD, Tax Manager Public CLIA: [id number] Sodium 135 135-145 mmol/L Potassium 4.7 3.5-5.3 [...] 157 Performing Lab: Notes/Report: Test performed by [employer], [address] , [place] [address] Natanael Barker MD, Tax Manager Public CLIA: [id number] Cholesterol 156 <200 mg/dL Triglycerides 157 <150 [...] Interpretation:Normal Performing Lab: Notes/Report: Test performed by [employer] [address] , [place] [address] Natanael Barker MD, Tax Manager Public CLIA: [id number] PSA 0.29 <4.00 ng/mL Please note this is an ultrasensitive PSA assay with a lower limit of detection of 0.014 ng/mL. This test is performed by the [employer] ECLIA methodology. Values obtained with different assay methods or kits cannot be directly compared. P-TSH reflex to FT4 Reviewed date:04/12/2025 10:08:41 AM Interpretation:Normal Performing Lab: Notes/Report: Test performed by [employer] [address] , [address], [place] [address] Natanael Barker MD, Tax Manager Public CLIA: [id number] TSH reflex to FT4 3.20 0.43-5.25 mU/L P-Microalbumin/Creatinine, R andom Urine Sample Reviewed date:04/12/2025 10:08:41 AM Interpretation:Normal Performing Lab: Notes/Report: Test performed by [employer] [address] , [address], [place] [address] Natanael Barker MD, Tax Manager Public CLIA: [id number] Albumin/Creatinine Ratio, Urine 3 0-30 ug/mg Microalbumin, Urine, Random 0.3 Creatinine, Urine 90.6 P-Vitamin D 25-Hydroxy Reviewed date:04/12/2025 10:08:41 AM Interpretation:Normal Performing Lab: Notes/Report: Test performed by [employer] [address] , [address], [place] [address] Natanael Barker MD, Tax Manager Public CLIA: [id number] Vitamin D 25-Hydroxy 47.2 30.0-100.0 ng/mL Interpretation of Vitamin D 25 OH: < 20 ng/mL - Deficiency 20 - 29 ng/mL - Insufficiency 30 - 100 ng/mL - Sufficiency > 100 ng/mL - Super-therapeutic- toxicity may occur above this level. Clinical correlation required. P-Vitamin D 25-Hydroxy Reviewed date:10/11/2024 08:14:08 AM Interpretation:29.1 Performing Lab: Notes/Report: Test performed by [employer] [address] [place] [address] , [address], [place] [address] Natanael Barker MD, Tax Manager Public CLIA: [id number] Vitamin D 25-Hydroxy 29.1 30.0-100.0 ng/mL Interpretation of Vitamin D 25 OH: < 20 ng/mL - Deficiency 20 - 29 ng/mL - Insufficiency 30 - 100 ng/mL - Sufficiency > 100 ng/mL - Super-therapeutic- toxicity may occur above this level. Clinical correlation required. P-Basic Metabolic Panel (BMP ) Reviewed date:10/11/2024 08:14:08 AM Interpretation:co2 20, gluc 166 Performing Lab: Notes/Report: Test performed by [employer] [address] [place] [address] , [address], [place] [address] Natanael Barker MD, Tax Manager Public CLIA: [id number] Sodium 135 135-145 mmol/L Potassium 5.0 3.5-5.3 mmol/L Chloride 100 97-108 mmol/L CO2 20 22-32 mmol/L Glucose 166 65-99 mg/dL BUN 16 6-20 mg/dL Creatinine 1.07 0.70-1.30 mg/dL Calcium 10.2 8.6-10.4 mg/dL eGFR by Creatinine 81 >59 mL/min/1.73m2 Glycohemoglobin A1c (in hous e) Reviewed date:10/10/2024 12:46:41 PM Interpretation: Performing Lab: Notes/Report: glycohemoglobin 6.6% 5 - 6.5 % Glucose (In-House) Reviewed date:10/10/2024 12:46:34 PM Interpretation: Performing Lab: Notes/Report: blood glucose 158 74 - 106 mg/dL CXR Reviewed date:10/16/2024 11:16:55 AM Interpretation: Performing Lab: Notes/Report: CBC Fingerstick (in house) Reviewed date:10/09/2024 08:54:11 AM Interpretation: Performing Lab: Notes/Report: wbc 7.7 3.5 - 10 lym 25.2% 15 - 50 mid 6.2% 2 - 15 gran 68.6% 35 - 80 rbc 4.79 3.5 - 5.5 hgb 14.3 11.5 - 16.5 hct 43.0 35 - 55 mcv 89.7 75 - 100 mch 29.8 25 - 35 mchc 33.2 31 - 38 plat 267 100 - 400 CBC Fingerstick (in house) Reviewed date:09/27/2024 12:40:49 PM Interpretation: Performing Lab: Notes/Report: wbc 9.0 3.5 - 10 lym 21.0% 15 - 50 mid 5.3% 2 - 15 gran 73.7% 35 - 80 rbc 5.34 3.5 - 5.5 hgb 16.0 11.5 - 16.5 hct 47.5 35 - 55 mcv 88.8 75 - 100 mch 29.9 25 - 35 mchc 33.7 31 - 38 plat 176 100 - 400 CBC Fingerstick (in house) Reviewed date:05/14/2024 05:31:12 PM Interpretation: Performing Lab: Notes/Report: wbc 7.4 3.5 - 10 lym 28.7 15 - 50 mid 6.9 2 - 15 gran 64.4 35 - 80 rbc 5.21 3.5 - 5.5 hgb 15.3 11.5 - 16.5 hct 47.6 35 - 55 mcv 91.3 75 - 100 mch 29.4 25 - 35 mchc 32.2 31 - 38 plat 223 100 - 400 ALPHAGAL Reviewed date:08/10/2024 04:07:55 PM Interpretation: Performing Lab: Notes/Report: AGCD Comment . Levels of Specific IgE Class Description of Class ----- < 0.10 0 Negative 0.10 - 0.31 0/I Equivocal/Low 0.32 - 0.55 I Low 0.56 - 1.40 II Moderate 1.41 - 3.90 III High 3.91 - 19.00 IV Very High 19.01 - 100.00 V Very High >100.00 Very High IGET 1281 6-495 IU/mL AGIGE > 100 Class kU/L Performed at: [facility] [id number] Moving Picture Producer: Osorio De Luna MD, Phone: [phone] AGBEEF 27.20 Class V kU/L AGPORK 6.62 Class IV kU/L AGLAMB 10.90 Class IV kU/L Medications Medication SIG (Take, Route, Frequency, Duration) Notes Start Date End Date Status Synjardy XR 12.5-1000 MG 2 tab(s) orally once a day for 90 days Active Symbicort 160-4.5 MCG/ACT 1 puff as need ed Inhalation every 4 hrs for 90 days Active Nadolol 80 MG 1 tablet Orally bid Active dilTIAZem HCl ER 120 MG TAKE 1 CAPSULE B Y MOUTH ONCE DAILY Orally Active Irbesartan 75 MG 2 tablets Orally Onc e a day Active Rybelsus 14 MG TAKE 1 TABLET BY GREGORY DAILY for 90 Active Claritin 10 MG 1 tablet Orally Once a day Active Sildenafil Citrate 20 MG 1 to 5 tablet O rally Once a day as needed 04/09/2024 Active [facility] 20 [facility] Active tiZANidine HCl 4 MG 1 capsule at bedtime as needed Orally twice daily 03/15/2025 Active Ranolazine ER 1000 MG 1 tab(s) Orally 2 times a day Active Rosuvastatin Calcium 10 MG 1 tablet Oral ly Once a day for 90 days Active OneTouch Verio - 1 test strip fingers tick test two times a day 10/07/2022 Active Fenofibrate 160 MG TAKE 1 TABLET BY GREGORY ONCE DAILY for 90 days Active Flonase Allergy Relief 50 MCG/ACT 1 spray(s) in each nostril once a day for 30 day(s) Active MegaRed Millis-3 Krill Oil 500 MG as directed Orally Active Aspirin 81 MG 1 tablet Orally Once a day for 30 day(s) Active Ventolin HFA 90 MCG/ACT 1 puff as needed Inhalation every 4 hrs Active RABEprazole Sodium 20 MG 1 tablet after a meal Orally Once a day for 30 day(s) Active Aldactone 25 MG 1 tablet Orally Active Immunizations Vaccine Route Administration Date Status Comme nts xFluzone (6mos and older)-trivalent Unknown 09/28/2014 Administered Tetanus Tdap-Adacel (over 7yrs) IM Intramuscular 03/08/2018 Administered Tetanus Tdap-Adacel (over 7yrs) Unknown 03/25/2019 Administered Fluzone Quad (6months&older) IM Intramuscular 08/17/2021 Administered COVID 19 Moderna Unknown 02/25/2021 Administered COVID 19 Moderna Unknown 03/31/2021 Administered Problems Problem Type SNOMED Code ICD Code Onset Dates Problem Status W/U Status Risk Notes Problem 83638082 Essential (prima ry) hypertension (I10) Active confirmed Problem Type II diabetes mellitus without complication (483957827) Diabetes (E11.9) Active confirmed Problem Vitamin D deficiency (19095518) Vitamin D deficiency (E55.9) Active confirmed Problem 13114615 Essential hypert ension (I10) Active confirmed Problem 879898755 Hypertriglycerid emia (E78.1) Active confirmed Problem Seasonal allergy (891445900) Seasonal allergies (J30.2) Active confirmed Problem 803148606 Paroxysmal atria l fibrillation (I48.0) Active confirmed Problem Pure hyperglyceridemia (007937384) Pure hyperglyceridemia (E78.1) Active confirmed Problem 744206345 Mixed hyperlipid emia (E78.2) Active confirmed Problem 24397208 Arteriosclerotic cardiovascular disease (I25.10) Active confirmed Problem 490251761 Cervical disc di sease (M50.90) Active confirmed Problem 6882558011673 Coronary artery disease involving diomede coronary artery of diomede heart without angina pectoris (I25.10) Active confirmed Problem 481851710 Erectile dysfunc tion, unspecified erectile dysfunction type (N52.9) Active confirmed Problem 974775272 History of cardi ac dysrhythmia (Z86.79) Active confirmed Problem 644361903 PAF (paroxysmal atrial fibrillation) (I48.0) Active confirmed Problem 75256642 Sleep apnea, unspecified type (G47.30) Active confirmed Problem Iron deficiency anemia (41671786) Iron deficiency anemia, unspecified iron deficiency anemia type (D50.9) Active confirmed Problem 68109798 Atrial fibrillat ion, unspecified type (I48.91) Active confirmed Problem 285129483 Cervical radicul opathy due to degenerative joint disease of spine (M47.22) Active confirmed Problem 77012113 Hyperlipidemia, unspecified hyperlipidemia type (E78.5) Active confirmed Problem 077388048 Disorder of neck (M53.82) Active confirmed Problem 773189801167107 Atrial fibrillat ion with RVR (I48.91) Active confirmed Problem 665381544 Dyslipidemia (E78.5) Active confirmed Problem 763232050 Paresthesia of b oth hands (R20.2) Active confirmed Problem Type II diabetes mellitus without complication (694968885) Type 2 diabetes mellitus without complication, without long-term current use of insulin (E11.9) Active confirmed Problem 221760467 Osteoarthritis o f cervical spine, unspecified spinal osteoarthritis complication status (M47.812) Active confirmed Problem Atherosclerotic heart disease of diomede coronary artery without angina pectoris (858294240282527) Arteriosclerosis of coronary artery (I25.10) Active confirmed Problem 240566984 Atherosclerosis of diomede coronary artery without angina pectoris, unspecified whether diomede or transplanted heart (I25.10) Active confirmed Problem 998437001 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.49) Active confirmed Problem 972126672 Bulging of cervi rosy intervertebral disc (M50.20) Active confirmed Problem 317288648 Facet arthropath y, cervical (M12.88) Active confirmed Problem 379459911 Type 2 diabetes mellitus without complication, unspecified whether long-term insulin use (E11.9) Active confirmed Problem 277886306 Chest pain due t o myocardial ischemia, unspecified ischemic chest pain type (I25.9) Active confirmed Problem 081752386 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) Active confirmed Problem 558222131 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) Active confirmed Vital Signs Heart Rate 70 /min 04/09/2025 Blood pressure diastolic 74 mm Hg 04/09/2025 Height 73 in 04/09/2025 Blood pressure systolic 112 mm Hg 04/09/2025 Weight 206.8 lbs 04/09/2025 BMI 27.28 kg/m2 04/09/2025 Encounters Encounter Location Date Provider Diagnosis [facility] [address] [facility] [address] [place] [id number] 05/14/2024 Virgilio [place] URI, acute J06.9 [facility] [address] [place], [place] [id number] 06/26/2024 Bonnie Campa Insect bite W57.XXXA and Cellulitis L03.90 [facility] [address] [place], [place] [id number] 08/15/2024 Virgilio [place] Dizziness R42 and Al lergy to alpha-gal Z91.018 [facility] [address] [place], [place] [id number] 09/10/2024 Virgilio [place] Hematoma of right th igh, initial encounter S70.11XA and Disorder of neck M53.82 [facility] [address] [place], [place] [id number] 09/27/2024 Virgilio [place] Acute URI J06.9 [facility] [address] [place], [place] [id number] 10/08/2024 Virgilio [place] Persistent cough R05 .3 [facility] [address] [place], [place] [id number] 10/10/2024 Virgilio [place] Type 2 diabetes vaishnavi itus without complication, without long-term current use of insulin E11.9 ; Essential (primary) hypertension I10 ; Vitamin D deficiency E55.9 and Abnormal brain MRI R90.89 [facility] [address] [place], [place] [id number] 01/15/2025 Virgilio [place] Essential hypertensi on I10 and Vitamin D deficiency E55.9 [facility] [address] [place], [place] [id number] 04/09/2025 Virgilio [place] Type 2 diabetes vaishnavi itus without complication, without long-term current use of insulin E11.9 ; Essential hypertension I10 ; Mixed hyperlipidemia E78.2 ; Hypertriglyceridemia E78.1 ; Iron deficiency anemia, unspecified iron deficiency anemia type D50.9 ; Sleep apnea, unspecified type G47.30 ; Prostate cancer screening Z12.5 ; Vitamin D deficiency E55.9 and BMI 27.0-27.9,adult Z68.27 [facility] [address] [place], [place] [id number] 05/14/2024 Virgilio [place] Type 2 diabetes vaishnavi itus without complication, without long-term current use of insulin E11.9 [facility] [address] [place], [place] [id number] 08/10/2024 Virg[place] [facility] [address] [place] [id number] 08/10/2024 Virgilio [place] [facility] [address] [place] [id number] 08/23/2024 Virgilio [place] [facility] [address] [place] [id number] 10/11/2024 Virg[place] [facility] [address] [place] [id number] 10/17/2024 Virgilio [place] History of stroke Z8 6.73 [facility] [address] [place] [id number] 10/30/2024 Virgilio [place] Type 2 diabetes vaishnavi itus without complication, without long-term current use of insulin E11.9 and Other diabetic neurological complication associated with type 2 diabetes mellitus E11.49 [facility] [address] [place], [place] [id number] 11/20/2024 Virgilio [place] [facility] [address] [place], [place] [id number] 12/04/2024 Virgilio [place] Type 2 diabetes vaishnavi itus without complication, without long-term current use of insulin E11.9 [facility] [address] [place] [id number] 12/12/2024 Virg[place] [facility] [address] [place] [id number] 01/15/2025 Virg[place] [facility] [address] [place] [id number] 01/16/2025 Virg[place] [facility] [address] [place] [id number] 01/28/2025 Virg[place] [facility] [address] [place] [id number] 02/18/2025 Virgilio [place] [facility] [address] [place] [id number] 02/27/2025 Virgilio [place] [facility] [address] [place] [id number] 03/06/2025 Virg[place] [facility] [address] [place] [id number] 03/11/2025 Virg[place] [facility] [address] [place] [id number] 03/15/2025 Virg[place] [facility] [address] [place] [id number] 03/18/2025 Virg[place] [facility] [address] [place] [id number] 03/20/2025 Virgilio [place] Assessments Encounter Date Diagnosis (ICD Code) Assessment Notes Treatment Notes Treatment Clinical Notes Section Notes 04/09/2025 Type 2 diabetes vaishnavi itus without complication, without long-term current use of insulin (ICD-10 - E11.9) 12/04/2024 Type 2 diabetes vaishnavi itus without complication, without long-term current use of insulin (ICD-10 - E11.9) 05/14/2024 Type 2 diabetes vaishnavi itus without complication, without long-term current use of insulin (ICD-10 - E11.9) 05/14/2024 URI, acute (ICD-10 - J06.9) 06/26/2024 Cellulitis (ICD-10 - L03.90) 06/26/2024 Insect bite (ICD-10 - W57.XXXA) 08/15/2024 Dizziness (ICD-10 - R42) 08/15/2024 Allergy to alpha-gal (ICD-10 - Z91.018) Avoid red meat 09/10/2024 Disorder of neck (IC D-10 - M53.82) Home exercise program provided to patient 09/10/2024 Hematoma of right th igh, initial encounter (ICD-10 - S70.11XA) Hold aspirin for 1 week, call with any new symptoms 09/27/2024 Acute URI (ICD-10 - J06.9) 10/08/2024 Persistent cough (IC D-10 - R05.3) 10/10/2024 Essential (primary) hypertension (ICD-10 - I10) 10/10/2024 Type 2 diabetes vaishnavi itus without complication, without long-term current use of insulin (ICD-10 - E11.9) 10/17/2024 History of stroke (ICD-10 - Z86.73) 10/30/2024 Type 2 diabetes vaishnavi itus without complication, without long-term current use of insulin (ICD-10 - E11.9) 01/15/2025 Vitamin D deficiency (ICD-10 - E55.9) 01/15/2025 Essential hypertensi on (ICD-10 - I10) 04/09/2025 Essential hypertensi on (ICD-10 - I10) 10/30/2024 Other diabetic neurological complication associated with type 2 diabetes mellitus (ICD-10 - E11.49) 10/10/2024 Vitamin D deficiency (ICD-10 - E55.9) 04/09/2025 Mixed hyperlipidemia (ICD-10 - E78.2) 04/09/2025 Hypertriglyceridemia (ICD-10 - E78.1) 10/10/2024 Abnormal brain MRI (ICD-10 - R90.89) 04/09/2025 Iron deficiency anem ia, unspecified iron deficiency anemia type (ICD-10 - D50.9) 04/09/2025 Sleep apnea, unspeci fied type (ICD-10 - G47.30) 04/09/2025 Prostate cancer screening (ICD-10 - Z12.5) 04/09/2025 Vitamin D deficiency (ICD-10 - E55.9) 04/09/2025 BMI 27.0-27.9,adult (ICD-10 - Z68.27) Plan Of Treatment Pending Test Test Name Order Date P-Microalbumin/Creatinine, Random Urine Sample 08/08/2023 Next Appt Details Provider Name:Virgilio dock[place], 10/10/2025 09:15:00 AM, [address], [place], [id number], Insurance Providers Payer Name Payer Address Payer Phone Subscriber Number Group Number Insured Name Patient Relationship to Insured Coverage Start Date Coverage End Date [employer] [address] [place] [id number] [phone] [id number] Declan Bonds Self - patient is the insured Medications Administered Medication Instructions Date of Administration Dosage Notes Dexamethasone 06/26/2024 1 mL Medical (General) History Medical History History ICD Code Coronary Artery Disease Myocardial Infarction, S/P Stenting 2005 , 2015 Atrial Fibrillation Type 2 Diabetes Hypertension Hypercholestrolemia Hypertriglyceridemia Esophageal Reflux Sleep apnea Cervical Disc Disease, MRI 2012 < 20% Stenosis LT carotid,06/2020 Brain MRI 09/2020 negative Covid 2020 Covid Vaccine x2 Moderna Alpha-gal syndrome Surgical History Surgery Date(Month/Year) Heart Stent 2004 LT Thumb Surgery 2009 Heart Cath 11/14/2012 Heart Stent 04/08/2015 Colonoscopy 2018 Cardiac stent 09/24/2022 Cardiac Stents (two stents) 09/2023 Hospitalization History Reason Date(Month/Year) Chest Pain- [facility] ER 03/31-03/2021 Covid Symptoms- [facility] UTC 11/30/2020 A-Fib, Hypertension- [facility] 09/19- Heart Stent- [place] 04/08/2015 Possible Heart Problems- [facility] 03/2013 RT Eye Irritation- [facility] ER 11/2012 Heart Stent- [place] 2004
[2025-05-06 10:25] VITALS: PULSE 63; PULSE 68
[2025-05-06] MEDS: ALBUTEROL 0.083% 2.5 MG/3 ML NEB IH (10:25)
== END 2025-05-06 23:59 | disposition home or self-care (01) ==
LOC: RT 09:42
PROVIDERS: PCP Family Medicine; Visit Provider Internal Medicine Pulmonary Disease
DX: J44.89 Other specified chronic obstructive pulmonary disease (principal)
CPT/HCPCS: 94060; 94640

== ENCOUNTER → 2025-05-13 20:17 | Outpatient (CLI) | payer BC, SELFPAY ==
--- OUTSIDE RECORDS SUMMARY | 2025-01-15 05:15 | XMS_ITS ---
[facility] Address [address] [place] [id number] Care Team Providers Care Resin Coater Name Role Phone Virgilio Jenkins Primary Care Provider [phone] Allergies Allergen (clinical drug ingredient) Drug/Non Drug Allergy documented on EMR Reaction Allergy Type Onset Date Status meperidine Demerol syncope Drug Allergy Active atorvastatin Lipitor leg cramps Drug Allergy Act do codeine Codeine syncope Drug Allergy Active Penicillin rash Drug Allergy Active Results Component Value Reference Range Notes P-Vitamin D 25-Hydroxy Reviewed date:01/16/2025 03:03:14 PM Interpretation:26.5 Performing Lab: Notes/Report: Test performed by [employer], [employer] [address] [place] [address] , [address], [place] [address] aNtanael Barker MD, [employer] CLIA: [id number] Vitamin D 25-Hydroxy 26.5 30.0-100.0 ng/mL Interpretation [...] a day for 30 day(s) Active MegaRed [place]-3 Krill Oil 500 MG as directed Orally [...] 01/15/2025 Encounters Encounter Location Date Provider Diagnosis [facility] [address] [facility] [address] [place] [address], [place] [id number] 01/15/2025 Virgilio [place] Essential hypertensi on I10 and Vitamin D [address], [place], [phone], Progress Notes * Decaln BONDSDOB:[birth year] (60 yo M)Acc No.[id number]:01/15/2025 Progress Notes Patient: Declan FUENTES Provider: Ivan Jenkins M.D. :1965 A ge:59 Y S ex:Male Date:01/15/2025 Address:[place], [id number] Subjective: * Chief Complaints: * 1 . [...] Hospitalization/Major Diagno stic Procedure: H eart Stent- [place] 2003, RT Eye Irritation- [facility] ER 11/2012, Possible Heart Problems- [place] 03/2013, Heart Stent- [place] 04/08/2015, A-Fib, Hypertension- [facility] 09/19- , Covid Symptoms- [facility] UTC 11/30/2020, Chest Pain- [facility] ER 03/31-03/2021. * Family History: [...] Orally Once a day , Taking MegaRed [place]-3 Krill Oil 500 MG Capsule as directed [...] visit * Billing Information: * Visit Code: 30630 Office Visit, Est Pt., Level 3. * Procedure Codes: 3074F SYST BP LT 130 MM HG. 3078F DIAST BP < 80 MM HG. * Electronic signature of Nevin Jenkins MD on 05/13/2025 at 08:21 PM EDT Sign off status: Pending * Provider: Ivan Jenkins M.D. Date: 0 01/15/2025 Generated for Esther larsen/Pauline/Magyitting on: 0 05/13/2025 08:21 PM EDT History and Physical Notes * HPI [...]
--- OUTSIDE RECORDS SUMMARY | 2025-04-09 05:45 | XMS_ITS ---
Author Organization [facility] Address [address] [place] [id number] Care Team Providers Care Steamfitter Name Role Phone Virgilio Jenkins Primary Care Provider [phone] Allergies Allergen (clinical drug ingredient) Drug/Non Drug Allergy documented on EMR Reaction Allergy Type Onset Date Status meperidine Demerol syncope Drug Allergy Active atorvastatin Lipitor leg cramps Drug Allergy Act do codeine Codeine syncope Drug Allergy Active Penicillin rash Drug Allergy Active Results Component Value Reference Range Notes Glucose (In-House) Reviewed date:04/12/2025 10:08:41 AM Interpretation:146 Performing Lab: Notes/Report: 146 blood glucose 146 74 - 106 mg/dL CBC Venipuncture (in house) Reviewed date:04/12/2025 10:08:41 AM Interpretation:Normal Performing Lab: Notes/Report: Normal wbc 8.2 3.5 - 10 lymph 21.8 15 - 50 mid 6.3 2 - 15 gran 71.9 35 - 80 rbc 5.54 3.5 - 5.5 hgb 16.2 11.5 - 16.5 hct 48.1 35 - 55 mcv 86.9 75 - 100 mch 29.3 25 - 35 mchc 33.7 31 - 38 platlet 264 100 - 400 Glycohemoglobin A1c (in hous e) Reviewed date:04/12/2025 10:08:42 AM Interpretation:6.5% Performing Lab: Notes/Report: 6.5% glycohemoglobin 6.5% 5 - 6.5 % P-Comprehensive Metabolic Pa aura (CMP) Reviewed date:04/12/2025 10:08:41 AM Interpretation:glu 135 Performing Lab: Notes/Report: Test performed by the [facility] [address] [place] [address] , [address]orena C, [place] [address] Natanael Barker MD, Anodize Machine Operator CLIA: [id number] Sodium 135 135-145 mmol/L Potassium 4.7 3.5-5.3 mmol/L Chloride 101 97-108 mmol/L CO2 23 22-32 mmol/L Glucose 135 65-99 mg/dL BUN 20 6-20 mg/dL Creatinine 1.05 0.70-1.30 mg/dL Calcium 9.8 8.6-10.4 mg/dL eGFR by Creatinine 82 >59 mL/min/1.73m2 Protein 7.0 6.0-8.3 g/dL Albumin 4.7 3.5-5.3 g/dL Alkaline Phosphatase 82 40-129 IU/L ALT (SGPT) 21 <5-55 IU/L AST (SGOT) 25 <5-46 IU/L Bilirubin, Total 0.6 <0.2-1.2 mg/dL A/G Ratio 2.0 1.1-2.5 P-Lipid Panel Reviewed date:04/12/2025 10:08:41 AM Interpretation:trigs 157 Performing Lab: Notes/Report: Test performed by the [facility] [address] [place] [address] [address], [place] [address] Natanael Barker MD, Anodize Machine Operator CLIA: [id number] Cholesterol 156 <200 mg/dL Triglycerides 157 <150 mg/dL HDL Cholesterol 42 >39 mg/dL Cholesterol / HDL Ratio 3.71 0.00-4.99 Ratio Non-HDL Cholesterol 114 <130 mg/dL LDL Cholesterol (Calculation) 83 <130 mg/dL LDL Cholesterol Levels* Less than 100 mg/dL Optimal 100 to 129 mg/dL Near Optimal/ Above Optimal 130 to 159 mg/dL Borderline High 160 to 189 mg/dL High 190 mg/dL and above Very High * Categories as recommended by the 2004 ATPIII guidelines LDL/HDL Ratio 2.0 <3.3 Ratio LDL Cholesterol Patient History Test Date: 03/21/2024 LDL Results: 60 Units: mg/dL % Change: - Test Date: 04/09/2025 LDL Results: 83 Units: mg/dL % Change: +38% P-PSA Reviewed date:04/12/2025 10:08:41 AM Interpretation:Normal Performing Lab: Notes/Report: Test performed by the [facility] , [place] [address] Natanael Barker MD, Anodize Machine Operator CLIA: [id number] PSA 0.29 <4.00 ng/mL Please note this is an ultrasensitive PSA assay with a lower limit of detection of 0.014 ng/mL. This test is performed by the [employer] ECLIA methodology. Values obtained with different assay methods or kits cannot be directly compared. P-TSH reflex to FT4 Reviewed date:04/12/2025 10:08:41 AM Interpretation:Normal Performing Lab: Notes/Report: Test performed by the [facility]0 [facility] , [place] [address] Natanael Barker MD, Anodize Machine Operator CLIA: [id number] TSH reflex to FT4 3.20 0.43-5.25 mU/L P-Microalbumin/Creatinine, R andom Urine Sample Reviewed date:04/12/2025 10:08:41 AM Interpretation:Normal Performing Lab: Notes/Report: Test performed by [facility] [employer] [address] [place] [address] , [place] [address] Natanael Barker MD, Anodize Machine Operator CLIA: [id number] Albumin/Creatinine Ratio, Urine 3 0-30 ug/m g Microalbumin, Urine, Random 0.3 Creatinine, Urine 90.6 P-Vitamin D 25-Hydroxy Reviewed date:04/12/2025 10:08:41 AM Interpretation:Normal Performing Lab: Notes/Report: Test performed by [facility] [address] , [address], [place] [address] Natanael Barker MD, Anodize Machine Operator CLIA: [id number] Vitamin D 25-Hydroxy 47.2 30.0-100.0 ng/mL Interpretation of Vitamin D 25 OH: < 20 ng/mL - Deficiency 20 - 29 ng/mL - Insufficiency 30 - 100 ng/mL - Sufficiency > 100 ng/mL - Super-therapeutic- toxicity may occur above this level. Clinical correlation required. REASON FOR VISIT 3 month ckup/ fasting Medications Medication SIG (Take, Route, Frequency, Duration) Notes Start Date End Date Status tiZANidine HCl 4 MG 1 capsule at bedtime as needed Orally twice daily 03/15/2025 Active Rosuvastatin Calcium 10 MG 1 tablet Oral ly Once a day for 90 days Active Fenofibrate 160 MG TAKE 1 TABLET BY GREGORY TH ONCE DAILY for 90 days Active Symbicort 160-4.5 MCG/ACT 1 puff as need ed Inhalation every 4 hrs for 90 days Active Nadolol 80 MG 1 tablet Orally bid Active dilTIAZem HCl ER 120 MG TAKE 1 CAPSULE B Y MOUTH ONCE DAILY Orally Active Irbesartan 75 MG 2 tablets Orally Onc e a day Active Rybelsus 14 MG TAKE 1 TABLET BY GREGORY TH DAILY for 90 Active Synjardy XR 12.5-1000 MG 2 tab(s) orally once a day for 90 days Active Sildenafil Citrate 20 MG 1 to 5 tablet O rally Once a day as needed 04/09/2024 Active Xarelto 20 MG TAKE 1 TABLET BY GREGORY TH IN THE EVENING for 90 days Active Ranolazine ER 1000 MG 1 tab(s) Orally 2 times a day Active OneTouch Verio - 1 test strip fingers tick test two times a day 10/07/2022 Active Claritin 10 MG 1 tablet Orally Once a day Active Flonase Allergy Relief 50 MCG/ACT 1 spray(s) in each nostril once a day for 30 day(s) Active MegaRed [place]-3 Krill Oil 500 MG as directed Orally Active Aspirin 81 MG 1 tablet Orally Once a day for 30 day(s) Active Ventolin HFA 90 MCG/ACT 1 puff as needed Inhalation every 4 hrs Active RABEprazole Sodium 20 MG 1 tablet after a meal Orally Once a day for 30 day(s) Active Aldactone 25 MG 1 tablet Orally Active Vital Signs Blood pressure systolic 112 mm Hg 04/09/20 25 Blood pressure diastolic 74 mm Hg 025 Heart Rate 70 /min 04/09/2025 Height 73 in 04/09/2025 Weight 206.8 lbs 04/09/2025 BMI 27.28 kg/m2 04/09/2025 Encounters Encounter Location Date Provider Diagnosis [facility] [address] [phone] 04/09/2025 Virgilio Jenkins Type 2 diabetes vaishnavi itus without complication, without long-term current use of insulin E11.9 ; Essential hypertension I10 ; Mixed hyperlipidemia E78.2 ; Hypertriglyceridemia E78.1 ; Iron deficiency anemia, unspecified iron deficiency anemia type D50.9 ; Sleep apnea, unspecified type G47.30 ; Prostate cancer screening Z12.5 ; Vitamin D deficiency E55.9 and BMI 27.0-27.9,adult Z68.27 Assessments Encounter Date Diagnosis (ICD Code) Assessment Notes Treatment Notes Treatment Clinical Notes Section Notes 04/09/2025 Type 2 diabetes vaishnavi itus without complication, without long-term current use of insulin (ICD-10 - E11.9) 04/09/2025 Essential hypertensi on (ICD-10 - I10) 04/09/2025 Mixed hyperlipidemia (ICD-10 - E78.2) 04/09/2025 Hypertriglyceridemia (ICD-10 - E78.1) 04/09/2025 Iron deficiency anem ia, unspecified iron deficiency anemia type (ICD-10 - D50.9) 04/09/2025 Sleep apnea, unspeci fied type (ICD-10 - G47.30) 04/09/2025 Prostate cancer screening (ICD-10 - Z12.5) 04/09/2025 Vitamin D deficiency (ICD-10 - E55.9) 04/09/2025 BMI 27.0-27.9,adult (ICD-10 - Z68.27) Plan Of Treatment Next Appt Details Follow Up: 6 Months, Reason: Provider Name:Virgilio Tesfaye ry, 10/10/2025 09:15:00 AM, [address], [address], [place], [place], [phone], Progress Notes * Declan BONDSDOB:[birth year] (60 yo M)Acc No.[id number]:04/09/2025 Progress Notes Patient: Patti ENGLANDDeclan Provider: Ivan Jenkins M.D. :1965 A ge:59 Y S ex:Male Date:04/09/2025 Address:[address] [place], [place] [address], [id number] Subjective: * Chief Complaints: * 1 . 3 month ckup/ fasting. * HPI: E ndocrinology: Maintenance P t presents today for a 3-month check up. Pt is fasting today. Pt sts that he is doing well and has no new concerns or complaints. * ROS: D ERMATOLOGY: no R joselyn. [...] Hospitalization/Major Diagno stic Procedure: H eart Stent- [place] 2003, RT Eye Irritation- [facility] ER 11/2012, Possible Heart Problems- [facility] 03/2013, Heart Stent- [place] 04/08/2015, A-Fib, Hypertension- [facility] 09/19- , Covid Symptoms- [facility] UTC 11/30/2020, Chest Pain- [facility] ER 03/31-03/2021. * Family History: F ather: alive, Hemochromatosis. M other: alive. 1 daughter(s) . . * Social History: C URRENT TOBACCO USE S moking Status: Patient does NOT smoke. C affeine: yes, frequency: 3 cups a day. Exercise: no. Marital Status: . Alcohol: No. Sexually active: yes. * Medications: T aking Aldactone 25 MG Tablet 1 tablet Orally , Taking RABEprazole Sodium 20 MG Tablet Delayed Release 1 tablet after a meal Orally Once a day , Taking Ventolin HFA 90 MCG/ACT Aerosol Solution 1 puff as needed Inhalation every 4 hrs , Taking Aspirin 81 MG Tablet Delayed Release 1 tablet Orally Once a day , Taking MegaRed [place]-3 Krill Oil 500 MG Capsule as directed [...] tablet Orally Once a day , Taking Synjardy XR 12.5-1000 MG Tablet Extended Release 24 Hour 2 tab(s) orally once a day , Taking Rybelsus 14 MG Tablet TAKE 1 TABLET BY MOUTH DAILY , Taking Irbesartan 75 MG Tablet 2 tablets Orally Once a day , Taking dilTIAZem HCl ER 120 MG Capsule Extended Release 12 Hour TAKE 1 CAPSULE BY MOUTH ONCE DAILY Orally , Taking Nadolol 80 MG Tablet 1 tablet Orally bid , Taking Symbicort 160-4.5 MCG/ACT Aerosol 1 puff as needed Inhalation every 4 hrs , Taking Fenofibrate 160 MG Tablet TAKE 1 TABLET BY MOUTH ONCE DAILY , Taking Rosuvastatin Calcium 10 MG Tablet 1 tablet Orally Once a day , Taking tiZANidine HCl 4 MG Capsule 1 capsule at bedtime as needed Orally twice daily , Discontinued Tamiflu 75 MG Capsule 1 capsule Orally once daily , Medication List reviewed and reconciled with the patient * Allergies: P enicillin: rash, Codeine: syncope, Demerol: syncope, Lipitor: leg cramps. Objective: * Vitals: W t: 206.8, Temp: 98.3, BP: 112/74, HR: 70, Nurse: ESTRELLA, Ht: 73, BMI:27.28. * Examination: C ardiology: General Appearance: p leasant, NAD. Heart sounds: R RR, normal S1, S2. Lungs: c lear, no rales or wheezes. Extremities: n o leg edema. Assessment: * Assessment: 1. T ype 2 diabetes mellitus without complication, without long-term current use of insulin - E11.9 (Primary) 2 . E ssential hypertension - I10 3 . M ixed hyperlipidemia - E78.2 4 . H ypertriglyceridemia - E78.1 5 . Iron deficiency anemia, unspecified iron deficiency anemia type - D50.9 6 . S leep apnea, unspecified type - G47.30 7 . P rostate cancer screening - Z12.5? 8. V itamin D deficiency - E55.9 9 . B OH 27.0-27.9,adult - Z68.27 Plan: * Treatment: Value Reference Range A /G Ratio 2.0 1.1-2.5 - * A lbumin 4.7 3.5-5.3 - g/dL * A lkaline Phosphatase 82 40-129 - IU/L * A LT (SGPT) 21 <5-55 - IU/L * A ST (SGOT) 25 <5-46 - IU/L * B ilirubin, Total 0.6 <0.2-1.2 - mg/dL * B UN 20 6-20 - mg/dL * C alcium 9.8 8.6-10.4 - mg/dL * C hloride 101 97-108 - mmol/L * C O2 23 22-32 - mmol/L * C reatinine 1.05 0.70-1.30 - mg/dL * G lucose 135 H 65-99 - mg/dL * P otassium 4.7 3.5-5.3 - mmol/L * S odium 135 135-145 - mmol/L * P rotein 7.0 6.0-8.3 - g/dL * e GFR by Creatinine 82 >59 - mL/min/1.73m2 * Regla Lang 04/11/2025 02: 54:48 PM > left message for return call PreciousRegla zapata 04/12/2025 10:07:54 AM > pt informed of results ?LAB: P-TSH reflex to FT4 (Collection Date & Time - 04/09/2025 09:28 AM)? Normal* Value Reference Range T SH reflex to FT4 3.20 0.43-5.25 - mU/L * Regla Lang 04/11/2025 02: 54:48 PM > left message for return call PreciousRegla 04/12/2025 10:07:54 AM > pt informed of results ?LAB: P-Microalbumin/Creatinine, Random Urine Sample (Collection Date & Time - 04/09/2025 09:28 AM)?Normal* Value Reference Range A lbumin/Creatinine Ratio, Urine 3 0-30 - ug /mg * C reatinine, Urine 90.6 - mg/dL * M icroalbumin, Urine, Random 0.3 - mg/dL * PreciousRegla zapata 04/11/2025 02: 54:48 PM > left message for return call PreciousRegla 04/12/2025 10:07:54 AM > pt informed of results ?LAB: Glucose (In-House) (Collection Date & Time - 04/09/2025)?146* Value Reference Range b lood glucose 146 74 - 106 mg/dL * PreciousRegla zapata 04/09/2025 11: 22:41 AM > Regla Lang 04/11/2025 02:54:48 PM > left message for return call Regla Lang 04/12/2025 10:07:54 AM > pt informed of results ?LAB: Glycohemoglobin A1c (in house) (Collection Date & Time - 04/09/2025)? 6.5%* Value Reference Range g lycohemoglobin 6.5% 5 - 6.5 % * Regla Lang 04/09/2025 11: 23:05 AM > Regla Lang 04/11/2025 02:54:48 PM > left message for return call Regla Lang 04/12/2025 10:07:54 AM > pt informed of results 2.?Essential hypertension?LAB: P-Comprehensive Metabolic Panel (CMP) (Collection Date & Time - 04/09/2025 09:28 AM)?glu 135* Value Reference Range A /G Ratio 2.0 1.1-2.5 - * A lbumin 4.7 3.5-5.3 - g/dL * A lkaline Phosphatase 82 40-129 - IU/L * A LT (SGPT) 21 <5-55 - IU/L * A ST (SGOT) 25 <5-46 - IU/L * B ilirubin, Total 0.6 <0.2-1.2 - mg/dL * B UN 20 6-20 - mg/dL * C alcium 9.8 8.6-10.4 - mg/dL * C hloride 101 97-108 - mmol/L * C O2 23 22-32 - mmol/L * C reatinine 1.05 0.70-1.30 - mg/dL * G lucose 135 H 65-99 - mg/dL * P otassium 4.7 3.5-5.3 - mmol/L * S odium 135 135-145 - mmol/L * P rotein 7.0 6.0-8.3 - g/dL * e GFR by Creatinine 82 >59 - mL/min/1.73m2 * Regla Lang 04/11/2025 02: 54:48 PM > left message for return call Regla Lang 04/12/2025 10:07:54 AM > pt informed of results 3.?Mixed hyperlipidemia?LAB: P-Comprehensive Metabolic Panel (CMP) (Collection Date & Time - 04/09/2025 09:28 AM)?glu 135* Value Reference Range A /G Ratio 2.0 1.1-2.5 - * A lbumin 4.7 3.5-5.3 - g/dL * A lkaline Phosphatase 82 40-129 - IU/L * A LT (SGPT) 21 <5-55 - IU/L * A ST (SGOT) 25 <5-46 - IU/L * B ilirubin, Total 0.6 <0.2-1.2 - mg/dL * B UN 20 6-20 - mg/dL * C alcium 9.8 8.6-10.4 - mg/dL * C hloride 101 97-108 - mmol/L * C O2 23 22-32 - mmol/L * C reatinine 1.05 0.70-1.30 - mg/dL * G lucose 135 H 65-99 - mg/dL * P otassium 4.7 3.5-5.3 - mmol/L * S odium 135 135-145 - mmol/L * P rotein 7.0 6.0-8.3 - g/dL * e GFR by Creatinine 82 >59 - mL/min/1.73m2 * Regla Lang 04/11/2025 02: 54:48 PM > left message for return call Regla Lang 04/12/2025 10:07:54 AM > pt informed of results ?LAB: P-Lipid Panel (Collection Date & Time - 04/09/2025 09:28 AM)?trigs 157 * Value Reference Range C holesterol / HDL Ratio 3.71 0.00-4.99 - Ratio * C holesterol 156 <200 - mg/dL * H DL Cholesterol 42 >39 - mg/dL * L DL Cholesterol (Calculation) 83 <130 - mg/d L * L DL/HDL Ratio 2.0 <3.3 - Ratio * N on-HDL Cholesterol 114 <130 - mg/dL * T riglycerides 157 H <150 - mg/dL * Regla Lang 04/11/2025 02: 54:48 PM > left message for return call Regla Lang 04/12/2025 10:07:54 AM > pt informed of results 4.?Iron deficiency anemia, unspecified iron deficiency anemia type?LAB: CBC Venipuncture (in house) (Collection Date & Time - 04/09/2025)? Normal* Value Reference Range w bc 8.2 3.5 - 10 * l ymph 21.8 15 - 50 * m id 6.3 2 - 15 * g ran 71.9 35 - 80 * r bc 5.54 3.5 - 5.5 * h gb 16.2 11.5 - 16.5 * h ct 48.1 35 - 55 * m cv 86.9 75 - 100 * m ch 29.3 25 - 35 * m chc 33.7 31 - 38 * p latlet 264 100 - 400 * PreciousRegla zapata 04/09/2025 11: 23:53 AM > PreciousRegla zapata 04/11/2025 02:54:48 PM > left message for return call Precious, Regla 04/12/2025 10:07:54 AM > pt informed of results 5.?Prostate cancer screening?LAB: P-PSA (Collection Date & Time - 04/09/2025 09:28 AM)?Normal* Value Reference Range P SA 0.29 <4.00 - ng/mL * PreciouseRgla zapata 04/11/2025 02: 54:48 PM > left message for return call PreciousRegla zapata 04/12/2025 10:07:54 AM > pt informed of results 6.?Vitamin D deficiency?LAB: P-Vitamin D 25-Hydroxy (Collection Date & Time - 04/09/2025 09:28 AM)? Normal* Value Reference Range V itamin D 25-Hydroxy 47.2 30.0-100.0 - ng/mL * Precious Regla 04/11/2025 02: 54:48 PM > left message for return call PreciousRegla 04/12/2025 10:07:54 AM > pt informed of results * Procedure Codes: 8 2950 GLUCOSE TEST, [address]20 GLYCATED HEMOGLOBIN TEST, Modifiers: QW , 18295 CBC WITH AUTO DIFF, 3044F HG A1C LEVEL LT 7.0%, 3074F SYST BP LT 130 MM HG, 3078F DIAST BP < 80 MM HG * Follow Up: 6 Months * Billing Information: * Visit Code: 23328 Office Visit, Est Pt., Level 4. * Procedure Codes: 84040 GLUCOSE TEST. 76595 GLYCATED HEMOGLOBIN TEST. Modifiers: QW 05052 CBC WITH AUTO DIFF. 3044F HG A1C LEVEL LT 7.0%. 3074F SYST BP LT 130 MM HG. 3078F DIAST BP < 80 MM HG. * Electronic signature of Nevin Jenkins MD on 05/13/2025 at 08:20 PM EDT Sign off status: Pending * Provider: Ivan Jenkins M.D. Date: 0 04/09/2025 Generated for Esther larsen/Pauline/Lizsmitting on: 0 05/13/2025 08:20 PM EDT History and Physical Notes * HPI (History of Present Illness) Category Sub-Category Detail Notes Category Not es Endocrinology Maintenance [facility] up. Pt is fasting today. Pt sts that he is doing well and has no new concerns or complaints Examination Category Sub-Category Detail Notes Category Not es Cardiology Lungs: clear, no rales or wheezes Heart sounds: RRR, normal S1, S2 Extremities: no leg edema General Appearance: pleasant, NAD
--- OUTSIDE RECORDS SUMMARY | 2025-05-13 20:21 | XMS_ITS | Clinical Summary ---
Author Organization [facility] Address [address] [place] [address] Care Team Providers Care Crystal Gazer Name Role Phone Virgilio Jenkins MD Primary Care Provider [phone] Social History Tobacco Use Types Packs/Day Years Used Date Smoking Tobacco: Never Assessed Sex and Gender Information Value Date Recorded Sex Assigned at Not on file Legal Sex Male 7:31 PM EDT Gender Identity Not on file Sexual Orientation Not on file Plan of Treatment Health Maintenance Due Date Last Done Comments [facility]-Depression Screening 1967 [facility]-/Child/Adol SDOH Screenings 1967 [facility]- SDOH Screenings 1985 [facility]-Adult SDOH Screenings 1985 [facility]-Hepatitis B Vaccines (1 of 3 - 19+ 3-dose series) 1986 CT Colonography 2012 Colonoscopy 2012 FIT-DNA 2012 FIT 2012 FOBT 2012 Sigmoidoscopy 2012 [facility]-Colorectal Cancer Screening 2012 [facility]-Pneumococcal Vaccine: 50 + Years (1 of 1 - PCV) 2017 [facility]-Zoster Vaccines (1 of 2) 2017 PXL-EEMZV-35 Vaccine (3 - 2023- season) 2024 03/31/2021, [...] patient's age to complete this topic Insurance [facility] Care Teams Crystal Gazer Relationship Specialty Start Date End Date Virgilio Jenkins MD [address] [facility] [address] [place] [address] PCP - General 03/25/23
--- OUTSIDE RECORDS SUMMARY | 2025-05-13 20:21 | XMS_ITS | Clinical Summary ---
Author Organization [facility] [place] [address] Care Team Providers Care Trades Helper Name Role Phone Unavailable Primary Care Provider [...]
--- OUTSIDE RECORDS SUMMARY | 2025-05-13 20:21 | XMS_ITS | Data Portability ---
Author Organization Formerly [facility] Address [address] [place] [address] Care Team Providers Care Handle Assembler Name Role Phone WILLA TONY Primary Care Provider ADRIÁN SIMPSON Referring Provider Assessment Encounter Date Assessment Date Assessment LastModified by Organization Details LastModified Time 09/12/2020 09/12/2020 This is a 55-year-old gentleman seen today for evaluation and treatment at the request of his neurosurgeon regarding neck and low back pain. He has a relevant past medical history of CAD status post stent in 2014 and atrial fibrillation on aspirin and Xarelto. He describes mostly neck pain and low back pain which are nonradiating. No surgery was recommended at this time. Pain is described mostly over the left side of the neck worse with cervical rotation and extension and referral into the periscapular region. Rarely has he experienced radiating pain into the left upper extremity. 1. Per report cervical MRI demonstrates no critical central canal stenosis. There is leftward C4-5 disc protrusion and disc osteophyte complex resulting in moderate foraminal stenosis. Medication management has been minimal. He is not interested in taking pain medication for this. He has undergone no injections for this pain. Presentation is consistent with cervical spondylosis. There may be some element of intermittent radiculopathy. Given his anticoagulation I recommend proceeding with left C3-6 MBB for diagnostic and potentially therapeutic purposes. We will progress to RFA if diagnostic. ALYSSA is not an option at this time due to anticoagulation, however I think his clinical presentation is most consistent with cervical spondylosis at this time. bgish Not available 09/12/2020 09:58:20 Plan of Treatment Reminders Order Date Submit Date Provider Last Modified By Organization Details Last Modified Time Details Appointments None recorded. Lab drug screen, urine 2019 bgish [place] [place]note 2[facility] [address], [place], [address], 0 09:59:52 Referral None recorded. Procedures medial branch block, cervical (PROC) - #2 2 Left C3-6 MBB in 4 weeks 2019 020 [email or web address] 2 Not available 0 10:27:47 medial branch block, cervical (PROC) - 1. Left C3-6 MBB 2019 020 [email or web address] 2 Not available 0 12:24:40 Surgeries None recorded. Imaging None recorded. Medication Orders None recorded. Patient TargetsNo targets recorded. Patient InstructionsNo instructions recorded. Reason for Referral None Reported. Results Created Date Observation Date Name Description Value Unit Range Abnormal Flag Note LastModifiedBy Organization Detail LastModifiedTime 09/12/2009/12/2020 drug scree n, urine THC: negati ve Not Available [place] [address], [place], [address], 09/12/2020 09:30:21 09/12/2009/12/2020 drug scree n, urine Buprenorphin e: negati ve Not Available [place] [address], [place], [address], 09/12/2020 09:30:21 09/12/20 20 09/12/2020 drug scree n, urine TCA: negati ve Not Available [place] [address], [place], [address], 09/12/2020 09:30:21 09/12/2009/12/2020 drug scree n, urine Barbiturates : negati ve Not Available [place] [address], [place], [address], 09/12/2020 09:30:21 09/12/20 20 09/12/2020 drug scree n, urine Benzodiazepi david: negati ve Not Available [place] [address], [place], [address], 09/12/2020 09:30:21 09/12/2009/12/2020 drug scree n, urine Methadone: negati ve Not Available [place] [address], [place], [address], 09/12/2020 09:30:21 09/12/2009/12/2020 drug scree n, urine Amphetamines : negati ve Not Available [place] [address], [place], [address], 09/12/2020 09:30:21 09/12/2009/12/2020 drug scree n, urine Morphine/Opi ates: negati ve Not Available [place] [address] [facility] [address], [place], [address], 09/12/2020 09:30:21 09/12/2009/12/2020 drug scree n, urine Oxycodone: negati ve Not Available [place] [address] [facility], [place], [address], 09/12/2020 09:30:21 09/12/2009/12/2020 drug scree n, urine MDMA: negati ve Not Available [place] [address] [facility], [place], [address], 09/12/2020 09:30:21 09/12/2009/12/2020 drug scree n, urine Cocaine: negati ve Not Available [place] [address], [place], [address], 09/12/2020 09:30:21 09/12/2009/12/2020 drug scree n, urine Methamphetam ine: negati ve Not Available [place] [address] [facility] [address], [place], [address], 09/12/2020 09:30:21 Result Notes None recorded. Problems Name Problem SNOMED Code Status Onset Date Resolution Date Notes Provider Name and Address Organization Details Recorded Time Chest pain 33605253 Completed 201509/12/2020 Hayde Erica null, [place] - [facility] 0 09:18:25 Atrial fibrillat ion 14016577 Active 2015 Hayde Eric[place], [place] - [facility] 0 09:16:33 Paroxysma l atrial fibrillat ion 934369608 Active 2016 [place] null, [place] [facility] 0 09:16:33 Long-term current use of anticoagu lant 732016337 Active 2019 Hayde [place] null, [place] - [facility] 0 09:16:33 Hypertens do disorder 41881488 Completed 201609/12/2020 Hayde Eric[place], [place] - [facility] 0 09:18:31 Hyperlipi demia 49061243 Completed 201509/12/2020 Hayde [place] null, [place] - [facility] 0 09:18:29 Long-term drug therapy Active 2019 Hayde [place], [place] - [facility] 0 09:16:33 Coronary arteriosc lerosis in [place] artery 865899361614 7 Active 2015 Hayde [place] null, [place] - [facility] 0 09:16:33 Neck pain 04198274 Active 2019 Hayde [place], [place] - [facility] 0 09:18:44 Cervical spondylos is 741638000 Active 2019 Hayde [place] null, [place] - [facility] 0 13:40:27 Problem Notes None recorded. Procedures Surgical History Date Name Laterality Status Provider Name and Address Organization Details Recorded Time 0 Diagnostic Cervical MBB: Posterior (3 Level Unilateral) completed [facility] 09/26/2020 13:53:16 Unlisted px hands/fingers completed [facility] 09/12/2020 09:20:20 procedure on heart completed [facility] 09/12/2020 09:20:35 Imaging Results None recorded. Procedure Notes None recorded. Medical Equipment None Reported. Allergies Allergen ID Allergen Name Allergen Category Reaction Reaction Severity Criticality Documentation Date Start Date Code Code System Note Provider Name and Address Organization Details Recorded Time 412824 codeine medicatio n Not available Not available Not available 09/12/20202014 2670 [facility] 0 09:16:18 847576 Demerol medicatio n Not available Not available Not available 09/12/20202014 66537 1 [facility] 0 09:16:18 Medications Name Sig Start Date Stop Date Status Note LastModified by Organization Details LastModified Time metformin 500 mg tablet Take 1 tablet twice a day by oral route. active Not Available Not Available No t Available propafenone 150 mg tablet Take 1 tablet every 8 hours by oral route. active Not Available Not Available No t Available Klor-Con 20 mEq tablet,exte nded release Take 1 tablet every day by oral route. 09/23 completed Not Available Not Available Not Available Klor-Con 10 mEq tablet,exte nded release 2 tablets by mouth every day 03/18 completed Not Available Not Available Not Available isosorbide mononitrate ER 30 mg tablet,exte nded release 24 hr TAKE 1 TABLET BY MOUTH EVERY DAY 12/04 completed Not Available Not Available Not Available isosorbide mononitrate ER 60 mg tablet,exte nded release 24 hr TAKE 1 TABLET BY MOUTH DAILY IN THE MORNING active Not Available Not Available No t Available diltiazem 120 mg tablet Daily 09/23 completed Not Available Not Available Not Available magnesium oxide 400 mg (241.3 mg magnesium) tablet Take 1 tablet every day by oral route. 12/04 completed Not Available Not Available Not Available promethazin e 25 mg tablet active Not Available Not Available Not Available flecainide 50 mg tablet Take 1 tablet twice a day by oral route. active Not Available Not Available No t Available nitroglycer in 0.4 mg sublingual tablet DISSOLVE ONE TABLET UNDER TONGUE, EVERY 5 MINUTES, UP TO 3 DOSES, FOR CHEST PAIN. IF NO RELIEF, CALL [phone] active Not Available Not Available Not Avai lable omeprazole 20 mg capsule,del ayed release Daily active Not Available Not Available Not Available diltiazem CD 120 mg capsule,ext ended release 24 hr Take 1 capsule every day by oral route. active Not Available Not Available No t Available aspirin 81 mg tablet Daily active Not Available Not Available No t Available lisinopril 5 mg tablet TAKE 1 TABLET BY MOUTH EVERY DAY active Not Available Not Available No t Available lisinopril 10 mg-hydrochl orothiazide 12.5 mg tablet Daily 09/23 completed Not Available Not Available Not Available ferrous sulfate 325 mg (65 mg iron) tablet,curly yed release Daily active Not Available Not Available Not Available cefdinir 300 mg capsule active Not Available Not Available Not Available metformin ER 500 mg tablet,exte nded release 24 hr Two times a day active Not Available Not Available No t Available dicyclomine 10 mg capsule active Not Available Not Available Not Available Ciprodex 0.3 %-0.1 % ear drops,suspe nsion active Not Available Not Available Not Available Crestor 10 mg tablet Daily active Not Available Not Available No t Available Klor-Con M20 mEq tablet,exte nded release Daily 09/23 completed Not Available Not Available Not Available Tricor 145 mg tablet Daily 01/03 completed Not Available Not Available Not Available fenofibrate 160 mg tablet Take 1 tablet every day by oral route. active Not Available Not Available No t Available ranolazine ER 500 mg tablet,exte nded release,12 hr take 1 tablet by moth twice a day active Not Available Not Available No t Available Ranexa 02/02 completed Not Available Not Available Not Available diclofenac 1 % topical gel APPLY 2 GRAMS TO THE AFFECTED AREA(S) BY TOPICAL ROUTE 4 TIMES PER DAY active Not Available Not Available No t Available Effient 10 mg tablet Daily 01/03 completed Not Available Not Available Not Available Aleve-D Sinus and Headache Daily 01/03 completed Not Available Not Available Not Available Tradjenta 5 mg tablet active Not Available Not Available No t Available Tradjenta QAM active Not Available Not Imani ilable Not Available Xarelto 20 mg tablet Daily active Not Available Not Available No t Available Farxiga 10 mg tablet Daily 12/04 completed Not Available Not Available Not Available Glyxambi 25 mg-5 mg tablet active Not Available Not Available Not Available MegaRed Strang-3 Krill Oil 500 mg-115 mg-30 mg-64 mg capsule Take 1 capsule every day by oral route in the evening. active Not Available Not Available No t Available Xigduo XR 2.5 mg-1,000 mg tablet,exte nded release Take 1 tablet twice a day by oral route. 02/02 completed Not Available Not Available Not Available Vitals Date Recorded Body weight Body mass index (BMI) Body height Provider Name and Address Organization Details Last Updated DateTime 09/12/2020 592278.21 g 31.9 kg/m2 182.88 cm Hayde Maldonado [facility] 09/12/2020 09:16:11 Social History Question Answer Notes LastModified by Organizat ion Details LastModified Time Tobacco Smoking Status Never Smoker Hayde riley [facility] 09/12/2020 09:18:51 Which Illicit Or Recreational Drugs Have You Used? None Information not available 09/12/2020 Education 12 Information no t available 09/12/2020 Prescription Drug Abuse No Information not available 09/12/2020 Disability No Information no t available 09/12/2020 History Of Sexual Abuse No Information not available 09/12/2020 Marital Status Informatio n not available 09/12/2020 What Was The Date Of Your Most Recent Tobacco Screening? 09/12/2020 Information not available 09/12/2020 How Much Tobacco Do You Smoke? No Information not available 09/12/2020 Sex: Unknown Functional Status Question Answer Note LastModified by Organizat ion Details LastModified Time What is your level of alcohol consumption? Occasional Information not available 09/12/2020 Do you or have you ever used smokeless tobacco? 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 Never used electronic cigarettes Information not available 09/12/2020 What is your exercise level? Occasional Information not available 09/12/2020 Mental Status None recorded. Family History Relationship Description Onset Age of this Age Resolved Age Notes LastModified by Organization Details LastModified Time Father No current problems or disability Not available 09/12 09:18:46 Mother No current problems or disability Not available 09/12 09:18:46 Medical History Condition Response Bipolar Disease N Coronary Artery Disease Y Gout N Seizure Disorder N Atrial Fibrillation Y Thyroid Disease N Hernia N Head Trauma/Injury N Depression N COPD N Anxiety Disorder N Acid Reflux (GERD) Y Cancer N Stroke N Skin Disorder N High Cholesterol Y Liver Disease N Rheumatoid Arthritis N Headaches Y Fibromyalgia N Kidney Disease N Autoimmune Disease N Osteoarthritis N Neurosurgery N DVT N Peptic Ulcer Disease N Anemia N Heart Attack (IN) Y Diabetes Y Cardiomyopathy N Bleeding Disorder N CHF N AIDS/HIV N Inflammatory Bowel Disease N Dementia N Asthma N Substance Abuse N Sleep Apnea Y Hepatitis N Heart Disease Y Pulmonary Embolism N Chronic Low Back Pain Y Hypertension Y Osteoporosis N Past Encounters Encounter ID Performer Location Encounter Start Date Encounter Closed Date Diagnosis/Indication Diagnosis SNOMED-CT Code Diagnosis ICD10 Code Diagnosis Note [id number] Royal Vigil MD [place] [address] [place] [address] 09/12/2020 08:10:20 09/12/2020 10:02:41 Neck pain 56305432 M54.2 Long-term drug therapy 630065996 Z79.899 Cervical s pondylosis without myelopathy 666553762 M47.812 Degenerati on of cervical intervertebral disc 36794687 M50.30 [id number] Royal Vigil MD [place] [address] [place] [address] 09/26/2020 13:22:11 09/26/2020 13:50:19 Cervical spondylosis 488662261 M47.812 Health Concerns Section Related Observation LastModified by Organization Detai ls LastModified Time None Recorded Concern Status LastModified by Organization Details LastModified Time None Recorded Advance Directives Directive None Recorded Payers Insurance Date Sequence Insurance Name Policy Number Policy [place] Covered Member ID [place] Member ID Guarantor Name 09/23/2020 2 [place] [employer] [employer] - FFS/TRADITION AL Declan Frances Vamshi [id number] Declan G Vamshi 09/29/2020 1 [facility] Declan Frances Vamshi [id number] Declan Bonds Notes Date Note Type Note Provider Name and Address Organization Details Recorded Time 09/12/2020 text/html Neck painReporte d bypatient.Onset:date of onset: (2014) Location:bilateral paraspinal; radiating to the bilateral upper extremities to the hand; L>R into the shoulder blades Duration:constant Context:lifting; work related injury Quality:throbbing;tig htness;numbess;burnin g;aching;stabbing;sha rp;dull;tingling Severity:current pain level: 2/10; worst pain level: 8/10 Alleviating Factors:heat Aggravating Factors:lifting (pulling); twisting Timing:constant; worse at night Associated Symptoms:no bladder incontinence; no bowel incontinence;weakness (L>R);numbness(bilate ral hands and ten digits);dizziness;tin gling(bilateral hands and ten digits);pain in upper extremities(bilateral into hands and down between shoulder blades);popping/click ing(neck and bilateral shoulders); L>R Prior Imaging:MRI Previous Cervical Surgery:none Previous Injections:none Previous PT:none Previous disabilities caregiver:helped temporarily; 11/2017 2 x a week for 6 months then 1 x a week for 6 months little benefit Medications History:NSAIDS: (Tylenol ASA Voltaren gel); muscle relaxants:; neuropathics:; opioid pain medications: Working:regular duty Prior Pain Management:noPain Management InitialReported bypatient.Hand Dominance:right Severity:mild; pain level 2/10; worst pain 8/10 New patient referred by Dr. Simpson for neck pain that started in 2014. Patient has a MRi of Cervical Spine done in 07/11/20 with disc. Patient denies any cervical surgeries or injections. Patient had chiropractor in 11/2017 2 x a week for 6 months then 1 x a week for 6 months little benefit. Royal Vigil MD [address] [place] [address], [address], [facility] 09/12/2020 09:59:57
--- OUTSIDE RECORDS SUMMARY | 2025-05-13 20:21 | XMS_ITS | Data Portability ---
Author Organization [facility] Negron [place] CLOSED Address [address] [facility] [address] [place] [address] Care Team Providers Care Enrolled Nurse Name Role Phone TONY CROUCH Primary Care Provider GARCIA ASTUDILLO Project Controller Assessment Encounter Date Assessment Date Assessment LastModified by Organization Details LastModified Time 10/23/2021 10/23/2021 1. Coronary ed ry disease s/p [place] 09/2006 (at age 41) and PCI 04/15/2015 [...] office with any change in clinical status. [email or web address] Not available 10/23/2021 13:49:25 05/17/2022 05/17/2022 Impression: 1. Coronary artery disease s/p [place] 09/2006 (at age 41) and PCI 04/15/2015 [...] office with any change in clinical status. [email or web address] Not available 05/17/2022 20:32:50 12/01/2022 12/01/2022 Imaging: Lumbar MRI at [facility] 10/25/2022-radiolo gy report and images reviewed by [...] -Patient seen by myself and Dr. Venegas [email or web address] Not available 12/02/2022 08:46:17 Plan of Treatment Reminders Order Date Submit Date Provider Last Modified By Organization Details Last Modified Time Details Appointments None recorded. Lab None recorded. Referral None recorded. Procedures None recorded. Surgeries None recorded. Imaging electrocard iogram 2020 021 [email or web address] [facility], [address] [place] [address] , [address], [place], [address], 1 13:49:37 electrocard iogram 2019 020 [email or web address] 2 [facility], [facility] [address], [place], [address], 0 15:46:50 Medication Orders None recorded. Patient TargetsNo targets recorded. Patient Instructions Encounter Date Encounter Id Patient Instructions Last Modified By Organization Details Last Modified Time 08/29/2020 [id number] Spent 45 total minutes with the patient today. Greater than 50% of this time was spent counseling/coordi nation of care as documented in my assessment and plan above. MRI cervical spine CD-ROM [facility]: C4-5 left disc osteophyte complex with moderate foraminal stenosis. Mild findings otherwise [email or web address] Not available 08/29/2020 11:22:53 09/08/2020 [id number] elevated blood pressure: care instructions [email or web address] Not available 09/08/2020 15:42:46 high cholesterol : care instructions [email or web address] Not available 09/08/2020 15:42:46 10/23/2021 [id number] Body Mass Index: Care Instructions-LC [email or web address] Not available 10/23/2021 13:49:37 05/17/2022 [id number] body mass index: care instructions [email or web address] Not available 05/17/2022 20:32:57 Reason for Referral None Reported. Results Created Date Observation Date Name Description Value Unit Range Abnormal Flag Note LastModifiedBy Organization Detail LastModifiedTime 09/10/20 20 09/08/2020 elect rocar diogr am No observ ation record ed. BARCODE [place] [address], [place], [address], 09/10/2020 09:49:05 10/23/20 21 elect rocar diogr am No observ ation record ed. [email or web address] [facility] [address], [place], [address], 10/23/2021 13:04:01 10/26/20 21 10/23/2021 elect karey robles am No observ ation record ed. BARCODE [facility] [address] [place] [address] [address], [place], [address], 10/26/2021 11:47:54 12/03/19 23 10/25/2022 MRI, lumba [...] Address Organization Details Recorded Time Chest pain 02791471 Active 2015 From Automate d Load;Pro vider: Matt Lei;Sta tus: Active Not Available [facility] 6 05:37:00 Coronary arterios clerosis in [place] artery 20297924433 07 Active 2015 From Automate d Load;Pro vider: Matt Lei;Sta tus: Active Not Available [facility] 6 05:37:00 Hyperlip idemia 47363282 Active 2015 From Automate d Load;Pro vider: Matt Lei;Sta tus: Active Not Available [facility] 6 05:37:00 Paroxysm al atrial fibrilla tion 194914099 Active 2016 MATT LEI MD [address] [place] [address], [address] , [facility] 7 12:00:29 Atrial fibrilla tion 27313787 Completed 201509/23/2017 From Automate d Load;Pro vider: Matt Lei;Sta tus: Active MATT LEI MD [address] [place] [address], [address] , [facility] 7 10:10:35 Hyperten sive disorder 55047685 Active 2016 MATT LEI MD [address] [place] [address], [address] , [facility] 7 10:10:54 Long-ter m drug therapy Active 2019 MATT LEI MD [address] [place] [address], [address] , [facility] 0 06:08:28 Long-ter m current use of anticoag ulant 608652422 Active 2019 MATT LEI MD [address] [place] [address], [address] , [facility] 0 06:08:31 Problem Notes None recorded. Procedures Surgical History Date Name Laterality Status Provider Name and Address Organization Details Recorded Time 05/17/20 22 EKG completed Alia Bull [facility] 05/17/2022 10:51:13 05/14/20 19 Injection, Intralesional completed Janeth Marin [facility] 05/14/2019 10:44:35 12/04/19 19 EKG completed KOKI WORRELL PA-C [address] [place] [address], [address], [facility] 12/04/2018 10:18:58 08/11/20 18 Injection Joint/Bursa, Major completed ALVARO HENSLEY MD [address] [place] [address], [address], [facility] 08/11/2018 09:45:14 04/15/20 15 Stent Placement completed MATT LEI MD [address] [place] [address], [address], [facility] 03/18/2017 09:36:12 Stent Placement completed MATT LEI MD [address] [place] [address], [address], [facility] 03/18/2017 09:33:30 Cardiac Catheterization completed Janeth Bam [facility] 08/11/2018 10:36:08 Other completed Lisset Nelson [facility] 12/10/2016 15:49:43 Imaging Results None recorded. Procedure Notes None recorded. Medical Equipment None Reported. Allergies Allergen ID Allergen Name Allergen Category Reaction Reaction Severity Criticality Documentation Date Start Date Code Code System Note Provider Name and Address Organization Details Recorded Time 613351 Demerol medicatio n Not available Not available Not available 10/22/20162014 47272 1 RxNorm Comme nt: Creat ed By: Jamaal Stearns ;Crea torin Date: 2014 10:48 :19 AM; Not Available On license of [facility] 6 07:45:20 [id number] Product containin g penicilli n (product) medicatio n Not available Not available Not available 10/22/20162014 90201 8001 SNOMED Comme nt: Creat ed By: Jamaal Stearns ;Crea torin Date: 2014 10:49 :01 AM; Not Available On license of [facility] 6 08:39:38 922919 codeine medicatio n Not available Not available Not available 10/22/20162014 2670 RxNorm Comme nt: Creat ed By: Jamaal Stearns ;Crea torin Date: 2014 10:48 :11 AM; Not Available On license of [facility] 6 08:39:38 Medications Name Sig Start Date [...] mg samples 6 packs given to ptlot# [id number] exp 03/18 Not Available Not Available Not [...] Available Not Available No t Available [employer] [place]-3 Krill Oil 500 mg-115 mg-30 mg-64 mg [...] Updated DateTime 12/01/2022 185.42 cm 31 kg/m2 402503.2 1 g 120 mm[Hg] 80 mm[Hg] Michelle Tavarez [facility] 3 14:52:33 Date Recorded Body height Body mass index (BMI) Body weight Heart rate Systolic blood pressure Diastolic blood pressure Provider Name and Address Organization Details Last Updated DateTime 2 185.42 cm 29.9 kg/m2 757033. 47 g 78 /min 128 mm[Hg] 78 mm[Hg] Alia Blul [facility] 2 11:02:32 Date Recorded Body height Body mass index (BMI) Body weight Heart rate Systolic blood pressure Diastolic blood pressure Provider Name and Address Organization Details Last Updated DateTime 0 185.42 cm 30.6 kg/m2 679153. 43 g 83 /min 141 mm[Hg] 75 mm[Hg] Geni Schumacher [facility] 0 10:52:51 Date Recorded Body height Body mass index (BMI) Body weight Heart rate Systolic blood pressure Diastolic blood pressure Provider Name and Address Organization Details Last Updated DateTime 0 185.42 cm 31.1 kg/m2 216007. 8 g 93 /min 136 mm[Hg] 86 mm[Hg] Janeth Bam [facility] 0 15:15:25 Date Recorded Body height Body mass index (BMI) Body weight Heart rate Systolic blood pressure Diastolic blood pressure Provider Name and Address Organization Details Last Updated DateTime 1 185.42 cm 29.7 kg/m2 079139. 28 g 81 /min 116 mm[Hg] 76 mm[Hg] Janeth Kuhn [facility] 1 13:09:32 Social History Question Answer Notes LastModified by Organizat ion Details LastModified Time Tobacco Smoking Status [facility]/10/2016 15:46:05 How Much Tobacco Do You Chew? None Information not available 02/02/2019 Live Alone Or [...] Date Was Tobacco Cessation Counseling Provided? 10/23/2021 [place] [address] Answered No To The Tobacco Cessation Counseling Provided Question On 12/04/2018. Information not available 10/23/2021 Have You Recently Traveled Abroad? No Information not available 05/17/2022 Sex: Unknown Functional Status Question Answer Note LastModified by Organizat ion Details LastModified Time Do you or have you ever used any other forms of tobacco or nicotine? No Information not available 05/17/2022 Do you or have you ever used smokeless tobacco? Never used smokeless tobacco [email or web address] Information not available 08/13/2019 What is your occupation? [employer] Information not available 03/18/2017 Do you or [...] History Condition Response Coronary Artery Disease Y Other N Gout N Atrial Fibrillation Y Kidney Stones N Hyperthyroidism N Blood Transfusion N Depression N COPD N Hypothyroidism N Lung Disease N Breast Problem N Difficulty Swallowing N Meniere's disease N Anxiety Disorder N Muscle, Joint, or Bone Problems N Vision or Eye Problems N Arthritis N Polyps N Infertility N Blood Clot N Cancer N Varicosities N Stroke N Endometriosis N Bladder or Kidney Problems N High Cholesterol Y Liver Disease N Fibromyalgia N Headaches N Kidney Disease N Allergies/Hayfever N Heart Problems N Parkinson's Disease N Ear or Hearing Problems N Hospitalizations N Alzheimer's N Thyroid Problems N GI Problems Y Skin Problems N Eating Disorder N Anemia N Constipation N Mental Illness N Ovarian Cancer N Diabetes Y Seizures/Epilepsy N Tuberculosis N Eczema N Diverticulitis N Asthma Y Reflux/GERD N Sleep Apnea N GERD/Reflux Y Hepatitis N Heart Disease Y Pulmonary Embolism N Pre-Eclampsia N Hypertension Y Chronic Ear Infections N Osteoporosis N Chicken Pox N Thrombophilias N Past Encounters Encounter ID Performer Location Encounter Start Date Encounter Closed Date Diagnosis/Indication Diagnosis SNOMED-CT Code Diagnosis ICD10 Code Diagnosis Note [id number] MATT LEI MD CARDIOLOG Y [address] [place] [address] 01/03/2017 11:01:32 01/03/2017 12:16:22 Coronary arteriosclerosis in [place] artery 0706069865 107 I25.10 I feel that the patient [...] any change in status. Paroxysmal atrial fibrillation 367674414 I48.0 The patient indicates he is having occasional episodes of rapid fluttering in his heart which are reminiscen t of his previous atrial fibrillati on. I recommend that he continue his antithromb otic and antiarrhyt hmic therapy for the time being. His electrocar diogram shows normal sinus rhythm with normal QTc interval. [id number] [employer] [address] 02/28/2017 20:06:40 02/28/2017 20:06:40 [id number] MATT LEI MD CARDIOLOG Y [facility] CLOSED [address] [place] [address] 03/18/2017 08:47:02 03/18/2017 10:16:03 Coronary arteriosclerosis in [place] 9087370991 107 I25.10 Medication changes, as well as [...] any change in status. Paroxysmal atrial fibrillation 626175497 I48.0 No recurrence of palpitatio ns. EKG from emergency room showed normal sinus rhythm with normal QTC. We'll reschedule follow-up for 6 months. Chest pain 78787970 R07. 9 This chest pain was noncardiac with negative troponin and EKG evaluation . I reassured him that no further workup is needed at this time. I don't feel that her stress test is necessary. Hyperlipidemia 95665078 E78.5 Management of this problem was reviewed with the patient. No changes recommende d, status for this problem is stable at this time. [id number] MATT LEI MD CARDIOLOG Y [facility] CLOSED [address] [place] [address] 09/23/2017 09:26:38 09/23/2017 10:18:51 Long-term drug therapy 089275558 Z79.899 Flecainide .Patient shows no evidence of toxicity to the antiarrhyt hmic drug program. Electrocar diogram shows stable QTc interval. Risk of medication and monitoring reviewed with patient.EK G: NSR with normal QTC. Rhythm strip was performed and showed rare PACs. Coronary arteriosclerosis in [place] 3483326619 107 I25.10 Chest pain 31570962 R07. 9 This chest pain was noncardiac with negative troponin and EKG evaluation . I reassured him that no further workup is needed at this time. I don't feel that her stress test is necessary. Hyperlipidemia 76941422 E78.5 Management of this problem was reviewed with the patient. No changes recommende d, status for this problem is stable at this time. Paroxysmal atrial fibrillation 544353111 I48.0 The patient remains in normal sinus [...] any change in status. Hypertensive disorder 38 981556 [employer] his blood pressures a bit [...] heart failure. Long-term current use of anticoagulant 694896727 Z79.01 Xarelto.No symptoms of bleeding or any evidence of anticoagul ant toxicity. Periodic CBC recommende d. [id number] MATT LEI MD CARDIOLOG Y [address] [place] [address] 05/30/2018 08:59:10 05/30/2018 16:00:31 Long-term drug therapy 620573964 Z79.899 Flecainide .Patient shows no evidence of toxicity to the antiarrhyt [facility] drug program. Electrocar diogram shows stable QTc interval. Risk of medication and monitoring reviewed with patient.EK G: NSR with normal QTC. Rhythm strip was performed and showed rare PACs. Coronary arteriosclerosis in [place] 2580567114 107 I25.119 the patient is concerned that [...] swelling, pain, or medication reaction. Chest pain 17158236 R07. 9 nitroglyce rin will be renewed. Hyperlipidemia 45026313 E78.5 Management of this problem was reviewed with the patient. No changes recommende d, status for this problem is stable at this time. Paroxysmal atrial fibrillation 493420235 I48.0 The patient remains in normal sinus [...] any change in status. Hypertensive disorder 38 785547 [employer] his blood pressures a bit [...] heart failure. Long-term current use of anticoagulant 901045455 Z79.01 Xarelto.No symptoms of bleeding or any evidence of anticoagul ant toxicity. Periodic CBC recommende d. [id number] ALVARO HENSLEY MD ORTH[facility]EDI [facility] [address] [place] [address] 08/11/2018 08:44:34 08/11/2018 09:52:55 Adhesive capsulitis of right shoulder 1664873164 13855 M75.01 Mr Bonds has findings of adhesive capsulitis of the right shoulder. I had extensive discussion with him regarding the natural history and treatment of frozen shoulder. He was provided corticoste roid injection for pain relief and I recommend a course of physical therapy as well as HEP. [id number] MATT LEI MD CARDIOLOG Y [address] [place] [address] ,[address] [place] [address] 08/11/2018 10:25:03 08/11/2018 11:13:09 Long-term drug therapy 181252537 Z79.899 Flecainide .Patient shows no evidence of toxicity to the antiarrhyt hmic drug program. Electrocar diogram shows stable QTc interval. Risk of medication and monitoring reviewed with patient.EK G: NSR with normal QTC. Rhythm strip was performed and showed rare PACs. Coronary arteriosclerosis in [place] 7403258506 107 I25.119 Cardiac catheteriz ation was reassuring but the patient persisted in having symptoms. I discussed options and treatment and advised increasing her isosorbide mononitrat e 60 mg.Electro rosas prescripti on sent to patient's pharmacy. We'll consider Ranexa in the future. Chest pain 18547081 R07. 9 nitroglyce rin will be renewed. Hyperlipidemia 67395486 E78.5 Management of this problem was reviewed with the patient. No changes recommende d, status for this problem is stable at this time. Paroxysmal atrial fibrillation 511086627 I48.0 The patient remains in normal sinus [...] any change in status. Hypertensive disorder 38 083871 [employer] his blood pressures a bit [...] heart failure. Long-term current use of anticoagulant 034481160 Z79.01 Xarelto.No symptoms of bleeding or any evidence of anticoagul ant toxicity. Periodic CBC recommende d. Renewal of prescription 739007404 Z76.0 [id number] KOKI WORRELL PA-C CARDIOLOG Y [address] [place] [address] ,[address] [place] [address] 12/04/2018 09:39:28 12/04/2018 10:50:23 Chest pain 51010295 R07.9 Coronary arteriosclerosis in [place] 7035301154 107 I25.10 Paroxysmal atrial fibrillation 902576594 I48.0 Hypertensive disorder 38 684446 I10 Hyperlipidemia 74833932 E78.5 [id number] MATT LEI MD CARDIOLOG Y [facility] CL[facility] [address] [place] [address] 02/02/2019 09:10:47 02/02/2019 11:12:41 Coronary arteriosclerosis in [place] artery 7634300282 107 I25.10 No further episodes of angina since taking Ranexa. Paroxysmal atrial fibrillation 055589687 I48.0 The patient remains in normal sinus [...] 6 months with EKG. Hypertensive disorder 38 501993 I10 Management of this problem was reviewed with the patient. No changes recommende d, status for this problem is stable at this time. Hyperlipidemia 83893026 E78.5 Management of this problem was reviewed with the patient. No changes recommende d, status for this problem is stable at this time. Long-term drug therapy 565871656 Z79.899 Flecainide .Patient shows no evidence of toxicity to the antiarrhyt hmic drug program. Electrocar diogram shows stable QTc interval. Risk of medication and monitoring reviewed with patient.EK G: NSR with normal QTC. Rhythm strip was performed and showed rare PACs. Long-term current use of anticoagulant 430615972 Z79.01 Xarelto.No symptoms of bleeding or any evidence of anticoagul ant toxicity. Periodic CBC recommende d. [id number] CRISTAL LIU MD DERMATOLO GY [place] [address] [place] [address] 05/14/2019 09:42:44 05/14/2019 12:55:25 Lentigo 297928423 L81.4 Reassuranc e and education regarding the disorder and options. Gely beltran of [place] 30029096 L57.3 Reassuranc e and education regarding the disorder and options. Digital mucous cyst 4040 60189 M71.349 Reassuranc e and education regarding the disorder and options. Drained and injected with ..1 ml of Kenalog 40 mg - Pain in fi nger of left hand 8217454700 27463 M79.038 [id number] MATT LEI MD CARDIOLOG Y [place] [address] [place] [address] 08/13/2019 13:51:19 08/13/2019 15:40:04 Coronary arteriosclerosis in [place] 6686994393 107 I25.10 No further episodes of angina since taking Ranexa. Paroxysmal atrial fibrillation 076383916 I48.0 The patient remains in normal sinus [...] 6 months with EKG. Hypertensive disorder 38 226620 I10 Management of this problem was reviewed with the patient. No changes recommende d, status for this problem is stable at this time. Hyperlipidemia 29010803 E78.5 Management of this problem was reviewed with the patient. No changes recommende d, status for this problem is stable at this time. Long-term drug therapy 986108118 Z79.899 Flecainide .Patient shows no evidence of toxicity to the antiarrhyt hmic drug program. Electrocar diogram shows stable QTc interval. Risk of medication and monitoring reviewed with patient.EK G: NSR with normal QTC. Rhythm strip was performed and showed rare PACs. Long-term current use of anticoagulant 478047124 Z79.01 Xarelto.No symptoms of bleeding or any evidence of anticoagul ant toxicity. Periodic CBC recommende d. [id number] MATT LEI MD CARDIOLOG Y [address] [place] [address] 03/21/2020 08:20:40 03/24/2020 07:17:25 Coronary arteriosclerosis in [place] 2693455423 107 I25.10 No further episodes of angina since taking Ranexa. Paroxysmal atrial fibrillation 239862481 I48.0 The patient remains in normal sinus [...] RTC:3 months with EKG. Hypertensive disorder 38 766676 I10 Management of this problem was reviewed with the patient. No changes recommende d, status for this problem is stable at this time. Hyperlipidemia 52682810 E78.5 Management of this problem was reviewed with the patient. No changes recommende d, status for this problem is stable at this time. Long-term drug therapy 785637922 Z79.899 In light of CAD change to propafenon e. Long-term current use of anticoagulant 678001576 Z79.01 Xarelto.No symptoms of bleeding or any evidence of anticoagul ant toxicity. Periodic CBC recommende d. [id number] ADRIÁN SIMPSON MD [facility] [address] [facility] [facility] [place] [address] 08/29/2020 10:28:05 08/29/2020 12:56:37 Cervical spondylosis without myelopathy 613273852 M47.812 -The patient presents for evaluation of [...] to continue his active lifestyle. Lumbar spondylosis 75236 0009 M47.896 -Chronic low back pain. Axial location. No recent imaging. Plan to investigat e further with x-rays of the lumbar spine. [id number] MATT LEI MD CARDIOLOG Y [address] [place] [address] 09/08/2020 14:24:30 09/08/2020 15:46:50 Coronary arteriosclerosis in [place] artery 4535279283 107 I25.10 No further episodes of angina since taking Ranexa. Paroxysmal atrial fibrillation 353091550 I48.0 The patient remains in normal sinus [...] RTC:6 months with EKG. Hypertensive disorder 38 360885 I10 Management of this problem was reviewed with the patient. No changes recommende d, status for this problem is stable at this time. Hyperlipidemia 51097706 E78.5 Management of this problem was reviewed with the patient. No changes recommende d, status for this problem is stable at this time. Long-term drug therapy 208597192 Z79.899 In light of CAD change to propafenon e. Long-term current use of anticoagulant 948181883 Z79.01 Xarelto.No symptoms of bleeding or any evidence of anticoagul ant toxicity. Periodic CBC recommende d. [id number] GARCIA ASTUDILLO MD CARDIOLOG Y [address] [place] [address] 10/23/2021 12:57:22 10/23/2021 13:37:17 Coronary arteriosclerosis in [place] 3419128949 107 I25.10 Paroxysmal atrial fibrillation 974054376 I48.0 Hypertensive disorder 38 884328 I10 Hyperlipidemia 89963557 E78.5 Long-term drug therapy 081665929 Z79.899 Long-term current use of anticoagulant 744978933 Z79.01 Continue Xarelto 20mg daily.No symptoms of bleeding or any evidence of anticoagul ant toxicity. Periodic CBC recommende d. Body mass index 25-29 - overweight 213141051 Z68.29 [id number] GARCIA ASTUDILLO MD CARDIOLOG Y [address] [place] [address] 05/17/2022 10:08:52 05/17/2022 12:03:37 Coronary arteriosclerosis in [place] 3420158466 107 I25.10 Paroxysmal atrial fibrillation 443065165 I48.0 Hypertensive disorder 38 504692 I10 Hyperlipidemia 74311186 E78.5 Long-term current use of anticoagulant 056697371 Z79.01 Continue Xarelto 20mg daily.No symptoms of bleeding or any evidence of anticoagul ant toxicity. Periodic CBC recommende d. Obese 324427829 E66.9 [id number] LIDIA VENEGAS MD NEUROSURG [facility] [address] [place] [address] 12/01/2022 13:38:50 12/03/2022 16:15:00 Low back pain 352882046 M54.50 Health Concerns Section Related Observation LastModified by Organization Detai ls LastModified Time None Recorded Concern Status LastModified by Organization Details LastModified Time None Recorded Advance Directives Directive None Recorded Payers Insurance Date Sequence Insurance Name Policy Number Policy [place] Covered Member ID [place] Member ID Guarantor Name 12/01/2022 1 [facility] [id number] Declan Frances Vamshi [id number] Declan G Vamshi 09/08/2020 2 [place]FS/TRADITION AL Declan G Vamshi [id number] Declan G Vamshi 09/08/2020 3 [place]TRADITION [place] Declan G Vamshi [id number] Declan Frances Vamshi Notes Date Note Type Note Provider Name and Address Organization Details Recorded Time 08/29/2020 text/html The patient was seen at the request of Saadia Spicer. He is a 55-year-old who lives in [place], [place]. 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 Evaluated in ER in [place] with CP unremarkable EKG, negative cardiac enzymes [...] CHF, orthopnea, PND, palpitations. MATT LEI MD [facility] [place], [phone], [facility] 09/08/2020 15:42:50 10/23/2021 text/html CARDIOVASCULAR HISTORY:# Coronary artery disease s/p stents 09/2006 and . Acute [place] with PCI 09/2006 (performed at age 41)b. PCI 04/15/2015: tight lesion of a large diagonal revascularized w/placement of 2.75 x 12mm FADY.c. Cath 06/05/2018: Occluded circumflex unchanged from 2014, noncritical CAD of LAD, stents patent. # Paroxysmal Atrial Fibrillationhardeep Lowe ( CHADS-Vasc 3).Previously on flecainide.Switched to propafenone September 08, 2020. # Type 2 diabetes# Hypertension# Dyslipidemia 10/23/2021:6 month office visit regarding ASCVD.Former patient of Dr Matt Lei, who lives in [place]. He reports that his overall health has [...] 101 LFTs: Normal GARCIA ASTUDILLO MD [address] [place], [phone], [facility] 10/23/2021 13:49:42 05/17/2022 text/html CARDIOVASCULAR HISTORY:# Coronary artery disease s/p stents 09/2006 and . Acute [place] with PCI 09/2006 (performed at age 41)b. PCI 04/15/2015: tight lesion of a large diagonal revascularized w/placement of 2.75 x 12mm FADY.c. Cath 06/05/2018: Occluded circumflex unchanged from 2014, noncritical CAD of LAD, stents patent. # Paroxysmal Atrial Fibrillation (rate control strategy)hardeep Lowe ( CHADS-Vasc 3). # Type 2 diabetes# [...] of Dr Matt Lei, who lives in [place]. He reports that his overall health has [...] ms, QTC 410 ms. GARCIA ASTUDILLO MD [address] [place] [address], [phone], [facility] 05/17/2022 20:33:00 12/01/2022 text/html Patient is a [...] numbness in thighs. JOSE SIMPSON PA-C [address] [place], [address], [facility] 12/02/2022 08:47:00
--- OUTSIDE RECORDS SUMMARY | 2025-05-13 20:21 | XMS_ITS | Patient Health Record ---
[facility] Address [address] [place] [id number] Care Team Providers Care Public Address System Mechanic Name Role Phone Virgilio Jenkins Primary Care Provider [phone] Bonnie Campa Unavailable [phone] Allergies Allergen (clinical drug ingredient) Drug/Non Drug Allergy documented on EMR Reaction Allergy Type Onset Date Status meperidine Demerol syncope Drug Allergy Active atorvastatin Lipitor leg cramps Drug Allergy Act do codeine Codeine syncope Drug Allergy Active Penicillin rash Drug Allergy Active Results Component Value Reference Range Notes P-Vitamin D 25-Hydroxy Reviewed date:01/16/2025 03:03:14 PM Interpretation:26.5 Performing Lab: Notes/Report: Test performed by [facility] [address] [place] [address] , [address], [place] [address] Natanael Barker MD, [employer] CLIA: [id number] Vitamin D 25-Hydroxy 26.5 30.0-100.0 ng/mL Interpretation [...] 135 Performing Lab: Notes/Report: Test performed by [facility] [address] [place], [place] [address] [address] , [address], [place] [address] Natanael Barker MD, [employer] CLIA: [id number] Sodium 135 135-145 mmol/L Potassium 4.7 3.5-5.3 [...] 157 Performing Lab: Notes/Report: Test performed by [facility] [address] [place], [place] [address] [address] , [address], [place] [address] Natanael Barker MD, [employer] CLIA: [id number] Cholesterol 156 <200 mg/dL Triglycerides 157 <150 [...] Interpretation:Normal Performing Lab: Notes/Report: Test performed by [facility] , [address], [place] [address] Natanael Barker MD, [employer] CLIA: [id number] PSA 0.29 <4.00 ng/mL Please note this is an ultrasensitive PSA assay with a lower limit of detection of 0.014 ng/mL. This test is performed by the [employer] ECLIA methodology. Values obtained with different assay methods or kits cannot be directly compared. P-TSH reflex to FT4 Reviewed date:04/12/2025 10:08:41 AM Interpretation:Normal Performing Lab: Notes/Report: Test performed by [facility] [address] , [place] [address] Natanael Barker MD, [employer] CLIA: [id number] TSH reflex to FT4 3.20 0.43-5.25 mU/L P-Microalbumin/Creatinine, R andom Urine Sample Reviewed date:04/12/2025 10:08:41 AM Interpretation:Normal Performing Lab: Notes/Report: [facility] [address] , [address], [place] [address] Natanael Barker MD, [employer] CLIA: [id number] Albumin/Creatinine Ratio, Urine 3 0-30 ug/mg Microalbumin, Urine, Random 0.3 Creatinine, Urine 90.6 P-Vitamin D 25-Hydroxy Reviewed date:04/12/2025 10:08:41 AM Interpretation:Normal Performing Lab: Notes/Report: Test performed by [facility] [address] , [address], [place] [address] Natanael Barker MD, [employer] CLIA: [id number] Vitamin D 25-Hydroxy 47.2 30.0-100.0 ng/mL Interpretation of Vitamin D 25 [place]: < 20 ng/mL - Deficiency 20 - 29 ng/mL - Insufficiency 30 - 100 ng/mL - Sufficiency > 100 ng/mL - Super-therapeutic- toxicity may occur above this level. Clinical correlation required. CBC Fingerstick (in house) Reviewed date:09/27/2024 12:40:49 [...] - 400 CBC Fingerstick (in house) Reviewed date:09/11/2024 10:22:57 [...] - 38 plat 258 100 - 400 CXR Reviewed date:10/16/2024 11:16:55 AM Interpretation: Performing Lab: Notes/Report: Glucose (In-House) Reviewed date:10/10/2024 12:46:34 PM Interpretation: Performing Lab: Notes/Report: blood glucose 158 74 - 106 mg/dL Glycohemoglobin A1c (in hous e) Reviewed date:10/10/2024 12:46:41 PM Interpretation: Performing Lab: Notes/Report: glycohemoglobin 6.6% 5 - 6.5 % P-Basic Metabolic Panel (BMP ) Reviewed date:10/11/2024 08:14:08 AM Interpretation:co2 20, gluc 166 Performing Lab: Notes/Report: Test performed by [facility] [address] [place] [address] , [address], [place] [address] Natanael Barker MD, [employer] CLIA: [id number] Sodium 135 135-145 mmol/L Potassium 5.0 3.5-5.3 mmol/L Chloride 100 97-108 mmol/L CO2 20 22-32 mmol/L Glucose 166 65-99 mg/dL BUN 16 6-20 mg/dL Creatinine 1.07 0.70-1.30 mg/dL Calcium 10.2 8.6-10.4 mg/dL eGFR by Creatinine 81 >59 mL/min/1.73m2 P-Vitamin D 25-Hydroxy Reviewed date:10/11/2024 08:14:08 AM Interpretation:29.1 Performing Lab: Notes/Report: Test performed by [facility] [address] [place] [address] , [address], [place] [address] Natanael Barker MD, [employer] CLIA: [id number] Vitamin D 25-Hydroxy 29.1 30.0-100.0 ng/mL Interpretation of Vitamin D 25 [place]: < 20 ng/mL - Deficiency 20 - 29 ng/mL - Insufficiency 30 - 100 ng/mL - Sufficiency > 100 ng/mL - Super-therapeutic- toxicity may occur above this level. Clinical correlation required. CBC Fingerstick (in house) Reviewed date:05/14/2024 05:31:12 [...] - 38 plat 223 100 - 400 CBC Fingerstick (in house) Reviewed date:10/09/2024 08:54:11 [...] - 38 plat 267 100 - 400 ALPHAGAL Reviewed date:08/10/2024 04:07:55 [...] AGIGE > 100 Class kU/L Performed at: [facility] [id number] Finish Rolls Operator: Osorio De Luna MD, Phone: [phone] AGBEEF 27.20 Class V kU/L AGPORK 6.62 [...] Xarelto 20 MG [facility] 90 [...] a day for 30 day(s) Active MegaRed [place]-3 Krill Oil 500 MG as directed Orally [...] Problem Status W/U Status Risk Notes Problem 05795741 Essential (prima ry) hypertension (I10) Active confirmed Problem Type II diabetes mellitus without complication (471215259) Diabetes (E11.9) Active confirmed Problem Vitamin D deficiency (33754939) Vitamin D deficiency (E55.9) Active confirmed Problem 88339184 Essential hypert ension (I10) Active confirmed Problem 064959627 Hypertriglycerid emia (E78.1) Active confirmed Problem Seasonal allergy (021494427) Seasonal allergies (J30.2) Active confirmed Problem 529625391 Paroxysmal atria l fibrillation (I48.0) Active confirmed Problem Pure hyperglyceridemia (044079476) Pure hyperglyceridemia (E78.1) Active confirmed Problem 796195684 Mixed hyperlipid emia (E78.2) Active confirmed Problem 22241344 Arteriosclerotic cardiovascular disease (I25.10) Active confirmed Problem 493290684 Cervical disc di sease (M50.90) Active confirmed Problem 1458623776730 Coronary artery disease involving [place] coronary artery of kasaan heart without angina pectoris (I25.10) Active confirmed Problem 304462181 Erectile dysfunc tion, unspecified erectile dysfunction type (N52.9) Active confirmed Problem 351872295 History of cardi ac dysrhythmia (Z86.79) Active confirmed Problem 447397628 PAF (paroxysmal atrial fibrillation) (I48.0) Active confirmed Problem 22380930 Sleep apnea, unspecified type (G47.30) Active confirmed Problem Iron deficiency anemia (49008246) Iron deficiency anemia, unspecified iron deficiency anemia type (D50.9) Active confirmed Problem 45137240 Atrial fibrillat ion, unspecified type (I48.91) Active confirmed Problem 485446413 Cervical radicul opathy due to degenerative joint disease of spine (M47.22) Active confirmed Problem 70479462 Hyperlipidemia, unspecified hyperlipidemia type (E78.5) Active confirmed Problem 898939422 Disorder of neck (M53.82) Active confirmed Problem 488352685902833 Atrial fibrillat ion with RVR (I48.91) Active confirmed Problem 149069888 Dyslipidemia (E78.5) Active confirmed Problem 892816243 Paresthesia of b oth hands (R20.2) Active confirmed Problem Type II diabetes mellitus without complication (765503408) Type 2 diabetes mellitus without complication, without long-term current use of insulin (E11.9) Active confirmed Problem 005903834 Osteoarthritis o f cervical spine, unspecified spinal osteoarthritis complication status (M47.812) Active confirmed Problem Atherosclerotic heart disease of kasaan coronary artery without angina pectoris (219464054125588) Arteriosclerosis of coronary artery (I25.10) Active confirmed Problem 441977028 Atherosclerosis of [place] coronary artery without angina pectoris, unspecified whether kasaan or transplanted heart (I25.10) Active confirmed Problem 695712530 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.49) Active confirmed Problem 663797114 Bulging of cervi rosy intervertebral disc (M50.20) Active confirmed Problem 550610034 Facet arthropath y, cervical (M12.88) Active confirmed Problem 000248517 Type 2 diabetes mellitus without complication, unspecified whether halfway insulin use (E11.9) Active confirmed Problem 549454559 Chest pain due t o myocardial ischemia, unspecified ischemic chest pain type (I25.9) Active confirmed Problem 844311049 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) Active confirmed Problem 047348631 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) Active confirmed Vital Signs Heart Rate 70 /min 04/09/2025 Blood pressure diastolic 74 mm Hg 04/09/2025 Height 73 in 04/09/2025 Blood pressure systolic 112 mm Hg 04/09/2025 Weight 206.8 lbs 04/09/2025 BMI 27.28 kg/m2 04/09/2025 Encounters Encounter Location Date Provider Diagnosis [facility] [address] [facility] [address] [place] [id number] 05/14/2024 Virgilio Cove URI, acute J06.[address] [facility] [address] [place], [place] [id number] 06/26/2024 Bonnie Campa Insect bite W57.XXXA and Cellulitis L03.[address] [facility] [address] [place], [place] [id number] 08/15/2024 Virgilio Cove Dizziness R42 and Al lergy to alpha-gal Z91.[address] [facility] [address] [place], [place] [id number] 09/10/2024 Virgilio Cove Hematoma of right th igh, initial encounter S70.11XA and Disorder of neck M53.[address] [facility] [address] [place], [place] [id number] 09/27/2024 Virgilio Cove Acute URI J06.[address] [facility] [address] [place], [place] [id number] 10/08/2024 Virgilio Cove Persistent cough R05 .[address] [facility] [address] [place], [place] [id number] 10/10/2024 Virgilio Cove Type 2 diabetes vaishnavi itus without complication, without long-term current use of insulin E11.9 ; Essential (primary) hypertension I10 ; Vitamin D deficiency E55.9 and Abnormal brain MRI R90.[address] [facility] [address] [place], [place] [id number] 01/15/2025 Virgilio Cove Essential hypertensi on I10 and Vitamin D deficiency E55.[address] [facility] [address] [place], [place] [id number] 04/09/2025 Virgilio Cove Type 2 diabetes vaishnavi itus without complication, without long-term current use of insulin E11.9 ; Essential hypertension I10 ; Mixed hyperlipidemia E78.2 ; Hypertriglyceridemia E78.1 ; Iron deficiency anemia, unspecified iron deficiency anemia type D50.9 ; Sleep apnea, unspecified type G47.30 ; Prostate cancer screening Z12.5 ; Vitamin D deficiency E55.9 and BMI 27.0-27.9,adult Z68.27 [facility] [address] [place], [place] [id number] 05/14/2024 Virgilio Cove Type 2 diabetes vaishnavi itus without complication, without long-term current use of insulin E11.9 [facility] [address] [place], [place] [id number] 08/10/2024 Virgilio Cove [facility] [address] [place], [place] [id number] 08/10/2024 Virgilio Cove [facility] [address] [place], [place] [id number] 08/23/2024 Virgilio Cove [facility] [address] [place], [place] [id number] 10/11/2024 Virgilio Cove [facility] [address] [place], [place] [id number] 10/17/2024 Virgilio Cove History of stroke Z8 6.73 [facility] [address] [place], [place] [id number] 10/30/2024 Virgilio Cove Type 2 diabetes vaishnavi itus without complication, without long-term current use of insulin E11.9 and Other diabetic neurological complication associated with type 2 diabetes mellitus E11.49 [facility] [address] [place], [place] [id number] 11/20/2024 Virgilio Cove [facility] [address] [place], [place] [id number] 12/04/2024 Virgilio Cove Type 2 diabetes vaishnavi itus without complication, without long-term current use of insulin E11.9 [facility] [address] [place], [place] [id number] 12/12/2024 Virgilio Cove [facility] [address] [place], [place] [id number] 01/15/2025 Virgilio Cove [facility] [address] [place], [place] [id number] 01/16/2025 Virgilio Cove [facility] [address] [place] [id number] 01/28/2025 Virgilio Cove [facility] [address] [place], [place] [id number] 02/18/2025 Virgilio Cove [facility] [address] [place], [place] [id number] 02/27/2025 Virgilio Cove [facility] [address] [place], [place] [id number] 03/06/2025 Virgilio Cove [facility] [address] [place], [place] [id number] 03/11/2025 Virgilio Cove [facility] [address] [place], [place] [id number] 03/15/2025 Virgilio Cove [facility] [address] [place], [place] [id number] 03/18/2025 Virgilio Cove [facility] [address] [place], [place] [id number] 03/20/2025 Virgilio Cove Assessments Encounter Date Diagnosis (ICD Code) Assessment Notes Treatment Notes Treatment Clinical Notes Section Notes 05/14/2024 Type 2 diabetes vaishnavi itus without [...] symptoms 09/27/2024 Acute URI (ICD-10 - J06.9) 10/10/2024 Essential (primary) hypertension (ICD-10 - I10) [...] Essential hypertensi on (ICD-10 - I10) 04/09/2025 Type 2 diabetes vaishnavi itus without complication, without long-term current use of insulin (ICD-10 - E11.9) 01/15/2025 Vitamin D deficiency (ICD-10 - E55.9) 01/15/2025 Essential hypertensi on (ICD-10 - I10) 10/08/2024 Persistent cough (IC D-10 - R05.3) 04/09/2025 Mixed hyperlipidemia (ICD-10 - E78.2) 10/30/2024 Other diabetic neurological complication associated with type 2 diabetes mellitus (ICD-10 - E11.49) 10/10/2024 Vitamin D deficiency (ICD-10 - E55.9) 10/10/2024 Abnormal brain MRI (ICD-10 - R90.89) 04/09/2025 Hypertriglyceridemia (ICD-10 - E78.1) 04/09/2025 Iron [...] [address], [place], [id number], Insurance Providers Payer Name Payer Address Payer Phone Subscriber Number Group Number Insured Name Patient Relationship to Insured Coverage Start Date Coverage End Date [employer] [address] [place] [id number] Declan Bonds Self - patient is the [...] 09/2023 Hospitalization History Reason Date(Month/Year) Chest Pain- [facility] ER 03/31-03/2021 Covid Symptoms- [facility] UTC 11/30/2020 A-Fib, Hypertension- [facility] 09/19- Heart Stent- [place] 04/08/2015 Possible Heart Problems- [facility] 03/2013 RT Eye Irritation- [facility] ER 11/2012 Heart Stent- [place] 2004
== END ==
LOC: SL 20:19
PROVIDERS: PCP Family Medicine; Visit Provider Specialist
DX: G47.33 Obstructive sleep apnea (adult) (pediatric) (principal); G47.36 Sleep related hypoventilation in conditions classified elsewhere
CPT/HCPCS: 95810

== ENCOUNTER 2025-06-03 07:58 | Outpatient (CLI) | payer BC, SELFPAY ==
--- OUTSIDE RECORDS SUMMARY | 2025-01-15 05:15 | XMS_ITS ---
[facility] Organization [facility] [address] [place] [id number] Care Team Providers Care Rail Washer Name Role Phone Virgilio Jenkins Primary Care [...] Interpretation:26.5 Performing Lab: Notes/Report: Test performed by [employer], [employer] [address] [place] [address] , [address], [place] [address] Natanael Barker MD, Fishing Vessel Deckhand CLIA: [id number] Vitamin D 25-Hydroxy 26.5 30.0-100.0 ng/mL Interpretation [...] MG 1 tablet Oral ly Once a day; Duration: 90 days Active Rybelsus 14 MG TAKE 1 TABLET BY GREGORY TH DAILY; Duration: 90 Active Fenofibrate 160 MG TAKE 1 TABLET BY GREGORY TH ONCE DAILY; Duration: 90 Active Synjardy XR 12.5-1000 MG 2 tab(s) orally once a day; Duration: 90 days Active Ranolazine ER 1000 MG 1 tab(s) Orally 2 times a day Active Claritin 10 MG 1 tablet Orally Once a day Active Sildenafil Citrate 20 MG 1 to 5 tablet O rally Once a day as needed 04/09/2024 Active Xarelto 20 MG TAKE 1 TABLET BY GREGORY TH IN THE EVENING; Duration: 90 days Active OneTouch Verio - 1 test strip fingers tick test two times a day 10/07/2022 Active Ventolin HFA 90 MCG/ACT 1 puff as needed Inhalation every 4 hrs Active Flonase Allergy Relief 50 MCG/ACT 1 spray(s) in each nostril once a day; Duration: 30 day(s) Active MegaRed [place]-3 Krill Oil 500 MG as directed Orally Active Aspirin 81 MG 1 tablet Orally Once a day; Duration: 30 day(s) Active Symbicort 160-4.5 MCG/ACT 1 puff as need ed Inhalation every 4 hrs Active RABEprazole Sodium 20 MG 1 tablet after a meal Orally Once a day; Duration: 30 day(s) Active Vital Signs Blood pressure systolic 110 mm Hg 01/15/20 25 Blood pressure diastolic 64 mm Hg 025 Heart Rate 74 /min 01/15/2025 Height 73 in 01/15/2025 Weight 210.4 lbs 01/15/2025 BMI 27.76 kg/m2 01/15/2025 Encounters Encounter Location Date Provider Diagnosis [facility] [address] [facility] [address] [place], [place] [phone] 01/15/2025 Virgilio [place] Essential hypertensi on I10 and Vitamin D [...] [address], [place], [phone], Progress Notes * David BONDSsilviasamirDOB:[birth year] (60 yo M)Acc No.[id number]:01/15/2025 Progress Notes Patient: Declan FUENTES Provider: Ivan Jenkins M.D. :1965 A ge:59 Y S ex:Male Date:01/15/2025 Address:[facility] [id number] Subjective: * Chief Complaints: * 1 . [...] Hospitalization/Major Diagno stic Procedure: H eart Stent- [place] 2003, RT Eye Irritation- [facility] ER 11/2012, Possible Heart Problems- [facility] 03/2013, Heart Stent- [place] 04/08/2015, A-Fib, Hypertension- [facility] 09/19- , Covid Symptoms- [facility] UTC 11/30/2020, Chest Pain- [facility] ER 03/31-03/2021. * Family History: [...] Orally Once a day , Taking MegaRed [place]-3 Krill Oil 500 MG Capsule as directed [...] C ardiology: General Appearance: p leasant, NAD. H eart sounds: R RR, normal S1, S2. L ungs: c lear, no rales or wheezes. E xtremities: n o leg edema. Assessment: * Assessment: [...] Follow Up: 3 Months fasting visit * Images: Billing Information: * Visit Code: 50886 Office Visit, Est Pt., Level 3. * Procedure Codes: 3074F SYST BP LT 130 MM HG. 3078F DIAST BP < 80 MM HG. * Electronic signature of Nevin Jenkins MD on 06/03/2025 at 08:00 AM EDT Sign off status: Pending * Provider: Ivan Jenkins M.D. Date: 0 01/15/2025 Generated for Esther larsen/Pauline/Sylvia on: 0 06/03/2025 08:00 AM EDT History and Physical Notes * [...]
--- OUTSIDE RECORDS SUMMARY | 2025-04-09 05:45 | XMS_ITS ---
Author Organization [facility] Address [address] [place] [id number] Care Team Providers Care Interactive Media Project Manager Name Role Phone Virgilio Jenkins Primary Care [...] 135 Performing Lab: Notes/Report: Test performed by [facility] [address] [place] [address] , [address]orena C, [place] [address] Natanael Barker MD, Ground Surveillance Systems Operator CLIA: [id number] Sodium 135 135-145 mmol/L Potassium 4.7 3.5-5.3 [...] 157 Performing Lab: Notes/Report: Test performed by [facility] [address] [place] [address] [address], [place] [address] Natanael Barker MD, Ground Surveillance Systems Operator CLIA: [id number] Cholesterol 156 <200 mg/dL Triglycerides 157 <150 [...] Interpretation:Normal Performing Lab: Notes/Report: Test performed by [facility] , [place] [address] Natanael Barker MD, Ground Surveillance Systems Operator CLIA: [id number] PSA 0.29 <4.00 ng/mL Please note this is an ultrasensitive PSA assay with a lower limit of detection of 0.014 ng/mL. This test is performed by the Geovanna ECLIA methodology. Values obtained with different assay methods or kits cannot be directly compared. P-TSH reflex to FT4 Reviewed date:04/12/2025 10:08:41 AM Interpretation:Normal Performing Lab: Notes/Report: Test performed by [facility] , [place] [address] Natanael Barker MD, Ground Surveillance Systems Operator CLIA: [id number] TSH reflex to FT4 3.20 0.43-5.25 mU/L P-Microalbumin/Creatinine, R andom Urine Sample Reviewed date:04/12/2025 10:08:41 AM Interpretation:Normal Performing Lab: Notes/Report: Test performed by [facility] [address] [place] [address] , [address], [place] [address] Natanael Barker MD, Ground Surveillance Systems Operator CLIA: [id number] Albumin/Creatinine Ratio, Urine 3 0-30 ug/m g Microalbumin, Urine, Random 0.3 Creatinine, Urine 90.6 P-Vitamin D 25-Hydroxy Reviewed date:04/12/2025 10:08:41 AM Interpretation:Normal Performing Lab: Notes/Report: Test performed by [facility] [address] , [address], [place] [address] Natanael Barker MD, Ground Surveillance Systems Operator CLIA: [id number] Vitamin D 25-Hydroxy 47.2 30.0-100.0 ng/mL Interpretation [...] Once a day; Duration: 90 days Active Fenofibrate 160 MG TAKE 1 TABLET BY GREGORY TH ONCE DAILY; Duration: 90 days Active Symbicort 160-4.5 MCG/ACT 1 puff as need ed Inhalation every 4 hrs; Duration: 90 days Active Nadolol 80 MG 1 tablet Orally bid Active dilTIAZem HCl ER 120 MG TAKE 1 CAPSULE B Y MOUTH ONCE DAILY Orally Active Irbesartan 75 MG 2 tablets Orally Onc e a day Active Rybelsus 14 MG TAKE 1 TABLET BY GREGORY TH DAILY; Duration: 90 Active Synjardy XR 12.5-1000 MG 2 tab(s) orally once a day; Duration: 90 days Active Sildenafil Citrate 20 MG 1 to 5 tablet O rally Once a day as needed 04/09/2024 Active Xarelto 20 MG TAKE 1 TABLET BY GREGORY TH IN THE EVENING; Duration: 90 days Active Ranolazine ER 1000 MG 1 tab(s) Orally 2 times a day Active OneTouch Verio - 1 test strip fingers tick test two times a day 10/07/2022 Active Claritin 10 MG 1 tablet Orally Once a day Active Flonase Allergy Relief 50 MCG/ACT 1 spray(s) in each nostril once a day; Duration: 30 day(s) Active MegaRed Alice-3 Krill Oil 500 MG as directed Orally Active Aspirin 81 MG 1 tablet Orally Once a day; Duration: 30 day(s) Active Ventolin HFA 90 MCG/ACT 1 puff as needed Inhalation every 4 hrs Active RABEprazole Sodium 20 MG 1 tablet after a meal Orally Once a day; Duration: 30 day(s) Active Aldactone 25 MG 1 tablet Orally Active Vital Signs Blood pressure systolic 112 mm Hg 04/09/20 25 Blood pressure diastolic 74 mm Hg 025 Heart Rate 70 /min 04/09/2025 Height 73 in 04/09/2025 Weight 206.8 lbs 04/09/2025 BMI 27.28 kg/m2 04/09/2025 Encounters Encounter Location Date Provider Diagnosis [facility] [address] [id number] 04/09/2025 Virgilio Jenkins Type 2 diabetes vaishnavi [...] [address], [address], [place], [place], [id number], Progress Notes * Declan BONDSDOB:[birth year] (60 yo M)Acc No.[id number]:04/09/2025 Progress Notes Patient: David FUENTESbett Provider: Ivan Jenkins M.D. :1965 A ge:59 Y S ex:Male Date:04/09/2025 Address:[address] [place] [address] [place], [id number] Subjective: * Chief Complaints: * 1 . [...] Hospitalization/Major Diagno stic Procedure: H eart Stent- [place] 2003, RT Eye Irritation- [facility] ER 11/2012, Possible Heart Problems- [facility] 03/2013, Heart Stent- [place] 04/08/2015, A-Fib, Hypertension- [facility] 09/19- , Covid Symptoms- [facility] UTC 11/30/2020, Chest Pain- [facility] ER 03/31-03/2021. * Family History: F [...] Orally Once a day , Taking MegaRed Alice-3 Krill Oil 500 MG Capsule as directed [...] D deficiency - E55.9 9 . B [place] 27.0-27.9,adult - Z68.27 Plan: * Treatment: Value [...] icroalbumin, Urine, Random 0.3 - mg/dL * Regla Lang 04/11/2025 02: 54:48 PM > left message for return call Regla Lang 04/12/2025 10:07:54 AM > pt informed of results ?LAB: Glucose (In-House) (Collection Date & Time - 04/09/2025)?146* Value Reference Range b lood glucose 146 74 - 106 mg/dL * Regla Lang 04/09/2025 11: 22:41 AM > Regla Lang [...] PM > left message for return call Precious Regla 04/12/2025 10:07:54 AM > pt informed of results 6.?Vitamin D deficiency?LAB: P-Vitamin D 25-Hydroxy (Collection Date & Time - 04/09/2025 09:28 AM)? Normal* Value Reference Range V itamin D 25-Hydroxy 47.2 30.0-100.0 - ng/mL * PreciousRegla zapata 04/11/2025 02: 54:48 PM > left message for return call PreciousRegla zapata 04/12/2025 10:07:54 AM > pt informed of results * Procedure Codes: 8 2950 GLUCOSE TEST, [address]231 GLYCATED HEMOGLOBIN TEST, Modifiers: QW , 96492 CBC WITH AUTO DIFF, 3044F HG A1C LEVEL LT 7.0%, 3074F SYST BP LT 130 MM HG, 3078F DIAST BP < 80 MM HG * Follow Up: 6 Months * Images: Billing Information: * Visit Code: 76956 Office Visit, Est Pt., Level 4. * Procedure Codes: 82867 GLUCOSE TEST. 06961 GLYCATED HEMOGLOBIN TEST. Modifiers: QW 84177 CBC WITH AUTO DIFF. 3044F HG A1C LEVEL LT 7.0%. 3074F SYST BP LT 130 MM HG. 3078F DIAST BP < 80 MM HG. * Electronic signature of Nevin Jenkins MD on 06/03/2025 at 08:00 AM EDT Sign off status: Pending * Provider: Ivan Jenkins M.D. Date: 0 04/09/2025 Generated for Esther larsen/Pauline/Magyitting on: 0 06/03/2025 08:00 AM EDT History and Physical Notes * HPI (History of Present Illness) Category Sub-Category Detail Notes Category Not es Endocrinology Maintenance Pt presents [facility] for a 3-month check up. Pt is fasting today. Pt sts that he is doing well and has no new concerns or complaints Examination Category Sub-Category Detail Notes Category Not es Cardiology Lungs: clear, no rales or wheezes Heart sounds: RRR, normal S1, S2 Extremities: no leg edema General Appearance: pleasant, NAD
--- OUTSIDE RECORDS SUMMARY | 2025-06-03 08:00 | XMS_ITS | Data Portability ---
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 Coronary ed ry disease s/p GA 09/2006 (at age 41) and PCI 04/15/2015 [...] office with any change in clinical status. [email or web address] Not available 10/23/2021 13:49:25 05/17/2022 05/17/2022 Impression: 1. Coronary artery disease s/p GA 09/2006 (at age 41) and PCI 04/15/2015 [...] office with any change in clinical status. [email or web address] Not available 05/17/2022 20:32:50 12/01/2022 12/01/2022 Imaging: Lumbar MRI at [facility] 10/25/2022-radiolo gy report and images reviewed by [...] -Patient seen by myself and Dr. Venegas [email or web address] Not available 12/02/2022 08:46:17 Plan of Treatment Reminders Order Date Submit Date Provider Last Modified By Organization Details Last Modified Time Details Appointments None recorded. Lab None recorded. Referral None recorded. Procedures None recorded. Surgeries None recorded. Imaging electrocard iogram 2020 021 [email or web address], [place], [address], 1 13:49:37 electrocard iogram 2019 020 [email or web address] [address], [place], [address], 0 15:46:50 Medication Orders None recorded. Patient TargetsNo targets recorded. Patient Instructions Encounter Date Encounter Id Patient Instructions Last Modified By Organization Details Last Modified Time 08/29/2020 [id number] Spent 45 total minutes with the patient today. Greater than 50% of this time was spent counseling/coordi nation of care as documented in my assessment and plan above. MRI cervical spine CD-ROM [facility]: C4-5 left disc osteophyte complex with moderate foraminal stenosis. Mild findings otherwise [email or web address] Not available 08/29/2020 11:22:53 09/08/2020 [id number] elevated blood pressure: care instructions [email or web address] Not available 09/08/2020 15:42:46 high cholesterol : care instructions [email or web address] Not available 09/08/2020 15:42:46 10/23/2021 [id number] Body Mass Index: Care Instructions-LC [email or web address] Not available 10/23/2021 13:49:37 05/17/2022 [id number] body mass index: care instructions [email or web address] Not available 05/17/2022 20:32:57 Reason for Referral None Reported. Results Created Date Observation Date Name Description Value Unit Range Abnormal Flag Note LastModifiedBy Organization Detail LastModifiedTime 09/10/20 20 09/08/2020 elect rocar diogr am No observ ation record ed. BARCODE [place] [address], [place], [address], 09/10/2020 09:49:05 10/23/20 21 elect rocar diogr am No observ ation record ed. [email or web address] [place] [address], [place], [address], 10/23/2021 13:04:01 10/26/2010/23/2021 elect karey edouardgr am No observ ation record ed. BARCODE [facility] [address], [place], [address], 10/26/2021 11:47:54 12/03/19 23 10/25/2022 MRI, lumba r spine , w/o contr ast No observ ation record ed. BARCODE Not Available 2022 12:09:56 12/03/19 23 10/07/2022 XR, entir e spine , 6 or more view No observ ation record ed. BARCODE Not Available 2022 12:09:56 12/03/1910/25/2022 MRI, lumba r spine , w/o contr [...] Address Organization Details Recorded Time Chest pain 49488417 Active 2015 From [employer];Pro vider: Matt Lei;Sta tus: Active Not Available [facility] 6 05:37:00 Coronary arterios clerosis in [place] artery 76017521917 07 Active 2015 From [employer] Load;Pro vider: Matt Lei;Sta tus: Active Not Available [facility] 6 05:37:00 Hyperlip idemia 82879614 Active 2015 From [employer] Load;Pro vider: Matt Lei;Sta tus: Active Not Available [facility] 6 05:37:00 Paroxysm al atrial fibrilla tion 443945165 Active 2016 MATT LEI MD [address] [place] [address], [address] , [facility] 7 12:00:29 Atrial fibrilla tion 22379776 Completed 201509/23/2017 From [employer] Load;Pro vider: Matt Lei;Sta tus: Active MATT LEI MD [address] [place] [address], [address] , [facility] 7 10:10:35 Hyperten sive disorder 46313381 Active 2016 AMTT LEI MD [address] [place] [address], [address] , [facility] 7 10:10:54 Long-ter m drug therapy Active 2019 MATT LEI MD [address] [place] [address], [address] , [facility] 0 06:08:28 Long-ter m current use of anticoag ulant 923456408 Active 2019 MATT LEI MD [address] [place] [address], [phone] [place] [address] 0 06:08:31 Problem Notes None recorded. Procedures Surgical History Date Name Laterality Status Provider Name and Address Organization Details Recorded Time 05/17/20 22 EKG completed Alia Bull [facility] 05/17/2022 10:51:13 05/14/20 19 Injection, Intralesional completed Janeth Marin [facility] 05/14/2019 10:44:35 12/04/19 19 EKG completed KOKI WORRELL PA-C [address] [place] [address], [address] [place] [address], [facility] 12/04/2018 10:18:58 08/11/20 18 Injection Joint/Bursa, Major completed ALVARO HENSLEY MD [address] [place] [address], [phone], [facility] 08/11/2018 09:45:14 04/15/20 15 Stent Placement completed MATT ELI MD [address] [place] [address], [phone], [facility] 03/18/2017 09:36:12 Stent Placement completed MATT LEI MD [address] [place] [address], [place], [address], [facility] 03/18/2017 09:33:30 Cardiac Catheterization completed Janeth Bam [facility] 08/11/2018 10:36:08 Other completed Lisset Leslie [facility] 12/10/2016 15:49:43 Imaging Results None recorded. Procedure Notes None recorded. Medical Equipment None Reported. Allergies Allergen ID Allergen Name Allergen Category Reaction Reaction Severity Criticality Documentation Date Start Date Code Code System Note Provider Name and Address Organization Details Recorded Time 425724 Demerol medicatio n Not available Not available Not available 10/22/20162014 27278 1 RxNorm Comme nt: Creat ed By: Jamaal Stearns ;Crea torin Date: 2014 10:48 :19 AM; Not Available [facility] 6 07:45:20 851787 Product containin g penicilli n (product) medicatio n Not available Not available Not available 10/22/20162014 77807 8001 SNOMED Comme nt: Creat ed By: Jamaal Stearns ;Crea torin Date: 2014 10:49 :01 AM; Not Available [facility] 6 08:39:38 819926 codeine medicatio n Not available Not available Not available 10/22/20162014 2670 RxNorm Comme nt: Creat ed By: Jamaal Stearns ;Crea torin Date: 2014 10:48 :11 AM; Not Available [facility] 6 08:39:38 Medications Name Sig Start Date [...] mg samples 6 packs given to ptlot# [id number] exp 03/18 Not Available Not Available Not [...] Available Not Available No t Available [employer] [place]-3 Krill Oil 500 mg-115 mg-30 mg-64 mg [...] Body mass index (BMI) Body weight Systolic And Diastolic Provider Name and Address Organization Details Last Updated DateTime 12/01/2022 185.42 cm 31 kg/m2 946039.21 g 120/80 mm[Hg] Michelle Tavarez [facility] 12/01/2022 14:52:33 Date Recorded Body height Body mass index (BMI) Body weight Heart rate Systolic And Diastolic Provider Name and Address Organization Details Last Updated DateTime 05/17/2022 185.42 cm 29.9 kg/m2 750635.4 7 g 78 /min 128/78 mm[Hg] Alia Bull [facility] 05/17/2022 11:02:32 Date Recorded Body height Body mass index (BMI) Body weight Heart rate Systolic And Diastolic Provider Name and Address Organization Details Last Updated DateTime 08/29/2020 185.42 cm 30.6 kg/m2 444618.4 3 g 83 /min 141/75 mm[Hg] Geni Winsome [facility] 08/29/2020 10:52:51 Date Recorded Body height Body mass index (BMI) Body weight Heart rate Systolic And Diastolic Provider Name and Address Organization Details Last Updated DateTime 09/08/2020 185.42 cm 31.1 kg/m2 707927.8 g 93 /min 136/86 mm[Hg] Janeth [facility] 09/08/2020 15:15:25 Date Recorded Body height Body mass index (BMI) Body weight Heart rate Systolic And Diastolic Provider Name and Address Organization Details Last Updated DateTime 10/23/2021 185.42 cm 29.7 kg/m2 182460.2 8 g 81 /min 116/76 mm[Hg] Janeth [facility] 10/23/2021 13:09:32 Social History Question Answer Notes LastModified by Organizat ion Details LastModified Time Tobacco Smoking Status Never Smoker Lisset riley [facility] 12/10/2016 15:46:05 How Much Tobacco Do You Chew? None [email or web address] Information not available 02/02/2019 Live Alone Or With Others? With Others Information not available 12/04/2018 Marital Status Informatio n not available 12/29/2016 What Was The Date Of Your Most Recent Tobacco Screening? 05/17/2022 Information not available 05/17/2022 How Many Children Do You Have? 1 Information not available 12/29/2016 Has Tobacco Cessation Counseling Been Provided? No [email or web address] Information not available 12/04/2018 On What Date Was Tobacco Cessation Counseling Provided? 10/23/2021 [place] [address] Answered No To The Tobacco Cessation Counseling Provided Question On 12/04/2018. [email or web address] Information not available 10/23/2021 Have You Recently [...] 08/13/2019 What is your occupation? [employer] Information not available 03/18/2017 Do you or have you ever used e-cigarettes or vape? Never used electronic cigarettes [email or web address] Information not available 08/13/2019 Mental Status None [...] SNOMED-CT Code Diagnosis ICD10 Code Diagnosis Note [id number] MATT LEI MD CARDIOLOG Y [address] [place] [address] 01/03/2017 11:01:32 01/03/2017 12:16:22 Coronary arteriosclerosis in [place] artery 1930419685 107 I25.10 I feel that the patient [...] any change in status. Paroxysmal atrial fibrillation 091155750 I48.0 The patient indicates he is having occasional episodes of rapid fluttering in his heart which are reminiscen t of his previous atrial fibrillati on. I recommend that he continue his antithromb otic and antiarrhyt hmic therapy for the time being. His electrocar diogram shows normal sinus rhythm with normal QTc interval. [id number] QM_[employer] [place] [address] 02/28/2017 20:06:40 02/28/2017 20:06:40 [id number] MATT LEI MD CARDIOLOG Y [facility] CLOSED [address] [place] [address] 03/18/2017 08:47:02 03/18/2017 10:16:03 Coronary arteriosclerosis in [place] 7765964437 107 I25.10 Medication changes, as well as [...] any change in status. Paroxysmal atrial fibrillation 962573635 I48.0 No recurrence of palpitatio ns. EKG from emergency room showed normal sinus rhythm with normal QTC. We'll reschedule follow-up for 6 months. Chest pain 37602426 R07. 9 This chest pain was noncardiac with negative troponin and EKG evaluation . I reassured him that no further workup is needed at this time. I don't feel that her stress test is necessary. Hyperlipidemia 42495475 E78.5 Management of this problem was reviewed with the patient. No changes recommende d, status for this problem is stable at this time. [id number] MATT LEI MD CARDIOLOG Y [facility] CLOSED [address] [place] [address] 09/23/2017 09:26:38 09/23/2017 10:18:51 Long-term drug therapy 791040246 Z79.899 Flecainide .Patient shows no evidence of toxicity to the antiarrhyt hmic drug program. Electrocar diogram shows stable QTc interval. Risk of medication and monitoring reviewed with patient.EK G: NSR with normal QTC. Rhythm strip was performed and showed rare PACs. Coronary arteriosclerosis in [place] artery 2713642655 107 I25.10 Chest pain 32177501 R07. 9 This chest pain was noncardiac with negative troponin and EKG evaluation . I reassured him that no further workup is needed at this time. I don't feel that her stress test is necessary. Hyperlipidemia 35574497 E78.5 Management of this problem was reviewed with the patient. No changes recommende d, status for this problem is stable at this time. Paroxysmal atrial fibrillation 234743673 I48.0 The patient remains in normal sinus [...] any change in status. Hypertensive disorder 38 967433 [employer] his blood pressures a bit [...] heart failure. Long-term current use of anticoagulant 466188038 Z79.01 Xarelto.No symptoms of bleeding or any evidence of anticoagul ant toxicity. Periodic CBC recommende d. [id number] MATT LEI MD CARDIOLOG Y [place] [address] [place] [address] [address] [place] [address] 05/30/2018 08:59:10 05/30/2018 16:00:31 Long-term drug therapy 041477542 Z79.899 Flecainide .Patient shows no evidence of toxicity to the antiarrhyt hmic drug program. Electrocar diogram shows stable QTc interval. Risk of medication and monitoring reviewed with patient.EK G: NSR with normal QTC. Rhythm strip was performed and showed rare PACs. Coronary arteriosclerosis in [place] artery 5556985322 107 I25.119 the patient is concerned that [...] swelling, pain, or medication reaction. Chest pain 69525493 R07. 9 nitroglyce rin will be renewed. Hyperlipidemia 57581906 E78.5 Management of this problem was reviewed with the patient. No changes recommende d, status for this problem is stable at this time. Paroxysmal atrial fibrillation 145546401 I48.0 The patient remains in normal sinus [...] any change in status. Hypertensive disorder 38 081556 [employer] his blood pressures a bit [...] heart failure. Long-term current use of anticoagulant 597205434 Z79.01 Xarelto.No symptoms of bleeding or any evidence of anticoagul ant toxicity. Periodic CBC recommende d. [id number] ALVARO HENSLEY MD [facility]TH[facility]EDI [facility] [address] [place] [address] 08/11/2018 08:44:34 08/11/2018 09:52:55 Adhesive capsulitis of right shoulder 2566676033 27939 M75.01 Mr Vamshi has findings of adhesive capsulitis of the right shoulder. I had extensive discussion with him regarding the natural history and treatment of frozen shoulder. He was provided corticoste roid injection for pain relief and I recommend a course of physical therapy as well as HEP. [id number] MATT LEI MD CARDIOLOG Y [place] [address] [place] [address] ,[address] [place] [address] 08/11/2018 10:25:03 08/11/2018 11:13:09 Long-term drug therapy 188513512 Z79.899 Flecainide .Patient shows no evidence of toxicity to the antiarrhyt hmic drug program. Electrocar diogram shows stable QTc interval. Risk of medication and monitoring reviewed with patient.EK G: NSR with normal QTC. Rhythm strip was performed and showed rare PACs. Coronary arteriosclerosis in [place] 6168120123 107 I25.119 Cardiac catheteriz ation was reassuring but the patient persisted in having symptoms. I discussed options and treatment and advised increasing her isosorbide mononitrat e 60 mg.Electro rosas prescripti on sent to patient's pharmacy. We'll consider Ranexa in the future. Chest pain 64104750 R07. 9 nitroglyce rin will be renewed. Hyperlipidemia 73409904 E78.5 Management of this problem was reviewed with the patient. No changes recommende d, status for this problem is stable at this time. Paroxysmal atrial fibrillation 166814513 I48.0 The patient remains in normal sinus [...] any change in status. Hypertensive disorder 38 076802 [employer] his blood pressures a bit [...] heart failure. Long-term current use of anticoagulant 304202372 Z79.01 Xarelto.No symptoms of bleeding or any evidence of anticoagul ant toxicity. Periodic CBC recommende d. Renewal of prescription 265349214 Z76.0 [id number] KOKI WORRELL PA-C CARDIOLOG Y [place] [address] [place] [address] ,[address] [place] [address] 12/04/2018 09:39:28 12/04/2018 10:50:23 Chest pain 30960464 R07.9 Coronary arteriosclerosis in [place] artery 3626930076 107 I25.10 Paroxysmal atrial fibrillation 034221033 I48.0 Hypertensive disorder 38 398267 I10 Hyperlipidemia 08867908 E78.5 [id number] MATT LEI MD CARDIOLOG Y [facility] CLOSED [address] [place] [address] 02/02/2019 09:10:47 02/02/2019 11:12:41 Coronary arteriosclerosis in [place] artery 2769454577 107 I25.10 No further episodes of angina since taking Ranexa. Paroxysmal atrial fibrillation 119230985 I48.0 The patient remains in normal sinus [...] 6 months with EKG. Hypertensive disorder 38 635690 I10 Management of this problem was reviewed with the patient. No changes recommende d, status for this problem is stable at this time. Hyperlipidemia 13384244 E78.5 Management of this problem was reviewed with the patient. No changes recommende d, status for this problem is stable at this time. Long-term drug therapy 586068845 Z79.899 Flecainide .Patient shows no evidence of toxicity to the antiarrhyt hmic drug program. Electrocar diogram shows stable QTc interval. Risk of medication and monitoring reviewed with patient.EK G: NSR with normal QTC. Rhythm strip was performed and showed rare PACs. Long-term current use of anticoagulant 502733436 Z79.01 Xarelto.No symptoms of bleeding or any evidence of anticoagul ant toxicity. Periodic CBC recommende d. [id number] CRISTAL LIU MD DERMATOLO [facility] [place] [address] [place] [address] 05/14/2019 09:42:44 05/14/2019 12:55:25 Lentigo 873198525 L81.4 Reassuranc e and education regarding the disorder and options. Gely beltran of [facility] 30812686 L57.3 Reassuranc e and education regarding the disorder and options. Digital mucous cyst 4040 46706 M71.349 Reassuranc e and education regarding the disorder and options. Drained and injected with ..1 ml of Kenalog 40 mg - Pain in fi nger of left hand 0217267987 29483 M79.917 [id number] MATT LEI MD CARDIOLOG Y [place] [address] [place] [address] 08/13/2019 13:51:19 08/13/2019 15:40:04 Coronary arteriosclerosis in [place] artery 8243624261 107 I25.10 No further episodes of angina since taking Ranexa. Paroxysmal atrial fibrillation 162569745 I48.0 The patient remains in normal sinus [...] 6 months with EKG. Hypertensive disorder 38 666633 I10 Management of this problem was reviewed with the patient. No changes recommende d, status for this problem is stable at this time. Hyperlipidemia 82893806 E78.5 Management of this problem was reviewed with the patient. No changes recommende d, status for this problem is stable at this time. Long-term drug therapy 193144427 Z79.899 Flecainide .Patient shows no evidence of toxicity to the antiarrhyt hmic drug program. Electrocar diogram shows stable QTc interval. Risk of medication and monitoring reviewed with patient.EK G: NSR with normal QTC. Rhythm strip was performed and showed rare PACs. Long-term current use of anticoagulant 364484942 Z79.01 Xarelto.No symptoms of bleeding or any evidence of anticoagul ant toxicity. Periodic CBC recommende d. [id number] MATT LEI MD CARDIOLOG Y [address] [address] 03/21/2020 08:20:40 03/24/2020 07:17:25 Coronary arteriosclerosis in [place] 1352808438 107 I25.10 No further episodes of angina since taking Ranexa. Paroxysmal atrial fibrillation 631158630 I48.0 The patient remains in normal sinus [...] RTC:3 months with EKG. Hypertensive disorder 38 414683 I10 Management of this problem was reviewed with the patient. No changes recommende d, status for this problem is stable at this time. Hyperlipidemia 86755693 E78.5 Management of this problem was reviewed with the patient. No changes recommende d, status for this problem is stable at this time. Long-term drug therapy 308957735 Z79.899 In light of CAD change to propafenon e. Long-term current use of anticoagulant 064087666 Z79.01 Xarelto.No symptoms of bleeding or any evidence of anticoagul ant toxicity. Periodic CBC recommende d. [id number] ADRIÁN SIMPSON MD NE[facility]URG [facility] CLOSED [address] [place] [address] 08/29/2020 10:28:05 08/29/2020 12:56:37 Cervical spondylosis without myelopathy 441135025 M47.812 -The patient presents for evaluation of [...] to continue his active lifestyle. Lumbar spondylosis 16412 0009 M47.896 -Chronic low back pain. Axial location. No recent imaging. Plan to investigat e further with x-rays of the lumbar spine. [id number] MATT LEI MD CARDIOLOG Y [address] [address] 09/08/2020 14:24:30 09/08/2020 15:46:50 Coronary arteriosclerosis in [place] 6406383480 107 I25.10 No further episodes of angina since taking Ranexa. Paroxysmal atrial fibrillation 845577439 I48.0 The patient remains in normal sinus [...] RTC:6 months with EKG. Hypertensive disorder 38 885665 I10 Management of this problem was reviewed with the patient. No changes recommende d, status for this problem is stable at this time. Hyperlipidemia 55115794 E78.5 Management of this problem was reviewed with the patient. No changes recommende d, status for this problem is stable at this time. Long-term drug therapy 712307740 Z79.899 In light of CAD change to propafenon e. Long-term current use of anticoagulant 689383116 Z79.01 Xarelto.No symptoms of bleeding or any evidence of anticoagul ant toxicity. Periodic CBC recommende d. [id number] GARCIA ASTUDILLO MD CARDIOLOG Y [address] [place] [address] 10/23/2021 12:57:22 10/23/2021 13:37:17 Coronary arteriosclerosis in [place] 5672875132 107 I25.10 Paroxysmal atrial fibrillation 439358018 I48.0 Hypertensive disorder 38 053290 I10 Hyperlipidemia 94169400 E78.5 Long-term drug therapy 523181187 Z79.899 Long-term current use of anticoagulant 571584856 Z79.01 Continue Xarelto 20mg daily.No symptoms of bleeding or any evidence of anticoagul ant toxicity. Periodic CBC recommende d. Body mass index 25-29 - overweight 140633093 Z68.29 [id number] GARCIA ASTUDILLO MD CARDIOLOG Y [place] [address] [place] [address],[address] [place] [address] 05/17/2022 10:08:52 05/17/2022 12:03:37 Coronary arteriosclerosis in [place] 1296038794 107 I25.10 Paroxysmal atrial fibrillation 676448986 I48.0 Hypertensive disorder 38 102999 I10 Hyperlipidemia 77495951 E78.5 Long-term current use of anticoagulant 225365680 Z79.01 Continue Xarelto 20mg daily.No symptoms of bleeding or any evidence of anticoagul ant toxicity. Periodic CBC recommende d. Obese 049064365 E66.9 [id number] LIDIA VENEGAS MD NEUROSURG [facility] CL[facility] [address] [place] [address] 12/01/2022 13:38:50 12/03/2022 16:15:00 Low back pain 493172803 M54.50 Health Concerns Section Related Observation LastModified by Organization Detai ls LastModified Time None Recorded Concern Status LastModified by Organization Details LastModified Time None Recorded Advance Directives Directive None Recorded Payers Insurance Date Sequence Insurance Name Policy Number Policy [place] Covered Member ID [place] Member ID Guarantor Name 12/01/2022 1 [facility] [id number] Declan G Vamshi [id number] Declan G Vamshi 09/08/2020 2 [place] [employer] [place]/TRADITION [place] Declan G Vamshi [id number] Declan G Vamshi 09/08/2020 3 [place]/TRADITION [place] Declan G Vamshi [id number] Declan G Vamshi Notes Date Note Type Note Provider Name and Address Organization Details Recorded Time 08/29/2020 text/html The patient was seen at the request of Saadia Spicer. He is a 55-year-old who lives in [place], [place]. 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 Evaluated in ER in [place] with CP unremarkable EKG, negative cardiac enzymes normal chest x-ray and laboratory studies. Cath 06/05/2018: Occluded circumflex unchanged from 2014, noncritical CAD of LAD, stents patent. Medical therapy recommended. Comorbid: DM II, HTN, HLP. He still has class II angina pectoris.He has been free of angina however since starting Ranexa and is tolerating this medication without difficulty. Denies syncope, CHF, orthopnea, PND, palpitations. MATT LEI MD [facility] [place], [address], [facility] 09/08/2020 15:42:50 10/23/2021 text/html CARDIOVASCULAR HISTORY:# Coronary artery disease s/p stents 09/2006 and . Acute GA with PCI 09/2006 (performed at age 41)b. PCI 04/15/2015: tight lesion of a large diagonal revascularized w/placement of 2.75 x 12mm FADY.c. Cath 06/05/2018: Occluded circumflex unchanged from 2014, noncritical CAD of LAD, stents patent. # Paroxysmal Atrial Fibrillationa. Xarelto ( CHADS-Vasc 3).Previously on flecainide.Switched to propafenone September 08, 2020. # Type 2 diabetes# Hypertension# Dyslipidemia 10/23/2021:6 month office visit regarding ASCVD.Former patient of Dr Matt Lei, who lives in [place]. He reports that his overall health has [...] EGFR 101 LFTs: Normal GARCIA ASTUDILLO MD [address] [place] [address], [phone], [facility] 10/23/2021 13:49:42 05/17/2022 text/html CARDIOVASCULAR HISTORY:# Coronary artery disease s/p stents 09/2006 and . Acute GA with PCI 09/2006 (performed at age 41)b. PCI 04/15/2015: tight lesion of a large diagonal revascularized w/placement of 2.75 x 12mm FADY.c. Cath 06/05/2018: Occluded circumflex unchanged from 2014, noncritical CAD of LAD, stents patent. # Paroxysmal Atrial Fibrillation (rate control strategy)a. Xareltatiana ( CHADS-Vasc 3). # Type 2 diabetes# [...] of Dr Matt Lei, who lives in [place]. He reports that his overall health has [...] ms, QTC 410 ms. GARCIA ASTUDILLO MD [address] [place] [address], [phone], [facility] 05/17/2022 20:33:00 12/01/2022 text/html Patient is [...] numbness in thighs. JOSE SIMPSON PA-C [address] [place], [address], [facility] 12/02/2022 08:47:00
--- OUTSIDE RECORDS SUMMARY | 2025-06-03 08:00 | XMS_ITS | Clinical Summary ---
Author Organization [facility] [place] [place] [address] Care Team Providers Care News Reporter Name Role Phone Unavailable Primary Care Provider [...] - 2023-2 5 season) 2024 Influenza Vaccine (#1) 2025 Meningococcal B Vaccine Aged Out No l onger eligible based on patient's age to complete this topic
--- NOTE | 2025-06-03 08:01 | XR_ITS ---
FINAL REPORT CLINICAL HISTORY: evaluation for treatment pain, limited rom COMPARISON: None FINDINGS: RIGHT HAND Three views demonstrate no acute fracture or dislocation. There are minimal hypertrophic changes at the 2nd, 3rd, and 4th DIP joints and at the basilar joint. The soft tissues are unremarkable. IMPRESSION: Minimal hypertrophic changes consistent with mild osteoarthritis. Reviewed, Interpreted and Dictated by Matthew Yates MD Transcribed by Lisset Nicholson Authenticated and [facility]
--- NOTE | 2025-06-03 08:01 | XR_ITS ---
FINAL REPORT CLINICAL HISTORY: evaluation and treatment pain, limited rom COMPARISON: None FINDINGS: LEFT WRIST Three views demonstrate no acute fracture or dislocation. There are mild hypertrophic changes at the basilar joint and the distal radioulnar joint. The soft tissues are unremarkable. IMPRESSION: Mild hypertrophic changes consistent with mild osteoarthritis. Reviewed, Interpreted and Dictated by Matthew Yates MD Transcribed by Lisset Nicholson Authenticated and [facility]
--- NOTE | 2025-06-03 08:01 | XR_ITS ---
FINAL REPORT CLINICAL HISTORY: evaluation and treatment pain, limited rom COMPARISON: None FINDINGS: RIGHT WRIST Three views demonstrate no acute fracture or dislocation. The visualized joint spaces are normally aligned. The soft tissues are unremarkable. IMPRESSION: No acute bony abnormality. Reviewed, Interpreted and Dictated by Matthew Yates MD Transcribed by Lisset Nicholson Authenticated and [facility]
--- NOTE | 2025-06-03 08:01 | XR_ITS ---
FINAL REPORT CLINICAL HISTORY: evaluation for treatment pain, limited rom COMPARISON: None FINDINGS: LEFT HAND Three views demonstrate no acute fracture or dislocation. There are minimal hypertrophic changes at the 2nd and 3rd DIP joints, the basilar joint, and the distal radioulnar joint. The soft tissues are unremarkable. IMPRESSION: Minimal hypertrophic changes consistent with mild osteoarthritis. Reviewed, Interpreted and Dictated by Matthew Yates MD Transcribed by Lisset Nicholson Authenticated and . [facility]
--- OUTSIDE RECORDS SUMMARY | 2025-06-03 08:01 | XMS_ITS | Clinical Summary ---
Author Organization [facility] Address [address] [place] [address] Care Team Providers Care Locker Attendant Name Role Phone Virgilio Jenkins MD Primary Care Provider [phone] Social History Tobacco Use Types Packs/Day Years [...] 2017 [facility]-Zoster Vaccines (1 of 2) 2017 [facility]-BHONP-13 Vaccine (3 - 2023- season) 2024 03/31/2021, 02/25/2021 [facility]-Influenza Vaccine (#1) 07/29/202508/17, 09/28/2014 [facility]-DTaP,Tdap,and Td Vaccine s (3 - [...] patient's age to complete this topic Insurance [facility] Care Teams Locker Attendant Relationship Specialty Start Date End Date Virgilio Jenkins MD [address] [facility] [address] [place] [address] PCP - General 03/25/23
--- OUTSIDE RECORDS SUMMARY | 2025-06-03 08:01 | XMS_ITS | Data Portability ---
Author Organization [facility] Address [address] [place] [address] Care Team Providers Care Computer Recycling Worker Name Role Phone TONY CROUCH Primary Care Provider ADRIÁN SIMPSON Referring Provider [...] None recorded. Lab drug screen, urine 2019 020 bgish [place], [address], [place], [address], 0 09:59:52 Referral None recorded. Procedures medial [...] n, urine THC: negati ve Not Available [place] [address], [place], [address], 09/12/2020 09:30:21 09/12/20 20 09/12/2020 drug scree n, urine Buprenorphin e: negati ve Not Available [place] [address], [place], [address], 09/12/2020 09:30:21 09/12/20 20 09/12/2020 drug scree n, urine TCA: negati ve Not Available [place] [address], [place], [address], 09/12/2020 09:30:21 09/12/20 20 09/12/2020 drug scree n, urine Barbiturates : negati ve Not Available [place] [address], [place], [address], 09/12/2020 09:30:21 09/12/20 20 09/12/2020 drug scree n, urine Benzodiazepi david: negati ve Not Available [place] [address], [place], [address], 09/12/2020 09:30:21 09/12/2009/12/2020 drug scree n, urine Methadone: negati ve Not Available [place] [address], [place], [address], 09/12/2020 09:30:21 09/12/2009/12/2020 drug scree n, urine Amphetamines : negati ve Not Available [place] [address], [place], [address], 09/12/2020 09:30:21 09/12/2009/12/2020 drug scree n, urine Morphine/Opi ates: negati ve Not Available [place] [address], [place], [address], 09/12/2020 09:30:21 09/12/2009/12/2020 drug scree n, urine Oxycodone: negati ve Not Available [place] [address], [place], [address], 09/12/2020 09:30:21 09/12/2009/12/2020 drug scree n, urine MDMA: negati ve Not Available [place] [address], [place], [address], 09/12/2020 09:30:21 09/12/2009/12/2020 drug scree n, urine Cocaine: negati ve Not Available [place] [address], [place], [address], 09/12/2020 09:30:21 09/12/20 20 09/12/2020 drug scree n, urine Methamphetam ine: negati ve Not Available [place] [address], [place], [address], 09/12/2020 09:30:21 Result Notes None recorded. Problems Name Problem SNOMED Code Status Onset Date Resolution Date Notes Provider Name and Address Organization Details Recorded Time Chest pain 82209626 Completed 201509/12/2020 Hayde [place] null, [place] - [facility] 0 09:18:25 Atrial fibrillat ion 60906749 Active 2015 Hayde Erica null, [place] - [facility] 0 09:16:33 Paroxysma l atrial fibrillat ion 167869653 Active 2016 Hayde Erica null, [place] [facility] 0 09:16:33 Long-term current use of anticoagu lant 663957502 Active 2019 Hayde [place] null, [place] [facility] 0 09:16:33 Hypertens do disorder 65199425 Completed 201609/12/2020 Hayde Erica null, [place] [facility] 0 09:18:31 Hyperlipi demia 03624983 Completed 201509/12/2020 Hayde Erica null, [place] - [facility] 0 09:18:29 Long-term drug therapy Active 2019 Hayde [place] null, [place] [facility] 0 09:16:33 Coronary arteriosc lerosis in [place] artery 966827323853 7 Active 2015 Hayde Erica null, [place] - [facility] 0 09:16:33 Neck pain 70833803 Active 2019 Hayde Erica null, [place] [facility] 0 09:18:44 Cervical spondylos is 168836187 Active 2019 Hayde Erica null, [place] - [facility] 0 13:40:27 Problem Notes None recorded. Procedures Surgical History Date Name Laterality Status Provider Name and Address Organization Details Recorded Time 0 Diagnostic Cervical MBB: Posterior (3 Level Unilateral) completed [facility] 09/26/2020 13:53:16 Unlisted px hands/fingers completed [facility] 09/12/2020 09:20:20 procedure on heart completed [facility] 09/12/2020 09:20:35 Imaging Results None recorded. Procedure Notes None recorded. Medical Equipment None Reported. Allergies Allergen ID Allergen Name Allergen Category Reaction Reaction Severity Criticality Documentation Date Start Date Code Code System Note Provider Name and Address Organization Details Recorded Time 308215 codeine medicatio n Not available Not available Not available 09/12/20202014 2670 [facility] 0 09:16:18 068149 Demerol medicatio n Not available Not available Not available 09/12/20202014 34746 1 [facility] 0 09:16:18 Medications Name Sig Start [...] Not Available Not Available Not Available Mega[employer] [place]-3 Krill Oil 500 mg-115 mg-30 mg-64 mg [...] Address Organization Details Last Updated DateTime 09/12/2020 783631.21 g 31.9 kg/m2 182.88 cm Hayde Maldonado [facility] 09/12/2020 09:16:11 Social History Question Answer Notes LastModified by Organizat ion Details LastModified Time Tobacco Smoking Status Never Smoker Hayde Maldonado [facility] 09/12/2020 09:18:51 Which Illicit Or Recreational Drugs [...] not available 09/12/2020 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 Information not available 09/12/2020 Do you [...] Bipolar Disease N Coronary Artery Disease Y Seizure Disorder N Gout N Atrial Fibrillation Y Thyroid Disease N Hernia N Head Trauma/Injury N COPD N Depression N Anxiety Disorder N Acid Reflux (GERD) Y Cancer N Skin Disorder N Stroke N High Cholesterol Y Liver Disease N Rheumatoid Arthritis N Headaches Y Fibromyalgia N Autoimmune Disease N Kidney Disease N Osteoarthritis N Neurosurgery N DVT N Peptic Ulcer Disease N Anemia N Heart Attack (SD) Y Diabetes Y Cardiomyopathy N Bleeding Disorder [...] SNOMED-CT Code Diagnosis ICD10 Code Diagnosis Note [id number] Royal Vigil MD [place] [address] [place] [address] 09/12/2020 08:10:20 09/12/2020 10:02:41 Neck pain 68392644 M54.2 Long-term drug therapy 784078393 Z79.899 Cervical s pondylosis without myelopathy 881307625 M47.812 Degenerati on of cervical intervertebral disc 45124823 M50.30 [id number] MD Wilner [place] [address] [place] [address] 09/26/2020 13:22:11 09/26/2020 13:50:19 Cervical spondylosis 121062326 M47.812 Health Concerns Section Related Observation LastModified by Organization Detai ls LastModified Time None Recorded Concern Status LastModified by Organization Details LastModified Time None Recorded Advance Directives Directive None Recorded Payers Insurance Date Sequence Insurance Name Policy Number Policy [place] Covered Member ID [place] Member ID Guarantor Name 09/23/2020 2 [place] [facility] [place] FFS/TRADITION [place] Declan Frances Vamshi [id number] Declan G Vamshi 09/29/2020 1 [facility] Declan Frances Vamshi [id number] Declan Frances Vamshi Notes Date Note Type [...] Cervical Surgery:none Previous Injections:none Previous PT:none Previous patient care specialist:helped temporarily; 11/2017 2 x a week for [...] 6 months little benefit. Royal Vigil MD [address] [place] [address], [address], [facility] 09/12/2020 09:59:57
--- OUTSIDE RECORDS SUMMARY | 2025-06-03 08:01 | XMS_ITS | Patient Health Record ---
Author Organization [facility] Address [address] [place] [id number] Care Team Providers Care Patient Experience Coordinator Name Role Phone Virgilio Jenkins Primary Care Provider [phone] Bonnie Campa Unavailable [phone] Allergies Allergen (clinical drug ingredient) Drug/Non Drug Allergy documented on EMR Reaction Allergy Type Onset Date Status meperidine Demerol syncope Drug Allergy Active atorvastatin Lipitor leg cramps Drug Allergy Act do codeine Codeine syncope Drug Allergy Active Penicillin rash Drug Allergy Active Results Component Value Reference Range Notes P-Vitamin D 25-Hydroxy Reviewed date:01/16/2025 03:03:14 PM Interpretation:26.5 Performing Lab: Notes/Report: Test performed by [facility], [facility] [address] [place] [address] , [address], [place] [address] Natanael Barker MD, Balance Wheel Hand Filer CLIA: [id number] Vitamin D 25-Hydroxy 26.5 30.0-100.0 ng/mL Interpretation [...] 135 Performing Lab: Notes/Report: Test performed by [facility] [address] [place], [place] [address]Analiza Marshall , [address], [place] [address] Natanael Barker MD, Balance Wheel Hand Filer CLIA: [id number] Sodium 135 135-145 mmol/L Potassium 4.7 3.5-5.3 [...] 157 Performing Lab: Notes/Report: Test performed by [facility] [address] [place], [place] [address]Analiza [place] , [address], [place] [address] Natanael Barker MD, Balance Wheel Hand Filer CLIA: [id number] Cholesterol 156 <200 mg/dL Triglycerides 157 <150 [...] Performing Lab: Notes/Report: Test performed by [facility] , [address], [place] [address] Natanael Barker MD, Balance Wheel Hand Filer CLIA: [id number] PSA 0.29 <4.00 ng/mL Please note this is an ultrasensitive PSA assay with a lower limit of detection of 0.014 ng/mL. This test is performed by the [employer] ECLIA methodology. Values obtained with different assay methods or kits cannot be directly compared. P-TSH reflex to FT4 Reviewed date:04/12/2025 10:08:41 AM Interpretation:Normal Performing Lab: Notes/Report: Test performed by [facility] [address] , [place] [address] Natanael Barker MD, Balance Wheel Hand Filer CLIA: [id number] TSH reflex to FT4 3.20 0.43-5.25 mU/L P-Microalbumin/Creatinine, R andom Urine Sample Reviewed date:04/12/2025 10:08:41 AM Interpretation:Normal Performing Lab: Notes/Report: Test performed by [facility] [address] , [address], [place] [address] Natanael Barker MD, Balance Wheel Hand Filer CLIA: [id number] Albumin/Creatinine Ratio, Urine 3 0-30 ug/mg Microalbumin, Urine, Random 0.3 Creatinine, Urine 90.6 P-Vitamin D 25-Hydroxy Reviewed date:04/12/2025 10:08:41 AM Interpretation:Normal Performing Lab: Notes/Report: Test performed by [facility] [address] , [place] [address] Natanael Barker MD, Balance Wheel Hand Filer CLIA: [id number] Vitamin D 25-Hydroxy 47.2 30.0-100.0 ng/mL Interpretation of Vitamin D 25 OH: < 20 ng/mL - Deficiency 20 - 29 ng/mL - Insufficiency 30 - 100 ng/mL - Sufficiency > 100 ng/mL - Super-therapeutic- toxicity may occur above this level. Clinical correlation required. Glucose (In-House) Reviewed date:10/10/2024 12:46:34 PM Interpretation: Performing Lab: Notes/Report: blood glucose 158 74 - 106 mg/dL Glycohemoglobin A1c (in hous e) Reviewed date:10/10/2024 12:46:41 PM Interpretation: Performing Lab: Notes/Report: glycohemoglobin 6.6% 5 - 6.5 % P-Basic Metabolic Panel (BMP ) Reviewed date:10/11/2024 08:14:08 AM Interpretation:co2 20, gluc 166 Performing Lab: Notes/Report: Test performed by [facility] [address] [place] [address] , [place] [address] Natanael Barker MD, Balance Wheel Hand Filer CLIA: [id number] Sodium 135 135-145 mmol/L Potassium 5.0 3.5-5.3 mmol/L Chloride 100 97-108 mmol/L CO2 20 22-32 mmol/L Glucose 166 65-99 mg/dL BUN 16 6-20 mg/dL Creatinine 1.07 0.70-1.30 mg/dL Calcium 10.2 8.6-10.4 mg/dL eGFR by Creatinine 81 >59 mL/min/1.73m2 P-Vitamin D 25-Hydroxy Reviewed date:10/11/2024 08:14:08 AM Interpretation:29.1 Performing Lab: Notes/Report: Test performed by [facility] [address] [place] [address] , [address], [place] [address] Natanael Barkre MD, Balance Wheel Hand Filer CLIA: [id number] Vitamin D 25-Hydroxy 29.1 30.0-100.0 ng/mL Interpretation of Vitamin D 25 OH: < 20 ng/mL - Deficiency 20 - 29 ng/mL - Insufficiency 30 - 100 ng/mL - Sufficiency > 100 ng/mL - Super-therapeutic- toxicity may occur above this level. Clinical correlation required. ALPHAGAL Reviewed date:08/10/2024 04:07:55 PM Interpretation: Performing [...] AGIGE > 100 Class kU/L Performed at: [address] [id number] Junior Bookkeeper: Osorio De Luna MD, Phone: [phone] AGBEEF 27.20 Class V kU/L AGPORK 6.62 Class IV kU/L AGLAMB 10.90 Class IV kU/L CBC Fingerstick (in house) Reviewed date:09/11/2024 10:22:57 [...] - 38 plat 258 100 - 400 CBC Fingerstick (in house) [...] - 38 plat 267 100 - 400 CXR Reviewed date:10/16/2024 11:16:55 AM Interpretation: Performing Lab: Notes/Report: Medications Medication SIG (Take, Route, Frequency, Duration) Notes Start Date End Date Status Aldactone 25 MG 1 tablet Orally Once a day; Duration: 90 days Active Synjardy XR 12.5-1000 MG 2 tab(s) orally once a day; Duration: 90 days Active Symbicort 160-4.5 MCG/ACT 1 puff as need ed Inhalation every 4 hrs; Duration: 90 days Active Nadolol 80 MG 1 tablet Orally bid Active dilTIAZem HCl ER 120 MG TAKE 1 CAPSULE B Y MOUTH ONCE DAILY Orally Active Irbesartan 75 MG 2 tablets Orally Onc e a day Active Claritin 10 MG 1 [...] Once a day; Duration: 90 days Active OneTouch Verio - 1 test strip fingers tick test two times a day 10/07/2022 Active Flonase Allergy Relief 50 MCG/ACT 1 spray(s) in each nostril once a day; Duration: 30 day(s) Active MegaRed Lafferty-3 Krill Oil 500 MG as directed Orally Active Aspirin 81 MG 1 tablet Orally Once a day; Duration: 30 day(s) Active Ventolin HFA 90 MCG/ACT 1 puff as needed Inhalation every 4 hrs Active RABEprazole Sodium 20 MG 1 tablet after a meal Orally Once a day; Duration: 30 day(s) Active Gabapentin 300 MG 1 capsule Orally 3 t imes a day; Duration: 90 days 05/15/2025 Active tiZANidine HCl 4 MG 1 tablet at bedtime as needed Orally Once a day; Duration: 90 days Active Fenofibrate 160 MG 1 tablet Orally Once a day; Duration: 90 days Active Rybelsus 14 MG 1 tablet Orally Once a day; Duration: 90 days Active Immunizations Vaccine Route Administration Date Status Comme nts COVID 19 Moderna Unknown 02/25/2021 Administered COVID 19 Moderna Unknown 03/31/2021 Administered Fluzone Quad (6months&older) IM Intramuscular 08/17/2021 Administered Tetanus Tdap-Adacel (over 7yrs) IM Intramuscular 03/08/2018 Administered Tetanus Tdap-Adacel (over 7yrs) Unknown 03/25/2019 Administered xFluzone (6mos and older)-trivalent Unknown 09/28/2014 Administered Problems Problem Type SNOMED Code ICD Code Onset Dates Problem Status W/U Status Risk Notes Problem Essential hypertension (89905137) Essential (primary) hypertension (I10) Active confirmed Problem Type II diabetes mellitus without complication (866325932) Diabetes (E11.9) Active confirmed Problem Vitamin D deficiency (82832623) Vitamin D deficiency (E55.9) Active confirmed Problem Essential hypertension (97083540) Essential hypertension (I10) Active confirmed Problem Hypertriglyceridemia (317755051) Hypertriglyceridemia (E78.1) Active confirmed Problem Seasonal allergy (292694151) Seasonal allergies (J30.2) Active confirmed Problem Paroxysmal atrial fibrillation (160626985) Paroxysmal atrial fibrillation (I48.0) Active confirmed Problem Pure hyperglyceridemia (734243618) Pure hyperglyceridemia (E78.1) Active confirmed Problem Mixed hyperlipidemia (735371043) Mixed hyperlipidemia (E78.2) Active confirmed Problem Arteriosclerotic vascular disease (20957279) Arteriosclerotic cardiovascular disease (I25.10) Active confirmed Problem Cervical disc diseas e (265172690) Cervical disc disease (M50.90) Active confirmed Problem Atherosclerotic hear t disease of cahto coronary artery without angina pectoris (235461479192364) Coronary artery disease involving cahto coronary artery of cahto heart without angina pectoris (I25.10) Active confirmed Problem Erectile dysfunction (disorder) (433689092) Erectile dysfunction, unspecified erectile dysfunction type (N52.9) Active confirmed Problem History of circulatory system disease (937181913) History of cardiac dysrhythmia (Z86.79) Active confirmed Problem Atrial fibrillation (57024852) PAF (paroxysmal atrial fibrillation) (I48.0) Active confirmed Problem Sleep apnea (20219402) Sleep apnea, unspecified type (G47.30) Active confirmed Problem Iron deficiency anemia (14363979) Iron deficiency anemia, unspecified iron deficiency anemia type (D50.9) Active confirmed Problem Atrial fibrillation (91491155) Atrial fibrillation, unspecified type (I48.91) Active confirmed Problem Cervical spondylosis without myelopathy (611104907) Cervical radiculopathy due to degenerative joint disease of spine (M47.22) Active confirmed Problem Hyperlipidaemia (58931758) Hyperlipidemia, unspecified hyperlipidemia type (E78.5) Active confirmed Problem Disorder of neck (005165959) Disorder of neck (M53.82) Active confirmed Problem Atrial fibrillation (59498400) Atrial fibrillation with RVR (I48.91) Active confirmed Problem Dyslipidemia (663803817) Dyslipidemia (E78.5) Active confirmed Problem Paresthesia of both hands (443362963) Paresthesia of both hands (R20.2) Active confirmed Problem Type II diabetes mellitus without complication (434013221) Type 2 diabetes mellitus without complication, without long-term current use of insulin (E11.9) Active confirmed Problem Cervical spondylosis without myelopathy (040605003) Osteoarthritis of cervical spine, unspecified spinal osteoarthritis complication status (M47.812) Active confirmed Problem Atherosclerotic hear t disease of cahto coronary artery without angina pectoris (514999255761804) Arteriosclerosis of coronary artery (I25.10) Active confirmed Problem Atherosclerotic hear t disease of cahto coronary artery without angina pectoris (923399127392924) Atherosclerosis of cahto coronary artery without angina pectoris, unspecified whether cahto or transplanted heart (I25.10) Active confirmed Problem Neurologic disorder associated with type II diabetes mellitus (940551764) 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.49) Active confirmed Problem Displacement of cervical intervertebral disc without myelopathy (17125922) Bulging of cervical intervertebral disc (M50.20) Active confirmed Problem Arthropathy of cervical spine facet joint (disorder) (573167112) Facet arthropathy, cervical (M12.88) Active confirmed Problem Type II diabetes mellitus without complication (116137216) Type 2 diabetes mellitus without complication, unspecified whether chcf insulin use (E11.9) Active confirmed Problem Chronic ischemic heart disease (924532280) Chest pain due to myocardial ischemia, unspecified ischemic chest pain type (I25.9) Active confirmed Problem Insomnia disorder related to known organic factor (02583928) 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 confirmed Problem Food allergy (625284501) Allergy to alpha-gal (Z91.018) Active confirmed Vital Signs Heart Rate 70 /min 04/09/2025 Blood pressure diastolic 74 mm Hg 04/09/2025 Height 73 in 04/09/2025 Blood pressure systolic 112 mm Hg 04/09/2025 Weight 206.8 lbs 04/09/2025 BMI 27.28 kg/m2 04/09/2025 Encounters Encounter Location Date Provider Diagnosis [facility] [address] [place], [place] [id number] 06/26/2024 Bonnie Campa Insect bite W57.XXXA and Cellulitis L03.90 [facility] [address] [place], [place] [id number] 08/15/2024 Virgilio [place] Dizziness R42 and Al lergy to alpha-gal Z91.018 [facility] [address] [facility] [address] [place], [place] [id number] 09/10/2024 Virgilio [place] Hematoma of right th igh, initial encounter S70.11XA and Disorder of neck M53.82 [facility] [address] [place], [place] [id number] 09/27/2024 Virgilio [place] Acute URI J06.9 [facility] [address] [place] [id number] 10/08/2024 Virgilio [place] Persistent cough R05 .3 [facility] [address] [place], [place] [id number] 10/10/2024 Virgilio [place] Type 2 diabetes vaishnavi itus without complication, without long-term current use of insulin E11.9 ; Essential (primary) hypertension I10 ; Vitamin D deficiency E55.9 and Abnormal brain MRI R90.89 [facility] [address] [place], [place] [id number] 01/15/2025 Virgilio [place] Essential hypertensi on I10 and Vitamin D deficiency E55.9 [facility] [address] [place] [id number] 04/09/2025 Virgilio [place] Type 2 diabetes vaishnavi itus without complication, without long-term current use of insulin E11.9 ; Essential hypertension I10 ; Mixed hyperlipidemia E78.2 ; Hypertriglyceridemia E78.1 ; Iron deficiency anemia, unspecified iron deficiency anemia type D50.9 ; Sleep apnea, unspecified type G47.30 ; Prostate cancer screening Z12.5 ; Vitamin D deficiency E55.9 and BMI 27.0-27.9,adult Z68.27 [facility] [address] [place], [place] [id number] 08/10/2024 Virgilio [place] [facility] [address] [place] [id number] 08/10/2024 Virgilio [place] [facility] [address] [place] [id number] 08/23/2024 Virgilio [place] [facility] [address] [place] [id number] 10/11/2024 Virgilio [place] [facility] [address] [place] [id number] 10/17/2024 Virgilio [place] History of stroke Z8 6.73 [facility] [address] [place] [id number] 10/30/2024 Virgilio [place] Type 2 diabetes vaishnavi itus without complication, without long-term current use of insulin E11.9 and Other diabetic neurological complication associated with type 2 diabetes mellitus E11.49 [facility] [address] [place] [id number] 11/20/2024 Virgilio [place] [facility] [address] [place] [id number] 12/04/2024 Virgilio [place] Type 2 diabetes vaishnavi itus without complication, without long-term current use of insulin E11.9 [facility] [address] [place] [id number] 12/12/2024 Virgilio [place] [facility] [address] [place] [id number] 01/15/2025 Virgilio [place] [facility] [address] [place] [id number] 01/16/2025 Virgilio [place] [facility] [address] [place] [id number] 01/28/2025 Virgilio [place] [facility] [address] [place] [id number] 02/18/2025 Virgilio [place] [facility] [address] [place] [id number] 02/27/2025 Virgilio [place] [facility] [address] [place] [id number] 03/06/2025 Virgilio [place] [facility] [address] [place] [id number] 03/11/2025 Virgilio [place] [facility] [address] [place] [id number] 03/15/2025 Virgilio [place] [facility] [address] [place] [id number] 03/18/2025 Virgilio [place] [facility] [address] [place] [id number] 03/20/2025 Virgilio [place] [facility] [address] [place] [id number] 05/15/2025 Virgilio [place] [facility] [address] [place] [id number] 05/27/2025 Virgilio [place] Type 2 diabetes vaishnavi itus without complication, without long-term current use of insulin E11.9 Assessments Encounter Date Diagnosis (ICD Code) Assessment Notes Treatment Notes Treatment Clinical Notes Section Notes 06/26/2024 Cellulitis (ICD-10 - L03.90) 06/26/2024 Insect [...] current use of insulin (ICD-10 - E11.9) 05/27/2025 Type 2 diabetes vaishnavi itus without complication, without long-term current use of insulin (ICD-10 - E11.9) 04/09/2025 Mixed hyperlipidemia (ICD-10 - E78.2) 10/30/2024 [...] Sample 08/08/2023 Next Appt Details Provider Name:Virgilio Tesfaye ry, 10/10/2025 09:15:00 AM, [address], [place], [place], [id number], Insurance Providers Payer Name Payer Address Payer Phone Subscriber Number Group Number Insured Name Patient Relationship to Insured Coverage Start Date Coverage End Date [employer] [address] [place] [address] [id number] Declan Bonds Self - patient is the [...] 09/2023 Hospitalization History Reason Date(Month/Year) Chest Pain- [facility] ER 03/31-03/2021 Covid Symptoms- [facility] UTC 11/30/2020 A-Fib, Hypertension- [facility] 09/19- Heart Stent- [place] 04/08/2015 Possible Heart Problems- [facility] 03/2013 RT Eye Irritation- [facility] ER 11/2012 Heart Stent- [place] 2004
== END 2025-06-03 23:59 | disposition home or self-care (01) ==
LOC: RAD 07:59
PROVIDERS: PCP Family Medicine; Visit Provider Physician Assistant Surgical
DX: M19.032 Primary osteoarthritis, left wrist (principal); M19.042 Primary osteoarthritis, left hand; M19.041 Primary osteoarthritis, right hand; M25.531 Pain in right wrist
CPT/HCPCS: 73110; 73130

== ENCOUNTER 2025-08-19 11:23 | Outpatient (CLI) | payer BC, SELFPAY ==
--- OUTSIDE RECORDS SUMMARY | 2025-01-15 05:15 | XMS_ITS ---
[facility] Address [address] [place] [id number] Care Team Providers Care Apricot Packer Name Role Phone Virgilio Jenkins Primary Care Provider [phone] Allergies Allergen (clinical drug ingredient) Drug/Non Drug Allergy documented on EMR Reaction Allergy Type Onset Date Status meperidine Demerol syncope Drug Allergy Active atorvastatin Lipitor leg cramps Drug Allergy Act do codeine Codeine syncope Drug Allergy Active Penicillin rash Drug Allergy Active Results Component Value Reference Range Notes P-Vitamin D 25-Hydroxy Reviewed date:01/16/2025 03:03:14 PM Interpretation:26.5 Performing Lab: Notes/Report: CLIA: [id number] Natanael Barker MD, Color Making Supervisor [address] [place] [address] , [address], [place] [address] Test performed by [employer] Vitamin D 25-Hydroxy 26.5 30.0-100.0 ng/mL Interpretation [...] a day; Duration: 30 day(s) Active MegaRed [place]-3 Krill Oil 500 MG as directed Orally [...] 01/15/2025 Encounters Encounter Location Date Provider Diagnosis [facility] [address] [facility] [address] [place], [place] [id number] 01/15/2025 Virgilio Machias Essential hypertensi on I10 and Vitamin D [...] Months fasting visit, Reason: Provider Name:Virgilio Tesfaye nahed, 08/19/2025 02:15:00 PM, [address] [facility] [address] [facility], [address], [place], [id number], Provider Name:Virgilio Tesfaye nahed, 10/10/2025 09:15:00 AM, [address] [place] [address] [address] [facility], [address], [place], [place], [id number], Progress Notes * Declan BONDSDOB:[birth year] (60 yo M)Acc No.[id number]:01/15/2025 Progress Notes Patient: Declan FUENTES Provider: Ivan Jenkins M.D. :1965 A ge:59 Y S ex:Male Date:01/15/2025 Address:[address] [place] [address] [place], [id number] Subjective: * Chief Complaints: * 1 . [...] Hospitalization/Major Diagno stic Procedure: H eart Stent- [place] 2003, RT Eye Irritation- [facility] 11/2012, Possible Heart Problems- [facility] 03/2013, Heart Stent- [place] 04/08/2015, A-Fib, Hypertension- [facility] 09/19- , Covid Symptoms- [facility] UTC 11/30/2020, Chest Pain- [facility] 03/31-03/2021. * Family History: F ather: [...] Orally Once a day , Taking MegaRed [place]-3 Krill Oil 500 MG Capsule as directed [...] * Images: Billing Information: * Visit Code: 32175 Office Visit, Est Pt., Level 3. * Procedure Codes: 3074F SYST BP LT 130 MM HG. 3078F DIAST BP < 80 MM HG. * Electronic signature of Nevin Jenkins MD on 08/19/2025 at 11:27 AM EDT Sign off status: Pending * Provider: Ivan Jenkins M.D. Date: 0 01/15/2025 Generated for Esther larsen/Pauline/eTransmitting on: 0 08/19/2025 11:27 AM EDT History and Physical Notes * [...]
--- OUTSIDE RECORDS SUMMARY | 2025-04-09 05:45 | XMS_ITS ---
Author Organization [facility] Address [address] [place] [id number] Care Team Providers Care Platen Drier Operator Name Role Phone Virgilio Jenkins Primary [...] 10:08:41 AM Interpretation:glu 135 Performing Lab: Notes/Report: CLIA: [id number] Natanael Barker MD, Scratch Polisher [address] [place] [address] , [address], [place] [address] Test performed by [facility] Sodium 135 135-145 mmol/L Potassium 4.7 3.5-5.3 [...] 157 Performing Lab: Notes/Report: Test performed by [facility] [address] [place] [address] , [address], [place] [address] Natanael Barker MD, Scratch Polisher CLIA: [id number] Cholesterol 156 <200 mg/dL Triglycerides 157 <150 [...] Interpretation:Normal Performing Lab: Notes/Report: Test performed by [facility] , [place] [address] Natanael Barker MD, Scratch Polisher CLIA: [id number] PSA 0.29 <4.00 ng/mL Please note this is an ultrasensitive PSA assay with a lower limit of detection of 0.014 ng/mL. This test is performed by the Geovanna ECLIA methodology. Values obtained with different assay methods or kits cannot be directly compared. P-TSH reflex to FT4 Reviewed date:04/12/2025 10:08:41 AM Interpretation:Normal Performing Lab: Notes/Report: Test performed by [facility] , [place] [address] Natanael Barker MD, Scratch Polisher CLIA: [id number] TSH reflex to FT4 3.20 0.43-5.25 mU/L P-Microalbumin/Creatinine, R andom Urine Sample Reviewed date:04/12/2025 10:08:41 AM Interpretation:Normal Performing Lab: Notes/Report: Test performed by [facility] [address] [place] [address] , [address], [place] [address] Natanael Barker MD, Scratch Polisher CLIA: [id number] Albumin/Creatinine Ratio, Urine 3 0-30 ug/m g Microalbumin, Urine, Random 0.3 Creatinine, Urine 90.6 P-Vitamin D 25-Hydroxy Reviewed date:04/12/2025 10:08:41 AM Interpretation:Normal Performing Lab: Notes/Report: Test performed by [facility] [address] , [address], [place] [address] Natanael Barker MD, Scratch Polisher CLIA: [id number] Vitamin D 25-Hydroxy 47.2 30.0-100.0 ng/mL Interpretation [...] a day; Duration: 30 day(s) Active MegaRed [place]-3 Krill Oil 500 MG as directed Orally [...] 04/09/2025 Encounters Encounter Location Date Provider [facility] [address] [phone] 04/09/2025 Virgilio Jenkins Type 2 diabetes vaishnavi [...] Follow Up: 6 Months, Reason: Provider Name:Virgilio dockery, 08/19/2025 02:15:00 PM, [address] [place] [address] 36 [facility], [facility] [address], [place], [place], [id number], Provider Name:Virgilio dockery, 10/10/2025 09:15:00 AM, [address] [place] [address] 36 [facility], [facility] [address], [place], [place], [id number], Progress Notes * Declan BONDSDOB:[birth year] (60 yo M)Acc No.[id number]:04/09/2025 Progress Notes Patient: Declan FUENTES Provider: Ivan Jenkins M.D. :1965 A ge:59 Y S ex:Male Date:04/09/2025 Address:[address] [place], [place] [id number] Subjective: * Chief Complaints: * 1 . [...] oronary Artery Disease, Myocardial Infarction, S/P Stenting 2006, 2015, Atrial Fibrillation, Type 2 Diabetes, Hypertension, [...] Hospitalization/Major Diagno stic Procedure: H eart Stent- [place] 2003, RT Eye Irritation- [facility] ER 11/2012, Possible Heart Problems- [facility] 03/2013, Heart Stent- [place] 04/08/2015, A-Fib, Hypertension- [facility] 09/19- , Covid Symptoms- [facility] UTC 11/30/2020, Chest Pain- [facility] 03/31-03/2021. * Family History: F [...] Orally Once a day , Taking MegaRed [place]-3 Krill Oil 500 MG Capsule as directed [...] D deficiency - E55.9 9 . B [place] 27.0-27.9,adult - Z68.27 Plan: * Treatment: Value [...] PM > left message for return call eRgla Lang 04/12/2025 10:07:54 AM > pt informed [...] p latlet 264 100 - 400 * Regla Lang 04/09/2025 11: 23:53 AM > Regla Lang 04/11/2025 02:54:48 PM > left message for return call Regla Lang 04/12/2025 10:07:54 AM > pt informed of results 5.?Prostate cancer screening?LAB: P-PSA (Collection Date & Time - 04/09/2025 09:28 AM)?Normal* Value Reference Range P SA 0.29 <4.00 - ng/mL * Regla Lang 04/11/2025 02: 54:48 PM > left message for return call Regla Lang 04/12/2025 10:07:54 AM > pt informed of results 6.?Vitamin D deficiency?LAB: P-Vitamin D 25-Hydroxy (Collection Date & Time - 04/09/2025 09:28 AM)? Normal* Value Reference Range V itamin D 25-Hydroxy 47.2 30.0-100.0 - ng/mL * Regla Lang 04/11/2025 02: 54:48 PM > left message for return call Regla Lang 04/12/2025 10:07:54 AM > pt informed of results * Procedure Codes: 8 2950 GLUCOSE TEST, 37414 GLYCATED HEMOGLOBIN TEST, Modifiers: QW , 23844 CBC WITH AUTO DIFF, 3044F HG A1C LEVEL LT 7.0%, 3074F SYST BP LT 130 MM HG, 3078F DIAST BP < 80 MM HG * Follow Up: 6 Months * Images: Billing Information: * Visit Code: 62863 Office Visit, Est Pt., Level 4. * Procedure Codes: 59803 GLUCOSE TEST. 60379 GLYCATED HEMOGLOBIN TEST. Modifiers: QW 54043 CBC WITH AUTO DIFF. 3044F HG A1C LEVEL LT 7.0%. 3074F SYST BP LT 130 MM HG. 3078F DIAST BP < 80 MM HG. * Electronic signature of Nevin Jenkins MD on 08/19/2025 at 11:26 AM EDT Sign off status: Pending * Provider: Ivan Jenkins M.D. Date: 0 04/09/2025 Generated for Esther larsen/Pauline/eTransmitting on: 0 08/19/2025 11:26 AM EDT History and Physical Notes * HPI (History of Present Illness) Category Sub-Category Detail Notes Category Not es Endocrinology Maintenance Pt [facility]. Pt is fasting today. Pt sts that he is doing well and has no new concerns or complaints Examination Category Sub-Category Detail Notes Category Not es Cardiology Lungs: clear, no rales or wheezes Heart sounds: RRR, normal S1, S2 Extremities: no leg edema General Appearance: pleasant, NAD
--- OUTSIDE RECORDS SUMMARY | 2025-08-19 11:26 | XMS_ITS | Clinical Summary ---
Author Organization [facility] [place] [address] Care Team Providers Care Director Name Role Phone Unavailable Primary Care Provider [...] COVID-19 Vaccine ( - 2023-2 5 season) 2025 Influenza Vaccine (#1) 2025 Meningococcal B Vaccine Aged Out No l onger eligible based on patient's age to complete this topic
--- OUTSIDE RECORDS SUMMARY | 2025-08-19 11:26 | XMS_ITS | Encounter Summary ---
Author Organization [facility] Address [address] [place] [address] Care Team Providers Care Embossing Press Operator Molded Goods Name Role Phone Virgilio Jenkins MD Primary Care Provider [phone] Reason for Referral * Consultation (Routine) - Authorized Specialty Diagnoses / Procedures Referred By Srini argueta Referred To Contact Dentist / Pain Medicine Diagnoses Obstructive sleep apnea syndrome Gena [place] MD [address] [place] [address] Phone: tel: fax: Stephy Oglesby, DDS [address] [place] [address] Phone: tel: fax: Referral ID Status Reason Start Date Expiration Date V isits Requested Visits Authorized [id number] Authorized 07/22/2025 01/21/2027 1 1 Encounter Details Date Type Department Care Team (Late st Contact Info) Description 07/22/2025 [facility] [address] [place] [address] Gena [place] MD [address] [place] [address] Obstructive sleep apnea syndrome (Primary Dx) Social History Tobacco Use Types Packs/Day Years Used Date Smoking Tobacco: Never Assessed Sex and Gender Information Value Date Recorded Sex Assigned at Not on file Legal Sex Male 7:31 PM EDT Gender Identity Not on file Sexual Orientation Not on file documented as of this encounter Plan of Treatment Upcoming Encounters Date Type Department Care Team (Late st Contact Info) Description 10/09/2025 4:00 PM EST Office [facility] [place] [facility] [address] [place] [phone] Stephy Oglesby, DDS [address] [facility] [address] [place] [address] Scheduled Referrals Name Type Priority Associated Diagnoses Order Schedule Ambulatory Referral to [facility] Referral Routine Obstructive sleep apnea syndrome Expected: 07/22/2025 (Approximate), Expires: 01/22/2027 documented as of this encounter Visit Diagnoses Diagnosis Obstructive sleep apnea syndrome- Primary Obstructive sleep apnea (adult) (pediatric) documented in this encounter Care Teams Embossing Press Operator Molded Goods Relationship Specialty Start Date End Date Virgilio [place] MD [address] [facility] [address] [place] [address] PCP - General 03/25/23 documented as of this encounter
--- OUTSIDE RECORDS SUMMARY | 2025-08-19 11:26 | XMS_ITS | Clinical Summary ---
Author Organization [facility] Address [address] [place] [address] Care Team Providers Care Internet Ecommerce Specialist Name Role Phone Virgilio Jenkins MD Primary Care Provider [phone] Encounters Date Type Department Care Team Description 07/22/2025 [facility] [address] [place] [address] Gena [place] MD Obstructive sleep apnea syndrome (Primary Dx) from Last 3 Months Social History Tobacco Use Types Packs/Day Years Used Date Smoking Tobacco: Never Assessed Sex and Gender Information Value Date Recorded Sex Assigned at Not on file Legal Sex Male 7:31 PM EDT Gender Identity Not on file Sexual Orientation Not on file Plan of Treatment Upcoming Encounters Date Type Department Care Team (Late st Contact Info) Description 10/09/2025 4:00 PM EST Office Visit [facility] [address] [place] [address] Stephy Oglesby, DDS [address] [address] Health Maintenance Due Date Last Done Comments [facility]-Depression Screening 1967 [facility]-HIV Screening 1967 [facility]-Hepatitis C Screening 1967 [facility]-Infant/Child/Adol SDOH Screenings 1967 [facility]- SDOH Screenings 1985 [facility]-Adult SDOH Screenings 1985 [facility]-Hepatitis B Vaccines (1 of 3 - 19+ 3-dose series) 1986 CT Colonography 2012 Colonoscopy 2012 FIT-DNA 2012 FIT 2012 FOBT 2012 Sigmoidoscopy 2012 [facility]-Colorectal Cancer Screening 2012 [facility]-Pneumococcal Vaccine: 50 + Years (1 of 1 - PCV) 2017 [facility]-Zoster Vaccines (1 of 2) 2017 CXT-ASXWK-80 Vaccine (3 - season) 2025 03/31/2021, 02/25/2021 [facility]-Influenza Vaccine (#1) 07/29/202508/17, 09/28/2014 [...] patient's age to complete this topic Insurance [facility] Care Teams Internet Ecommerce Specialist Relationship Specialty Start Date End Date Virgilio Jenkins MD [address] [facility] [address] [place] [address] PCP - General 03/25/23
--- OUTSIDE RECORDS SUMMARY | 2025-08-19 11:27 | XMS_ITS | Clinical Summary ---
Author Organization [facility] Address [address] [place] [address] Care Team Providers Care Graphic Designer Name Role Phone Brian Candelaria MD Primary Care Provider [phone] Allergies Active Allergy Reactions Criticality Noted Date Comments Codeine Nausea Only 06/22/2023 Meperidine Anaphylaxis High 06/22/2023 Penicillins Hives 06/22/2023 Shellfish-Derived Products Anaphylaxis High 06/22/20 23 Medications aspirin 81 MG EC tablet Take 1 tablet by mouth Daily. Active dilTIAZem CD (CARDIZEM CD) 240 MG 24 hr capsule Take 1 capsule by mouth Daily. Active clopidogrel (PLAVIX) 75 MG tablet Take 1 tablet by mouth Daily. 3 Active Synjardy XR 12.5-1000 MG tablet sustained-releas e 24 hour TAKE 2 TABLETS BY MOUTH ONCE DAILY FOR 30 DAYS 3 Active fenofibrate 160 MG tablet Take 1 tablet by mouth Daily. Active Breo Ellipta 100-25 MCG/ACT aerosol powder Inhale 1 puff Daily. 3 Active gabapentin (NEURONTIN) 300 MG capsule Take 1 capsule by mouth 3 (Three) Times a Day. 3 Active lisinopril (PRINIVIL,ZESTRI L) 5 MG tablet Take 1 tablet by mouth Daily. Active nadolol (CORGARD) 40 MG tablet Take 1 tablet by mouth Daily. 3 Active ranolazine (RANEXA) 1000 MG 12 hr tablet Take 1 tablet by mouth Every 12 (Twelve) Hours. 3 Active Xarelto 20 MG tablet Take 1 tablet by mouth Daily With Dinner. Active Crestor 10 MG tablet Take 1 tablet by mouth Every Night. Active MegaRed [place]-3 Krill Oil 500 MG capsule Take 500 mg by mouth Daily. Active fluticasone (FLONASE) 50 MCG/ACT nasal spray 2 sprays into the nostril(s) as directed by provider Daily. Active loratadine (Claritin) 10 MG tablet Take 1 tablet by mouth Daily. Active albuterol sulfate HFA 108 (90 Base) MCG/ACT inhaler Inhale 2 puffs Every 4 (Four) Hours As Needed for Wheezing. Active esomeprazole (nexIUM) 40 MG capsuleIndicatio ns:LUQ pain,Chronic superficial gastritis without bleeding Take 1 capsule by mouth Daily. 30 capsule 5 3 Active Rybelsus 14 MG tablet Take 1 tablet by mouth Daily. Active RABEprazole (ACIPHEX) 20 MG EC tabletIndication s:Chronic superficial gastritis without bleeding Take 1 tablet by mouth once daily 30 tablet 11 4 Active Active Problems Problem Noted Date Diagnosed Date Cervical spondylosis 09/26/2020 Neck pain 09/12/2020 Hypertensive disorder 09/23/2017 Paroxysmal atrial fibrillation 01/03/2017 Hyperlipidemia 12/15/2015 Coronary arteriosclerosis in [place] artery 12/15 Chest pain 12/15/2015 Coronary arteriosclerosis in [place] 12/15 Overview (06/22/2023): From Automated Load;Provider: Brian Lei;Status: Active Immunizations Immunization Administration Dates Next Due 31-influenza Vac Quardvalent Preservativ 021 Influenza Seasonal Injectable 09/28/2014 Tdap 03/25/2019,03/08/2018 Family History Medical History Relation Name Comments Brain cancer Father FELISHA disease Father FELISHA disease Mother Colon cancer Neg Hx Colon polyps Neg Hx Esophageal cancer Neg Hx Relation Name Status Comments Father Mother Social History Tobacco Use Types Packs/Day Years Used Date Smoking Tobacco: Never Smokeless Tobacco: Never Tobacco Cessation:Counseling Given: No Alcohol Use Standard Drinks/Week Comments Never 0 (1 standard drink = 0.6 oz pur e alcohol) Abuse Screen Answer Date Recorded Unsafe at Home or Work/School Not on file 10 /09/2023 Feels Threatened by Someone? Not on file 09/2023 Does Anyone Keep You from Co ntacting Others or Doint Things Outside the Home? Not on file 09/07/2023 Physical Sign of Abuse Present Not on file 1 Housing Stability Answer Date Recorded Current Living Arrangements Not on file 08/28 Potentially Unsafe Housing Conditions Not on nedra e 09/07/2023 Family and Community Support Answer Fady e Recorded Help with Day-to-Day Activities Not on file 09/07/2023 Lonely or Isolated Not on file 09/07/2023 Employment Answer Date Recorded Do you want help finding or keeping work or a dixie b? Not on file 09/07/2023 Disabilities Answer Date Recorded Concentrating, Remembering, or Making Decisions Difficulty Not on file 09/07/2023 Doing Errands Independently Difficulty Not on fi le 09/07/2023 Education Answer Date Recorded Help with school or training? Not on file Preferred Language Not on file 09/07/2023 Sex and Gender Information Value Date Recorded Sex Assigned at Not on file Legal Sex Male 3:25 PM EDT Gender Identity Not on file Sexual Orientation Not on file Last Filed Vital Signs Vital Sign Reading Time Taken Comments Blood Pressure 124/68 12/01/2023 2:50 PM EST Pulse 91 12/01/2023 2:50 PM EST Temperature 36.9 C (98.4 F) 12/01/2023 2:50 PM EST Respiratory Rate 18 12/01/2023 2:50 PM EST Oxygen Saturation 99% 12/01/2023 2:50 PM EST Inhaled Oxygen Concentration - - Weight 99.8 kg (220 lb) 12/01/2023 2:50 PM EST Height 182.9 cm (6') 12/01/2023 2:50 PM EST Body Mass Index 29.84 12/01/2023 2:50 PM EST Plan of Treatment Health Maintenance Due Date Last Done Comments LIPID PANEL 1967 Pneumococcal Vaccine 50+ (1 of 2 - PCV) 1986 COLOGUARD 2012 COLON CANCER SCREENING 5 YEA R SIGMOIDOSCOPY 2012 CT COLONOGRAPHY 2012 FECAL OCCULT BLOOD TEST 2012 FIT Testing (1 year) 2012 ZOSTER VACCINE (1 of 2) 2017 ANNUAL PHYSICAL 06/13/2018 HEPATITIS C SCREENING 06/13/2018 INFLUENZA VACCINE 06/28/2025 08/17/2021, 09/28/2014 COLONOSCOPY 06/27/2028 06/27/2018, 06/27/2018 COLORECTAL CANCER SCREENING 06/27/2028 TDAP/TD VACCINES (3 - Td or Tdap) 03/25/2029 019, 03/08/2018 Procedures Procedure Name Priority Date/Time Associated Diagnosis Comments SCANNED - COLONOSCOPY 06/27/2018 from Last 3 Months or Most Recently Relevant to Health Maintenance Results * SCANNED - COLONOSCOPY (06/27/2018) Sergio Candelaria MD CHART REVIEW TABS Final R esult from Last 3 Months or Most Recently Relevant to Health Maintenance Insurance PPO Care Teams Graphic Designer Relationship Specialty Start Date End Date Brian Canedlaria MD [address] [place] [address] [place] [id number] PCP - General Family Medicine 06/05/18
[2025-08-19 11:29] LABS: Coronavirus 19, PCR Not Detected (NotDetected); Influenza A, PCR Not Detected (NotDetected); Influenza B, PCR Not Detected (NotDetected)
[2025-08-19 12:26] LABS: Troponin I < 0.01 ng/ml (0.00-0.034)
[2025-08-19 12:57] LABS: Chloride 97 mmol/L (98-107); Sodium 133 mmol/L (136-145)
[2025-08-19 12:58] LABS: Potassium 4.5 mmoL/L (3.5-5.1)
[2025-08-19 13:00] LABS: Blood Urea Nitrogen 27 mg/dl (9-20); Creatinine,Serum 1.30 mg/dl (0.66-1.25); Estimated Glomerular Filt Rate 57 ml/min (>60); GFR (African American) 69 ML/MIN (>60)
[2025-08-19 13:01] LABS: Anion Gap 13.5 mEq/L (5-15); Calcium 10.3 mg/dl (8.4-10.2); Carbon Dioxide 27 mmol/L (22.0-30.0); Glucose 179 mg/dl (74-100)
--- NOTE | 2025-08-19 14:41 | XR_ITS ---
FINAL REPORT CLINICAL HISTORY: LUQ ABD PAIN FINDINGS: A single supine view the abdomen was obtained. The bowel gas pattern is nonspecific but nonobstructive. There are no pathologic calcifications. Pelvic calcifications are likely phleboliths. Osseous structures are within normal limits. IMPRESSION: Nonspecific but nonobstructive bowel gas pattern. Reviewed, Interpreted and Dictated by Erin Barcenas MD Transcribed by Breana Lazcano Authenticated and [facility]
== END 2025-08-19 23:59 | disposition home or self-care (01) ==
PROVIDERS: Nurse Practitioner Family; PCP Family Medicine; Visit Provider Physician Assistant
DX: I25.119 Atherosclerotic heart disease of native coronary artery with unspecified angina pectoris (principal); I10 Essential (primary) hypertension; I27.20 Pulmonary hypertension, unspecified; R10.12 Left upper quadrant pain; R93.3 Abnormal findings on diagnostic imaging of other parts of digestive tract
CPT/HCPCS: 36415; 74019; 80048; 84484; 87636